=== PATIENT | male | born 1960 | race Two or more races ===

== ENCOUNTER 2017-04-24 22:25 | Emergency (ER) | payer OTHER ==
[2015-02-04 00:08] VITALS: BP 135/105
[2017-04-24] MEDS ORDERED: ONDANSETRON PF 4 MG/2 ML VIAL. IV ONE (22:45)
[2017-04-24] MEDS ORDERED: fentaNYL PF VIAL 100 MCG/2 ML VIAL IV ONE (22:45)
[2017-04-24 22:47] LABS: BASO # 0.1 x10^3/uL (0.0-0.2); BASO % 1 % (0-3); EOS % 2 % (0-3); HEMATOCRIT 41.2 % (39.0-53.0); LYMPH # 1.1 x10^3/uL (1.0-4.8); LYMPH % 14 % (24-48); MEAN CORPUSCULAR HEMOGLOBIN 32 pg (25-35); MEAN CORPUSCULAR HGB CONC 34 g/dL (31-37); MEAN CORPUSCULAR VOLUME 95 fL (79-100); MONO % 6 % (0-9); NEUT % 77 % (31-73); PLATELET COUNT 257 x10^3/uL (140-400); RED BLOOD COUNT 4.35 x10^6/uL (4.30-5.70); RED CELL DISTRIBUTION WIDTH 12.8 % (11.5-14.5); WHITE BLOOD COUNT 7.9 x10^3/uL (4.0-11.0)
[2017-04-24] MEDS ORDERED: IOHEXOL 300 MG/ML 75 ML VIAL IV ONE (23:00)
[2017-04-24] MEDS ORDERED: CONTRAST GIVEN MC PRN (23:00)
[2017-04-24 23:05] LABS: CALCIUM 8.8 mg/dL (8.5-10.1); POTASSIUM 3.1 mmol/L (3.5-5.1)
--- NOTE | 2017-04-24 23:18 | RAD ---
Examination: CT head and cervical spine without contrast Exposure: One or more of the following individualized dose reduction techniques were utilized for this examination: 1. Automated exposure control 2. Adjustment of the mA and/or kV according to patient size 3. Use of iterative reconstruction technique CT HEAD INDICATION: etoh, fall from ladder, prior sent COMPARISON: None Available. TECHNIQUE: 5 mm contiguous axial images were obtained from the skull base to the vertex in both bone and soft tissue algorithm. FINDINGS: No abnormal attenuation within the brain parenchyma. No evidence of acute intracranial hemorrhage. No extra-axial fluid collections. No mass effect or midline shift. Ventricular size is appropriate. Basal cisterns are patent. Mild soft tissue swelling identified in the left carotid region soft tissue injury. No fractures identified.Iglesias-white differentiation is preserved.Globes and orbits are within normal limits. Paranasal sinuses and mastoid air cells are clear. IMPRESSION: No acute intracranial findings. CT CERVICAL SPINE INDICATION: etoh, fall from ladder, prior sent COMPARISON: None Available. Technique: 2.5 mm contiguous axial images were obtained from the skull base through the cervicothoracic junction in both bone and soft tissue algorithm. Additional sagittal and coronal reconstructions were also performed. FINDINGS: Vertebral body alignment are maintained. Cervical lordosis is preserved. The lateral masses of C1 are aligned upon C2. No fractures identified. The bony canal is patent throughout. Moderate size anterior osteophyte formation identified at C4, C5, C6 vertebral levels. Large osteophyte formation identified identified at C7 vertebral level. Moderate intervertebral disc height loss identified at C3-C4, C4-C5, C5-C6, C6-C7 vertebral levels. The bilateral facets are well aligned. The paraspinous soft tissues are unremarkable. Visualized intracranial contents are unremarkable. Lung apices are clear. IMPRESSION: 1. No acute fracture of the cervical spine. Moderate degenerative change cervical spine. Electronically signed by: Romie Fierro MD (04/24/2017 11:15 PM) [facility]
--- NOTE | 2017-04-24 23:35 | RAD ---
Examination: CT chest/abdomen/pelvis with IV contrast and CT thoracic and lumbar spine without contrast Indication: trauma, back pain, no priors Technique: Contiguous axial images were obtained through the chest, abdomen, and pelvis after administration of IV contrast. Coronal and sagittal reformations were created. Axial CT images of the thoracic and lumbar spine was performed without contrast. Coronal and sagittal reformats are performed. Exposure: One or more of the following individualized dose reduction techniques were utilized for this examination: 1. Automated exposure control 2. Adjustment of the mA and/or kV according to patient size 3. Use of iterative reconstruction technique Comparison: None Findings: CHEST: There is no mediastinal hematoma. The heart size is normal. There is no pericardial effusion. The thoracic aorta is normal in caliber. The central airways are patent. Mild bibasilar lung airspace opacity likely atelectasis. Thin-walled cyst identified in the left lower lobe of the lung. Nondisplaced fractures of the posterior left ninth, 10th, 12th ribs. ABDOMEN/PELVIS: Streak artifact from tubing overlying the patient limits evaluation of the abdomen. The liver and spleen are normal in size with no evidence for contusion. The pancreas and adrenal glands are within normal limits. The kidneys are unremarkable. The bowel loops are normal in caliber. The appendix is normal. The abdominal aorta is normal in caliber. There is no hemoperitoneum. The urinary bladder is intact. Moderate degenerative changes visualized lumbar spine. The bilateral facets are well aligned. L5 spondylolysis without evidence of listhesis. Impression: 1. Nondisplaced fractures of the posterior left ninth, 10th, 12th ribs, probably subacute given the appearance correlate for point tenderness. Otherwise no obvious acute traumatic findings. Electronically signed by: Romie Fierro MD (04/24/2017 11:30 PM) [facility]
--- NOTE | 2017-04-24 23:46 | PHYS DOC ---
Past Medical History Past Medical History: No Pertinent History Past Surgical History: Other Additional Past Surgical Histo: L jaw sx, abd sx Alcohol Use: Heavy Drug Use: None Adult General Chief Complaint Chief Complaint: HEAD INJURY/TRAUMA HPI HPI Patient is a 57 year old male who presents with fall from ladder approximately 2 hours prior to ED arrival while at work. Patient states he lost his balance fell backwards. He believes he fell from a height of 20 feet. He reports hitting his head with loss of consciousness. Reports mild neck pain and left paraspinal back pain. Patient was ambulatory after accident went home. Patient has approximately 3 center deep lacerations over medial aspect of his left orbital rim. No globe injury present. Patient denies change of vision. Currently denies headache, nausea vomiting. Denies anterior chest pain, shortness of breath. No abdominal pain or tenderness. No pelvic pain or tenderness. Denies arm and leg pain tenderness. Patient has history of prior right ankle fracture. Reports increased right ankle pain tenderness and swelling. Patient ambulatory and arrives by private vehicle. Patient drinks occasional alcohol acknowledges drinking alcohol after his falling from the later this evening, 2 beers. Review of Systems Review of Systems ROS as per HPI. Current Medications Current Medications Current Medications Medications (Trade) Dose Ordered Sig/Rayna Start Time Stop Time Status Last Admin Dose Admin Fentanyl Citrate (Fentanyl 2ml Vial) 50 mcg 1X ONCE 04/24/17 22:45 04/24/17 22:46 DC 04/24/17 23:12 50 MCG Info (Do NOT chart on this entry -- for MONITORING) 1 each PRN DAILY PRN 04/24/17 23:00 04/25/17 02:16 TX Iohexol (Omnipaque 300 Mg/ml) 75 ml 1X ONCE 04/24/17 23:00 04/24/17 23:01 DC 04/24/17 23:09 75 ML Ondansetron HCl (Zofran) 4 mg 1X ONCE 04/24/17 22:45 04/24/17 22:46 DC 04/24/17 23:10 4 MG Tetanus/ Diphtheria Toxoids (Tenivac Syringe) 0.5 ml ONCE ONCE 04/25/17 00:15 04/25/17 00:16 DC 04/25/17 00:35 0.5 ML Allergies Allergies Allergies Coded Allergies Type Severity Reaction Last Updated Verified No Known Drug Allergies 02/01/15 No Physical Exam Physical Exam Constitutional: Well developed, well nourished, no acute distress, non-toxic appearance. [] HENT: Normocephalic,3 cm deep laceration or medial left eyebrow, bilateral external ears normal, oropharynx moist, no oral exudates, nose normal. [] Eyes: PERRLA, EOMI, conjunctiva normal, no discharge. [] Neck: Normal range of motion, no midline tenderness, supple, no stridor. [] Cardiovascular:Heart rate regular rhythm, no murmur [] Lungs & Thorax: Bilateral breath sounds clear to auscultation [] Abdomen: Bowel sounds normal, soft, no tenderness, no masses, no pulsatile masses. [] Skin: Warm, dry, no erythema, no rash. [] Back: No midline TTP, left paraspinal chest wall pain/tenderness. [] Extremities: No tenderness. [] Neurologic: Alert and oriented X 3, normal motor function, normal sensory function, no focal deficits noted. [] Psychologic: Affect normal, judgement normal, mood normal. [] Current Patient Data Vital Signs Vital Signs Date Time Temp Pulse Resp B/P (MAP) Pulse Ox O2 Delivery O2 Flow Rate FiO2 04/24/17 23:12 96 Room Air Lab Values Laboratory Tests Test 04/24/17 22:37 White Blood Count 7.9 x10^3/uL (4.0-11.0) Red Blood Count 4.35 x10^6/uL (4.30-5.70) Hemoglobin 14.0 g/dL (13.0-17.5) Hematocrit 41.2 % (39.0-53.0) Mean Corpuscular Volume 95 fL (79-100) Mean Corpuscular Hemoglobin 32 pg (25-35) Mean Corpuscular Hemoglobin Concent 34 g/dL (31-37) Red Cell Distribution Width 12.8 % (11.5-14.5) Platelet Count 257 x10^3/uL (140-400) Neutrophils (%) (Auto) 77 % (31-73) H Lymphocytes (%) (Auto) 14 % (24-48) L Monocytes (%) (Auto) 6 % (0-9) Eosinophils (%) (Auto) 2 % (0-3) Basophils (%) (Auto) 1 % (0-3) Neutrophils # (Auto) 6.1 x10^3uL (1.8-7.7) Lymphocytes # (Auto) 1.1 x10^3/uL (1.0-4.8) Monocytes # (Auto) 0.5 x10^3/uL (0.0-1.1) Eosinophils # (Auto) 0.2 x10^3/uL (0.0-0.7) Basophils # (Auto) 0.1 x10^3/uL (0.0-0.2) Sodium Level 145 mmol/L (136-145) Potassium Level 3.1 mmol/L (3.5-5.1) L Chloride Level 108 mmol/L (98-107) H Carbon Dioxide Level 23 mmol/L (21-32) Anion Gap 14 (6-14) Blood Urea Nitrogen 14 mg/dL (8-26) Creatinine 1.0 mg/dL (0.7-1.3) Estimated GFR (Cockcroft-Gault) 77.0 Glucose Level 157 mg/dL (70-99) H Calcium Level 8.8 mg/dL (8.5-10.1) Laboratory Tests 04/24/17 22:37 Laboratory Tests 04/24/17 22:37 EKG EKG [] Radiology/Procedures Radiology/Procedures [CT head/cervical spine/chest/abdomen/pelvis/lumbar/thoracic spine: Multiple Nondisplaced left posterior rib fractures. No other injury evident per radiology report. Right ankle: No obvious displaced acute fracture. Laceration repair procedure note Complex facial laceration of left eyebrow, patient with 3 cm full-thickness stellate laceration involving. Wound is clean, pain controlled with 3 mL so lidocaine injected into wound. Closed with #9 simple interrupted sutures.] Course & Med Decision Making Course & Med Decision Making Pertinent Labs and Imaging studies reviewed. (See chart for details) Trauma alert on ED arrival. Soft tissue she wounds evident on exam, with back pain tenderness without facial injury present. Patient reports possible loss of consciousness. CT head/cervical spine negative. [Patient laceration cleaned and closed. Will controlled. Will discharge home with close head injury instructions and treatment pain from rib injury. Work comp/PCP follow-up recommended. Return precautions reviewed. Dragon Disclaimer Dragon Disclaimer This electronic medical record was generated, in whole or in part, using a voice recognition dictation system. Departure Departure Impression: Primary Impression: Concussion with loss of consciousness Additional Impressions: Facial laceration Multiple rib fractures Disposition: HOME, SELF-CARE Condition: STABLE Referrals: NO PCP (PCP) Problem Qualifiers SCOOTER TOMPKINS DO Apr 24, 2017 23:46
[2017-04-25] MEDS ORDERED: TETANUS AND DIPHTHERIA TOX/PF 0.5 ML DISP.SYRIN. VAX IM ONE (00:15)
--- NOTE | 2017-04-25 08:06 | RAD ---
Right ankle, 3 views, 04/24/2017: History: Trauma There is deformity of the distal fibula due to an old healed fracture. There were moderately severe underlying degenerative changes at the ankle joint. There are spurs and degenerative type subchondral cysts along the talar dome and articular surface of the distal talus. Calcific densities at the tip of the medial malleolus appear to be old. No acute fracture or dislocation is identified. Arterial calcifications are evident. IMPRESSION: 1. Old healed distal fibular fracture. 2. Moderately severe degenerative change at the ankle joint. 3. No acute bony abnormality is detected.
== END 2017-04-25 01:50 | disposition home or self-care (01) ==
LOC: ER 22:25
DX: S06.0X0A Concussion without loss of consciousness, initial encounter (principal); S22.42XA Multiple fractures of ribs, left side, initial encounter for closed fracture; S01.112A Laceration without foreign body of left eyelid and periocular area, initial encounter; M25.571 Pain in right ankle and joints of right foot; W11.XXXA Fall on and from ladder, initial encounter; Y93.89 Activity, other specified; Y99.8 Other external cause status; Y92.89 Other specified places as the place of occurrence of the external cause
CPT/HCPCS: 12013; 36415; 70450; 71260; 72125; 73610; 74160; 80048; 85025; 90471; 90714; 96374; 96375; 99285; J2405; J3010; Q9967

== ENCOUNTER 2018-02-08 20:22 | Emergency (ER) | payer SELFPAY, OTHER | END 2018-02-08 22:25 | disposition left against medical advice (07) | LOC: ER 20:22 | DX: M25.562 Pain in left knee (principal); F10.229 Alcohol dependence with intoxication, unspecified; Y08.09XA Assault by strike by other specified type of sport equipment, initial encounter; Y93.89 Activity, other specified; Y99.8 Other external cause status; Y92.89 Other specified places as the place of occurrence of the external cause | CPT/HCPCS: 70450; 99284-25 ==

== ENCOUNTER 2019-04-19 17:02 | Emergency (ER) | payer OTHER ==
[~2019-04-19] VITALS: Ht 182.9 cm; Wt 90.7 kg
[2019-04-19 17:30] VITALS: BP 141/104
[2019-04-19] MEDS ORDERED: SURGICEL HEMOSTAT 4X8 EACH. TP ONE (17:30)
--- NOTE | 2019-04-19 18:43 | PHYS DOC ---
Past Medical History Past Medical History: No Pertinent History (DEEPTI DAVALOS APRN) Past Surgical History: Other Additional Past Surgical Histo: L jaw sx, abd sx (DEEPTI DAVALOS APRN) Smoking: Less than 1pk/day Alcohol Use: Heavy Additional Information: PT STATES HE DRANK WISKEY AND BEER TODAY. Drug Use: None (DEEPTI DAVALOS APRN) Adult General Chief Complaint Chief Complaint: LACERATION/AVULSION HPI HPI Patient is a 58 year old male who presents to the emergency department with complaints of a laceration to his left thumb. Patient admits to drinking beer and whiskey to help control the pain. Currently he rates the pain that has noted on the pain scale, there are no alleviating factors, the pain increases the area is touched. Patient states he was at work when he accidentally cut his thumb. Patient is unsure when his last tetanus shot was in refuses a tetanus immunization during this visit. (DEEPTI DAVALOS APRN) Review of Systems Review of Systems Constitutional: Denies fever or chills [] Musculoskeletal: Denies joint pain [] Integument: Denies rash; see HPI Neurologic: Denies focal weakness or sensory changes [] Complete systems were reviewed and found to be within normal limits, except as documented in this note. (DEEPTI DAVALOS APRN) Current Medications Current Medications Current Medications Medications (Trade) Dose Ordered Sig/Rayna Start Time Stop Time Status Last Admin Dose Admin Cellulose (Surgicel Hemostat 4x8) 1 each 1X ONCE 04/19/19 17:30 04/19/19 17:31 DC 04/19/19 17:41 1 EACH Ibuprofen (Motrin) 800 mg 1X ONCE 04/19/19 18:45 04/19/19 18:46 DC 04/19/19 19:03 800 MG (ROBERT PLEITEZ DO) Allergies Allergies Allergies Coded Allergies Type Severity Reaction Last Updated Verified No Known Drug Allergies 02/01/15 No (ROBERT PLEITEZ DO) Physical Exam Physical Exam Constitutional: Well developed, well nourished, no acute distress, non-toxic appearance, strong odor of ETOH. [] HENT: Normocephalic, atraumatic, bilateral external ears normal, nose normal. [] Eyes: PERRLA, EOMI, conjunctiva normal, no discharge. [] Neck: Normal range of motion, no stridor. [] Cardiovascular:Heart rate regular rhythm Lungs & Thorax: Respirations even and unlabored, no retractions, no respiratory distress Skin: Warm, dry, no erythema, no rash; avulsion of lateral left thumb through the distal lateral aspect of the thumbnail that measures 3 cm x 1 cm, bleeding is controlled with direct pressure; there is a 1 cm x 0.5 cm avulsion noted to the proximal left thumb, bleeding is controlled with direct pressure.] Back: No tenderness, no CVA tenderness. [] Extremities: No tenderness, no cyanosis, no clubbing, ROM intact, no edema. [] Neurologic: Alert and oriented X 3, normal motor function, normal sensory function, no focal deficits noted. [] Psychologic: Affect normal, judgement normal, mood normal. [] (DEEPTI DAVALOS APRN) Current Patient Data Vital Signs Vital Signs Date Time Temp Pulse Resp B/P (MAP) Pulse Ox O2 Delivery O2 Flow Rate FiO2 04/19/19 17:30 98.2 78 18 141/104 (116) 97 Room Air 98.2 (ROBERT PLEITEZ DO) EKG EKG [] (DEEPTI DAVALOS APRN) Radiology/Procedures Radiology/Procedures L thumb xray was negative for acute findings or fracture read by Dr. Pleitez. The avulsed areas were cleansed with soap and water by myself, Surgicel was applied over both avulsion sites, the Surgicel was then covered with Telfa and then Coban was applied to the areas. (DEEPTI DAVALOS APRN) Course & Med Decision Making Course & Med Decision Making Pertinent Labs and Imaging studies reviewed. (See chart for details) Dx: L thumb avulsions Pt refused a tetanus immunization. Wound care as documented under procedures. L thumb xray was negative for acute findings. The patient was discharged home with his daughter. Pt was given 800 mg of ibuprofen for pain. Pt's daughter and Patient verbalized an understanding of home care, medications, follow-up, and return to ED instructions and was in agreement with the plan of care. [] (DEEPTI DAVALOS APRN) Dragon Disclaimer Dragon Disclaimer This electronic medical record was generated, in whole or in part, using a voice recognition dictation system. (DEEPTI DAVALOS APRN) Departure Departure Impression: Primary Impression: Avulsion of skin of left thumb without complication Additional Impressions: Injury of left thumb Refused phwnvopoik-[id number]-ldtptyx (DPT) vaccination Disposition: 01 HOME, SELF-CARE Condition: STABLE Referrals: NO PCP (PCP) Patient Instructions: Deep Skin Avulsion Additional Instructions: You may take ibuprofen as needed for pain every 6 hours. Keep the dressing that was placed in the ER on for the next 24 hours. Then change the dressing twice daily, the surgicel will fall off on it's own as the wound heals. Follow up with your primary care doctor as needed, return to the ER if symptoms worsen. Attending Signature Attending Signature I have reviewed the PA/[employer]OT[employer] TECHNICIAN's note and plan of care. I was available for consultation as needed during the patient's visit in the emergency department. I agree with the clinical impression, plan, and disposition. (ROBERT PLEITEZ DO) Problem Qualifiers Primary Impression: Avulsion of skin of left thumb without complication Encounter type: initial encounter Qualified Codes: S61.002A - Unspecified open wound of left thumb without damage to nail, initial encounter Additional Impressions: Injury of left thumb Encounter type: initial encounter Qualified Codes: S69.92XA - Unspecified injury of left wrist, hand and finger(s), initial encounter DEEPTI DAVALOS APRN Apr 19, 2019 18:43 ROBERT PLEITEZ DO Apr 21, 2019 03:54
[2019-04-19] MEDS ORDERED: IBUPROFEN 400 MG TABLET. PO ONE (18:45)
--- NOTE | 2019-04-20 03:39 | RAD ---
Left thumb 3 views. HISTORY: Left thumb injury, cut with saw 3 views were taken the left thumb. There is subluxation at the first metacarpal phalangeal joint possible ligamentous injury. There is soft tissue injury of the thumb. There is no acute fracture. There is mild arthritis at the first carpal metacarpal joint. IMPRESSION: 1. Soft tissue injury left thumb. 2. Subluxation of the first metacarpal phalangeal joint possible ligamentous injury. Electronically signed by: Modesto Fulton MD (04/20/2019 3:36 AM) [id number]
== END 2019-04-19 19:04 | disposition home or self-care (01) ==
LOC: ER 17:02
DX: S61.012A Laceration without foreign body of left thumb without damage to nail, initial encounter (principal); F17.200 Nicotine dependence, unspecified, uncomplicated; F10.20 Alcohol dependence, uncomplicated; Y90.9 Presence of alcohol in blood, level not specified; W26.8XXA Contact with other sharp object(s), not elsewhere classified, initial encounter; Y93.89 Activity, other specified; Y92.89 Other specified places as the place of occurrence of the external cause; Y99.8 Other external cause status
CPT/HCPCS: 73140; 99284

== ENCOUNTER 2019-05-19 18:28 | Inpatient (IN) | payer SELFPAY ==
[~2019-05-19] VITALS: Ht 172.7 cm; Wt 83.1 kg
[2019-05-19] MEDS ORDERED: MULTIVIT INFUSN,ADULT 4,VIT K 10 ML, THIAMINE INJ 100 MG, FOLIC ACID INJ 1 MG in IV NOR... IV ONE (19:30)
[2019-05-19] MEDS ORDERED: ONDANSETRON PF 4 MG/2 ML VIAL. IV ONE (19:30)
[2019-05-19 19:31] LABS: PROTHROMBIN TIME PATIENT 11.4 SEC (11.7-14.0)
[2019-05-19 19:36] LABS: BASO % 1 % (0-3); EOS # 0.1 x10^3/uL (0.0-0.7); EOS % 2 % (0-3); HEMATOCRIT 41.6 % (39.0-53.0); HEMOGLOBIN 14.2 g/dL (13.0-17.5); LYMPH # 0.9 x10^3/uL (1.0-4.8); LYMPH % 13 % (24-48); MEAN CORPUSCULAR HEMOGLOBIN 33 pg (25-35); MEAN CORPUSCULAR HGB CONC 34 g/dL (31-37); MEAN CORPUSCULAR VOLUME 97 fL (79-100); MONO # 0.6 x10^3/uL (0.0-1.1); MONO % 9 % (0-9); NEUT % 75 % (31-73); PLATELET COUNT 165 x10^3/uL (140-400); RED BLOOD COUNT 4.28 x10^6/uL (4.30-5.70); WHITE BLOOD COUNT 6.7 x10^3/uL (4.0-11.0)
[2019-05-19 19:41] LABS: CALCIUM 8.9 mg/dL (8.5-10.1); GFR 76.5; POTASSIUM 3.6 mmol/L (3.5-5.1)
[2019-05-19 19:47] LABS: ALBUMIN 3.4 g/dL (3.4-5.0); MAGNESIUM 2.2 mg/dL (1.8-2.4); TOTAL BILIRUBIN 0.3 mg/dL (0.2-1.0); TOTAL PROTEIN 6.9 g/dL (6.4-8.2)
[2019-05-19 20:14] LABS: BARBITURATES NEG (NEG); BENZODIAZEPINES NEG (NEG); CANNABINOIDS NEG (NEG); COCAINE NEG (NEG); METHADONE NEG (NEG); OPIATES NEG (NEG); PHENCYCLIDINE NEG (NEG)
[2019-05-19 20:15] LABS: AMPHETAMINE/METHAMPHETAMINE NEG (NEG)
[2019-05-19] MEDS ORDERED: ASPIRIN 325 MG TABLET PO ONE (20:15)
[2019-05-19 20:16] LABS: ACETAMIN < 2 mcg/ml (10-30); SALIC 4.1 mg/dL (2.8-20.0)
--- NOTE | 2019-05-19 20:26 | PHYS DOC ---
Past Medical History Past Medical History: No Pertinent History (DEEPTI DAVALOS APRN) Past Surgical History: Other Additional Past Surgical Histo: L jaw sx, abd sx (DEEPTI DAVALOS APRN) Alcohol Use: Heavy Drug Use: None (DEEPTI DAVALOS APRN) Attending Signature I have participated in the care of this patient and I have reviewed and agree with all pertinent clinical information above including history, exam, and recommendations. (XUAN RIVERO MD) Adult General Chief Complaint Chief Complaint: CHEST PAIN HPI HPI Patient is a 59 year old male who presents to the emergency department via EMS with complaints of chest pain on the left side for the last 2 days. Patient reports shortness of breath, wheezing, nausea, vomiting, and diaphoresis with the symptoms. He admits to drinking 3 bottles of whiskey today. Patient states he has also had some diarrhea for the last 3 days. He denies any fever, c ough, nasal congestion, ear pain, abdominal pain, or rash. Patient currently rates his pain a 9 out of 10 on pain scale, there are no alleviating or exacerbating factors. (DEEPTI DAVALOS APRN) Review of Systems Review of Systems Constitutional: Denies fever or chills [] Eyes: Denies change in visual acuity, redness, or eye pain [] HENT: Denies nasal congestion or sore throat [] Respiratory: Denies cough; see history of present illness Cardiovascular: No additional information not addressed in HPI [] GI: See history of present illness : Denies dysuria or hematuria [] Musculoskeletal: Denies back pain or joint pain [] Integument: Denies rash or skin lesions [] Neurologic: Denies headache, focal weakness or sensory changes [] Psychiatric: Patient reports suicidal ideations Complete systems were reviewed and found to be within normal limits, except as documented in this note. (DEEPTI DAVALOS APRN) Current Medications Current Medications Current Medications Medications (Trade) Dose Ordered Sig/Rayna Start Time Stop Time Status Last Admin Dose Admin Aspirin (Pete Aspirin) 325 mg 1X ONCE 05/19/19 20:15 05/19/19 20:17 DC 05/19/19 20:26 325 MG Multivitamins 10 ml/Thiamine HCl 100 mg/Folic Acid 1 mg/Sodium Chloride 1,011.2 ml @ 1,000.088 mls/hr 1X ONCE 05/19/19 19:30 05/19/19 20:30 DC 05/19/19 19:39 1,000.088 MLS/HR Ondansetron HCl (Zofran) 4 mg 1X ONCE 05/19/19 19:30 05/19/19 19:31 DC 05/19/19 19:39 4 MG (XUAN RIVERO MD) Allergies Allergies Allergies Coded Allergies Type Severity Reaction Last Updated Verified No Known Drug Allergies 02/01/15 No (XUAN RIVERO MD) Physical Exam Physical Exam Constitutional: Well developed, well nourished, no acute distress, non-toxic appearance, intoxicated. [] HENT: Normocephalic, atraumatic, bilateral external ears normal, oropharynx moist, no oral exudates, nose normal. [] Eyes: PERRLA, EOMI, conjunctiva normal, no discharge. [] Neck: Normal range of motion, no tenderness, supple, no stridor. [] Cardiovascular:Heart rate regular rhythm, no murmur [] Lungs & Thorax: Bilateral breath sounds clear to auscultation [] Abdomen: Bowel sounds normal, soft, no tenderness, no masses, no pulsatile masses. [] Skin: Warm, dry, no erythema, no rash. [] Back: No tenderness Extremities: No cyanosis, no clubbing, ROM intact, no edema. [] Neurologic: Alert and oriented X 3, no focal deficits noted. [] Psychologic: Affect intoxicated, judgement impaired, mood depressed (DEEPTI DAVALOS APRN) Current Patient Data Vital Signs Vital Signs Date Time Temp Pulse Resp B/P (MAP) Pulse Ox O2 Delivery O2 Flow Rate FiO2 05/19/19 20:11 86 175/116 (135) 95 Nasal Cannula 2.0 05/19/19 18:28 98.0 18 98.0 (XUAN RIVERO MD) Lab Values Laboratory Tests Test 05/19/19 19:15 05/19/19 20:00 White Blood Count 6.7 x10^3/uL (4.0-11.0) Red Blood Count 4.28 x10^6/uL (4.30-5.70) L Hemoglobin 14.2 g/dL (13.0-17.5) Hematocrit 41.6 % (39.0-53.0) Mean Corpuscular Volume 97 fL (79-100) Mean Corpuscular Hemoglobin 33 pg (25-35) Mean Corpuscular Hemoglobin Concent 34 g/dL (31-37) Red Cell Distribution Width 13.0 % (11.5-14.5) Platelet Count 165 x10^3/uL (140-400) Neutrophils (%) (Auto) 75 % (31-73) H Lymphocytes (%) (Auto) 13 % (24-48) L Monocytes (%) (Auto) 9 % (0-9) Eosinophils (%) (Auto) 2 % (0-3) Basophils (%) (Auto) 1 % (0-3) Neutrophils # (Auto) 5.0 x10^3/uL (1.8-7.7) Lymphocytes # (Auto) 0.9 x10^3/uL (1.0-4.8) L Monocytes # (Auto) 0.6 x10^3/uL (0.0-1.1) Eosinophils # (Auto) 0.1 x10^3/uL (0.0-0.7) Basophils # (Auto) 0.0 x10^3/uL (0.0-0.2) Prothrombin Time 11.4 SEC (11.7-14.0) L Prothrombin Time INR 0.9 (0.8-1.1) Activated Partial Thromboplast Time 24 SEC (24-38) Sodium Level 146 mmol/L (136-145) H Potassium Level 3.6 mmol/L (3.5-5.1) Chloride Level 109 mmol/L (98-107) H Carbon Dioxide Level 24 mmol/L (21-32) Anion Gap 13 (6-14) Blood Urea Nitrogen 17 mg/dL (8-26) Creatinine 1.0 mg/dL (0.7-1.3) Estimated GFR (Cockcroft-Gault) 76.5 BUN/Creatinine Ratio 17 (6-20) Glucose Level 83 mg/dL (70-99) Calcium Level 8.9 mg/dL (8.5-10.1) Magnesium Level 2.2 mg/dL (1.8-2.4) Total Bilirubin 0.3 mg/dL (0.2-1.0) Aspartate Amino Transferase (AST) 38 U/L (15-37) H Alanine Aminotransferase (ALT) 43 U/L (16-63) Alkaline Phosphatase 78 U/L (46-116) Creatine Kinase 230 U/L (39-308) Creatine Kinase MB (Mass) 2.8 ng/mL (0.0-3.6) Creatine Kinase MB Relative Index 1.2 % (0-4) Troponin I Quantitative 0.071 ng/mL (0.000-0.055) Total Protein 6.9 g/dL (6.4-8.2) Albumin 3.4 g/dL (3.4-5.0) Albumin/Globulin Ratio 1.0 (1.0-1.7) Lipase 501 U/L (73-393) H Salicylates Level 4.1 mg/dL (2.8-20.0) Salicylate Last Dose Date Unk Salicylate Last Dose Time Unk Acetaminophen Level < 2 mcg/ml (10-30) L Acetaminophen Last Dose Date Unl Acetaminophen Last Dose Time Unk Ethyl Alcohol Level 384 mg/dL (0-10) H Urine Opiates Screen Neg (NEG) Urine Methadone Screen Neg (NEG) Urine Barbiturates Neg (NEG) Urine Phencyclidine Screen Neg (NEG) Urine Amphetamine/Methamphetamine Neg (NEG) Urine Benzodiazepines Screen Neg (NEG) Urine Cocaine Screen Neg (NEG) Urine Cannabinoids Screen Neg (NEG) Urine Ethyl Alcohol Pos (NEG) Laboratory Tests 05/19/19 19:15 Laboratory Tests 05/19/19 19:15 (XUAN RIVERO MD) EKG EKG 1841- SR rate 87, leftward axis, NO STEMI, read by Dr. Rivero[] (DEEPTI DAVALOS APRN) Radiology/Procedures Radiology/Procedures CXR no acute findings read by Dr. Rivero[] (DEEPTI DAVALOS APRN) Course & Med Decision Making Course & Med Decision Making Pertinent Labs and Imaging studies reviewed. (See chart for details) Dx:Chest pain, suicidal ideations, ETOH intoxication CBC unremarkable; PT/INR WNL; CMP: Na 146, cl 109, AST 38, lipase 501, troponin 0.071; ID positive for alcohol, alcohol level 384 CXR unremarkable EKG no acute changes PT was given 325 of aspirin in the ER, he denied chest pain to nurse. Pt was placed on 1:1 after suicidal statements were made to nurse, PAT consult ordered for tomorrow. 2019- Spoke with Dr. Hernandez will admit patient for chest pain, intoxication, suicidal ideations [] (DEEPTI DAVALOS APRN) Dragon Disclaimer Dragon Disclaimer This electronic medical record was generated, in whole or in part, using a voice recognition dictation system. (DEEPTI DAVALOS APRN) Departure Departure Impression: Primary Impression: Chest pain Additional Impressions: Suicidal ideations Intoxication Disposition: ADMITTED INPATIENT Admitting Physician: MOHSEN LOPEZ) (DEEPTI DAVALOS APRN) Referrals: NO PCP (PCP) The HEART Score for CP Pts HEART Score for Chest Pain: HEART Score for Chest Pain Response (Comments) Value History Slighlty/Non-Suspicious 0 ECG Normal 0 Age >45 - < 65 1 Risk Factors 1 or 2 Risk Factors 1 Troponin >1-<3x Normal Limit 1 Total 3 Risk Factors: Risk Factors: DM, Current or recent (<one month) smoker, HTN, HLP, family history of CAD, obesity. Risk Scores: Score 0 - 3: 2.5% MACE over next 6 weeks - Discharge Home Score 4 - 6: 20.3% MACE over next 6 weeks - Admit for Clinical Observation Score 7 - 10: 72.7% MACE over next 6 weeks - Early Invasive Strategies (DEEPTI DAVALOS APRN) Problem Qualifiers Primary Impression: Chest pain Chest pain type: unspecified Qualified Codes: R07.9 - Chest pain, unspecified DEEPTI DAVALOS APRN May 19, 2019 20:26 XUAN RIVERO MD May 20, 2019 02:59
[2019-05-19 21:30] VITALS: BP 158/94
[2019-05-19] MEDS ORDERED: HALOPERIDOL LACTATE 5 MG/ML VIAL. IVP PRN (21:30)
--- NOTE | 2019-05-19 21:30 | NUR ---
Admit from ER w/ CP, ETOH and SI. c/o sharp left sided chest pain x 2 days. States he drinks whiskey and beer for pain control. States "everybody dies and I need to." Reports + suicidal attempt by hanging 3 months ago due to leaving him, but "the rope broke." Is in general unkempt state, alert and oriented currently, asks this RN "for a beer." Making numerous attempts to call his daughter via cell phone. This RN left voice mail for Eliu Chiang. Pt reports she "fixes his meds." Also reports that he is supposed to be "taking 5 pills a day but doesn't." Is poor historian but says he had a "stent" placed via right wrist at 3 months ago. 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 1:1 sitter w/ SI precautions in place.
[2019-05-19 23:18] VITALS: BP 168/106
[2019-05-19] MEDS: MORPHINE SULFATE 2 MG/ML VIAL. IV PRN (23:18)
[2019-05-19] MEDS: cloNIDine HCL 0.1 MG TABLET PO PRN (23:29)
[2019-05-20] VITALS (8 sets, daily range): BP systolic 133–184; BP diastolic 79–102
[2019-05-20] MEDS ORDERED: INFLUENZA VAX SCREEN BY RX. MC PRN (00:30)
--- NOTE | 2019-05-20 01:17 | RAD ---
EXAM: CHEST ONE VIEW. HISTORY: Chest pain. COMPARISON: 02/01/2015. FINDINGS: A frontal view of the chest is obtained. There are no confluent infiltrates. There is no pneumothorax or pleural effusion. The heart is mildly enlarged. There is a calcified granuloma in the right midlung. There are atherosclerotic calcifications of the aorta. There are chronic left rib fractures. IMPRESSION: 1. Mild cardiomegaly. Electronically signed by: Jaime Briceño MD (05/20/2019 1:14 AM) [facility]
[2019-05-20] MEDS: MORPHINE SULFATE 2 MG/ML VIAL. IV PRN ×4 (01:22→11:32)
--- NOTE | 2019-05-20 01:31 | NUR ---
Flu vaccine given right deltoid. Rubbing his chest, c/o "squeezing" chest pain, rating 7/10. Morphine given.
[2019-05-20 05:09] LABS: CHOLESTEROL/HDL RATIO 1.8
--- NOTE | 2019-05-20 06:18 | EKG ---
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
[2019-05-20] MEDS ORDERED: ONDANSETRON PF 4 MG/2 ML VIAL. IVP PRN (08:30)
[2019-05-20] MEDS: NICOTINE 21MG PATCH. TD SCH (08:36)
[2019-05-20] MEDS ORDERED: FLU VAX QS 2019-20 (36MOS+)/PF 0.5 ML SYRINGE. VAX IM ONE (09:00)
--- NOTE | 2019-05-20 09:58 | PDOC2 ---
CARDIAC CONSULT DATE OF CONSULT Date of Consult DATE: 05/20/19 TIME: 09:37 REASON FOR CONSULT Reason for Consult: elevated troponin, chest pain REFERRING PHYSICIAN Referring Physician: Haritha SOURCE Source: Chart review, Patient HISTORY OF PRESENT ILLNESS HISTORY OF PRESENT ILLNESS This is a 59 yo male admitted for complains of chest pain. Reports that he has been drinking baseline of 2 pints whiskey and 2 beers almost everyday for many yrs now. He said that he just could not stop. Reports that he has been having thought of hurting himself at least in the last 2 weeks. He does not a plan. Verbalized that sometimes he does feel depressed. No hx of mental illness. He lives with his daughter and told him before that he drinks too much. Reports that he started having intermittent midchest pressure since 2PM yesterday. Had some nausea and occasional SOA. Denies any palpitations or vomiting. His pain is mainly in the epigastric/sternal border and also to the LUQ of abdomen. No recent falls or injury. He reported having possibly stent placement about 3 months ago in . He took his medications for a month then he ran out. He has not been compliant with his medications and appointment. No prior arrhythmias, VTE. PAST MEDICAL HISTORY Cardiovascular: CAD, HTN, Hyperlipidemia Pulmonary: No pertinent hx CENTRAL NERVOUS SYSTEM: Other (No pertinent history) GI: No pertinent hx Psych: Other (chronic alcoholism) Musculoskeletal: Osteoarthritis Rheumatologic: No pertinent hx Infectious disease: No pertinent hx ENT: No pertinent hx Renal/: No pertinent hx Endocrine: No pertinent hx Dermatology: No pertinent hx PAST SURGICAL HISTORY Past Surgical History: Other (jaw repair; ?PCI) FAMILY HISTORY Family History noncontributory SOCIAL HISTORY Smoke: <1 pack per day ALCOHOL: heavy Drugs: None Lives: with Family CURRENT MEDICATIONS CURRENT MEDICATIONS Current Medications Medications (Trade) Dose Ordered Sig/Rayna Route PRN Reason Start Time Stop Time Status Last Admin Dose Admin Multivitamins 10 ml/Thiamine HCl 100 mg/Folic Acid 1 mg/Sodium Chloride 1,011.2 ml @ 1,000.088 mls/hr 1X ONCE IV 05/19/19 19:30 05/19/19 20:30 DC 05/19/19 19:39 Ondansetron HCl (Zofran) 4 mg 1X ONCE IV 05/19/19 19:30 05/19/19 19:31 DC 05/19/19 19:39 Aspirin (Pete Aspirin) 325 mg 1X ONCE PO 05/19/19 20:15 05/19/19 20:17 DC 05/19/19 20:26 Clonidine HCl (Catapres) 0.1 mg PRN Q1HR PRN PO SBP > 180 or DBP > 100, MRX3 05/19/19 21:30 05/19/19 23:29 Influenza Virus Vaccine Quadrival (Afluria Quad 2019-20 (3yr Up) Syringe) 0.5 ml ONCE ONCE VAX IM 05/20/19 09:00 05/20/19 09:01 DC 05/20/19 01:30 Morphine Sulfate (Morphine Sulfate) 2 mg PRN Q2HR PRN IV PAIN 05/19/19 22:45 05/20/19 08:30 Nicotine (Nicoderm Cq 21mg) 1 patch DAILY TD 05/20/19 09:00 05/20/19 08:36 Ondansetron HCl (Zofran) 4 mg PRN Q6HRS PRN IVP NAUSEA/VOMITING 05/20/19 08:30 05/20/19 08:30 ALLERGIES ALLERGIES: Coded Allergies: No Known Drug Allergies (Unverified , 02/01/15) ROS Review of System 14 point ROS evaluated with pertinent positives noted per HPI PHYSICAL EXAM General: Alert, Oriented X3, Cooperative, No acute distress HEENT: Atraumatic, Mucous membr. moist/pink Lungs: Clear to auscultation, Other (faint basilar wheeze) Heart: Regular rate (SR), Normal S1, Normal S2, Other (2/6 systolic murmur ) Abdomen: Soft, No tenderness Extremities: No cyanosis, No edema Skin: No breakdown, No significant lesion Neuro: Normal speech, Sensation intact Psych/Mental Status: Mental status NL, Mood NL MUSCULOSKELETAL: Osteoarthritic changes both hands VITALS/I&O VITALS/I&O: Vital Signs Date Time Temp Pulse Resp B/P (MAP) Pulse Ox O2 Delivery O2 Flow Rate FiO2 05/20/19 08:30 16 Nasal Cannula 2.0 05/20/19 06:36 68 160/93 (115) 96 05/19/19 21:30 98.5 98.5 I & O 05/19/19 05/19/19 05/20/19 15:00 23:00 07:00 Intake Total 1000 ml Output Total 775 ml Balance 1000 ml -775 ml LABS Lab: Laboratory Tests Test 05/19/19 19:15 05/19/19 20:00 05/20/19 02:46 White Blood Count 6.7 x10^3/uL (4.0-11.0) Red Blood Count 4.28 x10^6/uL (4.30-5.70) L Hemoglobin 14.2 g/dL (13.0-17.5) Hematocrit 41.6 % (39.0-53.0) Mean Corpuscular Volume 97 fL (79-100) Mean Corpuscular Hemoglobin 33 pg (25-35) Mean Corpuscular Hemoglobin Concent 34 g/dL (31-37) Red Cell Distribution Width 13.0 % (11.5-14.5) Platelet Count 165 x10^3/uL (140-400) Neutrophils (%) (Auto) 75 % (31-73) H Lymphocytes (%) (Auto) 13 % (24-48) L Monocytes (%) (Auto) 9 % (0-9) Eosinophils (%) (Auto) 2 % (0-3) Basophils (%) (Auto) 1 % (0-3) Neutrophils # (Auto) 5.0 x10^3/uL (1.8-7.7) Lymphocytes # (Auto) 0.9 x10^3/uL (1.0-4.8) L Monocytes # (Auto) 0.6 x10^3/uL (0.0-1.1) Eosinophils # (Auto) 0.1 x10^3/uL (0.0-0.7) Basophils # (Auto) 0.0 x10^3/uL (0.0-0.2) Prothrombin Time 11.4 SEC (11.7-14.0) L Prothrombin Time INR 0.9 (0.8-1.1) Activated Partial Thromboplast Time 24 SEC (24-38) Sodium Level 146 mmol/L (136-145) H Potassium Level 3.6 mmol/L (3.5-5.1) Chloride Level 109 mmol/L (98-107) H Carbon Dioxide Level 24 mmol/L (21-32) Anion Gap 13 (6-14) Blood Urea Nitrogen 17 mg/dL (8-26) Creatinine 1.0 mg/dL (0.7-1.3) Estimated GFR (Cockcroft-Gault) 76.5 BUN/Creatinine Ratio 17 (6-20) Glucose Level 83 mg/dL (70-99) Calcium Level 8.9 mg/dL (8.5-10.1) Magnesium Level 2.2 mg/dL (1.8-2.4) Total Bilirubin 0.3 mg/dL (0.2-1.0) Aspartate Amino Transferase (AST) 38 U/L (15-37) H Alanine Aminotransferase (ALT) 43 U/L (16-63) Alkaline Phosphatase 78 U/L (46-116) Creatine Kinase 230 U/L (39-308) Creatine Kinase MB (Mass) 2.8 ng/mL (0.0-3.6) Creatine Kinase MB Relative Index 1.2 % (0-4) Troponin I Quantitative 0.071 ng/mL (0.000-0.055) 0.087 ng/mL (0.000-0.055) Total Protein 6.9 g/dL (6.4-8.2) Albumin 3.4 g/dL (3.4-5.0) Albumin/Globulin Ratio 1.0 (1.0-1.7) Lipase 501 U/L (73-393) H 297 U/L (73-393) Salicylates Level 4.1 mg/dL (2.8-20.0) Salicylate Last Dose Date Unk Salicylate Last Dose Time Unk Acetaminophen Level < 2 mcg/ml (10-30) L Acetaminophen Last Dose Date Unl Acetaminophen Last Dose Time Unk Ethyl Alcohol Level 384 mg/dL (0-10) H Urine Opiates Screen Neg (NEG) Urine Methadone Screen Neg (NEG) Urine Barbiturates Neg (NEG) Urine Phencyclidine Screen Neg (NEG) Urine Amphetamine/Methamphetamine Neg (NEG) Urine Benzodiazepines Screen Neg (NEG) Urine Cocaine Screen Neg (NEG) Urine Cannabinoids Screen Neg (NEG) Urine Ethyl Alcohol Pos (NEG) Triglycerides Level 25 mg/dL (0-150) Cholesterol Level 186 mg/dL (0-200) LDL Cholesterol, Calculated 76 mg/dL (0-100) VLDL Cholesterol, Calculated 5 mg/dL (0-40) Non-HDL Cholesterol Calculated 81 mg/dL (0-129) HDL Cholesterol 105 mg/dL (40-60) H Cholesterol/HDL Ratio 1.8 Laboratory Tests 05/19/19 19:15 Laboratory Tests 05/19/19 19:[address] ABDOMEN AND PELVIS Clinical Indication: Male, 59 years old. Fall with lower lumbar/sacral midline tenderness. Drinking alcohol this afternoon with a fall up stairs. Technique: Multiple contiguous axial images were obtained through the abdomen and pelvis following the administration of IV contrast material. Portal venous and delayed imaging was obtained. Post processing coronal and sagittal reconstruction images were made from the axial images. IV contrast: Yes Bowel contrast: None Comparison: Chest CT October 12, 2018. CT CAP August 17, 2018 FINDINGS: Lower Thorax: Normal size heart with calcific coronary artery disease. No significant pericardial effusion is visualized. Small calcified granuloma is present posteriorly within the right lower lobe. Mild groundglass subpleural scarring posteriorly within both lung bases is unchanged. Several old, healed bilateral rib fracture deformities are present. Liver and Biliary system: Mild hepatomegaly with diffuse steatosis. No calcified gallstones. Common bile duct is normal in caliber. Spleen: Unremarkable. Adrenal Glands and Kidneys: Both adrenal glands are normal. Both kidneys are unremarkable except for a sub-5 mm cyst anteriorly on the right. Pancreas and Retroperitoneum: Unremarkable. Aorta and Major Vessels: Normal caliber, mildly tortuous abdominal aorta with mild atherosclerosis. Bowel, Mesentery and Peritoneal space: Bowel loops are normal in caliber. Appendix is normal. No ascites or pneumoperitoneum. Calcification present within the right lower quadrant (series 3 image 56) is unchanged and most likely represents an incidental calcified lymph node granuloma. Pelvis: Prostate gland is mildly enlarged. Mildly distended and partially opacified urinary bladder is unremarkable. No pelvic lymphadenopathy. Small fat-containing left inguinal hernia. Abdominal wall and Osseous Structures: Small calcification and mild stranding within the subcutaneous tissues lateral to the right hip is unchanged and likely related to prior trauma. Mild lumbar spondylosis. Unchanged chronic bilateral spondylolysis at L5 and subtle grade 1 anterolisthesis. Subtle wedging of L2 is unchanged. IMPRESSION 1. No evidence of major intra-abdominal traumatic injury 2. Hepatomegaly and diffuse steatosis 05/18/2019 4:[address] HEAD: Comparison is made with prior CTs. The most recent CT head is from February 07, 2019. There is no acute intracranial hemorrhage. There is no midline shift, mass effect or extra-axial fluid collection. The peripheral meade-white interfaces are maintained. There are mild areas of white matter low-attenuation without significant change. There is no acute calvarial fracture. Mastoid air cells and middle ear cavities are clear. There is chronic appearing nasal bone fracture deformity. There is partial visualization of prior left mandibular fracture repair. CT cervical spine: Comparison is made to prior CT cervical spine from February 07, 2019. There is no acute cervical spine fracture or subluxation. There is multilevel disc degeneration and facet arthropathy which is stable compared to the prior examination from January. There is unchanged multilevel foraminal stenosis which has marked areas of narrowing at C4-5 and C5-6. There is at least moderate central spinal stenosis at several levels. IMPRESSION CT HEAD: 1. No acute intracranial hemorrhage or mass effect. 2. No acute calvarial fracture. CT cervical spine: 1. No acute cervical spine fracture or subluxation. 2. Stable multilevel disc degeneration and facet arthropathy. Unchanged spinal and foraminal stenosis compared to January 2019 05/18/2019 HEART CATH HEART CATH RESULTS: Left main: The left main has minimal plaquing within it. It arises from the left coronary cusp in standard position. It trifurcates into the LAD, left circumflex, and ramus intermedius arteries. Left anterior descending artery: The left anterior descending artery has mild to moderate calcification in the proximal segment. It gives rise to a small high diagonal branch and then a mid 99% stenosis with JUANIS-2 flow. It then gives rise to a 2nd diagonal branch. The LAD is a type 2 vessel. Ramus intermedius artery: The ramus intermedius artery is a large vessel that subtends a large portion of the high lateral wall. It branches in the midportion to superior and inferior limbs. There is a 30% stenosis of the ostium of the ramus intermedius artery. Left circumflex artery: The left circumflex artery gives rise to 2 moderate-size obtuse marginal branches. There is minimal plaquing noted in the left circumflex system. The right coronary artery is strongly dominant, with a dominant RPD and a moderate to large RPLV branch. The proximal portion of the RCA has a 40% to 50% stenosis. The remainder of the vessel has mild plaquing within it. HEMODYNAMICS: At the initiation procedure, revealed an LV pressure of 90 with LVEDP of 10. There was no aortic valve gradient on pullback. DETAILS OF THE INTERVENTIONAL PORTION OF THE PROCEDURE: An EBU 3.5 guide gave excellent seating and support. A Luge wire was able to traverse the lesion with mild difficulty. Subsequently, direct stenting was performed utilizing a 3.0 x 23 mm Xience stent. This was then post dilated with 3.5 x 12 NC Withams balloon. Four sequential inflations were performed up to 18 atmospheres throughout the stented area. This resulted in excellent expansion of the stent distally, but it was felt that proximally further expansion was needed. Subsequently, a 4.0 x 8 mm NC Withams balloon was taken up to 16 atmospheres for 2 sequential inflations in the mid and proximal segments. This resulted in excellent expansion of the stent. There was JUANIS grade 3 re-established. There was no evidence of plaque prolapse, perforation, or thrombus. There was JUANIS-3 flow within the LAD. This was confirmed in wire-out orthogonal views. IMPRESSION: Subtotal mid LAD with JUANIS grade 2 flow, culprit for the patient's acute coronary syndrome. Normal LVEDP. No significant disease within the right coronary artery, left circumflex, or ramus intermedius artery. Successful PCI of the mid LAD utilizing a single 3.0 x 23 mm Xience stent (post dilated to 3.5 distally and 4.0 proximally). RECOMMENDATIONS: Aspirin indefinitely. Brilinta with conversion to Plavix. Echo Doppler. Aggressive risk reduction, including initiation of statin therapy. 08/24/2018 ASSESSMENT/PLAN ASSESSMENT/PLAN 1. Chest pain: multifactorial as noted below. 2. Heavy alcoholism with withdrawal per PCP 3. HTN urgency 4. Mild troponin elevation: peaked at 0.09 without acute EKG changes. Suspect demand mediated 5. Depression with suicidal ideation: no plans. per PCP 6. HLP: HDL 105 7. CAD: 08/2018 PCI/HANG to LAD 8. Tobaccoism 9. Noncompliance 10. Recent fall with ETOH intoxication: was in ED 05/18/2019 Recommendations 1. GI cocktail, PPI 2. Continue with 1:1, CIWA protocol. Defer to PCP 3. TTE, EKG. Agree with plavix. ASA. statin 4. Start on lisinopril. Clonidine PRN. Hold any BB given his depression 5. Smoking cessation. ETOH management per PCP 6. 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
[2019-05-20] MEDS ORDERED: PANTOPRAZOLE 40 MG TABLET.DR. PO ONE (10:00)
[2019-05-20] MEDS ORDERED: LIDO:MAALOX 1:1 20 ML SINGLE DOSE. SWSW ONE (10:00)
--- NOTE | 2019-05-20 10:00 | CARD ---
MR#: [id number] Date of Study: 05/20/2019 Ordering Physician: SHEEBA INGRAM, Referring Physician: SHEEBA INGRAM, Tech: Diamond Choe SARITA APPROVED REPORT EXAM: Two-dimensional and M-mode echocardiogram with Doppler and color Doppler. Other Information Quality : AverageHR: 55bpm Rhythm : Bradycardia INDICATION Chest Pain 2D DIMENSIONS RVDd3.0 (2.9-3.5cm)Left Atrium(2D)3.4 (1.6-4.0cm) IVSd1.4 (0.7-1.1cm)Aortic Root(2D)3.4 (2.0-3.7cm) LVDd4.5 (3.9-5.9cm)LVOT Diameter2.2 (1.8-2.4cm) PWd1.1 (0.7-1.1cm)LVDs2.6 (2.5-4.0cm) FS (%) 42.7 %SV68.5 ml LVEF(%)70.0 (>50%) M-Mode DIMENSIONS Left Atrium(MM)3.87 (2.5-4.0cm)Aortic Root2.93 (2.2-3.7cm) Aortic Valve AoV Peak Keo.165.8cm/sAoV VTI36.8cm AO Peak GR.11.0mmHgLVOT Peak Keo.114.0cm/s AO Mean GR.5mmHgAVA (VMAX)2.60cm2 ARAMIS (VTI)2.60cm2 Mitral Valve MV E Xhvydqds91.8cm/sMV DECEL MBNH080re MV A Wofvzvtu53.3cm/sE/A Ratio1.3 Pulmonary Valve PV Peak Qunndaav56.8cm/s Tricuspid Valve TR P. Cssbbwkt389sx/sRAP [id number] TR Peak Gr.51rnVyPHWC24snLj LEFT VENTRICLE The left ventricle is normal size. There is mild concentric left ventricular hypertrophy. The left ve ntricular systolic function is normal. The Ejection Fraction is 65-70%. There is normal LV segmental wall motion. Transmitral Doppler flow pattern is Grade II-pseudonormal filling dynamics. RIGHT VENTRICLE The right ventricle is normal size. There is normal right ventricular wall thickness. The right ventr icular systolic function is normal. ATRIA The left atrium size is normal. The right atrium size is normal. The interatrial septum is intact wit h no evidence for an atrial septal defect or patent foramen ovale as noted on 2-D or Doppler imaging. AORTIC VALVE The aortic valve is thickened but opens well. The aortic valve is trileaflet. Doppler and Color Flow revealed trace aortic regurgitation. There is no significant aortic valvular stenosis. There is no ao rtic valvular vegetation. MITRAL VALVE The mitral valve is normal in structure and function. There is no evidence of mitral valve prolapse. There is no mitral valve stenosis. Doppler and Color-flow revealed trace mitral regurgitation. TRICUSPID VALVE The tricuspid valve is normal in structure and function. Doppler and Color Flow revealed trace tricus pid regurgitation. The PA pressure was estimated at 25 mmHg. There is no tricuspid valve prolapse or vegetation. There is no tricuspid valve stenosis. PULMONIC VALVE The pulmonic valve is not well visualized. GREAT VESSELS The aortic root is normal in size. The ascending aorta is normal in size. The IVC is normal in size a nd collapses >50% with inspiration. PERICARDIAL EFFUSION There is no evidence of significant pericardial effusion. Critical Notification Critical Value: No <Conclusion> The left ventricular systolic function is normal. The Ejection Fraction is 65-70%. There is normal LV segmental wall motion. Trace mitral regurgitation. Trace tricuspid regurgitation. The PA pressure was estimated at 25 mmHg. There is no evidence of significant pericardial effusion. Signed by : Andres Delgado, Electronically Approved : 05/20/2019 09:59:43
[2019-05-20] MEDS: CLOPIDOGREL BISULFATE 75 MG TABLET PO SCH (10:10)
[2019-05-20] MEDS: LISINOPRIL 20 MG TABLET PO SCH (10:13)
--- NOTE | 2019-05-20 10:14 | EKG ---
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 Electronically Signed On 05-28-2019 16:36:38 CDT by Ric Ferreira
--- NOTE | 2019-05-20 11:15 | NUR ---
SS following for discharge planning. SS reviewed pt chart. Pt is from home and is currently requiring oxygen. PAT team consulted due to ETOH and reports of suicidal ideations. Farshad from the PAT team met with pt. Farshad reported that pt is coming off 1:1. Pt is denying suicidal ideations Farshad reported that pt will follow up with [facility] and [facility] after discharge. SS will continue to follow for discharge planning.
[2019-05-20] MEDS: MULTIVIT INFUSN,ADULT 4,VIT K 10 ML, THIAMINE INJ 100 MG, FOLIC ACID INJ 1 MG in IV NOR... IV SCH (12:03)
--- NOTE | 2019-05-20 12:41 | SSS ---
ADMIT DATE: CHIEF COMPLAINT: Chest pain. HISTORY OF PRESENT ILLNESS: The patient is a pleasant 59-year-old male who presented to the ER last night, he was drunk and had chest pain at the same time. They tried to sober him up, but then he started talking about possibly wanting to commit suicide. There was some concern that he was serious. We admitted him overnight for observation. This morning, the patient is not suicidal and wants to go home, although he is having some vomiting. Interestingly, his troponin was slightly high at 0.08. We have admitted the patient. We are consulting Cardiology and Psychiatry. PAST MEDICAL HISTORY: Alcohol issues. ALLERGIES: None. FAMILY HISTORY: Hypertension. SOCIAL HISTORY: He drinks and smokes. No drugs. MEDICATIONS: Reviewed, please refer to the MRAD. REVIEW OF SYSTEMS: GENERAL: No history of weight change, weakness or fevers. SKIN: No bruising, hair changes or rashes. EYES: No blurred, double or loss of vision. NOSE AND THROAT: No history of nosebleeds, hoarseness or sore throat. HEART: No history of palpitations, chest pain or shortness of breath on exertion. LUNGS: Denies cough, hemoptysis, wheezing or shortness of breath. GASTROINTESTINAL: He complains of some nausea. GENITOURINARY: No history of frequency, urgency, hesitancy or nocturia. NEUROLOGIC: Denies history of numbness, tingling, tremor or weakness. PSYCHIATRIC: No history of panic, anxiety or depression. ENDOCRINE: No history of heat or cold intolerance, polyuria or polydipsia. EXTREMITIES: Denies muscle weakness, joint pain, pain on walking or stiffness. PHYSICAL EXAMINATION: VITALS: Within normal limits and are stable. GENERAL: No apparent distress. Alert and oriented. HEENT: Head is normocephalic, atraumatic, pupils were equally round and reactive to light and accommodation. NECK: Supple, no JVD, no thyromegaly was noted. LUNGS: Clear to auscultation in all lung banks without rhonchi or wheezing. HEART: RRR, S1, S2 present. Peripheral pulses intact, no obvious murmurs were noted. ABDOMEN: He is having some nausea. He has got emesis basin ready in case he needs it. EXTREMITIES: Without any cyanosis, clubbing, or edema. Pedal pulses intact, Homans sign is negative. NEUROLOGIC: Normal speech, normal tone. A and O x3, moves all extremities, no obvious focal deficits. PSYCHIATRIC: Normal affect, normal mood. Stable. SKIN: No ulcerations or rashes, good skin turgor, no jaundice. VASCULAR: Good capillary refill, neurovascular bundle appears to be intact. LABORATORY DATA: Alcohol level was 384. RADIOLOGICAL DATA: Chest x-ray, cardiomegaly. ASSESSMENT AND PLAN: Chest pain, elevated troponin, cardiomegaly and alcohol intoxication. The patient has been admitted overnight for observation. This morning, he is doing much better, he is just a little nauseated. I talked to the psychiatric assessment team who just saw him. They feel like he is safe to go home from a psychiatric standpoint. We did consult Cardiology. They are doing cardiac workup. If the patient feels better today and if okay with subspecialist, we will plan to discharge with close outpatient followup. DISPOSITION: Home. ACTIVITY: As tolerated. DIET: Low sodium. MEDICATIONS: Please see MRAD. TOTAL TIME: 32 minutes. CAMMIE MARRERO DO DR: DARWIN/tiffany JOB#: [id number] / [id number]
[2019-05-20] MEDS: ASPIRIN ENTERIC COATED 81 MG TABLET.DR. PO SCH (14:45)
[2019-05-20] MEDS ORDERED: CARVEDILOL 6.25 MG TABLET. PO SCH (17:00)
[2019-05-20] MEDS ORDERED: KETOROLAC 15 MG/ML VIAL. IV ONE (17:45)
[2019-05-20] MEDS: LIDOCAINE (700MG/PATCH) PATCH. TD SCH ×2 (17:50→20:09)
[2019-05-20] MEDS: cloNIDine HCL 0.1 MG TABLET PO PRN (20:14)
[2019-05-20] MEDS ORDERED: ATORVASTATIN CALCIUM 10 MG TABLET. PO SCH (21:00)
[2019-05-20] MEDS ORDERED: PATCH REMOVAL. MC SCH (21:00)
[2019-05-21 03:00] VITALS: BP 161/91
[2019-05-21] MEDS: MORPHINE SULFATE 2 MG/ML VIAL. IV PRN ×2 (03:42→08:09)
[2019-05-21 07:02] VITALS: BP 152/86
[2019-05-21] MEDS ORDERED: PANTOPRAZOLE 40 MG TABLET.DR. PO SCH (07:30)
[2019-05-21 07:47] LABS: CALCIUM 8.8 mg/dL (8.5-10.1); CREATININE 0.9 mg/dL (0.7-1.3); GFR 86.4
[2019-05-21] MEDS ORDERED: ASPIRIN ENTERIC COATED 81 MG TABLET.DR. PO SCH (08:00)
[2019-05-21] MEDS: ASPIRIN ENTERIC COATED 81 MG TABLET.DR. PO SCH (08:06)
[2019-05-21] MEDS: NICOTINE 21MG PATCH. TD SCH (08:06)
[2019-05-21] MEDS: CLOPIDOGREL BISULFATE 75 MG TABLET PO SCH (08:06)
[2019-05-21] MEDS: LISINOPRIL 20 MG TABLET PO SCH (08:07)
[2019-05-21] MEDS: MULTIVIT INFUSN,ADULT 4,VIT K 10 ML, THIAMINE INJ 100 MG, FOLIC ACID INJ 1 MG in IV NOR... IV SCH (08:07)
[2019-05-21 10:34] VITALS: BP 152/99
[2019-05-21] MEDS ORDERED: FAMOTIDINE 20 MG TABLET. PO ONE (11:15)
--- NOTE | 2019-05-21 11:27 | PDOC3 ---
Discharge Summary Visit Information Date of Admission: May 19, 2019 Date of Discharge: May 21, 2019 Final Diagnosis Chest pain, elevated troponin, cardiomegaly from EtOH abuse and alcohol intoxication. alcohol withdrawl suidical on admit, but was very intoxicated jarod Medical Problems: (1) Chest pain Status: Acute (2) Intoxication Status: Acute (3) Suicidal ideations Status: Acute Brief Hospital Course Allergies Allergies Coded Allergies Type Severity Reaction Last Updated Verified No Known Drug Allergies 02/01/15 No Vital Signs Vital Signs Date Time Temp Pulse Resp B/P (MAP) Pulse Ox O2 Delivery O2 Flow Rate FiO2 05/21/19 10:34 98.3 63 18 152/99 (116) 97 Nasal Cannula 2.0 98.3 Lab Results Laboratory Tests Test 05/19/19 19:15 05/19/19 20:00 05/20/19 02:46 05/20/19 08:50 White Blood Count 6.7 x10^3/uL (4.0-11.0) Red Blood Count 4.28 x10^6/uL (4.30-5.70) Hemoglobin 14.2 g/dL (13.0-17.5) Hematocrit 41.6 % (39.0-53.0) Mean Corpuscular Volume 97 fL (79-100) Mean Corpuscular Hemoglobin 33 pg (25-35) Mean Corpuscular Hemoglobin Concent 34 g/dL (31-37) Red Cell Distribution Width 13.0 % (11.5-14.5) Platelet Count 165 x10^3/uL (140-400) Neutrophils (%) (Auto) 75 % (31-73) Lymphocytes (%) (Auto) 13 % (24-48) Monocytes (%) (Auto) 9 % (0-9) Eosinophils (%) (Auto) 2 % (0-3) Basophils (%) (Auto) 1 % (0-3) Neutrophils # (Auto) 5.0 x10^3/uL (1.8-7.7) Lymphocytes # (Auto) 0.9 x10^3/uL (1.0-4.8) Monocytes # (Auto) 0.6 x10^3/uL (0.0-1.1) Eosinophils # (Auto) 0.1 x10^3/uL (0.0-0.7) Basophils # (Auto) 0.0 x10^3/uL (0.0-0.2) Prothrombin Time 11.4 SEC (11.7-14.0) Prothromb Time International Ratio 0.9 (0.8-1.1) Activated Partial Thromboplast Time 24 SEC (24-38) Sodium Level 146 mmol/L (136-145) Potassium Level 3.6 mmol/L (3.5-5.1) Chloride Level 109 mmol/L (98-107) Carbon Dioxide Level 24 mmol/L (21-32) Anion Gap 13 (6-14) Blood Urea Nitrogen 17 mg/dL (8-26) Creatinine 1.0 mg/dL (0.7-1.3) Estimated GFR (Cockcroft-Gault) 76.5 BUN/Creatinine Ratio 17 (6-20) Glucose Level 83 mg/dL (70-99) Calcium Level 8.9 mg/dL (8.5-10.1) Magnesium Level 2.2 mg/dL (1.8-2.4) Total Bilirubin 0.3 mg/dL (0.2-1.0) Aspartate Amino Transf (AST/SGOT) 38 U/L (15-37) Alanine Aminotransferase (ALT/SGPT) 43 U/L (16-63) Alkaline Phosphatase 78 U/L (46-116) Creatine Kinase 230 U/L (39-308) Creatine Kinase MB (Mass) 2.8 ng/mL (0.0-3.6) Creatine Kinase MB Relative Index 1.2 % (0-4) Troponin I Quantitative 0.071 ng/mL (0.000-0.055) 0.087 ng/mL (0.000-0.055) 0.090 ng/mL (0.000-0.055) Total Protein 6.9 g/dL (6.4-8.2) Albumin 3.4 g/dL (3.4-5.0) Albumin/Globulin Ratio 1.0 (1.0-1.7) Lipase 501 U/L (73-393) 297 U/L (73-393) Salicylates Level 4.1 mg/dL (2.8-20.0) Salicylate Last Dose Date Unk Salicylate Last Dose Time Unk Acetaminophen Level < 2 mcg/ml (10-30) Acetaminophen Last Dose Date Unl Acetaminophen Last Dose Time Unk Ethyl Alcohol Level 384 mg/dL (0-10) Urine Opiates Screen Neg (NEG) Urine Methadone Screen Neg (NEG) Urine Barbiturates Neg (NEG) Urine Phencyclidine Screen Neg (NEG) Urine Amphetamine/Methamphetamine Neg (NEG) Urine Benzodiazepines Screen Neg (NEG) Urine Cocaine Screen Neg (NEG) Urine Cannabinoids Screen Neg (NEG) Urine Ethyl Alcohol Pos (NEG) Triglycerides Level 25 mg/dL (0-150) Cholesterol Level 186 mg/dL (0-200) LDL Cholesterol, Calculated 76 mg/dL (0-100) VLDL Cholesterol, Calculated 5 mg/dL (0-40) Non-HDL Cholesterol Calculated 81 mg/dL (0-129) HDL Cholesterol 105 mg/dL (40-60) Cholesterol/HDL Ratio 1.8 Test 05/21/19 07:00 Sodium Level 142 mmol/L (136-145) Potassium Level 4.0 mmol/L (3.5-5.1) Chloride Level 106 mmol/L (98-107) Carbon Dioxide Level 28 mmol/L (21-32) Anion Gap 8 (6-14) Blood Urea Nitrogen 16 mg/dL (8-26) Creatinine 0.9 mg/dL (0.7-1.3) Estimated GFR (Cockcroft-Gault) 86.4 Glucose Level 87 mg/dL (70-99) Calcium Level 8.8 mg/dL (8.5-10.1) Laboratory Tests Test 05/21/19 07:00 Sodium Level 142 mmol/L (136-145) Potassium Level 4.0 mmol/L (3.5-5.1) Chloride Level 106 mmol/L (98-107) Carbon Dioxide Level 28 mmol/L (21-32) Anion Gap 8 (6-14) Blood Urea Nitrogen 16 mg/dL (8-26) Creatinine 0.9 mg/dL (0.7-1.3) Estimated GFR (Cockcroft-Gault) 86.4 Glucose Level 87 mg/dL (70-99) Calcium Level 8.8 mg/dL (8.5-10.1) Brief Hospital Course Mr. Chiang is a 59 old admit . cardio eval, r/o ACS, echo The left ventricular systolic function is normal. The Ejection Fraction is 65-70%. There is normal LV segmental wall motion. Trace mitral regurgitation. Trace tricuspid regurgitation. The PA pressure was estimated at 25 mmHg. There is no evidence of significant pericardial effusion. Psych team eval, pt much improved he had left chest pain, 10th rib injury, will xray before DC, plan treat with lidoderm patch Discharge Information Condition at Discharge: Improved Follow Up: Weeks Disposition/Orders: D/C to Home Patient Instructions Patient Instructions face to face discuss and exam AIMEE DOWLING MD May 21, 2019 11:27
[2019-05-21] MEDS ORDERED: LIDOCAINE (700MG/PATCH) PATCH. TD SCH (11:30)
[2019-05-21] MEDS ORDERED: oxyCODONE/APAP 5/325 1 TAB TABLET PO PRN (12:00)
--- NOTE | 2019-05-21 14:31 | RAD ---
EXAM: Left ribs, 3 views. HISTORY: 10th rib pain. COMPARISON: CT dated 04/24/2017. Chest radiograph dated 05/19/2019. FINDINGS: 3 views of the left ribs are obtained. There are chronic appearing left posterior lateral ninth rib fractures. No convincing acute displaced fracture is seen. There is glenohumeral spurring. IMPRESSION: Suspected chronic right ninth rib fractures. No convincing acute fracture is seen. Electronically signed by: Reba Jurado MD (05/21/2019 2:28 PM) [place] [id number]
[2019-05-21 14:35] VITALS: BP 175/101
[2019-05-21] MEDS ORDERED: LISI-334 PO (15:50)
[2019-05-21] MEDS ORDERED: TRAM-48 PO (15:50)
[2019-05-21] MEDS ORDERED: CLOP75TA PO (15:52)
[2019-05-21] MEDS ORDERED: ATOR10TA60 PO (15:52)
[2019-05-21] MEDS ORDERED: ASPI-612 PO (15:52)
[2019-05-21 15:54] VITALS: BP 172/97
--- NOTE | 2019-05-21 16:25 | NUR ---
Discharge instructions reviewed with patient and family, patient verbalizes understanding, follow ups and prescriptions given, patient being taken home by daughter.
[2019-05-21] MEDS ORDERED: PATCH REMOVAL. MC SCH (21:00)
[2019-05-21] MEDS ORDERED: FAMOTIDINE 20 MG TABLET. PO SCH (21:00)
[2019-05-25] MEDS ORDERED: MULTIVITAMIN with MINERAL TABLET. PO SCH (09:00)
[2019-05-25] MEDS ORDERED: THIAMINE 100 MG TABLET. PO SCH (09:00)
[2019-05-25] MEDS ORDERED: FOLIC ACID 1 MG TABLET. PO SCH (09:00)
[2019-05-31] MEDS ORDERED: Folic Acid PO (11:37)
[2019-05-31] MEDS ORDERED: ATOR40TA59 PO (11:37)
[2019-05-31] MEDS ORDERED: ACET325T9 PO (11:37)
[2019-05-31] MEDS ORDERED: MULT1TAB90 PO (11:37)
[2019-05-31] MEDS ORDERED: PANT40TA77 PO (11:37)
[2019-05-31] MEDS ORDERED: ALBU2.5V8 NEB (11:37)
== END 2019-05-21 16:47 | disposition home or self-care (01) | DRG 897 ==
LOC: ER 18:28 → 2 NORTH 20:19
PROVIDERS: ADMIT Internal Medicine; ATTEND Internal Medicine
DX: F10.229 Alcohol dependence with intoxication, unspecified (principal); R45.851 Suicidal ideations; I16.0 Hypertensive urgency; F10.239 Alcohol dependence with withdrawal, unspecified; R07.89 Other chest pain; E78.5 Hyperlipidemia, unspecified; F17.210 Nicotine dependence, cigarettes, uncomplicated; F32.9 Major depressive disorder, single episode, unspecified; I11.9 Hypertensive heart disease without heart failure; M19.90 Unspecified osteoarthritis, unspecified site; I25.10 Atherosclerotic heart disease of native coronary artery without angina pectoris; M48.02 Spinal stenosis, cervical region; Z79.02 Long term (current) use of antithrombotics/antiplatelets; Z79.82 Long term (current) use of aspirin; Z82.49 Family history of ischemic heart disease and other diseases of the circulatory system; Z91.19 Patient's noncompliance with other medical treatment and regimen; Z91.14 Patient's other noncompliance with medication regimen
CPT/HCPCS: 36415; 71045; 71100; 80048; 80053; 80061; 80307; 80329; 82553; 83690; 83735; 84484; 85025; 85610; 85730; 90471; 90686; 93005; 93306; 99406; G0480; J1885; J2060; J2270; J2405; J7030; G0378

== ENCOUNTER 2019-05-29 11:02 | Inpatient (IN) | payer SELFPAY ==
[~2019-05-29] VITALS: Ht 172.7 cm; Wt 83.0 kg
[~2019-05-29 11:02] MED LIST: ASPI-612 PO; ATOR10TA60 PO; CLOP75TA PO; LISI-334 PO; TRAM-48 PO
--- NOTE | 2019-05-29 11:20 | PHYS DOC ---
Past Medical History Past Medical History: No Pertinent History Past Surgical History: Other Additional Past Surgical Histo: L jaw sx, abd sx Alcohol Use: Heavy Drug Use: None Adult General Chief Complaint Chief Complaint: CHEST PAIN HPI HPI 59-year-old male presents to the emergency department with complaints of chest pain, alcohol intoxication, suicidal ideation. Patient describes chest pain �2 days, shortness of breath, pressure sensation, cough. Patient as well describes SI, thoughts of hanging himself. He's had previous attempt �3. Nothing makes his pain worse, nothing makes his pain better. He denies any nausea, vomiting or abdominal pain. Review of Systems Review of Systems Constitutional: Denies fever or chills [] Respiratory: Cough, shortness of breath Cardiovascular: No additional information not addressed in HPI [] GI: Denies abdominal pain, nausea, vomiting, bloody stools or diarrhea [] Integument: Denies rash or skin lesions [] Neurologic: Denies headache, focal weakness or sensory changes [] Psych: Suicidal ideation All other systems were reviewed and found to be within normal limits, except as documented in this note. Current Medications Current Medications Current Medications Medications (Trade) Dose Ordered Sig/Rayna Start Time Stop Time Status Last Admin Dose Admin Aspirin (Children'S Aspirin) 324 mg 1X ONCE 05/29/19 11:30 05/29/19 11:31 DC Nitroglycerin (Nitrostat) 0.4 mg PRN Q5MIN PRN 05/29/19 12:30 05/30/19 12:29 UNV Ondansetron HCl (Zofran) 4 mg PRN Q8HRS PRN 05/29/19 12:30 05/30/19 12:29 UNV Sodium Chloride 1,000 ml @ 100 mls/hr Q10H 05/29/19 11:30 05/29/19 21:29 05/29/19 11:34 100 MLS/HR Allergies Allergies Allergies Coded Allergies Type Severity Reaction Last Updated Verified No Known Drug Allergies 02/01/15 No Physical Exam Physical Exam Constitutional: Well developed, well nourished, no acute distress, non-toxic appearance. [] HENT: Normocephalic, atraumatic, bilateral external ears normal, oropharynx moist, no oral exudates, nose normal. [] Eyes: PERRLA, EOMI, conjunctiva normal, no discharge. [] Cardiovascular:Heart rate regular rhythm, no murmur [] Lungs & Thorax: Bilateral breath sounds clear to auscultation [] Abdomen: Bowel sounds normal, soft, no tenderness, no masses, no pulsatile masses. [] Skin: Warm, dry, no erythema, no rash. [] Back: No tenderness, no CVA tenderness. [] Extremities: No tenderness, no edema. [] Neurologic: Alert and oriented X 3, . [] Psychologic: Intoxicated, suicidal[] Current Patient Data Vital Signs Vital Signs Date Time Temp Pulse Resp B/P (MAP) Pulse Ox O2 Delivery O2 Flow Rate FiO2 05/29/19 12:07 66 26 131/81 (98) 94 Room Air Lab Values Laboratory Tests Test 05/29/19 11:09 05/29/19 11:51 White Blood Count 5.2 x10^3/uL (4.0-11.0) Red Blood Count 4.24 x10^6/uL (4.30-5.70) L Hemoglobin 14.1 g/dL (13.0-17.5) Hematocrit 41.3 % (39.0-53.0) Mean Corpuscular Volume 97 fL (79-100) Mean Corpuscular Hemoglobin 33 pg (25-35) Mean Corpuscular Hemoglobin Concent 34 g/dL (31-37) Red Cell Distribution Width 13.2 % (11.5-14.5) Platelet Count 237 x10^3/uL (140-400) Neutrophils (%) (Auto) 72 % (31-73) Lymphocytes (%) (Auto) 15 % (24-48) L Monocytes (%) (Auto) 10 % (0-9) H Eosinophils (%) (Auto) 2 % (0-3) Basophils (%) (Auto) 1 % (0-3) Neutrophils # (Auto) 3.7 x10^3/uL (1.8-7.7) Lymphocytes # (Auto) 0.8 x10^3/uL (1.0-4.8) L Monocytes # (Auto) 0.5 x10^3/uL (0.0-1.1) Eosinophils # (Auto) 0.1 x10^3/uL (0.0-0.7) Basophils # (Auto) 0.0 x10^3/uL (0.0-0.2) Sodium Level 147 mmol/L (136-145) H Potassium Level 4.1 mmol/L (3.5-5.1) Chloride Level 109 mmol/L (98-107) H Carbon Dioxide Level 24 mmol/L (21-32) Anion Gap 14 (6-14) Blood Urea Nitrogen 14 mg/dL (8-26) Creatinine 1.1 mg/dL (0.7-1.3) Estimated GFR (Cockcroft-Gault) 68.5 BUN/Creatinine Ratio 13 (6-20) Glucose Level 104 mg/dL (70-99) H Calcium Level 8.8 mg/dL (8.5-10.1) Magnesium Level 2.2 mg/dL (1.8-2.4) Total Bilirubin 0.2 mg/dL (0.2-1.0) Aspartate Amino Transferase (AST) 34 U/L (15-37) Alanine Aminotransferase (ALT) 49 U/L (16-63) Alkaline Phosphatase 87 U/L (46-116) Troponin I Quantitative 0.026 ng/mL (0.000-0.055) CJ-Qgl-C-Type Natriuretic Peptide 117 pg/mL (0-124) Total Protein 7.2 g/dL (6.4-8.2) Albumin 3.5 g/dL (3.4-5.0) Albumin/Globulin Ratio 0.9 (1.0-1.7) L Salicylates Level 3.1 mg/dL (2.8-20.0) Salicylate Last Dose Date Unknown Salicylate Last Dose Time Unknown Acetaminophen Level < 2 mcg/ml (10-30) L Acetaminophen Last Dose Date Unknown Acetaminophen Last Dose Time Unknown Ethyl Alcohol Level 417 mg/dL (0-10) *H Urine Opiates Screen Neg (NEG) Urine Methadone Screen Neg (NEG) Urine Barbiturates Neg (NEG) Urine Phencyclidine Screen Neg (NEG) Urine Amphetamine/Methamphetamine Neg (NEG) Urine Benzodiazepines Screen Neg (NEG) Urine Cocaine Screen Neg (NEG) Urine Cannabinoids Screen Neg (NEG) Urine Ethyl Alcohol Pos (NEG) Laboratory Tests 05/29/19 11:09 Laboratory Tests 05/29/19 11:09 EKG EKG EKG reviewed, normal sinus rhythm, heart rate 89, no evidence of acute ST elevation CA.[] Interpretation Time: Interpretation time 1110 Radiology/Procedures Radiology/Procedures [] Course & Med Decision Making Course & Med Decision Making Pertinent Labs and Imaging studies reviewed. (See chart for details) []59-year-old male presents to the emergency department with complaints of chest pain, alcohol intoxication, suicidal ideation. Patient describes chest pain �2 days, shortness of breath, pressure sensation, cough. Patient as well describes SI, thoughts of hanging himself. He's had previous attempt �3. Nothing makes his pain worse, nothing makes his pain better. He denies any nausea, vomiting or abdominal pain. Labs reviewed, troponin -0.026. Chest x-ray without evidence of acute consolidation. Patient's pain is resolved. We'll admit for SI, and cardiac enzymes was second set 1409. EKG reviewed. Discussed admission with hospitalist. PAT will assess patient for detox versus other given suicidal ideation. Dragon Disclaimer Dragon Disclaimer This electronic medical record was generated, in whole or in part, using a voice recognition dictation system. Departure Departure Impression: Primary Impression: Chest pain Additional Impressions: Suicidal ideations Intoxication Disposition: ADMITTED INPATIENT Admitting Physician: MOHSEN Condition: STABLE Referrals: NO PCP (PCP) Problem Qualifiers Primary Impression: Chest pain Chest pain type: unspecified Qualified Codes: R07.9 - Chest pain, unspecified XUAN RIVERO MD May 29, 2019 11:20
[2019-05-29 11:22] LABS: BASO % 1 % (0-3); EOS # 0.1 x10^3/uL (0.0-0.7); EOS % 2 % (0-3); HEMATOCRIT 41.3 % (39.0-53.0); HEMOGLOBIN 14.1 g/dL (13.0-17.5); LYMPH # 0.8 x10^3/uL (1.0-4.8); LYMPH % 15 % (24-48); MEAN CORPUSCULAR HEMOGLOBIN 33 pg (25-35); MEAN CORPUSCULAR HGB CONC 34 g/dL (31-37); MEAN CORPUSCULAR VOLUME 97 fL (79-100); MONO # 0.5 x10^3/uL (0.0-1.1); MONO % 10 % (0-9); NEUT # 3.7 x10^3/uL (1.8-7.7); NEUT % 72 % (31-73); PLATELET COUNT 237 x10^3/uL (140-400); RED BLOOD COUNT 4.24 x10^6/uL (4.30-5.70); RED CELL DISTRIBUTION WIDTH 13.2 % (11.5-14.5); WHITE BLOOD COUNT 5.2 x10^3/uL (4.0-11.0)
[2019-05-29] MEDS ORDERED: ASPIRIN CHEWABLE 81 MG TABLET. PO ONE (11:30)
[2019-05-29] MEDS ORDERED: IV NORMAL SALINE 1000ML BAG 1,000 ML IV SCH (11:30)
[2019-05-29 11:40] LABS: CALCIUM 8.8 mg/dL (8.5-10.1); CREATININE 1.1 mg/dL (0.7-1.3); GFR 68.5; POTASSIUM 4.1 mmol/L (3.5-5.1)
[2019-05-29 11:45] LABS: ALBUMIN 3.5 g/dL (3.4-5.0); ALBUMIN/GLOBULIN RATIO 0.9 (1.0-1.7); MAGNESIUM 2.2 mg/dL (1.8-2.4); SALIC 3.1 mg/dL (2.8-20.0); TOTAL BILIRUBIN 0.2 mg/dL (0.2-1.0); TOTAL PROTEIN 7.2 g/dL (6.4-8.2)
[2019-05-29 11:46] LABS: ACETAMIN < 2 mcg/ml (10-30)
[2019-05-29 11:47] LABS: ETHANOL 417 mg/dL (0-10)
[2019-05-29 12:08] LABS: BARBITURATES NEG (NEG); BENZODIAZEPINES NEG (NEG); CANNABINOIDS NEG (NEG); COCAINE NEG (NEG); METHADONE NEG (NEG); OPIATES NEG (NEG); PHENCYCLIDINE NEG (NEG)
[2019-05-29 12:11] LABS: AMPHETAMINE/METHAMPHETAMINE NEG (NEG)
--- NOTE | 2019-05-29 12:26 | PDOC1 ---
History and Physical Date of Admission Date of Admission DATE: 05/29/19 TIME: 12:24 Identification/Chief Complaint Chief Complaint SEEN IN ER , presents to the emergency department with complaints of chest pain, alcohol intoxication, suicidal ideation. describes chest pain �2 days, shortness of breath, pressure sensation, cough. Patient as well describes SI, thoughts of hanging himself. He's had previous attempt �3 HAS BEEN AWAKE ALL NIGHT DRINKING Past Medical History Past Medical History Past Medical History Past Medical History Past Medical History: No Pertinent History Past Surgical History: Other Additional Past Surgical Histo: L jaw sx, abd sx Alcohol Use: Heavy Drug Use: None fhx depression Cardiovascular: CAD, HTN, Hyperlipidemia Pulmonary: No pertinent hx CENTRAL NERVOUS SYSTEM: Other GI: No pertinent hx Psych: Other Musculoskeletal: Osteoarthritis Rheumatologic: No pertinent hx Infectious disease: No pertinent hx Renal/: No pertinent hx Endocrine: No pertinent hx Past Surgical History Past Surgical History: Other Family History Family History: Hypertension Social History Smoke: <1 pack per day ALCOHOL: heavy Drugs: None Current Problem List Problem List Problems Medical Problems: (1) Chest pain Status: Acute (2) Intoxication Status: Acute (3) Suicidal ideations Status: Acute Current Medications Current Medications Current Medications Aspirin (Children'S Aspirin) 324 mg 1X ONCE PO ; Start 05/29/19 at 11:30; Stop 05/29/19 at 11:31; Status DC Sodium Chloride 1,000 ml @ 100 mls/hr Q10H IV Last administered on 05/29/19at 11:34; Start 05/29/19 at 11:30; Stop 05/29/19 at 21:29 Ondansetron HCl (Zofran) 4 mg PRN Q8HRS PRN IV NAUSEA/VOMITING; Start 05/29/19 at 12:30; Stop 05/30/19 at 12:29; Status UNV Nitroglycerin (Nitrostat) 0.4 mg PRN Q5MIN PRN SL CHEST PAIN; Start 05/29/19 at 12:30; Stop 05/30/19 at 12:29; Status UNV Multivitamins 10 ml/Thiamine HCl 100 mg/Folic Acid 1 mg/Sodium Chloride 1,011.2 ml @ 1,000.088 mls/hr 1X ONCE IV ; Start 05/29/19 at 12:30; Stop 10/12/19 at 13:30; Status UNV Active Scripts Active Atorvastatin Calcium 10 Mg Tablet 10 Mg PO QHS Clopidogrel (Clopidogrel Bisulfate) 75 Mg Tablet 75 Mg PO DAILYWBKFT Aspirin Ec (Aspirin) 81 Mg Tablet.dr 81 Mg PO DAILYWBKFT Ultram (Tramadol Hcl) 50 Mg Tablet 50 Mg PO Q6HRS PRN Lisinopril 20 Mg Tablet 1 Tab PO DAILY Allergies Allergies: Coded Allergies: No Known Drug Allergies (Unverified , 02/01/15) ROS Review of System Review of Systems Review of Systems Constitutional: Denies fever or chills [] Respiratory: Cough, shortness of breath Cardiovascular: No additional information not addressed in HPI [] GI: Denies abdominal pain, nausea, vomiting, bloody stools or diarrhea [] Integument: Denies rash or skin lesions [] Neurologic: Denies headache, focal weakness or sensory changes [] Psych: Suicidal ideation 14 PT systems were reviewed and found to be within normal limits, except as documented PSYCHOLOGICAL ROS: YES: Depression Respiratory: No: Cough, Hemoptysis, Orthopnea, Pleuritic Pain, Shortness of breath, SOB with excertion, Sputum Changes, Stridor, Tachypnea, Wheezing, Other Cardiovascular: yes Chest Pain Gastrointestinal: Yes Nausea Neurological: Yes Confusion Vitals Vitals Vital Signs Date Time Temp Pulse Resp B/P (MAP) Pulse Ox O2 Delivery O2 Flow Rate FiO2 05/29/19 12:07 66 26 131/81 (98) 94 Room Air Labs Labs Laboratory Tests Test 05/29/19 11:09 05/29/19 11:51 White Blood Count 5.2 x10^3/uL (4.0-11.0) Red Blood Count 4.24 x10^6/uL (4.30-5.70) Hemoglobin 14.1 g/dL (13.0-17.5) Hematocrit 41.3 % (39.0-53.0) Mean Corpuscular Volume 97 fL (79-100) Mean Corpuscular Hemoglobin 33 pg (25-35) Mean Corpuscular Hemoglobin Concent 34 g/dL (31-37) Red Cell Distribution Width 13.2 % (11.5-14.5) Platelet Count 237 x10^3/uL (140-400) Neutrophils (%) (Auto) 72 % (31-73) Lymphocytes (%) (Auto) 15 % (24-48) Monocytes (%) (Auto) 10 % (0-9) Eosinophils (%) (Auto) 2 % (0-3) Basophils (%) (Auto) 1 % (0-3) Neutrophils # (Auto) 3.7 x10^3/uL (1.8-7.7) Lymphocytes # (Auto) 0.8 x10^3/uL (1.0-4.8) Monocytes # (Auto) 0.5 x10^3/uL (0.0-1.1) Eosinophils # (Auto) 0.1 x10^3/uL (0.0-0.7) Basophils # (Auto) 0.0 x10^3/uL (0.0-0.2) Sodium Level 147 mmol/L (136-145) Potassium Level 4.1 mmol/L (3.5-5.1) Chloride Level 109 mmol/L (98-107) Carbon Dioxide Level 24 mmol/L (21-32) Anion Gap 14 (6-14) Blood Urea Nitrogen 14 mg/dL (8-26) Creatinine 1.1 mg/dL (0.7-1.3) Estimated GFR (Cockcroft-Gault) 68.5 BUN/Creatinine Ratio 13 (6-20) Glucose Level 104 mg/dL (70-99) Calcium Level 8.8 mg/dL (8.5-10.1) Magnesium Level 2.2 mg/dL (1.8-2.4) Total Bilirubin 0.2 mg/dL (0.2-1.0) Aspartate Amino Transf (AST/SGOT) 34 U/L (15-37) Alanine Aminotransferase (ALT/SGPT) 49 U/L (16-63) Alkaline Phosphatase 87 U/L (46-116) Troponin I Quantitative 0.026 ng/mL (0.000-0.055) AZ-Xad-H-Type Natriuretic Peptide 117 pg/mL (0-124) Total Protein 7.2 g/dL (6.4-8.2) Albumin 3.5 g/dL (3.4-5.0) Albumin/Globulin Ratio 0.9 (1.0-1.7) Salicylates Level 3.1 mg/dL (2.8-20.0) Salicylate Last Dose Date Unknown Salicylate Last Dose Time Unknown Acetaminophen Level < 2 mcg/ml (10-30) Acetaminophen Last Dose Date Unknown Acetaminophen Last Dose Time Unknown Ethyl Alcohol Level 417 mg/dL (0-10) Urine Opiates Screen Neg (NEG) Urine Methadone Screen Neg (NEG) Urine Barbiturates Neg (NEG) Urine Phencyclidine Screen Neg (NEG) Urine Amphetamine/Methamphetamine Neg (NEG) Urine Benzodiazepines Screen Neg (NEG) Urine Cocaine Screen Neg (NEG) Urine Cannabinoids Screen Neg (NEG) Urine Ethyl Alcohol Pos (NEG) Laboratory Tests Test 05/29/19 11:09 05/29/19 11:51 White Blood Count 5.2 x10^3/uL (4.0-11.0) Red Blood Count 4.24 x10^6/uL (4.30-5.70) Hemoglobin 14.1 g/dL (13.0-17.5) Hematocrit 41.3 % (39.0-53.0) Mean Corpuscular Volume 97 fL (79-100) Mean Corpuscular Hemoglobin 33 pg (25-35) Mean Corpuscular Hemoglobin Concent 34 g/dL (31-37) Red Cell Distribution Width 13.2 % (11.5-14.5) Platelet Count 237 x10^3/uL (140-400) Neutrophils (%) (Auto) 72 % (31-73) Lymphocytes (%) (Auto) 15 % (24-48) Monocytes (%) (Auto) 10 % (0-9) Eosinophils (%) (Auto) 2 % (0-3) Basophils (%) (Auto) 1 % (0-3) Neutrophils # (Auto) 3.7 x10^3/uL (1.8-7.7) Lymphocytes # (Auto) 0.8 x10^3/uL (1.0-4.8) Monocytes # (Auto) 0.5 x10^3/uL (0.0-1.1) Eosinophils # (Auto) 0.1 x10^3/uL (0.0-0.7) Basophils # (Auto) 0.0 x10^3/uL (0.0-0.2) Sodium Level 147 mmol/L (136-145) Potassium Level 4.1 mmol/L (3.5-5.1) Chloride Level 109 mmol/L (98-107) Carbon Dioxide Level 24 mmol/L (21-32) Anion Gap 14 (6-14) Blood Urea Nitrogen 14 mg/dL (8-26) Creatinine 1.1 mg/dL (0.7-1.3) Estimated GFR (Cockcroft-Gault) 68.5 BUN/Creatinine Ratio 13 (6-20) Glucose Level 104 mg/dL (70-99) Calcium Level 8.8 mg/dL (8.5-10.1) Magnesium Level 2.2 mg/dL (1.8-2.4) Total Bilirubin 0.2 mg/dL (0.2-1.0) Aspartate Amino Transf (AST/SGOT) 34 U/L (15-37) Alanine Aminotransferase (ALT/SGPT) 49 U/L (16-63) Alkaline Phosphatase 87 U/L (46-116) Troponin I Quantitative 0.026 ng/mL (0.000-0.055) BB-Hse-W-Type Natriuretic Peptide 117 pg/mL (0-124) Total Protein 7.2 g/dL (6.4-8.2) Albumin 3.5 g/dL (3.4-5.0) Albumin/Globulin Ratio 0.9 (1.0-1.7) Salicylates Level 3.1 mg/dL (2.8-20.0) Salicylate Last Dose Date Unknown Salicylate Last Dose Time Unknown Acetaminophen Level < 2 mcg/ml (10-30) Acetaminophen Last Dose Date Unknown Acetaminophen Last Dose Time Unknown Ethyl Alcohol Level 417 mg/dL (0-10) Urine Opiates Screen Neg (NEG) Urine Methadone Screen Neg (NEG) Urine Barbiturates Neg (NEG) Urine Phencyclidine Screen Neg (NEG) Urine Amphetamine/Methamphetamine Neg (NEG) Urine Benzodiazepines Screen Neg (NEG) Urine Cocaine Screen Neg (NEG) Urine Cannabinoids Screen Neg (NEG) Urine Ethyl Alcohol Pos (NEG) Images Images EXAM: Left ribs, 3 views. HISTORY: 10th rib pain. COMPARISON: CT dated 04/24/2017. Chest radiograph dated 05/19/2019. FINDINGS: 3 views of the left ribs are obtained. There are chronic appearing left posterior lateral ninth rib fractures. No convincing acute displaced fracture is seen. There is glenohumeral spurring. IMPRESSION: Suspected chronic right ninth rib fractures. No convincing acute fracture is seen. Electronically signed by: Reba Gravin MD (05/21/2019 2:28 PM) [place] [id number] DICTATED and SIGNED BY: REBA GARVIN MD DATE: 05/21/19 1428 STATUS: REG ER ORD. PHYSICIAN: SCOOTER TOMPKINS DO REASON: trauma PROCEDURE: CT CHEST ABDOMEN W/CONTRAST Examination: CT chest/abdomen/pelvis with IV contrast and CT thoracic and lumbar spine without contrast Indication: trauma, back pain, no priors Technique: Contiguous axial images were obtained through the chest, abdomen, and pelvis after administration of IV contrast. Coronal and sagittal reformations were created. Axial CT images of the thoracic and lumbar spine was performed without contrast. Coronal and sagittal reformats are performed. Exposure: One or more of the following individualized dose reduction techniques were utilized for this examination: 1. Automated exposure control 2. Adjustment of the mA and/or kV according to patient size 3. Use of iterative reconstruction technique Comparison: None Findings: CHEST: There is no mediastinal hematoma. The heart size is normal. There is no pericardial effusion. The thoracic aorta is normal in caliber. The central airways are patent. Mild bibasilar lung airspace opacity likely atelectasis. Thin-walled cyst identified in the left lower lobe of the lung. Nondisplaced fractures of the posterior left ninth, 10th, 12th ribs. ABDOMEN/PELVIS: Streak artifact from tubing overlying the patient limits evaluation of the abdomen. The liver and spleen are normal in size with no evidence for contusion. The pancreas and adrenal glands are within normal limits. The kidneys are unremarkable. The bowel loops are normal in caliber. The appendix is normal. The abdominal aorta is normal in caliber. There is no hemoperitoneum. The urinary bladder is intact. Moderate degenerative changes visualized lumbar spine. The bilateral facets are well aligned. L5 spondylolysis without evidence of listhesis. Impression: 1. Nondisplaced fractures of the posterior left ninth, 10th, 12th ribs, probably subacute given the appearance correlate for point tenderness. Otherwise no obvious acute traumatic findings. Electronically signed by: Romie Fierro MD (04/24/2017 11:30 PM) [facility] DICTATED and SIGNED BY: ROMIE FIERRO MD DATE: 04/24/17 [id number] CC: SCOOTER OTMPKINS DO; NO PCP ~ VTE Prophylaxis Ordered VTE Prophylaxis Devices: No VTE Pharmacological Prophylaxi: Yes Assessment/Plan Assessment/Plan impression SEVERE ALCOHOL ABUSE Chest pain, cardiomegaly from EtOH abuse acute severe alcohol intoxication. alcohol withdrawl suidical on admit, very intoxicated Suspected chronic right ninth rib fractures. HX FALLS DEHYDRATION PLAN ADMIT SERIAL TROPONIN I PAT TEAM TO SEE TELE [facility] CARDIOLOGY CONSULT ECHO CWAL PROTOCOL 55 MIN PT EXAM, CHART REVIEW, > 50% OF TIME SPENT WITH EXAM, CHART REVIEW, PT CARE COORDINATION FELICITAS LOGAN MD May 29, 2019 12:26
--- NOTE | 2019-05-29 12:27 | RAD ---
PORTABLE CHEST 1V History: Chest pain, altered mental status Comparison: 05/19/2019 Findings: Single view of the chest is submitted. Pericardial cardiac silhouette is again enlarged. There is atherosclerotic calcification near the aortic arch. There is some medial right basilar opacity with loss of definition of the hemidiaphragm. No pneumothorax is identified. Impression: 1. There is medial right basilar opacity with segmental loss of definition of the hemidiaphragm which may be due to atelectasis/infiltrate. 2. There is again enlargement of the pericardial cardiac silhouette. Electronically signed by: Sha Francis MD (05/29/2019 12:25 PM) [facility]
[2019-05-29] MEDS ORDERED: MULTIVIT INFUSN,ADULT 4,VIT K 10 ML, THIAMINE INJ 100 MG, FOLIC ACID INJ 1 MG in IV NOR... IV ONE ×2 (12:30→13:00)
[2019-05-29] MEDS ORDERED: ONDANSETRON PF 4 MG/2 ML VIAL. IV PRN ×2 (12:30→13:00)
[2019-05-29] MEDS ORDERED: cloNIDine HCL 0.1 MG TABLET PO PRN ×2 (13:00→13:15)
[2019-05-29] MEDS ORDERED: LORazepam 0.5 MG TABLET PO PRN (13:00)
[2019-05-29] MEDS ORDERED: ACETAMINOPHEN 325 MG TABLET. PO PRN (13:00)
[2019-05-29] MEDS ORDERED: 0.9 % SODIUM CHLORIDE 10 ML DISP.SYRIN. IV PRN (13:00)
[2019-05-29] MEDS ORDERED: DOCUSATE SODIUM 100 MG CAPSULE. PO PRN (13:00)
[2019-05-29] MEDS ORDERED: guaiFENesin ORAL 200 MG/10 ML LIQUID. PO PRN (13:00)
[2019-05-29] MEDS ORDERED: LORazepam 1 MG TABLET PO PRN ×2 (13:15)
[2019-05-29] MEDS ORDERED: HALOPERIDOL LACTATE 5 MG/ML VIAL. IVP PRN (13:15)
[2019-05-29 13:17] LABS: PROTHROMBIN TIME PATIENT 11.6 SEC (11.7-14.0)
[2019-05-29] MEDS: IPRATRPIUM/ALBUTEROL 0.5/2.5MG 3 ML NEBU. NEB SCH ×4 (13:41→23:21)
--- NOTE | 2019-05-29 13:44 | RAD ---
CT HEAD WO CONTRAST History: Falls, confusion Comparison: February 08, 2018 Technique: Noncontrast CT imaging was performed of the head. Exposure: One or more of the following individualized dose reduction techniques were utilized for this examination: 1. Automated exposure control 2. Adjustment of the mA and/or kV according to patient size 3. Use of iterative reconstruction technique. Findings: No acute extra-axial or parenchymal hemorrhage is identified. There is no significant intra-axial mass effect, midline shift, or extra-axial fluid collection. The meade-white differentiation of the major vascular territories is preserved. The ventricles, sulci, and cisterns are within normal limits in size and configuration. Mastoid air cells are aerated. There is mild to moderate right maxillary sinus mucosal thickening, minimally on the left, sinuses not fully evaluated. There are zach bullosa greater on the right. There is patchy mild ethmoid air cell mucosal thickening. No acute calvarial abnormality is identified. Impression: 1. No acute intracranial abnormality is identified. 2. There is some paranasal sinus mucosal thickening. Electronically signed by: Sha Francis MD (05/29/2019 1:41 PM) [facility]
[2019-05-29 15:00] VITALS: BP 134/93
[2019-05-29] MEDS: PIPERACILLIN/TAZOBACTAM 3.375 GM in IV NORMAL SALINE 50ML 50 ML IV SCH (18:10)
[2019-05-29] MEDS: NITROGLYCERIN SUBLINGUAL 0.4 MG BOTTLE OF 25. SL PRN ×3 (18:11→20:11)
[2019-05-29 18:54] VITALS: BP 131/110
--- NOTE | 2019-05-29 20:08 | NUR ---
While talking with the pt during the admission process, pt stated "I don't want to be here, I want to go home to [facility]". Pt asked this nurse if "you have a rope I can use, or a belt, or anything?". Pt stated he wants to jump out of the window. Educated patient about safety and need for 1:1 sitter. Pt stated he understood. Will continue to monitor.
--- NOTE | 2019-05-29 20:10 | NUR ---
Chest pain 8/10, gave 1 dose nitro. After 5 min, pain came down to 6/10, gave 2nd dose. After 5 min pt stated pain was 4/10 - 5/10 is a tolerable level per the pt.
[2019-05-29 23:05] VITALS: BP 114/61
[2019-05-30] MEDS: PIPERACILLIN/TAZOBACTAM 3.375 GM in IV NORMAL SALINE 50ML 50 ML IV SCH ×5 (01:40→23:49)
[2019-05-30 03:04] VITALS: BP 148/77
[2019-05-30] MEDS: IPRATRPIUM/ALBUTEROL 0.5/2.5MG 3 ML NEBU. NEB SCH ×3 (03:12→11:20)
[2019-05-30 05:36] LABS: BASO % 1 % (0-3); EOS # 0.1 x10^3/uL (0.0-0.7); EOS % 1 % (0-3); HEMATOCRIT 37.1 % (39.0-53.0); HEMOGLOBIN 12.6 g/dL (13.0-17.5); LYMPH # 0.7 x10^3/uL (1.0-4.8); LYMPH % 12 % (24-48); MEAN CORPUSCULAR HEMOGLOBIN 33 pg (25-35); MEAN CORPUSCULAR HGB CONC 34 g/dL (31-37); MEAN CORPUSCULAR VOLUME 97 fL (79-100); MONO # 0.5 x10^3/uL (0.0-1.1); MONO % 9 % (0-9); NEUT # 4.7 x10^3/uL (1.8-7.7); NEUT % 77 % (31-73); PLATELET COUNT 203 x10^3/uL (140-400); RED BLOOD COUNT 3.83 x10^6/uL (4.30-5.70); RED CELL DISTRIBUTION WIDTH 13.1 % (11.5-14.5); WHITE BLOOD COUNT 6.1 x10^3/uL (4.0-11.0)
[2019-05-30 05:52] LABS: ALBUMIN 3.2 g/dL (3.4-5.0); CALCIUM 8.6 mg/dL (8.5-10.1); CREATININE 0.9 mg/dL (0.7-1.3); GFR 86.4; POTASSIUM 3.8 mmol/L (3.5-5.1); TOTAL BILIRUBIN 0.6 mg/dL (0.2-1.0); TOTAL PROTEIN 6.4 g/dL (6.4-8.2)
[2019-05-30 07:00] VITALS: BP 159/87
--- NOTE | 2019-05-30 10:33 | PDOC ---
PROGRESS NOTES History of Present Illness History of Present Illness VTE Prophylaxis Ordered VTE Prophylaxis Devices: No VTE Pharmacological Prophylaxi: Yes Assessment/Plan Assessment/Plan impression SEVERE ALCOHOL ABUSE Chest pain, cardiomegaly from EtOH abuse acute severe alcohol intoxication. alcohol withdrawl suidical on admit, very intoxicated Suspected chronic right ninth rib fractures. HX FALLS DEHYDRATION No acute intracranial abnormality is identified. PLAN ADMIT SERIAL TROPONIN I PAT TEAM TO SEE sitter TELE [facility] LABS CARDIOLOGY CONSULT ECHO pending CWAL PROTOCOL gi consult serum nh4++ 38 MIN PT EXAM, CHART REVIEW, > 50% OF TIME SPENT WITH EXAM, CHART REVIEW, PT CARE COORDINATION Vitals Vitals Vital Signs Date Time Temp Pulse Resp B/P (MAP) Pulse Ox O2 Delivery O2 Flow Rate FiO2 05/30/19 07:32 Room Air 05/30/19 07:00 98.2 75 22 159/87 (111) 94 98.2 05/29/19 15:00 98.0 Physical Exam Physical Exam HENT: Normocephalic, atraumatic, bilateral external ears normal, oropharynx moist, no oral exudates, nose normal. [] Eyes: PERRLA, EOMI, conjunctiva normal, no discharge. [] Cardiovascular:Heart rate regular rhythm, no murmur [] Lungs & Thorax: Bilateral breath sounds clear to auscultation [] Abdomen: Bowel sounds normal, soft, no tenderness, no masses, no pulsatile masses. [] Skin: Warm, dry, no erythema, no rash. [] Back: No tenderness, no CVA tenderness. [] Extremities: No tenderness, no edema. [] Neurologic: Alert and oriented X 3, . [] Psychologic: suicidal THOUGHTS [] General: Alert, Oriented X3, Cooperative, No acute distress Heart: Regular rate Lungs: Clear Abdomen: Normal bowel sounds, Soft Extremities: No cyanosis Labs LABS STATUS: REG ER ORD. PHYSICIAN: SCOOTER TOMPKINS DO REASON: trauma PROCEDURE: CT CHEST ABDOMEN W/CONTRAST Examination: CT chest/abdomen/pelvis with IV contrast and CT thoracic and lumbar spine without contrast Indication: trauma, back pain, no priors Technique: Contiguous axial images were obtained through the chest, abdomen, and pelvis after administration of IV contrast. Coronal and sagittal reformations were created. Axial CT images of the thoracic and lumbar spine was performed without contrast. Coronal and sagittal reformats are performed. Exposure: One or more of the following individualized dose reduction techniques were utilized for this examination: 1. Automated exposure control 2. Adjustment of the mA and/or kV according to patient size 3. Use of iterative reconstruction technique Comparison: None Findings: CHEST: There is no mediastinal hematoma. The heart size is normal. There is no pericardial effusion. The thoracic aorta is normal in caliber. The central airways are patent. Mild bibasilar lung airspace opacity likely atelectasis. Thin-walled cyst identified in the left lower lobe of the lung. Nondisplaced fractures of the posterior left ninth, 10th, 12th ribs. ABDOMEN/PELVIS: Streak artifact from tubing overlying the patient limits evaluation of the abdomen. The liver and spleen are normal in size with no evidence for contusion. The pancreas and adrenal glands are within normal limits. The kidneys are unremarkable. The bowel loops are normal in caliber. The appendix is normal. The abdominal aorta is normal in caliber. There is no hemoperitoneum. The urinary bladder is intact. Moderate degenerative changes visualized lumbar spine. The bilateral facets are well aligned. L5 spondylolysis without evidence of listhesis. Impression: 1. Nondisplaced fractures of the posterior left ninth, 10th, 12th ribs, probably subacute given the appearance correlate for point tenderness. Otherwise no obvious acute traumatic findings. Electronically signed by: Romie Fierro MD (04/24/2017 11:30 PM) [facility] DICTATED and SIGNED BY: ROMIE FIERRO MD DATE: 04/24/17 2315 CC: TOMPKINSSCOOTER ; NO PCP ~ CT HEAD WO CONTRAST History: Falls, confusion Comparison: February 08, 2018 Technique: Noncontrast CT imaging was performed of the head. Exposure: One or more of the following individualized dose reduction techniques were utilized for this examination: 1. Automated exposure control 2. Adjustment of the mA and/or kV according to patient size 3. Use of iterative reconstruction technique. Findings: No acute extra-axial or parenchymal hemorrhage is identified. There is no significant intra-axial mass effect, midline shift, or extra-axial fluid collection. The meade-white differentiation of the major vascular territories is preserved. The ventricles, sulci, and cisterns are within normal limits in size and configuration. Mastoid air cells are aerated. There is mild to moderate right maxillary sinus mucosal thickening, minimally on the left, sinuses not fully evaluated. There are zach bullosa greater on the right. There is patchy mild ethmoid air cell mucosal thickening. No acute calvarial abnormality is identified. Impression: 1. No acute intracranial abnormality is identified. 2. There is some paranasal sinus mucosal thickening. Electronically signed by: Mono Mackey MD (05/29/2019 1:41 PM) [facility] [place] DICTATED and SIGNED BY: MONO MACKEY MD DATE: 05/29/19 0124 Laboratory Tests Test 05/29/19 11:09 05/29/19 11:51 05/29/19 14:15 05/30/19 05:10 White Blood Count 5.2 x10^3/uL (4.0-11.0) 6.1 x10^3/uL (4.0-11.0) Red Blood Count 4.24 x10^6/uL (4.30-5.70) 3.83 x10^6/uL (4.30-5.70) Hemoglobin 14.1 g/dL (13.0-17.5) 12.6 g/dL (13.0-17.5) Hematocrit 41.3 % (39.0-53.0) 37.1 % (39.0-53.0) Mean Corpuscular Volume 97 fL (79-100) 97 fL (79-100) Mean Corpuscular Hemoglobin 33 pg (25-35) 33 pg (25-35) Mean Corpuscular Hemoglobin Concent 34 g/dL (31-37) 34 g/dL (31-37) Red Cell Distribution Width 13.2 % (11.5-14.5) 13.1 % (11.5-14.5) Platelet Count 237 x10^3/uL (140-400) 203 x10^3/uL (140-400) Neutrophils (%) (Auto) 72 % (31-73) 77 % (31-73) Lymphocytes (%) (Auto) 15 % (24-48) 12 % (24-48) Monocytes (%) (Auto) 10 % (0-9) 9 % (0-9) Eosinophils (%) (Auto) 2 % (0-3) 1 % (0-3) Basophils (%) (Auto) 1 % (0-3) 1 % (0-3) Neutrophils # (Auto) 3.7 x10^3/uL (1.8-7.7) 4.7 x10^3/uL (1.8-7.7) Lymphocytes # (Auto) 0.8 x10^3/uL (1.0-4.8) 0.7 x10^3/uL (1.0-4.8) Monocytes # (Auto) 0.5 x10^3/uL (0.0-1.1) 0.5 x10^3/uL (0.0-1.1) Eosinophils # (Auto) 0.1 x10^3/uL (0.0-0.7) 0.1 x10^3/uL (0.0-0.7) Basophils # (Auto) 0.0 x10^3/uL (0.0-0.2) 0.0 x10^3/uL (0.0-0.2) Prothrombin Time 11.6 SEC (11.7-14.0) Prothromb Time International Ratio 0.9 (0.8-1.1) Sodium Level 147 mmol/L (136-145) 148 mmol/L (136-145) Potassium Level 4.1 mmol/L (3.5-5.1) 3.8 mmol/L (3.5-5.1) Chloride Level 109 mmol/L (98-107) 113 mmol/L (98-107) Carbon Dioxide Level 24 mmol/L (21-32) 26 mmol/L (21-32) Anion Gap 14 (6-14) 9 (6-14) Blood Urea Nitrogen 14 mg/dL (8-26) 12 mg/dL (8-26) Creatinine 1.1 mg/dL (0.7-1.3) 0.9 mg/dL (0.7-1.3) Estimated GFR (Cockcroft-Gault) 68.5 86.4 BUN/Creatinine Ratio 13 (6-20) 13 (6-20) Glucose Level 104 mg/dL (70-99) 80 mg/dL (70-99) Calcium Level 8.8 mg/dL (8.5-10.1) 8.6 mg/dL (8.5-10.1) Magnesium Level 2.2 mg/dL (1.8-2.4) Total Bilirubin 0.2 mg/dL (0.2-1.0) 0.6 mg/dL (0.2-1.0) Aspartate Amino Transf (AST/SGOT) 34 U/L (15-37) 25 U/L (15-37) Alanine Aminotransferase (ALT/SGPT) 49 U/L (16-63) 40 U/L (16-63) Alkaline Phosphatase 87 U/L (46-116) 74 U/L (46-116) Troponin I Quantitative 0.026 ng/mL (0.000-0.055) 0.033 ng/mL (0.000-0.055) XM-Igj-S-Type Natriuretic Peptide 117 pg/mL (0-124) Total Protein 7.2 g/dL (6.4-8.2) 6.4 g/dL (6.4-8.2) Albumin 3.5 g/dL (3.4-5.0) 3.2 g/dL (3.4-5.0) Albumin/Globulin Ratio 0.9 (1.0-1.7) 1.0 (1.0-1.7) Thyroid Stimulating Hormone (TSH) 1.043 uIU/mL (0.358-3.74) Salicylates Level 3.1 mg/dL (2.8-20.0) Salicylate Last Dose Date Unknown Salicylate Last Dose Time Unknown Acetaminophen Level < 2 mcg/ml (10-30) Acetaminophen Last Dose Date Unknown Acetaminophen Last Dose Time Unknown Ethyl Alcohol Level 417 mg/dL (0-10) Urine Opiates Screen Neg (NEG) Urine Methadone Screen Neg (NEG) Urine Barbiturates Neg (NEG) Urine Phencyclidine Screen Neg (NEG) Urine Amphetamine/Methamphetamine Neg (NEG) Urine Benzodiazepines Screen Neg (NEG) Urine Cocaine Screen Neg (NEG) Urine Cannabinoids Screen Neg (NEG) Urine Ethyl Alcohol Pos (NEG) Ammonia < 10 mcmol/L (11-34) Assessment and Plan Assessmemt and Plan Problems Medical Problems: (1) Chest pain Status: Acute (2) Intoxication Status: Acute (3) Suicidal ideations Status: Acute Comment Review of Relevant I have reviewed the following items mandy (where applicable) has been applied. Labs Laboratory Tests Test 05/29/19 11:09 05/29/19 11:51 05/29/19 14:15 05/30/19 05:10 White Blood Count 5.2 x10^3/uL (4.0-11.0) 6.1 x10^3/uL (4.0-11.0) Red Blood Count 4.24 x10^6/uL (4.30-5.70) 3.83 x10^6/uL (4.30-5.70) Hemoglobin 14.1 g/dL (13.0-17.5) 12.6 g/dL (13.0-17.5) Hematocrit 41.3 % (39.0-53.0) 37.1 % (39.0-53.0) Mean Corpuscular Volume 97 fL (79-100) 97 fL (79-100) Mean Corpuscular Hemoglobin 33 pg (25-35) 33 pg (25-35) Mean Corpuscular Hemoglobin Concent 34 g/dL (31-37) 34 g/dL (31-37) Red Cell Distribution Width 13.2 % (11.5-14.5) 13.1 % (11.5-14.5) Platelet Count 237 x10^3/uL (140-400) 203 x10^3/uL (140-400) Neutrophils (%) (Auto) 72 % (31-73) 77 % (31-73) Lymphocytes (%) (Auto) 15 % (24-48) 12 % (24-48) Monocytes (%) (Auto) 10 % (0-9) 9 % (0-9) Eosinophils (%) (Auto) 2 % (0-3) 1 % (0-3) Basophils (%) (Auto) 1 % (0-3) 1 % (0-3) Neutrophils # (Auto) 3.7 x10^3/uL (1.8-7.7) 4.7 x10^3/uL (1.8-7.7) Lymphocytes # (Auto) 0.8 x10^3/uL (1.0-4.8) 0.7 x10^3/uL (1.0-4.8) Monocytes # (Auto) 0.5 x10^3/uL (0.0-1.1) 0.5 x10^3/uL (0.0-1.1) Eosinophils # (Auto) 0.1 x10^3/uL (0.0-0.7) 0.1 x10^3/uL (0.0-0.7) Basophils # (Auto) 0.0 x10^3/uL (0.0-0.2) 0.0 x10^3/uL (0.0-0.2) Prothrombin Time 11.6 SEC (11.7-14.0) Prothromb Time International Ratio 0.9 (0.8-1.1) Sodium Level 147 mmol/L (136-145) 148 mmol/L (136-145) Potassium Level 4.1 mmol/L (3.5-5.1) 3.8 mmol/L (3.5-5.1) Chloride Level 109 mmol/L (98-107) 113 mmol/L (98-107) Carbon Dioxide Level 24 mmol/L (21-32) 26 mmol/L (21-32) Anion Gap 14 (6-14) 9 (6-14) Blood Urea Nitrogen 14 mg/dL (8-26) 12 mg/dL (8-26) Creatinine 1.1 mg/dL (0.7-1.3) 0.9 mg/dL (0.7-1.3) Estimated GFR (Cockcroft-Gault) 68.5 86.4 BUN/Creatinine Ratio 13 (6-20) 13 (6-20) Glucose Level 104 mg/dL (70-99) 80 mg/dL (70-99) Calcium Level 8.8 mg/dL (8.5-10.1) 8.6 mg/dL (8.5-10.1) Magnesium Level 2.2 mg/dL (1.8-2.4) Total Bilirubin 0.2 mg/dL (0.2-1.0) 0.6 mg/dL (0.2-1.0) Aspartate Amino Transf (AST/SGOT) 34 U/L (15-37) 25 U/L (15-37) Alanine Aminotransferase (ALT/SGPT) 49 U/L (16-63) 40 U/L (16-63) Alkaline Phosphatase 87 U/L (46-116) 74 U/L (46-116) Troponin I Quantitative 0.026 ng/mL (0.000-0.055) 0.033 ng/mL (0.000-0.055) SE-Laf-Y-Type Natriuretic Peptide 117 pg/mL (0-124) Total Protein 7.2 g/dL (6.4-8.2) 6.4 g/dL (6.4-8.2) Albumin 3.5 g/dL (3.4-5.0) 3.2 g/dL (3.4-5.0) Albumin/Globulin Ratio 0.9 (1.0-1.7) 1.0 (1.0-1.7) Thyroid Stimulating Hormone (TSH) 1.043 uIU/mL (0.358-3.74) Salicylates Level 3.1 mg/dL (2.8-20.0) Salicylate Last Dose Date Unknown Salicylate Last Dose Time Unknown Acetaminophen Level < 2 mcg/ml (10-30) Acetaminophen Last Dose Date Unknown Acetaminophen Last Dose Time Unknown Ethyl Alcohol Level 417 mg/dL (0-10) Urine Opiates Screen Neg (NEG) Urine Methadone Screen Neg (NEG) Urine Barbiturates Neg (NEG) Urine Phencyclidine Screen Neg (NEG) Urine Amphetamine/Methamphetamine Neg (NEG) Urine Benzodiazepines Screen Neg (NEG) Urine Cocaine Screen Neg (NEG) Urine Cannabinoids Screen Neg (NEG) Urine Ethyl Alcohol Pos (NEG) Ammonia < 10 mcmol/L (11-34) Laboratory Tests Test 05/29/19 11:09 05/29/19 11:51 05/29/19 14:15 05/30/19 05:10 White Blood Count 5.2 x10^3/uL (4.0-11.0) 6.1 x10^3/uL (4.0-11.0) Red Blood Count 4.24 x10^6/uL (4.30-5.70) 3.83 x10^6/uL (4.30-5.70) Hemoglobin 14.1 g/dL (13.0-17.5) 12.6 g/dL (13.0-17.5) Hematocrit 41.3 % (39.0-53.0) 37.1 % (39.0-53.0) Mean Corpuscular Volume 97 fL (79-100) 97 fL (79-100) Mean Corpuscular Hemoglobin 33 pg (25-35) 33 pg (25-35) Mean Corpuscular Hemoglobin Concent 34 g/dL (31-37) 34 g/dL (31-37) Red Cell Distribution Width 13.2 % (11.5-14.5) 13.1 % (11.5-14.5) Platelet Count 237 x10^3/uL (140-400) 203 x10^3/uL (140-400) Neutrophils (%) (Auto) 72 % (31-73) 77 % (31-73) Lymphocytes (%) (Auto) 15 % (24-48) 12 % (24-48) Monocytes (%) (Auto) 10 % (0-9) 9 % (0-9) Eosinophils (%) (Auto) 2 % (0-3) 1 % (0-3) Basophils (%) (Auto) 1 % (0-3) 1 % (0-3) Neutrophils # (Auto) 3.7 x10^3/uL (1.8-7.7) 4.7 x10^3/uL (1.8-7.7) Lymphocytes # (Auto) 0.8 x10^3/uL (1.0-4.8) 0.7 x10^3/uL (1.0-4.8) Monocytes # (Auto) 0.5 x10^3/uL (0.0-1.1) 0.5 x10^3/uL (0.0-1.1) Eosinophils # (Auto) 0.1 x10^3/uL (0.0-0.7) 0.1 x10^3/uL (0.0-0.7) Basophils # (Auto) 0.0 x10^3/uL (0.0-0.2) 0.0 x10^3/uL (0.0-0.2) Prothrombin Time 11.6 SEC (11.7-14.0) Prothromb Time International Ratio 0.9 (0.8-1.1) Sodium Level 147 mmol/L (136-145) 148 mmol/L (136-145) Potassium Level 4.1 mmol/L (3.5-5.1) 3.8 mmol/L (3.5-5.1) Chloride Level 109 mmol/L (98-107) 113 mmol/L (98-107) Carbon Dioxide Level 24 mmol/L (21-32) 26 mmol/L (21-32) Anion Gap 14 (6-14) 9 (6-14) Blood Urea Nitrogen 14 mg/dL (8-26) 12 mg/dL (8-26) Creatinine 1.1 mg/dL (0.7-1.3) 0.9 mg/dL (0.7-1.3) Estimated GFR (Cockcroft-Gault) 68.5 86.4 BUN/Creatinine Ratio 13 (6-20) 13 (6-20) Glucose Level 104 mg/dL (70-99) 80 mg/dL (70-99) Calcium Level 8.8 mg/dL (8.5-10.1) 8.6 mg/dL (8.5-10.1) Magnesium Level 2.2 mg/dL (1.8-2.4) Total Bilirubin 0.2 mg/dL (0.2-1.0) 0.6 mg/dL (0.2-1.0) Aspartate Amino Transf (AST/SGOT) 34 U/L (15-37) 25 U/L (15-37) Alanine Aminotransferase (ALT/SGPT) 49 U/L (16-63) 40 U/L (16-63) Alkaline Phosphatase 87 U/L (46-116) 74 U/L (46-116) Troponin I Quantitative 0.026 ng/mL (0.000-0.055) 0.033 ng/mL (0.000-0.055) JW-Utp-C-Type Natriuretic Peptide 117 pg/mL (0-124) Total Protein 7.2 g/dL (6.4-8.2) 6.4 g/dL (6.4-8.2) Albumin 3.5 g/dL (3.4-5.0) 3.2 g/dL (3.4-5.0) Albumin/Globulin Ratio 0.9 (1.0-1.7) 1.0 (1.0-1.7) Thyroid Stimulating Hormone (TSH) 1.043 uIU/mL (0.358-3.74) Salicylates Level 3.1 mg/dL (2.8-20.0) Salicylate Last Dose Date Unknown Salicylate Last Dose Time Unknown Acetaminophen Level < 2 mcg/ml (10-30) Acetaminophen Last Dose Date Unknown Acetaminophen Last Dose Time Unknown Ethyl Alcohol Level 417 mg/dL (0-10) Urine Opiates Screen Neg (NEG) Urine Methadone Screen Neg (NEG) Urine Barbiturates Neg (NEG) Urine Phencyclidine Screen Neg (NEG) Urine Amphetamine/Methamphetamine Neg (NEG) Urine Benzodiazepines Screen Neg (NEG) Urine Cocaine Screen Neg (NEG) Urine Cannabinoids Screen Neg (NEG) Urine Ethyl Alcohol Pos (NEG) Ammonia < 10 mcmol/L (11-34) Medications Current Medications Aspirin (Children'S Aspirin) 324 mg 1X ONCE PO ; Start 05/29/19 at 11:30; Stop 05/29/19 at 11:31; Status DC Sodium Chloride 1,000 ml @ 100 mls/hr Q10H IV Last administered on 05/29/19at 11:34; Start 05/29/19 at 11:30; Stop 05/29/19 at 21:29; Status DC Ondansetron HCl (Zofran) 4 mg PRN Q8HRS PRN IV NAUSEA/VOMITING; Start 05/29/19 at 12:30; Stop 05/29/19 at 13:05; Status DC Nitroglycerin (Nitrostat) 0.4 mg PRN Q5MIN PRN SL CHEST PAIN Last administered on 05/29/19at 20:11; Start 05/29/19 at 12:30; Stop 05/30/19 at 12:29 Multivitamins 10 ml/Thiamine HCl 100 mg/Folic Acid 1 mg/Sodium Chloride 1,011.2 ml @ 1,000.088 mls/hr 1X ONCE IV Last administered on 05/29/19at 12:40; Start 05/29/19 at 12:30; Stop 05/29/19 at 13:30; Status DC Sodium Chloride (Normal Saline Flush) 3 ml QSHIFT PRN IV AFTER MEDS AND BLOOD DRAWS; Start 05/29/19 at 13:00 Multivitamins 10 ml/Thiamine HCl 100 mg/Folic Acid 1 mg/Sodium Chloride 1,011.2 ml @ 125 mls/ hr 1X ONCE IV ; Start 05/29/19 at 13:00; Stop 05/29/19 at 21:05; Status UNV Ondansetron HCl (Zofran) 4 mg PRN Q4HRS PRN IV NAUSEA/VOMITING; Start 05/29/19 at 13:00 Acetaminophen (Tylenol) 650 mg PRN Q4HRS PRN PO TEMP OVER 100.4F OR MILD PAIN; Start 05/29/19 at 13:00 Clonidine HCl (Catapres) 0.1 mg PRN Q6HRS PRN PO SBP>160 OR DBP>90; Start 05/29/19 at 13:00; Status Cancel Docusate Sodium (Colace) 100 mg PRN BID PRN PO CONSTIPATION; Start 05/29/19 at 13:00 Albuterol/ Ipratropium (Duoneb) 3 ml Q4H NEB Last administered on 05/30/19at 07:32; Start 05/29/19 at 14:00 Guaifenesin (Robitussin) 200 mg PRN Q4HRS PRN PO COUGH; Start 05/29/19 at 13:00 Lorazepam (Ativan) 0.5 mg PRN Q4HRS PRN PO ANXIETY / AGITATION; Start 05/29/19 at 13:00 Lorazepam (Ativan Inj) 2 mg PRN Q4HRS PRN IV ANXIETY / AGITATION Last a dministered on 05/30/19at 05:06; Start 05/29/19 at 13:00 Enoxaparin Sodium (Lovenox 40mg Syringe) 40 mg DAILY SQ ; Start 05/30/19 at 09:00 Multivitamins 10 ml/Thiamine HCl 100 mg/Folic Acid 1 mg/Sodium Chloride 1,011.2 ml @ 100 mls/ hr DAILY IV ; Start 05/30/19 at 09:00; Stop 06/03/19 at 19:07 Multivitamins (Thera M Plus) 1 tab DAILY PO ; Start 06/04/19 at 09:00 Folic Acid (Folic Acid) 1 mg DAILY PO ; Start 06/04/19 at 09:00 Thiamine HCl 100 mg/Dextrose 51 ml @ 100 mls/hr DAILY IV ; Start 06/04/19 at 09:00; Stop 06/08/19 at 09:31 Lorazepam (Ativan) 4 mg PRN Q1HR PRN PO For CIWA 8-14; Start 05/29/19 at 13:15 Lorazepam (Ativan) 8 mg PRN Q1HR PRN PO For CIWA 15 or greater; Start 05/29/19 at 13:15 Lorazepam (Ativan Inj) 2 mg PRN Q1HR PRN IV For CIWA 8-14; Start 05/29/19 at 13:15 Lorazepam (Ativan Inj) 4 mg PRN Q1HR PRN IV For CIWA 15 or greater; Start 05/29/19 at 13:15 Haloperidol Lactate (Haldol Inj) 5 mg PRN Q4HRS PRN IVP Hallucinatns,Confusn,Delirium; Start 05/29/19 at 13:15 Clonidine HCl (Catapres) 0.1 mg PRN Q1HR PRN PO SBP > 180 or DBP > 100, MRX3; Start 05/29/19 at 13:15 Lorazepam (Ativan Inj) 2 mg PRN Q15MIN PRN IV SEE COMMENTS; Start 05/29/19 at 13:15; Status Cancel Lorazepam (Ativan Inj) 4 mg PRN Q15MIN PRN IV SEE COMMENTS; Start 05/29/19 at 13:15; Status Cancel Piperacillin Sod/ Tazobactam Sod 3.375 gm/Sodium Chloride 50 ml @ 100 mls/hr Q6HRS IV Last administered on 05/30/19at 05:05; Start 05/29/19 at 18:00 Active Scripts Active Atorvastatin Calcium 10 Mg Tablet 10 Mg PO QHS Clopidogrel (Clopidogrel Bisulfate) 75 Mg Tablet 75 Mg PO DAILYWBKFT Aspirin Ec (Aspirin) 81 Mg Tablet.dr 81 Mg PO DAILYWBKFT Ultram (Tramadol Hcl) 50 Mg Tablet 50 Mg PO Q6HRS PRN Lisinopril 20 Mg Tablet 1 Tab PO DAILY Vitals/I & O Vital Sign - Last 24 Hours 05/29/19 05/29/19 05/29/19 05/29/19 11:05 11:40 12:01 12:07 Pulse 81 63 66 66 Resp 16 14 26 B/P (MAP) 126/68 (87) 107/69 (82) 125/85 (98) 131/81 (98) Pulse Ox 95 91 95 94 O2 Delivery Room Air Room Air Room Air Room Air 05/29/19 05/29/19 05/29/19 05/29/19 12:36 13:07 13:42 14:05 Pulse 69 61 66 Resp 16 11 35 B/P (MAP) 115/71 (86) 110/67 (81) 138/86 (103) Pulse Ox 96 94 97 O2 Delivery Room Air Room Air Room Air Room Air 05/29/19 05/29/19 05/29/19 05/29/19 15:00 17:06 18:11 18:24 Temp 98.4 98.4 Pulse 74 64 71 Resp 16 B/P (MAP) 134/93 (107) 146/93 135/87 Pulse Ox 97 O2 Delivery Room Air Room Air O2 Flow Rate 98.0 05/29/19 05/29/19 05/29/19 05/29/19 18:54 19:01 20:00 20:11 Temp 98.1 98.1 Pulse 58 58 Resp 23 B/P (MAP) 131/110 (117) 131/110 Pulse Ox 97 97 O2 Delivery Room Air Room Air Room Air 05/29/19 05/29/19 05/30/19 05/30/19 23:05 23:22 03:04 07:00 Temp 98.2 98.4 98.2 98.2 98.4 98.2 Pulse 64 74 75 Resp 19 18 22 B/P (MAP) 114/61 (78) 148/77 (100) 159/87 (111) Pulse Ox 97 97 97 94 O2 Delivery Room Air Room Air Room Air Room Air 05/30/19 07:32 O2 Delivery Room Air Intake and Output 05/29/19 05/29/19 05/30/19 14:59 22:59 06:59 Intake Total 1011.2 ml 0 ml 0 ml Output Total 300 ml 700 ml Balance 1011.2 ml -300 ml -700 ml FELICITAS LOGAN MD May 30, 2019 10:33
[2019-05-30] MEDS: MULTIVIT INFUSN,ADULT 4,VIT K 10 ML, THIAMINE INJ 100 MG, FOLIC ACID INJ 1 MG in IV NOR... IV SCH (10:49)
[2019-05-30] MEDS: ENOXAPARIN 40 MG/0.4 ML SYRINGE. SQ SCH (10:51)
[2019-05-30 11:00] VITALS: BP 173/91
[2019-05-30] MEDS ORDERED: ALBUTEROL SULFATE 2.5 MG/3 ML NEBU. NEB PRN (11:30)
--- NOTE | 2019-05-30 11:50 | EKG ---
[facility] [address] [place] [address] Test Date: 2019-05-29 Test Time: 11:06:42 Pat Name: MARISOL PALM Department: Room: 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
--- NOTE | 2019-05-30 13:48 | PDOC ---
Provider Note Provider Note Brief cardiology follow-up note Please see prior consultation note from last week Mr. Chiang is an unfortunate 59-year-old alcoholic male who has had multiple episodes of suicidal ideations comes in with symptoms similar to last presentation. In this setting he also reported some chest pain. He has a minimal troponin elevation again. He has a known history of PCI to the LAD. Today he is more alert and denies any current chest pain. He does report some epigastric discomfort which is suspicious for gastritis. Objective: Vital signs are stable Head and neck exam is unremarkable Cardiac regular rate and rhythm without murmurs rubs gallops lungs are clear to auscultation Abdomen is soft with mild diffuse tenderness to palpation No edema Diagnostic studies reviewed EKG at this admission is unremarkable Echocardiogram last week revealed normal LV function Troponin minimally elevated Impression: 1. Atypical chest pain with elevated troponin 2. Known coronary artery disease status post LAD PCI 3. Multiple psychosocial issues Recommendations: 1. I discussed with the patient extensively regarding the etiology of his elevated troponin and most likely that this is stress induced. Nonetheless, given his known coronary disease it is difficult to truly rule out acute coronary syndrome. He will think about possible repeat cardiac catheterization versus continued medical therapy. Given her recent normal echocardiogram with stable LV function continued medical therapy would be appropriate at this time. We will await the patient's decision. PHOGN SHEA MD May 30, 2019 13:48
[2019-05-30] MEDS ORDERED: hydrALAZINE 20 MG/ML VIAL. IVP PRN (14:00)
[2019-05-30 15:00] VITALS: BP 156/88
--- NOTE | 2019-05-30 15:09 | PDOC ---
G I PROGRESS NOTE Reason for Follow-up Alcohol abuse Subjective Feeling better today Physical Exam Lungs clear CV S1 S2 ABD +BS, soft, minimal epigastric tenderness Review of Relevant I have reviewed the following items mandy (where applicable) has been applied. Labs Laboratory Tests Test 05/29/19 11:09 05/29/19 11:51 05/29/19 14:15 05/30/19 05:10 White Blood Count 5.2 x10^3/uL (4.0-11.0) 6.1 x10^3/uL (4.0-11.0) Red Blood Count 4.24 x10^6/uL (4.30-5.70) 3.83 x10^6/uL (4.30-5.70) Hemoglobin 14.1 g/dL (13.0-17.5) 12.6 g/dL (13.0-17.5) Hematocrit 41.3 % (39.0-53.0) 37.1 % (39.0-53.0) Mean Corpuscular Volume 97 fL (79-100) 97 fL (79-100) Mean Corpuscular Hemoglobin 33 pg (25-35) 33 pg (25-35) Mean Corpuscular Hemoglobin Concent 34 g/dL (31-37) 34 g/dL (31-37) Red Cell Distribution Width 13.2 % (11.5-14.5) 13.1 % (11.5-14.5) Platelet Count 237 x10^3/uL (140-400) 203 x10^3/uL (140-400) Neutrophils (%) (Auto) 72 % (31-73) 77 % (31-73) Lymphocytes (%) (Auto) 15 % (24-48) 12 % (24-48) Monocytes (%) (Auto) 10 % (0-9) 9 % (0-9) Eosinophils (%) (Auto) 2 % (0-3) 1 % (0-3) Basophils (%) (Auto) 1 % (0-3) 1 % (0-3) Neutrophils # (Auto) 3.7 x10^3/uL (1.8-7.7) 4.7 x10^3/uL (1.8-7.7) Lymphocytes # (Auto) 0.8 x10^3/uL (1.0-4.8) 0.7 x10^3/uL (1.0-4.8) Monocytes # (Auto) 0.5 x10^3/uL (0.0-1.1) 0.5 x10^3/uL (0.0-1.1) Eosinophils # (Auto) 0.1 x10^3/uL (0.0-0.7) 0.1 x10^3/uL (0.0-0.7) Basophils # (Auto) 0.0 x10^3/uL (0.0-0.2) 0.0 x10^3/uL (0.0-0.2) Prothrombin Time 11.6 SEC (11.7-14.0) Prothromb Time International Ratio 0.9 (0.8-1.1) Sodium Level 147 mmol/L (136-145) 148 mmol/L (136-145) Potassium Level 4.1 mmol/L (3.5-5.1) 3.8 mmol/L (3.5-5.1) Chloride Level 109 mmol/L (98-107) 113 mmol/L (98-107) Carbon Dioxide Level 24 mmol/L (21-32) 26 mmol/L (21-32) Anion Gap 14 (6-14) 9 (6-14) Blood Urea Nitrogen 14 mg/dL (8-26) 12 mg/dL (8-26) Creatinine 1.1 mg/dL (0.7-1.3) 0.9 mg/dL (0.7-1.3) Estimated GFR (Cockcroft-Gault) 68.5 86.4 BUN/Creatinine Ratio 13 (6-20) 13 (6-20) Glucose Level 104 mg/dL (70-99) 80 mg/dL (70-99) Calcium Level 8.8 mg/dL (8.5-10.1) 8.6 mg/dL (8.5-10.1) Magnesium Level 2.2 mg/dL (1.8-2.4) Total Bilirubin 0.2 mg/dL (0.2-1.0) 0.6 mg/dL (0.2-1.0) Aspartate Amino Transf (AST/SGOT) 34 U/L (15-37) 25 U/L (15-37) Alanine Aminotransferase (ALT/SGPT) 49 U/L (16-63) 40 U/L (16-63) Alkaline Phosphatase 87 U/L (46-116) 74 U/L (46-116) Troponin I Quantitative 0.026 ng/mL (0.000-0.055) 0.033 ng/mL (0.000-0.055) GC-Mqf-I-Type Natriuretic Peptide 117 pg/mL (0-124) Total Protein 7.2 g/dL (6.4-8.2) 6.4 g/dL (6.4-8.2) Albumin 3.5 g/dL (3.4-5.0) 3.2 g/dL (3.4-5.0) Albumin/Globulin Ratio 0.9 (1.0-1.7) 1.0 (1.0-1.7) Thyroid Stimulating Hormone (TSH) 1.043 uIU/mL (0.358-3.74) Salicylates Level 3.1 mg/dL (2.8-20.0) Salicylate Last Dose Date Unknown Salicylate Last Dose Time Unknown Acetaminophen Level < 2 mcg/ml (10-30) Acetaminophen Last Dose Date Unknown Acetaminophen Last Dose Time Unknown Ethyl Alcohol Level 417 mg/dL (0-10) Urine Opiates Screen Neg (NEG) Urine Methadone Screen Neg (NEG) Urine Barbiturates Neg (NEG) Urine Phencyclidine Screen Neg (NEG) Urine Amphetamine/Methamphetamine Neg (NEG) Urine Benzodiazepines Screen Neg (NEG) Urine Cocaine Screen Neg (NEG) Urine Cannabinoids Screen Neg (NEG) Urine Ethyl Alcohol Pos (NEG) Ammonia < 10 mcmol/L (11-34) Iron Level 149 ug/dL (65-175) Total Iron Binding Capacity 280 ug/dL (250-450) Iron Saturation 53 % (15-34) Laboratory Tests Test 05/30/19 05:10 White Blood Count 6.1 x10^3/uL (4.0-11.0) Red Blood Count 3.83 x10^6/uL (4.30-5.70) Hemoglobin 12.6 g/dL (13.0-17.5) Hematocrit 37.1 % (39.0-53.0) Mean Corpuscular Volume 97 fL (79-100) Mean Corpuscular Hemoglobin 33 pg (25-35) Mean Corpuscular Hemoglobin Concent 34 g/dL (31-37) Red Cell Distribution Width 13.1 % (11.5-14.5) Platelet Count 203 x10^3/uL (140-400) Neutrophils (%) (Auto) 77 % (31-73) Lymphocytes (%) (Auto) 12 % (24-48) Monocytes (%) (Auto) 9 % (0-9) Eosinophils (%) (Auto) 1 % (0-3) Basophils (%) (Auto) 1 % (0-3) Neutrophils # (Auto) 4.7 x10^3/uL (1.8-7.7) Lymphocytes # (Auto) 0.7 x10^3/uL (1.0-4.8) Monocytes # (Auto) 0.5 x10^3/uL (0.0-1.1) Eosinophils # (Auto) 0.1 x10^3/uL (0.0-0.7) Basophils # (Auto) 0.0 x10^3/uL (0.0-0.2) Sodium Level 148 mmol/L (136-145) Potassium Level 3.8 mmol/L (3.5-5.1) Chloride Level 113 mmol/L (98-107) Carbon Dioxide Level 26 mmol/L (21-32) Anion Gap 9 (6-14) Blood Urea Nitrogen 12 mg/dL (8-26) Creatinine 0.9 mg/dL (0.7-1.3) Estimated GFR (Cockcroft-Gault) 86.4 BUN/Creatinine Ratio 13 (6-20) Glucose Level 80 mg/dL (70-99) Calcium Level 8.6 mg/dL (8.5-10.1) Iron Level 149 ug/dL (65-175) Total Iron Binding Capacity 280 ug/dL (250-450) Iron Saturation 53 % (15-34) Total Bilirubin 0.6 mg/dL (0.2-1.0) Aspartate Amino Transf (AST/SGOT) 25 U/L (15-37) Alanine Aminotransferase (ALT/SGPT) 40 U/L (16-63) Alkaline Phosphatase 74 U/L (46-116) Total Protein 6.4 g/dL (6.4-8.2) Albumin 3.2 g/dL (3.4-5.0) Albumin/Globulin Ratio 1.0 (1.0-1.7) Medications Current Medications Aspirin (Children'S Aspirin) 324 mg 1X ONCE PO ; Start 05/29/19 at 11:30; Stop 05/29/19 at 11:31; Status DC Sodium Chloride 1,000 ml @ 100 mls/hr Q10H IV Last administered on 05/29/19at 11:34; Start 05/29/19 at 11:30; Stop 05/29/19 at 21:29; Status DC Ondansetron HCl (Zofran) 4 mg PRN Q8HRS PRN IV NAUSEA/VOMITING; Start 05/29/19 at 12:30; Stop 05/29/19 at 13:05; Status DC Nitroglycerin (Nitrostat) 0.4 mg PRN Q5MIN PRN SL CHEST PAIN Last administered on 05/29/19at 20:11; Start 05/29/19 at 12:30; Stop 05/30/19 at 12:29; Status DC Multivitamins 10 ml/Thiamine HCl 100 mg/Folic Acid 1 mg/Sodium Chloride 1,011.2 ml @ 1,000.088 mls/hr 1X ONCE IV Last administered on 05/29/19at 12:40; Start 05/29/19 at 12:30; Stop 05/29/19 at 13:30; Status DC Sodium Chloride (Normal Saline Flush) 3 ml QSHIFT PRN IV AFTER MEDS AND BLOOD DRAWS; Start 05/29/19 at 13:00 Multivitamins 10 ml/Thiamine HCl 100 mg/Folic Acid 1 mg/Sodium Chloride 1,011.2 ml @ 125 mls/ hr 1X ONCE IV ; Start 05/29/19 at 13:00; Stop 05/29/19 at 21:05; Status UNV Ondansetron HCl (Zofran) 4 mg PRN Q4HRS PRN IV NAUSEA/VOMITING; Start 05/29/19 at 13:00 Acetaminophen (Tylenol) 650 mg PRN Q4HRS PRN PO TEMP OVER 100.4F OR MILD PAIN; Start 05/29/19 at 13:00 Clonidine HCl (Catapres) 0.1 mg PRN Q6HRS PRN PO SBP>160 OR DBP>90; Start 05/29/19 at 13:00; Status Cancel Docusate Sodium (Colace) 100 mg PRN BID PRN PO CONSTIPATION; Start 05/29/19 at 13:00 Albuterol/ Ipratropium (Duoneb) 3 ml Q4H NEB Last administered on 05/30/19at 11:20; Start 05/29/19 at 14:00; Stop 05/30/19 at 11:31; Status DC Guaifenesin (Robitussin) 200 mg PRN Q4HRS PRN PO COUGH; Start 05/29/19 at 13:00 Lorazepam (Ativan) 0.5 mg PRN Q4HRS PRN PO ANXIETY / AGITATION; Start 05/29/19 at 13:00 Lorazepam (Ativan Inj) 2 mg PRN Q4HRS PRN IV ANXIETY / AGITATION Last administered on 05/30/19at 05:06; Start 05/29/19 at 13:00 Enoxaparin Sodium (Lovenox 40mg Syringe) 40 mg DAILY SQ Last administered on 05/30/19at 10:51; Start 05/30/19 at 09:00 Multivitamins 10 ml/Thiamine HCl 100 mg/Folic Acid 1 mg/Sodium Chloride 1,011.2 ml @ 100 mls/ hr DAILY IV Last administered on 05/30/19at 10:49; Start 05/30/19 at 09:00; Stop 06/03/19 at 19:07 Multivitamins (Thera M Plus) 1 tab DAILY PO ; Start 06/04/19 at 09:00 Folic Acid (Folic Acid) 1 mg DAILY PO ; Start 06/04/19 at 09:00 Thiamine HCl 100 mg/Dextrose 51 ml @ 100 mls/hr DAILY IV ; Start 06/04/19 at 09:00; Stop 06/08/19 at 09:31 Lorazepam (Ativan) 4 mg PRN Q1HR PRN PO For CIWA 8-14; Start 05/29/19 at 13:15 Lorazepam (Ativan) 8 mg PRN Q1HR PRN PO For CIWA 15 or greater; Start 05/29/19 at 13:15 Lorazepam (Ativan Inj) 2 mg PRN Q1HR PRN IV For CIWA 8-14; Start 05/29/19 at 13:15 Lorazepam (Ativan Inj) 4 mg PRN Q1HR PRN IV For CIWA 15 or greater; Start 05/29/19 at 13:15 Haloperidol Lactate (Haldol Inj) 5 mg PRN Q4HRS PRN IVP Hallucinatns,C onfusn,Delirium; Start 05/29/19 at 13:15 Clonidine HCl (Catapres) 0.1 mg PRN Q1HR PRN PO SBP > 180 or DBP > 100, MRX3; Start 05/29/19 at 13:15 Lorazepam (Ativan Inj) 2 mg PRN Q15MIN PRN IV SEE COMMENTS; Start 05/29/19 at 13:15; Status Cancel Lorazepam (Ativan Inj) 4 mg PRN Q15MIN PRN IV SEE COMMENTS; Start 05/29/19 at 13:15; Status Cancel Piperacillin Sod/ Tazobactam Sod 3.375 gm/Sodium Chloride 50 ml @ 100 mls/hr Q6HRS IV Last administered on 05/30/19at 12:37; Start 05/29/19 at 18:00 Albuterol Sulfate (Ventolin Neb Soln) 2.5 mg PRN Q4HRS PRN NEB SHORTNESS OF BREATH; Start 05/30/19 at 11:30 Aspirin (Ecotrin) 81 mg DAILYWBKFT PO ; Start 05/30/19 at 14:30 Atorvastatin Calcium (Lipitor) 40 mg QHS PO ; Start 05/30/19 at 21:00 Hydralazine HCl (Apresoline Inj) 10 mg PRN Q4HRS PRN IVP ELEVATED BP, SEE COMMENTS; Start 05/30/19 at 14:00 Lactobacillus Rhamnosus (Culturelle) 1 cap BID PO ; Start 05/30/19 at 21:00 Active Scripts Active Atorvastatin Calcium 10 Mg Tablet 10 Mg PO QHS Clopidogrel (Clopidogrel Bisulfate) 75 Mg Tablet 75 Mg PO DAILYWBKFT Aspirin Ec (Aspirin) 81 Mg Tablet.dr 81 Mg PO DAILYWBKFT Ultram (Tramadol Hcl) 50 Mg Tablet 50 Mg PO Q6HRS PRN Lisinopril 20 Mg Tablet 1 Tab PO DAILY Vitals/I & O Vital Sign - Last 24 Hours 05/29/19 05/29/19 05/29/19 05/29/19 17:06 18:11 18:24 18:54 Temp 98.1 98.1 Pulse 64 71 58 Resp 23 B/P (MAP) 146/93 135/87 131/110 (117) Pulse Ox 97 97 O2 Delivery Room Air Room Air 05/29/19 05/29/19 05/29/19 05/29/19 19:01 20:00 20:11 23:05 Temp 98.2 98.2 Pulse 58 64 Resp 19 B/P (MAP) 131/110 114/61 (78) Pulse Ox 97 97 O2 Delivery Room Air Room Air Room Air 05/29/19 05/30/19 05/30/19 05/30/19 23:22 03:04 07:00 07:32 Temp 98.4 98.2 98.4 98.2 Pulse 74 75 Resp 18 22 B/P (MAP) 148/77 (100) 159/87 (111) Pulse Ox 97 97 94 O2 Delivery Room Air Room Air Room Air Room Air 05/30/19 05/30/19 05/30/19 11:00 11:21 15:00 Temp 97.9 98.2 97.9 98.2 Pulse 69 89 Resp 18 20 B/P (MAP) 173/91 (118) 156/88 (110) Pulse Ox 93 93 O2 Delivery Room Air Room Air Room Air Intake and Output 05/29/19 05/29/19 05/30/19 15:00 23:00 07:00 Intake Total 1011.2 ml 0 ml 0 ml Output Total 300 ml 700 ml Balance 1011.2 ml -300 ml -700 ml Problem List Problems Medical Problems: (1) Chest pain Status: Acute (2) Intoxication Status: Acute (3) Suicidal ideations Status: Acute Assessment Alcohol abuse- withdrawal precuations, await decion regarding heart cath, start Protonix for possible stress induced PUD ADRIA RAE MD May 30, 2019 15:09
[2019-05-30] MEDS: ASPIRIN ENTERIC COATED 81 MG TABLET.DR. PO SCH (16:00)
[2019-05-30] MEDS: PANTOPRAZOLE 40 MG TABLET.DR. PO SCH (16:00)
[2019-05-30 19:10] VITALS: BP 138/80
[2019-05-30] MEDS: LACTOBACILLUS RHAMNOSUS GG 1 CAPSULE. PO SCH (20:08)
[2019-05-30] MEDS ORDERED: ATORVASTATIN CALCIUM 40 MG TABLET. PO SCH (21:00)
[2019-05-30 23:00] VITALS: BP 146/84
[2019-05-31 03:00] VITALS: BP 157/92
[2019-05-31] MEDS: PIPERACILLIN/TAZOBACTAM 3.375 GM in IV NORMAL SALINE 50ML 50 ML IV SCH ×2 (06:00→11:11)
[2019-05-31 07:12] VITALS: BP 167/97
[2019-05-31 07:40] LABS: BASO % 1 % (0-3); EOS # 0.1 x10^3/uL (0.0-0.7); EOS % 2 % (0-3); HEMATOCRIT 36.5 % (39.0-53.0); HEMOGLOBIN 12.4 g/dL (13.0-17.5); LYMPH # 0.7 x10^3/uL (1.0-4.8); LYMPH % 12 % (24-48); MEAN CORPUSCULAR HEMOGLOBIN 33 pg (25-35); MEAN CORPUSCULAR HGB CONC 34 g/dL (31-37); MEAN CORPUSCULAR VOLUME 97 fL (79-100); MONO # 0.5 x10^3/uL (0.0-1.1); MONO % 8 % (0-9); NEUT # 4.4 x10^3/uL (1.8-7.7); NEUT % 77 % (31-73); PLATELET COUNT 204 x10^3/uL (140-400); RED BLOOD COUNT 3.79 x10^6/uL (4.30-5.70); WHITE BLOOD COUNT 5.7 x10^3/uL (4.0-11.0)
[2019-05-31] MEDS ORDERED: traMADol 50 MG TABLET PO PRN (07:45)
[2019-05-31] MEDS ORDERED: CLOPIDOGREL BISULFATE 75 MG TABLET PO SCH (08:00)
[2019-05-31] MEDS ORDERED: ASPIRIN ENTERIC COATED 81 MG TABLET.DR. PO SCH (08:00)
[2019-05-31 08:07] LABS: ALBUMIN 2.9 g/dL (3.4-5.0); ALBUMIN/GLOBULIN RATIO 0.9 (1.0-1.7); CALCIUM 8.8 mg/dL (8.5-10.1); GFR 76.5; POTASSIUM 3.7 mmol/L (3.5-5.1); TOTAL PROTEIN 6.2 g/dL (6.4-8.2)
[2019-05-31] MEDS: LACTOBACILLUS RHAMNOSUS GG 1 CAPSULE. PO SCH (08:10)
[2019-05-31] MEDS: PANTOPRAZOLE 40 MG TABLET.DR. PO SCH (08:10)
[2019-05-31] MEDS: ASPIRIN ENTERIC COATED 81 MG TABLET.DR. PO SCH (08:10)
[2019-05-31] MEDS: ENOXAPARIN 40 MG/0.4 ML SYRINGE. SQ SCH (08:11)
[2019-05-31] MEDS: MULTIVIT INFUSN,ADULT 4,VIT K 10 ML, THIAMINE INJ 100 MG, FOLIC ACID INJ 1 MG in IV NOR... IV SCH (08:11)
[2019-05-31] MEDS ORDERED: LISINOPRIL 20 MG TABLET PO SCH (09:00)
--- NOTE | 2019-05-31 09:21 | PDOC ---
Subjective: Subjective: Doesn't know if he's having a heart cath - asks when he can go home. Ate breakfast - had some abdominal pain that resolved. Has stooled. No n/v. Objective: Vital Signs: Vital Signs Date Time Temp Pulse Resp B/P (MAP) Pulse Ox O2 Delivery O2 Flow Rate FiO2 05/31/19 08:52 Room Air 05/31/19 08:12 59 167/97 05/31/19 07:12 97.9 18 95 97.9 Labs: Laboratory Tests Test 05/31/19 06:40 White Blood Count 5.7 x10^3/uL Red Blood Count 3.79 x10^6/uL Hemoglobin 12.4 g/dL Hematocrit 36.5 % Mean Corpuscular Volume 97 fL Mean Corpuscular Hemoglobin 33 pg Mean Corpuscular Hemoglobin Concent 34 g/dL Red Cell Distribution Width 13.0 % Platelet Count 204 x10^3/uL Neutrophils (%) (Auto) 77 % Lymphocytes (%) (Auto) 12 % Monocytes (%) (Auto) 8 % Eosinophils (%) (Auto) 2 % Basophils (%) (Auto) 1 % Neutrophils # (Auto) 4.4 x10^3/uL Lymphocytes # (Auto) 0.7 x10^3/uL Monocytes # (Auto) 0.5 x10^3/uL Eosinophils # (Auto) 0.1 x10^3/uL Basophils # (Auto) 0.0 x10^3/uL Sodium Level 143 mmol/L Potassium Level 3.7 mmol/L Chloride Level 110 mmol/L Carbon Dioxide Level 25 mmol/L Anion Gap 8 Blood Urea Nitrogen 13 mg/dL Creatinine 1.0 mg/dL Estimated GFR (Cockcroft-Gault) 76.5 BUN/Creatinine Ratio 13 Glucose Level 84 mg/dL Calcium Level 8.8 mg/dL Total Bilirubin 1.0 mg/dL Aspartate Amino Transf (AST/SGOT) 18 U/L Alanine Aminotransferase (ALT/SGPT) 32 U/L Alkaline Phosphatase 67 U/L Total Protein 6.2 g/dL Albumin 2.9 g/dL Albumin/Globulin Ratio 0.9 PE: GEN: NAD - has 1:1 LUNGS: CTAB HEART: RRR ABD: S/ND/NT NEURO/PSYCH: A & O �3 A/P: Alcohol intoxication Atypical chest pain, h/o CAD -- Continue PPI. DC per primary/cardiology - cath plans unclear. MONAE GODFREY May 31, 2019 09:21
--- NOTE | 2019-05-31 09:37 | PDOC ---
PROGRESS NOTES History of Present Illness History of Present Illness VTE Prophylaxis Ordered VTE Prophylaxis Devices: No VTE Pharmacological Prophylaxi: Yes discharge dx Assessment/Plan impression SEVERE ALCOHOL ABUSE, agrees to stop etoh use Chest pain, cardiomegaly from EtOH abuse acute severe alcohol intoxication. alcohol withdrawl suidical on admit, very intoxicated, //now denies self harm ideations or a plan 05/31 Suspected chronic right ninth rib fractures. HX FALLS DEHYDRATION No acute intracranial abnormality is identified. on ct head PLAN ADMIT SERIAL TROPONIN I PAT TEAM has cleared for d/c sitter [facility]LE [facility] CARDIOLOGY CONSULT ECHO pending CWAL PROTOCOL gi consult serum nh4++ 32 MIN PT EXAM d/c planning , CHART REVIEW, > 50% OF TIME SPENT WITH EXAM, CHART REVIEW, PT CARE COORDINATION Vitals Vitals Vital Signs Date Time Temp Pulse Resp B/P (MAP) Pulse Ox O2 Delivery O2 Flow Rate FiO2 05/31/19 08:52 Room Air 05/31/19 08:12 59 167/97 05/31/19 07:12 97.9 18 95 97.9 Physical Exam Physical Exam HENT: Normocephalic, atraumatic, bilateral external ears normal, oropharynx moist, no oral exudates, nose normal. [] Eyes: PERRLA, EOMI, conjunctiva normal, no discharge. [] Cardiovascular:Heart rate regular rhythm, no murmur [] Lungs & Thorax: Bilateral breath sounds clear to auscultation [] Abdomen: Bowel sounds normal, soft, no tenderness, no masses, no pulsatile mass es. [] Skin: Warm, dry, no erythema, no rash. [] Back: No tenderness, no CVA tenderness. [] Extremities: No tenderness, no edema. [] Neurologic: Alert and oriented X 3, . [] Psychologic: suicidal THOUGHTS [] General: Alert, Oriented X3, Cooperative, No acute distress Heart: Regular rate, Normal S1, Normal S2 Lungs: Clear Abdomen: Normal bowel sounds, Soft, No tenderness Extremities: No cyanosis, No edema Skin: No rashes Labs LABS Laboratory Tests Test 05/31/19 06:40 White Blood Count 5.7 x10^3/uL (4.0-11.0) Red Blood Count 3.79 x10^6/uL (4.30-5.70) Hemoglobin 12.4 g/dL (13.0-17.5) Hematocrit 36.5 % (39.0-53.0) Mean Corpuscular Volume 97 fL (79-100) Mean Corpuscular Hemoglobin 33 pg (25-35) Mean Corpuscular Hemoglobin Concent 34 g/dL (31-37) Red Cell Distribution Width 13.0 % (11.5-14.5) Platelet Count 204 x10^3/uL (140-400) Neutrophils (%) (Auto) 77 % (31-73) Lymphocytes (%) (Auto) 12 % (24-48) Monocytes (%) (Auto) 8 % (0-9) Eosinophils (%) (Auto) 2 % (0-3) Basophils (%) (Auto) 1 % (0-3) Neutrophils # (Auto) 4.4 x10^3/uL (1.8-7.7) Lymphocytes # (Auto) 0.7 x10^3/uL (1.0-4.8) Monocytes # (Auto) 0.5 x10^3/uL (0.0-1.1) Eosinophils # (Auto) 0.1 x10^3/uL (0.0-0.7) Basophils # (Auto) 0.0 x10^3/uL (0.0-0.2) Sodium Level 143 mmol/L (136-145) Potassium Level 3.7 mmol/L (3.5-5.1) Chloride Level 110 mmol/L (98-107) Carbon Dioxide Level 25 mmol/L (21-32) Anion Gap 8 (6-14) Blood Urea Nitrogen 13 mg/dL (8-26) Creatinine 1.0 mg/dL (0.7-1.3) Estimated GFR (Cockcroft-Gault) 76.5 BUN/Creatinine Ratio 13 (6-20) Glucose Level 84 mg/dL (70-99) Calcium Level 8.8 mg/dL (8.5-10.1) Total Bilirubin 1.0 mg/dL (0.2-1.0) Aspartate Amino Transf (AST/SGOT) 18 U/L (15-37) Alanine Aminotransferase (ALT/SGPT) 32 U/L (16-63) Alkaline Phosphatase 67 U/L (46-116) Total Protein 6.2 g/dL (6.4-8.2) Albumin 2.9 g/dL (3.4-5.0) Albumin/Globulin Ratio 0.9 (1.0-1.7) Assessment and Plan Assessmemt and Plan Problems Medical Problems: (1) Chest pain Status: Acute (2) Intoxication Status: Acute (3) Suicidal ideations Status: Acute Comment Review of Relevant I have reviewed the following items mandy (where applicable) has been applied. Labs Laboratory Tests Test 05/29/19 11:09 05/29/19 11:51 05/29/19 14:15 05/30/19 05:10 White Blood Count 5.2 x10^3/uL (4.0-11.0) 6.1 x10^3/uL (4.0-11.0) Red Blood Count 4.24 x10^6/uL (4.30-5.70) 3.83 x10^6/uL (4.30-5.70) Hemoglobin 14.1 g/dL (13.0-17.5) 12.6 g/dL (13.0-17.5) Hematocrit 41.3 % (39.0-53.0) 37.1 % (39.0-53.0) Mean Corpuscular Volume 97 fL (79-100) 97 fL (79-100) Mean Corpuscular Hemoglobin 33 pg (25-35) 33 pg (25-35) Mean Corpuscular Hemoglobin Concent 34 g/dL (31-37) 34 g/dL (31-37) Red Cell Distribution Width 13.2 % (11.5-14.5) 13.1 % (11.5-14.5) Platelet Count 237 x10^3/uL (140-400) 203 x10^3/uL (140-400) Neutrophils (%) (Auto) 72 % (31-73) 77 % (31-73) Lymphocytes (%) (Auto) 15 % (24-48) 12 % (24-48) Monocytes (%) (Auto) 10 % (0-9) 9 % (0-9) Eosinophils (%) (Auto) 2 % (0-3) 1 % (0-3) Basophils (%) (Auto) 1 % (0-3) 1 % (0-3) Neutrophils # (Auto) 3.7 x10^3/uL (1.8-7.7) 4.7 x10^3/uL (1.8-7.7) Lymphocytes # (Auto) 0.8 x10^3/uL (1.0-4.8) 0.7 x10^3/uL (1.0-4.8) Monocytes # (Auto) 0.5 x10^3/uL (0.0-1.1) 0.5 x10^3/uL (0.0-1.1) Eosinophils # (Auto) 0.1 x10^3/uL (0.0-0.7) 0.1 x10^3/uL (0.0-0.7) Basophils # (Auto) 0.0 x10^3/uL (0.0-0.2) 0.0 x10^3/uL (0.0-0.2) Prothrombin Time 11.6 SEC (11.7-14.0) Prothromb Time International Ratio 0.9 (0.8-1.1) Sodium Level 147 mmol/L (136-145) 148 mmol/L (136-145) Potassium Level 4.1 mmol/L (3.5-5.1) 3.8 mmol/L (3.5-5.1) Chloride Level 109 mmol/L (98-107) 113 mmol/L (98-107) Carbon Dioxide Level 24 mmol/L (21-32) 26 mmol/L (21-32) Anion Gap 14 (6-14) 9 (6-14) Blood Urea Nitrogen 14 mg/dL (8-26) 12 mg/dL (8-26) Creatinine 1.1 mg/dL (0.7-1.3) 0.9 mg/dL (0.7-1.3) Estimated GFR (Cockcroft-Gault) 68.5 86.4 BUN/Creatinine Ratio 13 (6-20) 13 (6-20) Glucose Level 104 mg/dL (70-99) 80 mg/dL (70-99) Calcium Level 8.8 mg/dL (8.5-10.1) 8.6 mg/dL (8.5-10.1) Magnesium Level 2.2 mg/dL (1.8-2.4) Total Bilirubin 0.2 mg/dL (0.2-1.0) 0.6 mg/dL (0.2-1.0) Aspartate Amino Transf (AST/SGOT) 34 U/L (15-37) 25 U/L (15-37) Alanine Aminotransferase (ALT/SGPT) 49 U/L (16-63) 40 U/L (16-63) Alkaline Phosphatase 87 U/L (46-116) 74 U/L (46-116) Troponin I Quantitative 0.026 ng/mL (0.000-0.055) 0.033 ng/mL (0.000-0.055) NL-Zbz-G-Type Natriuretic Peptide 117 pg/mL (0-124) Total Protein 7.2 g/dL (6.4-8.2) 6.4 g/dL (6.4-8.2) Albumin 3.5 g/dL (3.4-5.0) 3.2 g/dL (3.4-5.0) Albumin/Globulin Ratio 0.9 (1.0-1.7) 1.0 (1.0-1.7) Thyroid Stimulating Hormone (TSH) 1.043 uIU/mL (0.358-3.74) Salicylates Level 3.1 mg/dL (2.8-20.0) Salicylate Last Dose Date Unknown Salicylate Last Dose Time Unknown Acetaminophen Level < 2 mcg/ml (10-30) Acetaminophen Last Dose Date Unknown Acetaminophen Last Dose Time Unknown Ethyl Alcohol Level 417 mg/dL (0-10) Urine Opiates Screen Neg (NEG) Urine Methadone Screen Neg (NEG) Urine Barbiturates Neg (NEG) Urine Phencyclidine Screen Neg (NEG) Urine Amphetamine/Methamphetamine Neg (NEG) Urine Benzodiazepines Screen Neg (NEG) Urine Cocaine Screen Neg (NEG) Urine Cannabinoids Screen Neg (NEG) Urine Ethyl Alcohol Pos (NEG) Ammonia < 10 mcmol/L (11-34) Iron Level 149 ug/dL (65-175) Total Iron Binding Capacity 280 ug/dL (250-450) Iron Saturation 53 % (15-34) Test 05/31/19 06:40 White Blood Count 5.7 x10^3/uL (4.0-11.0) Red Blood Count 3.79 x10^6/uL (4.30-5.70) Hemoglobin 12.4 g/dL (13.0-17.5) Hematocrit 36.5 % (39.0-53.0) Mean Corpuscular Volume 97 fL (79-100) Mean Corpuscular Hemoglobin 33 pg (25-35) Mean Corpuscular Hemoglobin Concent 34 g/dL (31-37) Red Cell Distribution Width 13.0 % (11.5-14.5) Platelet Count 204 x10^3/uL (140-400) Neutrophils (%) (Auto) 77 % (31-73) Lymphocytes (%) (Auto) 12 % (24-48) Monocytes (%) (Auto) 8 % (0-9) Eosinophils (%) (Auto) 2 % (0-3) Basophils (%) (Auto) 1 % (0-3) Neutrophils # (Auto) 4.4 x10^3/uL (1.8-7.7) Lymphocytes # (Auto) 0.7 x10^3/uL (1.0-4.8) Monocytes # (Auto) 0.5 x10^3/uL (0.0-1.1) Eosinophils # (Auto) 0.1 x10^3/uL (0.0-0.7) Basophils # (Auto) 0.0 x10^3/uL (0.0-0.2) Sodium Level 143 mmol/L (136-145) Potassium Level 3.7 mmol/L (3.5-5.1) Chloride Level 110 mmol/L (98-107) Carbon Dioxide Level 25 mmol/L (21-32) Anion Gap 8 (6-14) Blood Urea Nitrogen 13 mg/dL (8-26) Creatinine 1.0 mg/dL (0.7-1.3) Estimated GFR (Cockcroft-Gault) 76.5 BUN/Creatinine Ratio 13 (6-20) Glucose Level 84 mg/dL (70-99) Calcium Level 8.8 mg/dL (8.5-10.1) Total Bilirubin 1.0 mg/dL (0.2-1.0) Aspartate Amino Transf (AST/SGOT) 18 U/L (15-37) Alanine Aminotransferase (ALT/SGPT) 32 U/L (16-63) Alkaline Phosphatase 67 U/L (46-116) Total Protein 6.2 g/dL (6.4-8.2) Albumin 2.9 g/dL (3.4-5.0) Albumin/Globulin Ratio 0.9 (1.0-1.7) Laboratory Tests Test 05/31/19 06:40 White Blood Count 5.7 x10^3/uL (4.0-11.0) Red Blood Count 3.79 x10^6/uL (4.30-5.70) Hemoglobin 12.4 g/dL (13.0-17.5) Hematocrit 36.5 % (39.0-53.0) Mean Corpuscular Volume 97 fL (79-100) Mean Corpuscular Hemoglobin 33 pg (25-35) Mean Corpuscular Hemoglobin Concent 34 g/dL (31-37) Red Cell Distribution Width 13.0 % (11.5-14.5) Platelet Count 204 x10^3/uL (140-400) Neutrophils (%) (Auto) 77 % (31-73) Lymphocytes (%) (Auto) 12 % (24-48) Monocytes (%) (Auto) 8 % (0-9) Eosinophils (%) (Auto) 2 % (0-3) Basophils (%) (Auto) 1 % (0-3) Neutrophils # (Auto) 4.4 x10^3/uL (1.8-7.7) Lymphocytes # (Auto) 0.7 x10^3/uL (1.0-4.8) Monocytes # (Auto) 0.5 x10^3/uL (0.0-1.1) Eosinophils # (Auto) 0.1 x10^3/uL (0.0-0.7) Basophils # (Auto) 0.0 x10^3/uL (0.0-0.2) Sodium Level 143 mmol/L (136-145) Potassium Level 3.7 mmol/L (3.5-5.1) Chloride Level 110 mmol/L (98-107) Carbon Dioxide Level 25 mmol/L (21-32) Anion Gap 8 (6-14) Blood Urea Nitrogen 13 mg/dL (8-26) Creatinine 1.0 mg/dL (0.7-1.3) Estimated GFR (Cockcroft-Gault) 76.5 BUN/Creatinine Ratio 13 (6-20) Glucose Level 84 mg/dL (70-99) Calcium Level 8.8 mg/dL (8.5-10.1) Total Bilirubin 1.0 mg/dL (0.2-1.0) Aspartate Amino Transf (AST/SGOT) 18 U/L (15-37) Alanine Aminotransferase (ALT/SGPT) 32 U/L (16-63) Alkaline Phosphatase 67 U/L (46-116) Total Protein 6.2 g/dL (6.4-8.2) Albumin 2.9 g/dL (3.4-5.0) Albumin/Globulin Ratio 0.9 (1.0-1.7) Medications Current Medications Aspirin (Children'S Aspirin) 324 mg 1X ONCE PO ; Start 05/29/19 at 11:30; Stop 05/29/19 at 11:31; Status DC Sodium Chloride 1,000 ml @ 100 mls/hr Q10H IV Last administered on 05/29/19at 11:34; Start 05/29/19 at 11:30; Stop 05/29/19 at 21:29; Status DC Ondansetron HCl (Zofran) 4 mg PRN Q8HRS PRN IV NAUSEA/VOMITING; Start 05/29/19 at 12:30; Stop 05/29/19 at 13:05; Status DC Nitroglycerin (Nitrostat) 0.4 mg PRN Q5MIN PRN SL CHEST PAIN Last administered on 05/29/19at 20:11; Start 05/29/19 at 12:30; Stop 05/30/19 at 12:29; Status DC Multivitamins 10 ml/Thiamine HCl 100 mg/Folic Acid 1 mg/Sodium Chloride 1,011.2 ml @ 1,000.088 mls/hr 1X ONCE IV Last administered on 05/29/19at 12:40; Start 05/29/19 at 12:30; Stop 05/29/19 at 13:30; Status DC Sodium Chloride (Normal Saline Flush) 3 ml QSHIFT PRN IV AFTER MEDS AND BLOOD DRAWS; Start 05/29/19 at 13:00 Multivitamins 10 ml/Thiamine HCl 100 mg/Folic Acid 1 mg/Sodium Chloride 1,011.2 ml @ 125 mls/ hr 1X ONCE IV ; Start 05/29/19 at 13:00; Stop 05/29/19 at 21:05; Status UNV Ondansetron HCl (Zofran) 4 mg PRN Q4HRS PRN IV NAUSEA/VOMITING; Start 05/29/19 at 13:00 Acetaminophen (Tylenol) 650 mg PRN Q4HRS PRN PO TEMP OVER 100.4F OR MILD PAIN Last administered on 05/30/19at 20:08; Start 05/29/19 at 13:00 Clonidine HCl (Catapres) 0.1 mg PRN Q6HRS PRN PO SBP>160 OR DBP>90; Start 05/29/19 at 13:00; Status Cancel Docusate Sodium (Colace) 100 mg PRN BID PRN PO CONSTIPATION; Start 05/29/19 at 13:00 Albuterol/ Ipratropium (Duoneb) 3 ml Q4H NEB Last administered on 05/30/19at 11:20; Start 05/29/19 at 14:00; Stop 05/30/19 at 11:31; Status DC Guaifenesin (Robitussin) 200 mg PRN Q4HRS PRN PO COUGH; Start 05/29/19 at 13:00 Lorazepam (Ativan) 0.5 mg PRN Q4HRS PRN PO ANXIETY / AGITATION; Start 05/29/19 at 13:00 Lorazepam (Ativan Inj) 2 mg PRN Q4HRS PRN IV ANXIETY / AGITATION Last administered on 05/30/19at 20:09; Start 05/29/19 at 13:00 Enoxaparin Sodium (Lovenox 40mg Syringe) 40 mg DAILY SQ Last administered on 05/31/19at 08:11; Start 05/30/19 at 09:00 Multivitamins 10 ml/Thiamine HCl 100 mg/Folic Acid 1 mg/Sodium Chloride 1,011.2 ml @ 100 mls/ hr DAILY IV Last administered on 05/31/19at 08:11; Start 05/30/19 at 09:00; Stop 06/03/19 at 19:07 Multivitamins (Thera M Plus) 1 tab DAILY PO ; Start 06/04/19 at 09:00 Folic Acid (Folic Acid) 1 mg DAILY PO ; Start 06/04/19 at 09:00 Thiamine HCl 100 mg/Dextrose 51 ml @ 100 mls/hr DAILY IV ; Start 06/04/19 at 09:00; Stop 06/08/19 at 09:31 Lorazepam (Ativan) 4 mg PRN Q1HR PRN PO For CIWA 8-14; Start 05/29/19 at 13:15 Lorazepam (Ativan) 8 mg PRN Q1HR PRN PO For CIWA 15 or greater; Start 05/29/19 at 13:15 Lorazepam (Ativan Inj) 2 mg PRN Q1HR PRN IV For CIWA 8-14; Start 05/29/19 at 13:15 Lorazepam (Ativan Inj) 4 mg PRN Q1HR PRN IV For CIWA 15 or greater; Start 05/29/19 at 13:15 Haloperidol Lactate (Haldol Inj) 5 mg PRN Q4HRS PRN IVP Hallucinatns,Confusn,Delirium; Start 05/29/19 at 13:15 Clonidine HCl (Catapres) 0.1 mg PRN Q1HR PRN PO SBP > 180 or DBP > 100, MRX3; Start 05/29/19 at 13:15 Lorazepam (Ativan Inj) 2 mg PRN Q15MIN PRN IV SEE COMMENTS; Start 05/29/19 at 13:15; Status Cancel Lorazepam (Ativan Inj) 4 mg PRN Q15MIN PRN IV SEE COMMENTS; Start 05/29/19 at 13:15; Status Cancel Piperacillin Sod/ Tazobactam Sod 3.375 gm/Sodium Chloride 50 ml @ 100 mls/hr Q6HRS IV Last administered on 05/31/19at 06:00; Start 05/29/19 at 18:00 Albuterol Sulfate (Ventolin Neb Soln) 2.5 mg PRN Q4HRS PRN NEB SHORTNESS OF BREATH; Start 05/30/19 at 11:30 Aspirin (Ecotrin) 81 mg DAILYWBKFT PO Last administered on 05/31/19at 08:10; Start 05/30/19 at 14:30 Atorvastatin Calcium (Lipitor) 40 mg QHS PO Last administered on 05/30/19at 20:08; Start 05/30/19 at 21:00 Hydralazine HCl (Apresoline Inj) 10 mg PRN Q4HRS PRN IVP ELEVATED BP, SEE COMMENTS; Start 05/30/19 at 14:00 Lactobacillus Rhamnosus (Culturelle) 1 cap BID PO Last administered on 05/31/19at 08:10; Start 05/30/19 at 21:00 Pantoprazole Sodium (Protonix) 40 mg DAILYAC PO Last administered on 05/31/19at 08:10; Start 05/30/19 at 15:30 Aspirin (Ecotrin) 81 mg DAILYWBKFT PO ; Start 05/31/19 at 08:00; Status UNV Atorvastatin Calcium (Lipitor) 10 mg QHS PO ; Start 05/31/19 at 21:00; Status UNV Clopidogrel Bisulfate (Plavix) 75 mg DAILYWBKFT PO Last administered on 05/31/19at 08:10; Start 05/31/19 at 08:00 Lisinopril (Prinivil) 20 mg DAILY PO Last administered on 05/31/19at 08:12; Start 05/31/19 at 09:00 Tramadol HCl (Ultram) 50 mg Q6HRS PRN PO PAIN Last administered on 05/31/19at 08:52; Start 05/31/19 at 07:45 Active Scripts Active Atorvastatin Calcium 10 Mg Tablet 10 Mg PO QHS Clopidogrel (Clopidogrel Bisulfate) 75 Mg Tablet 75 Mg PO DAILYWBKFT Aspirin Ec (Aspirin) 81 Mg Tablet.dr 81 Mg PO DAILYWBKFT Ultram (Tramadol Hcl) 50 Mg Tablet 50 Mg PO Q6HRS PRN Lisinopril 20 Mg Tablet 1 Tab PO DAILY Vitals/I & O Vital Sign - Last 24 Hours 05/30/19 05/30/19 05/30/19 05/30/19 11:00 11:21 15:00 19:10 Temp 97.9 98.2 98.9 97.9 98.2 98.9 Pulse 69 89 82 Resp 18 20 20 B/P (MAP) 173/91 (118) 156/88 (110) 138/80 (99) Pulse Ox 93 93 97 O2 Delivery Room Air Room Air Room Air Room Air 05/30/19 05/30/19 05/31/19 05/31/19 20:00 23:00 03:00 07:12 Temp 98.7 98.2 97.9 98.7 98.2 97.9 Pulse 86 54 59 Resp 20 18 18 B/P (MAP) 146/84 (104) 157/92 (113) 167/97 (120) Pulse Ox 96 95 95 O2 Delivery Room Air Room Air Room Air Room Air 05/31/19 05/31/19 08:12 08:52 Pulse 59 B/P (MAP) 167/97 O2 Delivery Room Air Intake and Output 05/30/19 05/30/19 05/31/19 14:59 22:59 06:59 Intake Total 1290 ml 540 ml 400 ml Output Total 300 ml 475 ml 500 ml Balance 990 ml 65 ml -100 ml FELICITAS LOGAN MD May 31, 2019 09:37
--- NOTE | 2019-05-31 10:42 | NUR ---
SW consulted for ETOH use and dc planning. Chart reviewed and discussed with RN. Pt lives at home with spouse and is admitted for chest pain, ETOH intoxication and SI. DOMINIQUE spoke with Marisabel from PAT team and pt was seen on 05/30 and denied being SI. Per Anika pt does not need to be under 1:1 observation and has agreed to make an intake assessment appointment with [facility] upon dc. Pt is provided with [facility] info. No other needs noted at this time. SW will be available as needed.
[2019-05-31 11:00] VITALS: BP 167/95
--- NOTE | 2019-05-31 11:33 | PDOC3 ---
Discharge Summary Date of Admission: May 29, 2019 Date of Discharge: May 31, 2019 Follow-Up: 1-2 days Admitting Diagnosis comment: discharge dx Assessment/Plan impression SEVERE ALCOHOL ABUSE, agrees to stop etoh use Chest pain, cardiomegaly from EtOH abuse acute severe alcohol intoxication. alcohol withdrawl suidical on admit, very intoxicated, //now denies self harm ideations or a plan 05/31 Suspected chronic right ninth rib fractures. HX FALLS DEHYDRATION No acute intracranial abnormality is identified. on ct head PLAN ADMIT SERIAL TROPONIN I PAT TEAM has cleared for d/c sitter [facility] CARDIOLOGY CONSULT ECHO pending CWAL PROTOCOL gi consult serum nh4++ 32 MIN PT EXAM d/c planning , CHART REVIEW, > 50% OF TIME SPENT WITH EXAM, CHART REVIEW, PT CARE COORDINATION Vitals Vitals Vital Signs Date Time Temp Pulse Resp B/P (MAP) Pulse Ox O2 Delivery O2 Flow Rate FiO2 05/31/19 08:52 Room Air 05/31/19 08:12 59 167/97 05/31/19 07:12 97.9 18 95 97.9 Physical Exam Physical Exam no tremor or agitation HENT: Normocephalic, atraumatic, bilateral external ears normal, oropharynx moist, no oral exudates, nose normal. [] Eyes: PERRLA, EOMI, conjunctiva normal, no discharge. [] Cardiovascular:Heart rate regular rhythm, no murmur [] Lungs & Thorax: Bilateral breath sounds clear to auscultation [] Abdomen: Bowel sounds normal, soft, no tenderness, no masses, no pulsatile masses. [] Skin: Warm, dry, no erythema, no rash. [] Back: No tenderness, no CVA tenderness. [] Extremities: No tenderness, no edema. [] Neurologic: Alert and oriented X 3, . [] Psychologic: suicidal THOUGHTS [] General: Alert, Oriented X3, Cooperative, No acute distress Heart: Regular rate, Normal S1, Normal S2 Lungs: Clear Abdomen: Normal bowel sounds, Soft, No tenderness Extremities: No cyanosis, No edema Skin: No rashes FINAL DIAGNOSIS Problems Medical Problems: (1) Chest pain Status: Acute (2) Intoxication Status: Acute (3) Suicidal ideations Status: Acute Brief Hospital Course Mr. Chiang is a 59 old [sex] who presented with [suicide ideations, etoh abuse ] CONDITION AT DISCHARGE: Improved Discharge Medications Current Medications Aspirin (Children'S Aspirin) 324 mg 1X ONCE PO ; Start 05/29/19 at 11:30; Stop 05/29/19 at 11:31; Status DC Sodium Chloride 1,000 ml @ 100 mls/hr Q10H IV Last administered on 05/29/19at 11:34; Start 05/29/19 at 11:30; Stop 05/29/19 at 21:29; Status DC Ondansetron HCl (Zofran) 4 mg PRN Q8HRS PRN IV NAUSEA/VOMITING; Start 05/29/19 at 12:30; Stop 05/29/19 at 13:05; Status DC Nitroglycerin (Nitrostat) 0.4 mg PRN Q5MIN PRN SL CHEST PAIN Last administered on 05/29/19at 20:11; Start 05/29/19 at 12:30; Stop 05/30/19 at 12:29; Status DC Multivitamins 10 ml/Thiamine HCl 100 mg/Folic Acid 1 mg/Sodium Chloride 1,011.2 ml @ 1,000.088 mls/hr 1X ONCE IV Last administered on 05/29/19at 12:40; Start 05/29/19 at 12:30; Stop 05/29/19 at 13:30; Status DC Sodium Chloride (Normal Saline Flush) 3 ml QSHIFT PRN IV AFTER MEDS AND BLOOD DRAWS; Start 05/29/19 at 13:00 Multivitamins 10 ml/Thiamine HCl 100 mg/Folic Acid 1 mg/Sodium Chloride 1,011.2 ml @ 125 mls/ hr 1X ONCE IV ; Start 05/29/19 at 13:00; Stop 05/29/19 at 21:05; Status UNV Ondansetron HCl (Zofran) 4 mg PRN Q4HRS PRN IV NAUSEA/VOMITING; Start 05/29/19 at 13:00 Acetaminophen (Tylenol) 650 mg PRN Q4HRS PRN PO TEMP OVER 100.4F OR MILD PAIN Last administered on 05/30/19at 20:08; Start 05/29/19 at 13:00 Clonidine HCl (Catapres) 0.1 mg PRN Q6HRS PRN PO SBP>160 OR DBP>90; Start 05/29/19 at 13:00; Status Cancel Docusate Sodium (Colace) 100 mg PRN BID PRN PO CONSTIPATION; Start 05/29/19 at 13:00 Albuterol/ Ipratropium (Duoneb) 3 ml Q4H NEB Last administered on 05/30/19at 11:20; Start 05/29/19 at 14:00; Stop 05/30/19 at 11:31; Status DC Guaifenesin (Robitussin) 200 mg PRN Q4HRS PRN PO COUGH; Start 05/29/19 at 13: 00 Lorazepam (Ativan) 0.5 mg PRN Q4HRS PRN PO ANXIETY / AGITATION; Start 05/29/19 at 13:00 Lorazepam (Ativan Inj) 2 mg PRN Q4HRS PRN IV ANXIETY / AGITATION Last administered on 05/30/19at 20:09; Start 05/29/19 at 13:00 Enoxaparin Sodium (Lovenox 40mg Syringe) 40 mg DAILY SQ Last administered on 05/31/19at 08:11; Start 05/30/19 at 09:00 Multivitamins 10 ml/Thiamine HCl 100 mg/Folic Acid 1 mg/Sodium Chloride 1,011.2 ml @ 100 mls/ hr DAILY IV Last administered on 05/31/19at 08:11; Start 05/30/19 at 09:00; Stop 06/03/19 at 19:07 Multivitamins (Thera M Plus) 1 tab DAILY PO ; Start 06/04/19 at 09:00 Folic Acid (Folic Acid) 1 mg DAILY PO ; Start 06/04/19 at 09:00 Thiamine HCl 100 mg/Dextrose 51 ml @ 100 mls/hr DAILY IV ; Start 06/04/19 at 09:00; Stop 06/08/19 at 09:31 Lorazepam (Ativan) 4 mg PRN Q1HR PRN PO For CIWA 8-14; Start 05/29/19 at 13:15 Lorazepam (Ativan) 8 mg PRN Q1HR PRN PO For CIWA 15 or greater; Start 05/29/19 at 13:15 Lorazepam (Ativan Inj) 2 mg PRN Q1HR PRN IV For CIWA 8-14; Start 05/29/19 at 13:15 Lorazepam (Ativan Inj) 4 mg PRN Q1HR PRN IV For CIWA 15 or greater; Start 05/29/19 at 13:15 Haloperidol Lactate (Haldol Inj) 5 mg PRN Q4HRS PRN IVP Hallucinatns,Confusn,Delirium; Start 05/29/19 at 13:15 Clonidine HCl (Catapres) 0.1 mg PRN Q1HR PRN PO SBP > 180 or DBP > 100, MRX3; Start 05/29/19 at 13:15 Lorazepam (Ativan Inj) 2 mg PRN Q15MIN PRN IV SEE COMMENTS; Start 05/29/19 at 13:15; Status Cancel Lorazepam (Ativan Inj) 4 mg PRN Q15MIN PRN IV SEE COMMENTS; Start 05/29/19 at 13:15; Status Cancel Piperacillin Sod/ Tazobactam Sod 3.375 gm/Sodium Chloride 50 ml @ 100 mls/hr Q6HRS IV Last administered on 05/31/19at 11:11; Start 05/29/19 at 18:00 Albuterol Sulfate (Ventolin Neb Soln) 2.5 mg PRN Q4HRS PRN NEB SHORTNESS OF BREATH; Start 05/30/19 at 11:30 Aspirin (Ecotrin) 81 mg DAILYWBKFT PO Last administered on 05/31/19at 08:10; Start 05/30/19 at 14:30 Atorvastatin Calcium (Lipitor) 40 mg QHS PO Last administered on 05/30/19at 20:08; Start 05/30/19 at 21:00 Hydralazine HCl (Apresoline Inj) 10 mg PRN Q4HRS PRN IVP ELEVATED BP, SEE COMMENTS; Start 05/30/19 at 14:00 Lactobacillus Rhamnosus (Culturelle) 1 cap BID PO Last administered on 05/31/19at 08:10; Start 05/30/19 at 21:00 Pantoprazole Sodium (Protonix) 40 mg DAILYAC PO Last administered on 05/31/19at 08:10; Start 05/30/19 at 15:30 Aspirin (Ecotrin) 81 mg DAILYWBKFT PO ; Start 05/31/19 at 08:00; Status UNV Atorvastatin Calcium (Lipitor) 10 mg QHS PO ; Start 05/31/19 at 21:00; Status UNV Clopidogrel Bisulfate (Plavix) 75 mg DAILYWBKFT PO Last administered on 05/31/19at 08:10; Start 05/31/19 at 08:00 Lisinopril (Prinivil) 20 mg DAILY PO Last administered on 05/31/19at 08:12; Start 05/31/19 at 09:00 Tramadol HCl (Ultram) 50 mg Q6HRS PRN PO PAIN Last administered on 05/31/19at 08:52; Start 05/31/19 at 07:45 Active Scripts Active Atorvastatin Calcium 10 Mg Tablet 10 Mg PO QHS Clopidogrel (Clopidogrel Bisulfate) 75 Mg Tablet 75 Mg PO DAILYWBKFT Aspirin Ec (Aspirin) 81 Mg Tablet.dr 81 Mg PO DAILYWBKFT Ultram (Tramadol Hcl) 50 Mg Tablet 50 Mg PO Q6HRS PRN Lisinopril 20 Mg Tablet 1 Tab PO DAILY Vital Signs Vital Signs Date Time Temp Pulse Resp B/P (MAP) Pulse Ox O2 Delivery O2 Flow Rate FiO2 05/31/19 11:00 98.1 64 16 167/95 (119) 95 Room Air 98.1 Labs Laboratory Tests Test 05/29/19 11:51 05/29/19 14:15 05/30/19 05:10 05/31/19 06:40 Urine Opiates Screen Neg (NEG) Urine Methadone Screen Neg (NEG) Urine Barbiturates Neg (NEG) Urine Phencyclidine Screen Neg (NEG) Urine Amphetamine/Methamphetamine Neg (NEG) Urine Benzodiazepines Screen Neg (NEG) Urine Cocaine Screen Neg (NEG) Urine Cannabinoids Screen Neg (NEG) Urine Ethyl Alcohol Pos (NEG) Ammonia < 10 mcmol/L (11-34) Troponin I Quantitative 0.033 ng/mL (0.000-0.055) White Blood Count 6.1 x10^3/uL (4.0-11.0) 5.7 x10^3/uL (4.0-11.0) Red Blood Count 3.83 x10^6/uL (4.30-5.70) 3.79 x10^6/uL (4.30-5.70) Hemoglobin 12.6 g/dL (13.0-17.5) 12.4 g/dL (13.0-17.5) Hematocrit 37.1 % (39.0-53.0) 36.5 % (39.0-53.0) Mean Corpuscular Volume 97 fL (79-100) 97 fL (79-100) Mean Corpuscular Hemoglobin 33 pg (25-35) 33 pg (25-35) Mean Corpuscular Hemoglobin Concent 34 g/dL (31-37) 34 g/dL (31-37) Red Cell Distribution Width 13.1 % (11.5-14.5) 13.0 % (11.5-14.5) Platelet Count 203 x10^3/uL (140-400) 204 x10^3/uL (140-400) Neutrophils (%) (Auto) 77 % (31-73) 77 % (31-73) Lymphocytes (%) (Auto) 12 % (24-48) 12 % (24-48) Monocytes (%) (Auto) 9 % (0-9) 8 % (0-9) Eosinophils (%) (Auto) 1 % (0-3) 2 % (0-3) Basophils (%) (Auto) 1 % (0-3) 1 % (0-3) Neutrophils # (Auto) 4.7 x10^3/uL (1.8-7.7) 4.4 x10^3/uL (1.8-7.7) Lymphocytes # (Auto) 0.7 x10^3/uL (1.0-4.8) 0.7 x10^3/uL (1.0-4.8) Monocytes # (Auto) 0.5 x10^3/uL (0.0-1.1) 0.5 x10^3/uL (0.0-1.1) Eosinophils # (Auto) 0.1 x10^3/uL (0.0-0.7) 0.1 x10^3/uL (0.0-0.7) Basophils # (Auto) 0.0 x10^3/uL (0.0-0.2) 0.0 x10^3/uL (0.0-0.2) Sodium Level 148 mmol/L (136-145) 143 mmol/L (136-145) Potassium Level 3.8 mmol/L (3.5-5.1) 3.7 mmol/L (3.5-5.1) Chloride Level 113 mmol/L (98-107) 110 mmol/L (98-107) Carbon Dioxide Level 26 mmol/L (21-32) 25 mmol/L (21-32) Anion Gap 9 (6-14) 8 (6-14) Blood Urea Nitrogen 12 mg/dL (8-26) 13 mg/dL (8-26) Creatinine 0.9 mg/dL (0.7-1.3) 1.0 mg/dL (0.7-1.3) Estimated GFR (Cockcroft-Gault) 86.4 76.5 BUN/Creatinine Ratio 13 (6-20) 13 (6-20) Glucose Level 80 mg/dL (70-99) 84 mg/dL (70-99) Calcium Level 8.6 mg/dL (8.5-10.1) 8.8 mg/dL (8.5-10.1) Iron Level 149 ug/dL (65-175) Total Iron Binding Capacity 280 ug/dL (250-450) Iron Saturation 53 % (15-34) Total Bilirubin 0.6 mg/dL (0.2-1.0) 1.0 mg/dL (0.2-1.0) Aspartate Amino Transf (AST/SGOT) 25 U/L (15-37) 18 U/L (15-37) Alanine Aminotransferase (ALT/SGPT) 40 U/L (16-63) 32 U/L (16-63) Alkaline Phosphatase 74 U/L (46-116) 67 U/L (46-116) Total Protein 6.4 g/dL (6.4-8.2) 6.2 g/dL (6.4-8.2) Albumin 3.2 g/dL (3.4-5.0) 2.9 g/dL (3.4-5.0) Albumin/Globulin Ratio 1.0 (1.0-1.7) 0.9 (1.0-1.7) Laboratory Tests Test 05/31/19 06:40 White Blood Count 5.7 x10^3/uL (4.0-11.0) Red Blood Count 3.79 x10^6/uL (4.30-5.70) Hemoglobin 12.4 g/dL (13.0-17.5) Hematocrit 36.5 % (39.0-53.0) Mean Corpuscular Volume 97 fL (79-100) Mean Corpuscular Hemoglobin 33 pg (25-35) Mean Corpuscular Hemoglobin Concent 34 g/dL (31-37) Red Cell Distribution Width 13.0 % (11.5-14.5) Platelet Count 204 x10^3/uL (140-400) Neutrophils (%) (Auto) 77 % (31-73) Lymphocytes (%) (Auto) 12 % (24-48) Monocytes (%) (Auto) 8 % (0-9) Eosinophils (%) (Auto) 2 % (0-3) Basophils (%) (Auto) 1 % (0-3) Neutrophils # (Auto) 4.4 x10^3/uL (1.8-7.7) Lymphocytes # (Auto) 0.7 x10^3/uL (1.0-4.8) Monocytes # (Auto) 0.5 x10^3/uL (0.0-1.1) Eosinophils # (Auto) 0.1 x10^3/uL (0.0-0.7) Basophils # (Auto) 0.0 x10^3/uL (0.0-0.2) Sodium Level 143 mmol/L (136-145) Potassium Level 3.7 mmol/L (3.5-5.1) Chloride Level 110 mmol/L (98-107) Carbon Dioxide Level 25 mmol/L (21-32) Anion Gap 8 (6-14) Blood Urea Nitrogen 13 mg/dL (8-26) Creatinine 1.0 mg/dL (0.7-1.3) Estimated GFR (Cockcroft-Gault) 76.5 BUN/Creatinine Ratio 13 (6-20) Glucose Level 84 mg/dL (70-99) Calcium Level 8.8 mg/dL (8.5-10.1) Total Bilirubin 1.0 mg/dL (0.2-1.0) Aspartate Amino Transf (AST/SGOT) 18 U/L (15-37) Alanine Aminotransferase (ALT/SGPT) 32 U/L (16-63) Alkaline Phosphatase 67 U/L (46-116) Total Protein 6.2 g/dL (6.4-8.2) Albumin 2.9 g/dL (3.4-5.0) Albumin/Globulin Ratio 0.9 (1.0-1.7) Allergies Allergies Coded Allergies Type Severity Reaction Last Updated Verified No Known Drug Allergies 02/01/15 No Disposition/Orders: D/C to Home Patient Instructions d/c planning 32 min FELICITAS LOGAN MD May 31, 2019 11:33
[2019-05-31] MEDS ORDERED: PANT40TA77 PO (11:37)
[2019-05-31] MEDS ORDERED: ATOR40TA59 PO (11:37)
[2019-05-31] MEDS ORDERED: Folic Acid PO (11:37)
[2019-05-31] MEDS ORDERED: MULT1TAB90 PO (11:37)
[2019-05-31] MEDS ORDERED: ACET325T9 PO (11:37)
[2019-05-31] MEDS ORDERED: ALBU2.5V8 NEB (11:37)
--- NOTE | 2019-05-31 11:38 | DISCH ---
DISCHARGE INSTRUCTIONS Condition on Discharge Condition on Discharge: Stable Activity After Discharge Activity Instructions for Disc: Activity as tolerated Lifting Instructions after Dis: No pulling or pushing Driving Instructions after Dis: Do not drive today Diet after Discharge Diet after Discharge: Cardiac Liquid Texture: Thin Liquid Checks after Discharge Checks after discharge: Check blood press - daily Contacting the DRBelinda after DC Call your doctor for: If your condition worsens Warfarin Follow-Up Warfarin Follow UP: attent aa daily, see pcp FELICITAS Ca MD May 31, 2019 11:38
--- NOTE | 2019-05-31 13:27 | NUR ---
Discharge Note: PT DISCHARGED HOME WITH SELF CARE. PT LEFT FACILITY VIA 05/27 [facility]AX[facility] CAB AT 1320. PT STABLE AND ALERT UPON DISCHARGE. PT PIV REMOVED FROM L AC WITHOUT COMPLICATIONS, BANDAGE APPLIED. PT EDUCATED ABOUT DISCHARGE MEDICATIONS, DISCHARGE INSTRUCTIONS, AND FOLLOW-UP INSTRUCTIONS. PT EDUCATED ABOUT ATTENDING AA MEETINGS DAILY AND FOLLOWING UP WITH PCP THIS WEEK. PT VOICED NO CONCERNS AT THIS TIME. PT LEFT WITH ALL PERSONAL BELONGINGS. MARISOL PALM[address] [place] [address] Discharge instructions and discharge home medications reviewed with Patient and a copy given. All questions have been answered and understanding verbalized.
--- NOTE | 2019-05-31 13:33 | PDOC ---
CARDIO Progress Notes Date and Time Date of Service 05/31/19 Time of Evaluation 1150 Subjective Subjective: No Chest Pain, No shortness of breath Vitals Vitals Vital Signs Date Time Temp Pulse Resp B/P (MAP) Pulse Ox O2 Delivery O2 Flow Rate FiO2 05/31/19 11:00 98.1 64 16 167/95 (119) 95 Room Air 98.1 Weight Weight [ ] Input and Output Intake and Output Intake and Output 05/31/19 07:00 Intake Total 2230 ml Output Total 1275 ml Balance 955 ml Intake Oral 1780 ml IV Total 50 ml Other 400 ml Output Urine Total 1275 ml Laboratory Labs Laboratory Tests Test 05/31/19 06:40 White Blood Count 5.7 x10^3/uL (4.0-11.0) Red Blood Count 3.79 x10^6/uL (4.30-5.70) Hemoglobin 12.4 g/dL (13.0-17.5) Hematocrit 36.5 % (39.0-53.0) Mean Corpuscular Volume 97 fL (79-100) Mean Corpuscular Hemoglobin 33 pg (25-35) Mean Corpuscular Hemoglobin Concent 34 g/dL (31-37) Red Cell Distribution Width 13.0 % (11.5-14.5) Platelet Count 204 x10^3/uL (140-400) Neutrophils (%) (Auto) 77 % (31-73) Lymphocytes (%) (Auto) 12 % (24-48) Monocytes (%) (Auto) 8 % (0-9) Eosinophils (%) (Auto) 2 % (0-3) Basophils (%) (Auto) 1 % (0-3) Neutrophils # (Auto) 4.4 x10^3/uL (1.8-7.7) Lymphocytes # (Auto) 0.7 x10^3/uL (1.0-4.8) Monocytes # (Auto) 0.5 x10^3/uL (0.0-1.1) Eosinophils # (Auto) 0.1 x10^3/uL (0.0-0.7) Basophils # (Auto) 0.0 x10^3/uL (0.0-0.2) Sodium Level 143 mmol/L (136-145) Potassium Level 3.7 mmol/L (3.5-5.1) Chloride Level 110 mmol/L (98-107) Carbon Dioxide Level 25 mmol/L (21-32) Anion Gap 8 (6-14) Blood Urea Nitrogen 13 mg/dL (8-26) Creatinine 1.0 mg/dL (0.7-1.3) Estimated GFR (Cockcroft-Gault) 76.5 BUN/Creatinine Ratio 13 (6-20) Glucose Level 84 mg/dL (70-99) Calcium Level 8.8 mg/dL (8.5-10.1) Total Bilirubin 1.0 mg/dL (0.2-1.0) Aspartate Amino Transf (AST/SGOT) 18 U/L (15-37) Alanine Aminotransferase (ALT/SGPT) 32 U/L (16-63) Alkaline Phosphatase 67 U/L (46-116) Total Protein 6.2 g/dL (6.4-8.2) Albumin 2.9 g/dL (3.4-5.0) Albumin/Globulin Ratio 0.9 (1.0-1.7) Physical Exam HEENT: Neck Supple W Full Motion Chest: Symmetric LUNGS: Clear to Auscultation Heart: S1S2, RRR Abdomen: Soft N/T Extremities: No Edema Neurology: alert, oriented, follow commands Assessment Assessment 1. Chest pain, atypical 2. Mild troponin elevation; highest 0.033. Most probably type II, demand ischemia. Recent echo with preserved LV systolic function. Patient would prefer conservation management at this time. 3. CAD s/p PCI to the LAD 5. Hypertension; mildly elevated 6. ETOH abuse; discussed/encourage cessation Recommendations Patient dressed and ready to go. Secondary prevention measures Lifestyle modification F/u on an outpatient basis if chest pain persists. YOLANDA SHIN APRN May 31, 2019 13:33
[2019-05-31] MEDS ORDERED: ATORVASTATIN CALCIUM 10 MG TABLET. PO SCH (21:00)
[2019-06-04] MEDS ORDERED: THIAMINE INJ 100 MG in IV DEXTROSE 5% 50 ML IV SCH (09:00)
[2019-06-04] MEDS ORDERED: MULTIVITAMIN with MINERAL TABLET. PO SCH (09:00)
[2019-06-04] MEDS ORDERED: FOLIC ACID 1 MG TABLET. PO SCH (09:00)
== END 2019-05-31 13:30 | disposition home or self-care (01) | DRG 641 ==
LOC: ER 11:02 → ED HOLD 13:18 → 6 SOUTH 15:11 → OBSVTOIN 16:39
PROVIDERS: ADMIT Family Medicine; ATTEND Family Medicine
DX: E86.0 Dehydration (principal); S22.39XA Fracture of one rib, unspecified side, initial encounter for closed fracture; R45.851 Suicidal ideations; I24.8 Other forms of acute ischemic heart disease; F10.129 Alcohol abuse with intoxication, unspecified; R07.89 Other chest pain; I25.10 Atherosclerotic heart disease of native coronary artery without angina pectoris; M19.90 Unspecified osteoarthritis, unspecified site; E78.5 Hyperlipidemia, unspecified; Z91.81 History of falling; I11.9 Hypertensive heart disease without heart failure; F17.210 Nicotine dependence, cigarettes, uncomplicated; Z81.8 Family history of other mental and behavioral disorders; Z82.49 Family history of ischemic heart disease and other diseases of the circulatory system; Z98.61 Coronary angioplasty status; Y92.89 Other specified places as the place of occurrence of the external cause
CPT/HCPCS: 36415; 70450; 71045; 80053; 80307; 80329; 82140; 83540; 83550; 83735; 83880; 84443; 84484; 85025; 85610; 93005; 94640; 96361; 96365; 96366; G0378; G0379; G0480; J1650; J2060; J2543; J7030; J7620; 97116; 97530; 99285-25

== ENCOUNTER 2020-03-12 12:48 | Observation (INO) | payer SELFPAY ==
[~2020-03-12] VITALS: Ht 172.7 cm; Wt 76.2 kg
[~2020-03-12 12:48] MED LIST changes: +ACET325T9 PO; +ALBU2.5V8 NEB; +ATOR40TA59 PO; +Folic Acid PO; +MULT1TAB90 PO; +PANT40TA77 PO
[2020-03-12 13:17] LABS: BASO # 0.1 x10^3/uL (0.0-0.2); BASO % 1 % (0-3); EOS # 0.1 x10^3/uL (0.0-0.7); EOS % 1 % (0-3); HEMATOCRIT 41.3 % (39.0-53.0); HEMOGLOBIN 14.6 g/dL (13.0-17.5); LYMPH % 16 % (24-48); MEAN CORPUSCULAR HEMOGLOBIN 33 pg (25-35); MEAN CORPUSCULAR HGB CONC 36 g/dL (31-37); MEAN CORPUSCULAR VOLUME 93 fL (79-100); MONO # 0.4 x10^3/uL (0.0-1.1); MONO % 6 % (0-9); NEUT # 4.9 x10^3/uL (1.8-7.7); NEUT % 76 % (31-73); PLATELET COUNT 352 x10^3/uL (140-400); RED BLOOD COUNT 4.44 x10^6/uL (4.30-5.70); RED CELL DISTRIBUTION WIDTH 13.5 % (11.5-14.5); WHITE BLOOD COUNT 6.4 x10^3/uL (4.0-11.0)
--- NOTE | 2020-03-12 13:23 | RAD ---
EXAM: Chest, single view. HISTORY: Chest pain. COMPARISON: 05/29/2019 FINDINGS: A frontal view of the chest is obtained. There is suspected right perihilar and infrahilar atelectasis or interstitial infiltrate. There is no consolidation, pleural effusion or pneumothorax. The heart is normal in size. There are few calcified granulomas. IMPRESSION: Right perihilar and infrahilar atelectasis or interstitial infiltrate. Electronically signed by: Reba Jurado MD (03/12/2020 1:21 PM) [id number]
[2020-03-12 13:27] LABS: PROTHROMBIN TIME PATIENT 11.8 SEC (11.7-14.0)
--- NOTE | 2020-03-12 13:27 | PHYS DOC ---
Past Medical History Past Medical History: Alcoholism, NM, Other Additional Past Medical Histor: Suicidal Attempt-hanging Past Surgical History: Angioplasty, Other Additional Past Surgical Histo: L jaw sx, abd sx Smoking Status: Current Every Day Smoker Alcohol Use: Heavy Drug Use: None General Adult EDM: Chief Complaint: CHEST PAIN HPI: HPI: Patient is a 59 year old male who was brought here by EMS from home due to epigastric abdominal pain and chest pain. Patient has history of alcoholism, smoker, history of NM in the past with stent placement. Patient said he been having epigastric abdominal pain chest pain for the last 5 days. The pain be come more intensified today so he called EMS to take him here for evaluation. Patient denies any cough or fever, no nausea vomiting. Patient denies any exposure to anybody who tested positive for COVID-19. Review of Systems: Review of Systems: Constitutional: Denies fever or chills. [] Eyes: Denies change in visual acuity. [] HENT: Denies nasal congestion or sore throat. [] Respiratory: Denies cough or shortness of breath. [] Cardiovascular: Positive for chest pain and epigastric abdominal pain.] GI: Denies abdominal pain, nausea, vomiting, bloody stools or diarrhea. [] : Denies dysuria. [] Musculoskeletal: Denies back pain or joint pain. [] Integument: Denies rash. [] Neurologic: Denies headache, focal weakness or sensory changes. [] Endocrine: Denies polyuria or polydipsia. [] Lymphatic: Denies swollen glands. [] Psychiatric: Denies depression or anxiety. [] Heart Score: HEART Score for Chest Pain: HEART Score for Chest Pain Response (Comments) Value History Slighlty/Non-Suspicious 0 ECG Normal 0 Age >45 - < 65 1 Risk Factors >3 Risk Factors or Hx CAD 2 Troponin < Normal Limit 0 Total 3 Risk Factors: Risk Factors: DM, Current or recent (<one month) smoker, HTN, HLP, family history of CAD, obesity. Risk Scores: Score 0 - 3: 2.5% MACE over next 6 weeks - Discharge Home Score 4 - 6: 20.3% MACE over next 6 weeks - Admit for Clinical Observation Score 7 - 10: 72.7% MACE over next 6 weeks - Early Invasive Strategies Allergies: Allergies: Allergies Coded Allergies Type Severity Reaction Last Updated Verified No Known Drug Allergies 02/01/15 No Physical Exam: PE: Constitutional: Well developed, well nourished, no acute distress, non-toxic appearance. [] HENT: Normocephalic, atraumatic, bilateral external ears normal, oropharynx moist, no oral exudates, nose normal. [] Eyes: PERRLA, EOMI, conjunctiva normal, no discharge. [] Neck: Normal range of motion, no tenderness, supple, no stridor. [] Cardiovascular:Heart rate regular rhythm, no murmur [] Lungs & Thorax: Bilateral breath sounds clear to auscultation [] Abdomen: Bowel sounds normal, soft, there is tenderness in epigastric area, no masses, no pulsatile masses. [] Skin: Warm, dry, no erythema, no rash. [] Back: No tenderness, no CVA tenderness. [] Extremities: No tenderness, no cyanosis, no clubbing, ROM intact, no edema. [] Neurologic: Alert and oriented X 3, normal motor function, normal sensory function, no focal deficits noted. [] Psychologic: Affect normal, judgement normal, mood normal. [] Current Patient Data: Labs: Laboratory Tests Test 03/12/20 13:05 White Blood Count 6.4 x10^3/uL (4.0-11.0) Red Blood Count 4.44 x10^6/uL (4.30-5.70) Hemoglobin 14.6 g/dL (13.0-17.5) Hematocrit 41.3 % (39.0-53.0) Mean Corpuscular Volume 93 fL (79-100) Mean Corpuscular Hemoglobin 33 pg (25-35) Mean Corpuscular Hemoglobin Concent 36 g/dL (31-37) Red Cell Distribution Width 13.5 % (11.5-14.5) Platelet Count 352 x10^3/uL (140-400) Neutrophils (%) (Auto) 76 % (31-73) H Lymphocytes (%) (Auto) 16 % (24-48) L Monocytes (%) (Auto) 6 % (0-9) Eosinophils (%) (Auto) 1 % (0-3) Basophils (%) (Auto) 1 % (0-3) Neutrophils # (Auto) 4.9 x10^3/uL (1.8-7.7) Lymphocytes # (Auto) 1.0 x10^3/uL (1.0-4.8) Monocytes # (Auto) 0.4 x10^3/uL (0.0-1.1) Eosinophils # (Auto) 0.1 x10^3/uL (0.0-0.7) Basophils # (Auto) 0.1 x10^3/uL (0.0-0.2) Laboratory Tests 03/12/20 13:05 EKG: EKG: EKG was done at 1256, heart rate of 83 bpm, sinus rhythm, no ST segment elevation. Radiology/Procedures: Radiology/Procedures: [][facility] [address] [place] [address] IMAGING REPORT Signed PATIENT: MARISOL PALM ACCOUNT: [id number] : 1960 LOCATION: ER AGE: 59 SEX: M EXAM STATUS: PRE ER ORD. PHYSICIAN: ARVIND MORELAND DO REASON: chest pain PROCEDURE: PORTABLE CHEST 1V EXAM: Chest, single view. HISTORY: Chest pain. COMPARISON: 05/29/2019 FINDINGS: A frontal view of the chest is obtained. There is suspected right perihilar and infrahilar atelectasis or interstitial infiltrate. There is no consolidation, pleural effusion or pneumothorax. The heart is normal in size. There are few calcified granulomas. IMPRESSION: Right perihilar and infrahilar atelectasis or interstitial infiltrate. Electronically signed by: Reba Garvin MD (03/12/2020 1:21 PM) [id number] DICTATED and SIGNED BY: REBA GARVIN MD DATE: 03/12/20 1321 Course & Med Decision Making: Course & Med Decision Making Pertinent Labs and Imaging studies reviewed. (See chart for details) Patient is a 59-year-old male who was brought here by EMS from home due to chest pain. Lab work show elevated alcohol level EKG did not show any ST segment elevation. However with his history of heart disease, will admit him for observation Dragon Disclaimer: Dragon Disclaimer: This electronic medical record was generated, in whole or in part, using a voice recognition dictation system. Departure Departure Impression: Primary Impression: Chest pain Additional Impressions: Alcohol abuse Gastritis Disposition: ADMITTED INPATIENT Admitting Physician: MOHSEN (Dr. HERR) Condition: STABLE Referrals: NO PCP (PCP) Justicifation of Admission Dx: Justifications for Admission: Justification of Admission Dx: N/A ARVIND MORELAND DO Mar 12, 2020 13:27
[2020-03-12 13:30] LABS: CALCIUM 8.6 mg/dL (8.5-10.1); CREATININE 0.9 mg/dL (0.7-1.3); GFR 86.4; POTASSIUM 3.7 mmol/L (3.5-5.1)
[2020-03-12 13:36] LABS: ALBUMIN 3.3 g/dL (3.4-5.0); ALBUMIN/GLOBULIN RATIO 0.9 (1.0-1.7); MAGNESIUM 1.9 mg/dL (1.8-2.4); TOTAL BILIRUBIN 0.2 mg/dL (0.2-1.0); TOTAL PROTEIN 7.1 g/dL (6.4-8.2)
[2020-03-12] MEDS ORDERED: LIDO:MAALOX 1:1 20 ML SINGLE DOSE. SWSW ONE (13:45)
[2020-03-12] MEDS ORDERED: FAMOTIDINE 20 MG/2 ML VIAL IVP ONE (13:45)
[2020-03-12 13:51] LABS: BILIRUBIN,URINE NEGATIVE (NEG); CLARITY,URINE CLEAR; COLOR,URINE YELLOW; NITRITE,URINE NEGATIVE (NEG); PROTEIN,URINE NEGATIVE (NEG-TRACE); UROBILINOGEN,URINE 0.2 mg/dL (0.2 mg/dL)
[2020-03-12 13:56] LABS: SQUAMOUS EPITHELIAL CELL,UR OCC /LPF
[2020-03-12 13:57] LABS: BARBITURATES NEG (NEG); BENZODIAZEPINES NEG (NEG); CANNABINOIDS NEG (NEG); COCAINE NEG (NEG); METHADONE NEG (NEG); OPIATES NEG (NEG); PHENCYCLIDINE NEG (NEG); RBC,URINE 0 /HPF (0-2); WBC,URINE 0 /HPF (0-4)
[2020-03-12 13:58] LABS: BACTERIA,URINE 0 /HPF (0-FEW)
[2020-03-12 14:01] LABS: AMPHETAMINE/METHAMPHETAMINE NEG (NEG)
--- NOTE | 2020-03-12 14:46 | PDOC1 ---
History and Physical Date of Admission Date of Admission DATE: 03/12/20 TIME: 14:46 Identification/Chief Complaint Chief Complaint Chest pain Source Source: Patient History of Present Illness History of Present Illness Mr Chiang is a 59 year old male w/ PMHx CAD s/p HANG in 2019, ETOH abuse, HTN who was brought here by EMS from home due to epigastric abdominal pain and chest pain. Patient has history of alcoholism, smoker, history of LA in the past with stent placement. Patient said he been having epigastric abdominal pain chest pain for the last 5 days. The pain become more intensified today so he called EMS to take him here for evaluation. Patient denies any cough or fever, no nausea vomiting. Patient denies any exposure to anybody who tested positive for COVID-19. Patient was apparently just discharged from [facility] last week according to his daughter due to a fall he fractured multiple ribs on the right side and his sister thinks he had a vertebral fracture at that time he was discharged home with muscle relaxants and pain medications and returns to our ED intoxicated complaining of chest pain. He tells me to ask his daughter about his medications, he also asked me to contact his with any other questions. But he then follows up to say his second not his first , he states he currently has 2 wives and does not want him talking to one another. Labs significant for WBC 6.4, H PE 14.6 INR 0.9 CMP within normal limits with exception of K of 3.7 mag 1.9, alk phos 127, albumin 3.3. BNP 65, initial troponin 0 0.032 UDS positive for alcohol, but alcohol 317 CXR with suspected right perihilar infrahilar atelectasis or interstitial infiltrate. EKG NSR with no ST segment changes rate in the 80s. Admitted for further care with elevated troponin and very high risk CAD with stenting in the past 2 years and compliance difficulties. Past Medical History Cardiovascular: CAD, HTN, Hyperlipidemia Pulmonary: No pertinent hx CENTRAL NERVOUS SYSTEM: Other GI: No pertinent hx Psych: Other Musculoskeletal: Osteoarthritis Rheumatologic: No pertinent hx Infectious disease: No pertinent hx Renal/: No pertinent hx Endocrine: No pertinent hx Past Surgical History Past Surgical History: Other Family History Family History: Hypertension Social History Smoke: <1 pack per day ALCOHOL: heavy Drugs: None Current Problem List Problem List Problems Medical Problems: (1) Chest pain Status: Acute (2) Gastritis Status: Acute Current Medications Current Medications Current Medications Multi-Ingredient Mouthwash/Gargle (Gi Cocktail) 20 ml 1X ONCE SWSW Last administered on 03/12/20at 14:10; Start 03/12/20 at 13:45; Stop 03/12/20 at 13:46; Status DC Famotidine (Pepcid Vial) 20 mg 1X ONCE IVP Last administered on 03/12/20at 14:10; Start 03/12/20 at 13:45; Stop 03/12/20 at 13:46; Status DC Active Scripts Active Thera-M Tablet (Multivits,Ca,Minerals/Iron/Fa) 1 Each Tablet 1 Tab PO DAILY 30 Days [Folic Acid] 1 MG Tablet 1 Mg PO DAILY 30 Days Pantoprazole Sodium (Pantoprazole Sodium) 40 Mg Tablet.dr 40 Mg PO DAILYAC 10 Days Tylenol (Acetaminophen) 325 Mg Tablet 650 Mg PO PRN Q4HRS PRN 10 Days Atorvastatin Calcium 40 Mg Tablet 40 Mg PO QHS 30 Days Proair Hfa (Albuterol Sulfate) 8.5 Gm Hfa.aer.ad 2.5 Mg NEB PRN Q4HRS PRN 14 Days Clopidogrel (Clopidogrel Bisulfate) 75 Mg Tablet 75 Mg PO DAILYWBKFT Aspirin Ec (Aspirin) 81 Mg Tablet.dr 81 Mg PO DAILYWBKFT Lisinopril 20 Mg Tablet 1 Tab PO DAILY Allergies Allergies: Coded Allergies: No Known Drug Allergies (Unverified , 02/01/15) ROS General: YES: Fatigue, Malaise; No: Chills, Night Sweats, Appetite, Other PSYCHOLOGICAL ROS: No: Anxiety, Behavioral Disorder, Concentration difficultie, Decreased libido, Depression, Disorientation, Hallucinations, Hostility, Irritablity, Memory difficulties, Mood Swings, Obsessive thoughts, Physical abuse, Sexual abuse, Sleep disturbances, Suicidal ideation, Other Eyes: No Blurry vision, No Decreased vision, No Double vision, No Dry eyes, No Excessive tearing, No Eye Pain, No Itchy Eyes, No Loss of vision, No Photophobia, No Scotomata, No Uses contacts, No Uses glasses, No Other HEENT: No: Heacaches, Visual Changes, Hearing change, Nasal congestion, Nasal discharge, Oral lesions, Sinus pain, Sore Throat, Epistaxis, Sneezing, Snoring, Tinnitus, Vertigo, Vocal changes, Other ALLERGY AND IMMUNOLOGY: No: Hives, Insect Bite Sensitivity, Itchy/Watery Eyes, Nasal Congestion, Post Nasal Drip, Seasonal Allergies, Other Hematological and Lymphatic: No: Bleeding Problems, Blood Clots, Blood Transfusions, Brusing, Night Sweats, Pallor, Swollen Lymph Nodes, Other ENDOCRINE: No: Breast Changes, Galactorrhea, Hair Pattern Changes, Hot Flashes, Malaise/lethargy, Mood Swings, Palpitations, Polydipsia/polyuria, Skin Changes, Temperature Intolerance, Unexpected Weight Changes, Other Breast: No New/Changing Breast Lumps, No Nipple changes, No Nipple discharge, No Other Respiratory: No: Cough, Hemoptysis, Orthopnea, Pleuritic Pain, Shortness of breath, SOB with excertion, Sputum Changes, Stridor, Tachypnea, Wheezing, Other Cardiovascular: yes Chest Pain; No Palpitations, No Orthopnea, No Paroxysmal Noc. Dyspnea, No Edema, No Lt Headedness, No Other Gastrointestinal: Yes Nausea; No Vomiting, No Abdominal Pain, No Diarrhea, No Constipation, No Melena, No Hematochezia, No Other Genitourinary: No Dysuria, No Frequency, No Incontinence, No Hematuria, No Retention, No Discharge, No Urgency, No Pain, No Flank Pain, No Other, No , No , No , No , No , No , No Musculoskeletal: No Gait Disturbance, No Joint Pain, No Joint Stiffness, No Joint Swelling, No Muscle Pain, No Muscular Weakness, No Pain In:, No Swelling In:, No Other Neurological: No Behavorial Changes, No Bowel/Bladder ControlChng, No Confusion, No Dizziness, No Gait Disturbance, No Headaches, No Impaired Coord/balance, No Memory Loss, No Numbness/Tingling, No Seizures, No Speech Problems, No Tremors, No Visual Changes, No Weakness, No Other Skin: No Dry Skin, No Eczema, No Hair Changes, No Lumps, No Mole Changes, No Mottling, No Nail Changes, No Pruritus, No Rash, No Skin Lesion Changes, No Other, No Acne Physical Exam General: Alert, Oriented X3, Cooperative, mild distress HEENT: Atraumatic, PERRLA, EOMI, Mucous membr. moist/pink Lungs: Clear to auscultation, Normal air movement Heart: S1S2, RRR, no thrills, no rubs, no gallops, no murmurs Abdomen: Normal bowel sounds, Soft, No tenderness, No hepatosplenomegaly, No masses Rectal Exam: not examined Extremities: No clubbing, No cyanosis, No edema, Normal pulses, No tenderness/swelling Skin: No rashes, No breakdown, No significant lesion Neuro: Normal gait, Normal speech, Strength at 5/5 X4 ext, Normal tone, Sensation intact, Cranial nerves 3-12 NL, Reflexes 2+ Psych/Mental Status: Other (Intoxicated) Vitals Vitals Vital Signs Date Time Temp Pulse Resp B/P (MAP) Pulse Ox O2 Delivery O2 Flow Rate FiO2 03/12/20 12:48 97.9 86 19 143/97 (112) 92 Room Air 97.9 Labs Labs Laboratory Tests Test 03/12/20 13:05 03/12/20 13:44 White Blood Count 6.4 x10^3/uL (4.0-11.0) Red Blood Count 4.44 x10^6/uL (4.30-5.70) Hemoglobin 14.6 g/dL (13.0-17.5) Hematocrit 41.3 % (39.0-53.0) Mean Corpuscular Volume 93 fL (79-100) Mean Corpuscular Hemoglobin 33 pg (25-35) Mean Corpuscular Hemoglobin Concent 36 g/dL (31-37) Red Cell Distribution Width 13.5 % (11.5-14.5) Platelet Count 352 x10^3/uL (140-400) Neutrophils (%) (Auto) 76 % (31-73) Lymphocytes (%) (Auto) 16 % (24-48) Monocytes (%) (Auto) 6 % (0-9) Eosinophils (%) (Auto) 1 % (0-3) Basophils (%) (Auto) 1 % (0-3) Neutrophils # (Auto) 4.9 x10^3/uL (1.8-7.7) Lymphocytes # (Auto) 1.0 x10^3/uL (1.0-4.8) Monocytes # (Auto) 0.4 x10^3/uL (0.0-1.1) Eosinophils # (Auto) 0.1 x10^3/uL (0.0-0.7) Basophils # (Auto) 0.1 x10^3/uL (0.0-0.2) Prothrombin Time 11.8 SEC (11.7-14.0) Prothromb Time International Ratio 0.9 (0.8-1.1) Activated Partial Thromboplast Time 26 SEC (24-38) Sodium Level 140 mmol/L (136-145) Potassium Level 3.7 mmol/L (3.5-5.1) Chloride Level 105 mmol/L (98-107) Carbon Dioxide Level 24 mmol/L (21-32) Anion Gap 11 (6-14) Blood Urea Nitrogen 11 mg/dL (8-26) Creatinine 0.9 mg/dL (0.7-1.3) Estimated GFR (Cockcroft-Gault) 86.4 BUN/Creatinine Ratio 12 (6-20) Glucose Level 95 mg/dL (70-99) Calcium Level 8.6 mg/dL (8.5-10.1) Magnesium Level 1.9 mg/dL (1.8-2.4) Total Bilirubin 0.2 mg/dL (0.2-1.0) Aspartate Amino Transf (AST/SGOT) 17 U/L (15-37) Alanine Aminotransferase (ALT/SGPT) 31 U/L (16-63) Alkaline Phosphatase 127 U/L (46-116) Troponin I Quantitative 0.032 ng/mL (0.000-0.055) YX-Hig-X-Type Natriuretic Peptide 65 pg/mL (0-124) Total Protein 7.1 g/dL (6.4-8.2) Albumin 3.3 g/dL (3.4-5.0) Albumin/Globulin Ratio 0.9 (1.0-1.7) Lipase 273 U/L (73-393) Ethyl Alcohol Level 317 mg/dL (0-10) Urine Collection Type Void Urine Color Yellow Urine Clarity Clear Urine pH 6.0 (<5.0-8.0) Urine Specific [place] 1.010 (1.000-1.030) Urine Protein Negative mg/dL (NEG-TRACE) Urine Glucose (UA) Negative mg/dL (NEG) Urine Ketones (Stick) Negative mg/dL (NEG) Urine Blood Negative (NEG) Urine Nitrite Negative (NEG) Urine Bilirubin Negative (NEG) Urine Urobilinogen Dipstick 0.2 mg/dL (0.2 mg/dL) Urine Leukocyte Esterase Negative (NEG) Urine RBC 0 /HPF (0-2) Urine WBC 0 /HPF (0-4) Urine Squamous Epithelial Cells Occ /LPF Urine Bacteria 0 /HPF (0-FEW) Urine Opiates Screen Neg (NEG) Urine Methadone Screen Neg (NEG) Urine Barbiturates Neg (NEG) Urine Phencyclidine Screen Neg (NEG) Urine Amphetamine/Methamphetamine Neg (NEG) Urine Benzodiazepines Screen Neg (NEG) Urine Cocaine Screen Neg (NEG) Urine Cannabinoids Screen Neg (NEG) Urine Ethyl Alcohol Pos (NEG) Laboratory Tests Test 03/12/20 13:05 03/12/20 13:44 White Blood Count 6.4 x10^3/uL (4.0-11.0) Red Blood Count 4.44 x10^6/uL (4.30-5.70) Hemoglobin 14.6 g/dL (13.0-17.5) Hematocrit 41.3 % (39.0-53.0) Mean Corpuscular Volume 93 fL (79-100) Mean Corpuscular Hemoglobin 33 pg (25-35) Mean Corpuscular Hemoglobin Concent 36 g/dL (31-37) Red Cell Distribution Width 13.5 % (11.5-14.5) Platelet Count 352 x10^3/uL (140-400) Neutrophils (%) (Auto) 76 % (31-73) Lymphocytes (%) (Auto) 16 % (24-48) Monocytes (%) (Auto) 6 % (0-9) Eosinophils (%) (Auto) 1 % (0-3) Basophils (%) (Auto) 1 % (0-3) Neutrophils # (Auto) 4.9 x10^3/uL (1.8-7.7) Lymphocytes # (Auto) 1.0 x10^3/uL (1.0-4.8) Monocytes # (Auto) 0.4 x10^3/uL (0.0-1.1) Eosinophils # (Auto) 0.1 x10^3/uL (0.0-0.7) Basophils # (Auto) 0.1 x10^3/uL (0.0-0.2) Prothrombin Time 11.8 SEC (11.7-14.0) Prothromb Time International Ratio 0.9 (0.8-1.1) Activated Partial Thromboplast Time 26 SEC (24-38) Sodium Level 140 mmol/L (136-145) Potassium Level 3.7 mmol/L (3.5-5.1) Chloride Level 105 mmol/L (98-107) Carbon Dioxide Level 24 mmol/L (21-32) Anion Gap 11 (6-14) Blood Urea Nitrogen 11 mg/dL (8-26) Creatinine 0.9 mg/dL (0.7-1.3) Estimated GFR (Cockcroft-Gault) 86.4 BUN/Creatinine Ratio 12 (6-20) Glucose Level 95 mg/dL (70-99) Calcium Level 8.6 mg/dL (8.5-10.1) Magnesium Level 1.9 mg/dL (1.8-2.4) Total Bilirubin 0.2 mg/dL (0.2-1.0) Aspartate Amino Transf (AST/SGOT) 17 U/L (15-37) Alanine Aminotransferase (ALT/SGPT) 31 U/L (16-63) Alkaline Phosphatase 127 U/L (46-116) Troponin I Quantitative 0.032 ng/mL (0.000-0.055) DL-Rsj-Q-Type Natriuretic Peptide 65 pg/mL (0-124) Total Protein 7.1 g/dL (6.4-8.2) Albumin 3.3 g/dL (3.4-5.0) Albumin/Globulin Ratio 0.9 (1.0-1.7) Lipase 273 U/L (73-393) Ethyl Alcohol Level 317 mg/dL (0-10) Urine Collection Type Void Urine Color Yellow Urine Clarity Clear Urine pH 6.0 (<5.0-8.0) Urine Specific [place] 1.010 (1.000-1.030) Urine Protein Negative mg/dL (NEG-TRACE) Urine Glucose (UA) Negative mg/dL (NEG) Urine Ketones (Stick) Negative mg/dL (NEG) Urine Blood Negative (NEG) Urine Nitrite Negative (NEG) Urine Bilirubin Negative (NEG) Urine Urobilinogen Dipstick 0.2 mg/dL (0.2 mg/dL) Urine Leukocyte Esterase Negative (NEG) Urine RBC 0 /HPF (0-2) Urine WBC 0 /HPF (0-4) Urine Squamous Epithelial Cells Occ /LPF Urine Bacteria 0 /HPF (0-FEW) Urine Opiates Screen Neg (NEG) Urine Methadone Screen Neg (NEG) Urine Barbiturates Neg (NEG) Urine Phencyclidine Screen Neg (NEG) Urine Amphetamine/Methamphetamine Neg (NEG) Urine Benzodiazepines Screen Neg (NEG) Urine Cocaine Screen Neg (NEG) Urine Cannabinoids Screen Neg (NEG) Urine Ethyl Alcohol Pos (NEG) Images Images CXR: A frontal view of the chest is obtained. There is suspected right perihilar and infrahilar atelectasis or interstitial infiltrate. There is no consolidation, pleural effusion or pneumothorax. The heart is normal in size. There are few calcified granulomas. IMPRESSION: Right perihilar and infrahilar atelectasis or interstitial infiltrate. VTE Prophylaxis Ordered VTE Prophylaxis Devices: Yes VTE Pharmacological Prophylaxi: Yes Assessment/Plan Assessment/Plan A/P: Chest pain - multifactorial. Has CAD he is currently not draining, GERD also. Has chest wall pain from right-sided recent rib fractures. Trend troponins. Consult cardiology Acute intoxication -metabolic due to alcohol intoxication. [facility] protocol in place Alcohol use disorder -with acute intoxication, counseled on cutting back however this is difficult to emphasize as he is acutely intoxicated and with alcohol level greater than 200 it is likely that he will not recall our interview. HTN urgency - IV metoprolol prn Mild troponin elevation - will trend. Without acute EKG changes. Suspect demand mediated HLD - cont statin CAD - s/p 08/2018 PCI/HANG to LAD. Multiple ED visits since Tobacco abuse - nicotine patch offered Recent fall with ETOH intoxication - was in ED a week prior to admission Compliance difficulties FEN - Cardiac diet PPX - lovenox FULL CODE Dispo - chest pain observation Justicifation of Admission Dx: Justifications for Admission: Justification of Admission Dx: Yes Angina: [facility] DEEJAY HERR MD Mar 12, 2020 14:46
[2020-03-12] MEDS ORDERED: ONDANSETRON PF 4 MG/2 ML VIAL. IV PRN ×2 (15:00→17:00)
[2020-03-12 16:35] VITALS: BP 144/100
[2020-03-12] MEDS ORDERED: cloNIDine HCL 0.1 MG TABLET PO PRN (17:00)
[2020-03-12] MEDS ORDERED: ENOXAPARIN 40 MG/0.4 ML SYRINGE. SQ SCH (17:00)
[2020-03-12] MEDS ORDERED: LIDO:MAALOX 1:1 20 ML SINGLE DOSE. PO PRN (18:00)
[2020-03-12] MEDS ORDERED: ALBUTEROL SULFATE 2.5 MG/3 ML NEBU. NEB PRN (18:00)
[2020-03-12] MEDS ORDERED: METOPROLOL TARTRATE 5 MG/5 ML VIAL. IVP PRN (18:00)
[2020-03-12] MEDS: LORazepam 1 MG TABLET PO PRN (18:14)
[2020-03-12] MEDS: LIDOCAINE (700MG/PATCH) PATCH. TD SCH (18:14)
[2020-03-12] MEDS ORDERED: POTASSIUM CHLORIDE 20 MEQ TABLET.ER. PO ONE (18:30)
[2020-03-12] MEDS ORDERED: MAGNESIUM SULFATE 1GM 100 ML IV ONE (18:30)
[2020-03-12 19:19] VITALS: BP 136/90
[2020-03-12] MEDS ORDERED: PATCH REMOVAL. MC SCH (21:00)
[2020-03-12] MEDS ORDERED: ATORVASTATIN CALCIUM 40 MG TABLET. PO SCH (21:00)
[2020-03-12 22:37] VITALS: BP 139/83
[2020-03-13] MEDS: LORazepam 1 MG TABLET PO PRN ×2 (04:16→08:24)
[2020-03-13] MEDS: traMADol 50 MG TABLET PO PRN ×2 (04:16→12:30)
[2020-03-13 04:18] VITALS: BP 168/99
[2020-03-13 06:48] LABS: CALCIUM 9.2 mg/dL (8.5-10.1); CREATININE 1.1 mg/dL (0.7-1.3); GFR 68.5; MAGNESIUM 2.2 mg/dL (1.8-2.4); POTASSIUM 4.4 mmol/L (3.5-5.1)
[2020-03-13 06:56] VITALS: BP 155/109
[2020-03-13] MEDS ORDERED: PANTOPRAZOLE 40 MG TABLET.DR. PO SCH (07:30)
[2020-03-13] MEDS ORDERED: ASPIRIN ENTERIC COATED 81 MG TABLET.DR. PO SCH (08:00)
[2020-03-13] MEDS ORDERED: CLOPIDOGREL BISULFATE 75 MG TABLET PO SCH (08:00)
[2020-03-13] MEDS: LIDOCAINE (700MG/PATCH) PATCH. TD SCH (08:26)
[2020-03-13] MEDS ORDERED: LISINOPRIL 20 MG TABLET PO SCH (09:00)
[2020-03-13] MEDS ORDERED: ISOSORBIDE MONONITRATE ER 30 MG TAB.ER.24H PO SCH (09:00)
--- NOTE | 2020-03-13 10:19 | PDOC2 ---
YOLANDA SHIN [employer] 03/13/20 1019: CARDIAC CONSULT DATE OF CONSULT Date of Consult DATE: 03/13/20 TIME: 10:09 REASON FOR CONSULT Reason for Consult: Chest pain REFERRING PHYSICIAN Referring Physician: Dr. Cervantes SOURCE Source: Chart review, Patient HISTORY OF PRESENT ILLNESS HISTORY OF PRESENT ILLNESS This is a 59 yo male who presented secondary to chest pain. Reports he was working outside in the heat yesterday. Was diaphoretic and became slightly dizzy. No shortness of breath. Had a stabbing pain in his central chest. Was worse with certain movements. No palpitations or nausea/vomiting. Decided to co me to the ED for further evaluation and treatment. Has chronic h/o alcoholism and CAD s/p PCI/stent to the LAD 08/2018. Was at [facility] last week due to fall with multiple rib fractures. PAST MEDICAL HISTORY Past Medical History Cardiovascular: CAD, HTN, Hyperlipidemia Pulmonary: No pertinent hx CENTRAL NERVOUS SYSTEM: Other (No pertinent history) GI: No pertinent hx Psych: Other (chronic alcoholism) Musculoskeletal: Osteoarthritis Rheumatologic: No pertinent hx Infectious disease: No pertinent hx ENT: No pertinent hx Renal/: No pertinent hx Endocrine: No pertinent hx Dermatology: No pertinent hx PAST SURGICAL HISTORY Past Surgical History Other (jaw repair; PCI/stent) FAMILY HISTORY Family History noncontributory SOCIAL HISTORY Social History Smoke: <1 pack per day ALCOHOL: heavy Drugs: None Lives: with Family CURRENT MEDICATIONS CURRENT MEDICATIONS Current Medications Medications (Trade) Dose Ordered Sig/Rayna Route PRN Reason Start Time Stop Time Status Last Admin Dose Admin Multi-Ingredient Mouthwash/Gargle (Gi Cocktail) 20 ml 1X ONCE SWSW 03/12/20 13:45 03/12/20 13:46 DC 03/12/20 14:10 Famotidine (Pepcid Vial) 20 mg 1X ONCE IVP 03/12/20 13:45 03/12/20 13:46 DC 03/12/20 14:10 Lorazepam (Ativan) 1 mg PRN Q1HR PRN PO For CIWA 8-14 03/12/20 17:00 03/13/20 08:24 Enoxaparin Sodium (Lovenox 40mg Syringe) 40 mg Q24H SQ 03/12/20 17:00 03/12/20 18:14 Aspirin (Ecotrin) 81 mg DAILYWBKFT PO 03/13/20 08:00 03/13/20 08:25 Atorvastatin Calcium (Lipitor) 40 mg QHS PO 03/12/20 21:00 03/12/20 20:13 Clopidogrel Bisulfate (Plavix) 75 mg DAILYWBKFT PO 03/13/20 08:00 03/13/20 08:25 Lisinopril (Prinivil) 20 mg DAILY PO 03/13/20 09:00 03/13/20 08:25 Pantoprazole Sodium (Protonix) 40 mg DAILYAC PO 03/13/20 07:30 03/13/20 08:25 Isosorbide Mononitrate (Imdur) 30 mg DAILY PO 03/13/20 09:00 03/13/20 08:25 Lidocaine (Lidoderm) 1 patch DAILY TD 03/12/20 18:00 03/13/20 08:26 Miscellaneous (Lidoderm Patch Removal) 1 ea QHS MC 03/12/20 21:00 03/12/20 20:21 Tramadol HCl (Ultram) 50 mg PRN Q6HRS PRN PO PAIN 03/12/20 17:45 03/13/20 04:16 Metoprolol Tartrate (Lopressor Vial) 5 mg PRN Q6HRS PRN IVP HYPERTENSION 03/12/20 18:00 03/12/20 18:13 Potassium Chloride (Klor-Con) 20 meq 1X ONCE PO 03/12/20 18:30 03/12/20 18:31 DC 03/12/20 18:39 Magnesium Sulfate/ Dextrose 100 ml @ 100 mls/hr 1X ONCE IV 03/12/20 18:30 03/12/20 19:29 DC 03/12/20 18:39 ALLERGIES ALLERGIES: Coded Allergies: No Known Drug Allergies (Unverified , 02/01/15) ROS Review of System 14 point ROS conducted with pertinent positives noted above in hPI PHYSICAL EXAM PHYSICAL EXAM General: Alert, Oriented X3, Cooperative, No acute distress HEENT: Atraumatic, Mucous membr. moist/pink Lungs: Clear to auscultation. central chest tenderness upon palpitation Heart: Regular rate (SR), Normal S1, Normal S2, Other (2/6 systolic murmur ) Abdomen: Soft, No tenderness Extremities: No cyanosis, No edema Skin: No breakdown, No significant lesion Neuro: Normal speech, Sensation intact Psych/Mental Status: Mental status NL, Mood NL MUSCULOSKELETAL: Osteoarthritic changes both hands VITALS/I&O VITALS/I&O: Vital Signs Date Time Temp Pulse Resp B/P (MAP) Pulse Ox O2 Delivery O2 Flow Rate FiO2 03/13/20 08:25 81 155/109 03/13/20 06:56 99.7 20 96 Nasal Cannula 2.0 99.7 I & O 03/12/20 03/12/20 03/13/20 15:00 23:00 07:00 Intake Total 800 ml Output Total 200 ml 200 ml Balance -200 ml 600 ml LABS Lab: Laboratory Tests Test 03/12/20 13:05 03/12/20 13:44 03/12/20 18:10 03/13/20 00:10 White Blood Count 6.4 x10^3/uL (4.0-11.0) Red Blood Count 4.44 x10^6/uL (4.30-5.70) Hemoglobin 14.6 g/dL (13.0-17.5) Hematocrit 41.3 % (39.0-53.0) Mean Corpuscular Volume 93 fL (79-100) Mean Corpuscular Hemoglobin 33 pg (25-35) Mean Corpuscular Hemoglobin Concent 36 g/dL (31-37) Red Cell Distribution Width 13.5 % (11.5-14.5) Platelet Count 352 x10^3/uL (140-400) Neutrophils (%) (Auto) 76 % (31-73) H Lymphocytes (%) (Auto) 16 % (24-48) L Monocytes (%) (Auto) 6 % (0-9) Eosinophils (%) (Auto) 1 % (0-3) Basophils (%) (Auto) 1 % (0-3) Neutrophils # (Auto) 4.9 x10^3/uL (1.8-7.7) Lymphocytes # (Auto) 1.0 x10^3/uL (1.0-4.8) Monocytes # (Auto) 0.4 x10^3/uL (0.0-1.1) Eosinophils # (Auto) 0.1 x10^3/uL (0.0-0.7) Basophils # (Auto) 0.1 x10^3/uL (0.0-0.2) Prothrombin Time 11.8 SEC (11.7-14.0) Prothrombin Time INR 0.9 (0.8-1.1) Activated Partial Thromboplast Time 26 SEC (24-38) Sodium Level 140 mmol/L (136-145) Potassium Level 3.7 mmol/L (3.5-5.1) Chloride Level 105 mmol/L (98-107) Carbon Dioxide Level 24 mmol/L (21-32) Anion Gap 11 (6-14) Blood Urea Nitrogen 11 mg/dL (8-26) Creatinine 0.9 mg/dL (0.7-1.3) Estimated GFR (Cockcroft-Gault) 86.4 BUN/Creatinine Ratio 12 (6-20) Glucose Level 95 mg/dL (70-99) Calcium Level 8.6 mg/dL (8.5-10.1) Magnesium Level 1.9 mg/dL (1.8-2.4) Total Bilirubin 0.2 mg/dL (0.2-1.0) Aspartate Amino Transferase (AST) 17 U/L (15-37) Alanine Aminotransferase (ALT) 31 U/L (16-63) Alkaline Phosphatase 127 U/L (46-116) H Troponin I Quantitative 0.032 ng/mL (0.000-0.055) 0.028 ng/mL (0.000-0.055) 0.044 ng/mL (0.000-0.055) NK-Cyo-C-Type Natriuretic Peptide 65 pg/mL (0-124) Total Protein 7.1 g/dL (6.4-8.2) Albumin 3.3 g/dL (3.4-5.0) L Albumin/Globulin Ratio 0.9 (1.0-1.7) L Lipase 273 U/L (73-393) Ethyl Alcohol Level 317 mg/dL (0-10) H Urine Collection Type Void Urine Color Yellow Urine Clarity Clear Urine pH 6.0 (<5.0-8.0) Urine Specific [place] 1.010 (1.000-1.030) Urine Protein Negative mg/dL (NEG-TRACE) Urine Glucose (UA) Negative mg/dL (NEG) Urine Ketones (Stick) Negative mg/dL (NEG) Urine Blood Negative (NEG) Urine Nitrite Negative (NEG) Urine Bilirubin Negative (NEG) Urine Urobilinogen Dipstick 0.2 mg/dL (0.2 mg/dL) Urine Leukocyte Esterase Negative (NEG) Urine RBC 0 /HPF (0-2) Urine WBC 0 /HPF (0-4) Urine Squamous Epithelial Cells Occ /LPF Urine Bacteria 0 /HPF (0-FEW) Urine Opiates Screen Neg (NEG) Urine Methadone Screen Neg (NEG) Urine Barbiturates Neg (NEG) Urine Phencyclidine Screen Neg (NEG) Urine Amphetamine/Methamphetamine Neg (NEG) Urine Benzodiazepines Screen Neg (NEG) Urine Cocaine Screen Neg (NEG) Urine Cannabinoids Screen Neg (NEG) Urine Ethyl Alcohol Pos (NEG) Test 03/13/20 06:00 Sodium Level 138 mmol/L (136-145) Potassium Level 4.4 mmol/L (3.5-5.1) Chloride Level 103 mmol/L (98-107) Carbon Dioxide Level 28 mmol/L (21-32) Anion Gap 7 (6-14) Blood Urea Nitrogen 15 mg/dL (8-26) Creatinine 1.1 mg/dL (0.7-1.3) Estimated GFR (Cockcroft-Gault) 68.5 Glucose Level 93 mg/dL (70-99) Calcium Level 9.2 mg/dL (8.5-10.1) Magnesium Level 2.2 mg/dL (1.8-2.4) Troponin I Quantitative 0.048 ng/mL (0.000-0.055) Laboratory Tests 03/12/20 13:05 Laboratory Tests 03/12/20 13:05 03/13/20 06:00 ECHOCARDIOGRAM ECHOCARDIOGRAM <Conclusion> The left ventricular systolic function is normal. The Ejection Fraction is 65-70%. There is normal LV segmental wall motion. Trace mitral regurgitation. Trace tricuspid regurgitation. The PA pressure was estimated at 25 mmHg. There is no evidence of significant pericardial effusion. DATE: 05/20/19 0956 HEART CATH HEART CATH RESULTS: Left main: The left main has minimal plaquing within it. It arises from the left coronary cusp in standard position. It trifurcates into the LAD, left circumflex, and ramus intermedius arteries. Left anterior descending artery: The left anterior descending artery has mild to moderate calcification in the proximal segment. It gives rise to a small high diagonal branch and then a mid 99% stenosis with JUANIS-2 flow. It then gives rise to a 2nd diagonal branch. The LAD is a type 2 vessel. Ramus intermedius artery: The ramus intermedius artery is a large vessel that subtends a large portion of the high lateral wall. It branches in the midportion to superior and inferior limbs. There is a 30% stenosis of the ostium of the ramus intermedius artery. Left circumflex artery: The left circumflex artery gives rise to 2 moderate-size obtuse marginal branches. There is minimal plaquing noted in the left circumflex system. The right coronary artery is strongly dominant, with a dominant RPD and a moderate to large RPLV branch. The proximal portion of the RCA has a 40% to 50% stenosis. The remainder of the vessel has mild plaquing within it. HEMODYNAMICS: At the initiation procedure, revealed an LV pressure of 90 with LVEDP of 10. There was no aortic valve gradient on pullback. DETAILS OF THE INTERVENTIONAL PORTION OF THE PROCEDURE: An EBU 3.5 guide gave excellent seating and support. A Luge wire was able to traverse the lesion with mild difficulty. Subsequently, direct stenting was performed utilizing a 3.0 x 23 mm Xience stent. This was then post dilated with 3.5 x 12 NC [place] balloon. Four sequential inflations were performed up to 18 atmospheres throughout the stented area. This resulted in excellent expansion of the stent distally, but it was felt that proximally further expansion was needed. Subsequently, a 4.0 x 8 mm NC [place] balloon was taken up to 16 atmospheres for 2 sequential inflations in the mid and proximal segments. This resulted in excellent expansion of the stent. There was JUANIS grade 3 re-established. There was no evidence of plaque prolapse, perforation, or thrombus. There was JUANIS-3 flow within the LAD. This was confirmed in wire-out orthogonal views. IMPRESSION: Subtotal mid LAD with JUANIS grade 2 flow, culprit for the patient's acute coronary syndrome. Normal LVEDP. No significant disease within the right coronary artery, left circumflex, or ramus intermedius artery. Successful PCI of the mid LAD utilizing a single 3.0 x 23 mm Xience stent (post dilated to 3.5 distally and 4.0 proximally). RECOMMENDATIONS: Aspirin indefinitely. Brilinta with conversion to Plavix. Echo Doppler. Aggressive risk reduction, including initiation of statin therapy. 08/24/2018 ASSESSMENT/PLAN ASSESSMENT/PLAN 1. Chest pain, atypical. Most probably secondary to recent rib fractures. 2. Heavy alcoholism 3. Hypertension; controlled overall 4. CAD s/p PCI/HANG to LAD 08/2018 as noted above 5. Mild troponin elevation: peaked at 0.048. Suspect demand mediated 6. Hyperlipidemia 7. Tobaccoism; discussed/encouraged cessation 8. H/o noncompliance Recommendations Resume secondary prevention CIWA as per PCP Supportive care Consider outpatient ischemic evaluation Encourage medical compliance and cessation for ETOH PAT team consulted PHONG SHEA MD 03/13/20 1726: CARDIAC CONSULT ASSESSMENT/PLAN ASSESSMENT/PLAN Patient seen and examined. Agree with above nurse practitioner note. No significant cardiac issues noted. Echo within normal limits. Supportive care. Okay to discharge. YOLANDA SHIN APRN Mar 13, 2020 10:19 PHONG SHEA MD Mar 13, 2020 17:26
[2020-03-13 11:00] VITALS: BP 137/91
--- NOTE | 2020-03-13 12:24 | NUR ---
SS following for discharge planning. SS reviewed pt chart and discussed with pt RN. Pt is self pay pt. Pt is from home with spouse and is currently requiring oxygen. PT has ETOH. PAT team referral made for assessment and recommendations. Farshad from PAT team to meet with pt today. SS will continue to follow for discharge planning.
--- NOTE | 2020-03-13 13:49 | NUR ---
SS following up with discharge planning. Farshad from PAT team met with pt. Pt declined services at this time. Pt reported that he only drinks a six pack of beer and one pint of whiskey on the weekends. Resources were provided with information for AA, RADAC, and RSI. SS will continue to follow for discharge planning.
--- NOTE | 2020-03-13 14:46 | DISCH ---
DISCHARGE INSTRUCTIONS Condition on Discharge Condition on Discharge: Stable Activity After Discharge Activity Instructions for Disc: No restrictions, Resume previous activity, Activity as tolerated Lifting Instructions after Dis: No pulling or pushing Driving Instructions after Dis: Do not drive today Weight Bearing Status after Di: No restrictions, Full weight bearing, As tolerated Diet after Discharge Diet after Discharge: Cardiac, Regular Diet Texture: Regular Liquid Texture: Thin Liquid Wound Incision Care Wound/Incision Care: No wound care needed Checks after Discharge Checks after discharge: Check blood press - daily, Check your Temp as needed Contacting the DRBelinda after DC Call your doctor for: If your condition worsens Follow-Up Follow up with: Your PCP within 1 week of discharge Follow Up With: CardiologyDr. Delgado or SCOT Jimenez MD Mar 13, 2020 14:46
[2020-03-13 15:00] VITALS: BP 123/85
[2020-03-13] MEDS ORDERED: ISOS30TA4 PO ×2 (16:16→16:17)
--- NOTE | 2020-03-13 16:45 | CARD ---
MR#: [id number] Date of Study: 03/13/2020 Ordering Physician: YOLANDA SHIN, Referring Physician: YOLANDA SHIN, Tech: Briana Bojorquez [facility] APPROVED REPORT EXAM: Two-dimensional and M-mode echocardiogram with Doppler and color Doppler. Other Information Quality : Good INDICATION Cardiac Disease: CAD Chest Pain 2D DIMENSIONS RVDd3.2 (2.9-3.5cm)Left Atrium(2D)3.2 (1.6-4.0cm) IVSd1.1 (0.7-1.1cm)Aortic Root(2D)2.9 (2.0-3.7cm) LVDd4.1 (3.9-5.9cm)LVOT Diameter2.3 (1.8-2.4cm) PWd0.9 (0.7-1.1cm)LVDs3.2 (2.5-4.0cm) FS (%) 30.0 %SV32.9 ml LVEF(%)60.0 (>50%) Aortic Valve AoV Peak Keo.163.0cm/sAoV VTI21.4cm AO Peak GR.10.6mmHgLVOT Peak Keo.133.5cm/s LVOT VTI 20.41cmAO Mean GR.6mmHg ARAMIS (VMAX)3.52yu0VUE (VTI)3.95cm2 Mitral Valve MV E Nilvvaem90.6cm/sMV DECEL HERV345fk MV A Ukansmsr30.5cm/sMV LDL21xf E/A Ratio0.6MVA (PHT)3.54cm2 TDI E/Lateral E'3.4E/Medial E'7.5 Pulmonary Vein S1 Hvygaezw79.0cm/sD2 Fyfopcke96.6cm/s LEFT VENTRICLE The left ventricle is normal size. There is normal left ventricular wall thickness. The left ventricu lar systolic function is normal and the ejection fraction is within normal range. The Ejection Fracti on is 60-65%. There is normal LV segmental wall motion. Transmitral Doppler flow pattern is Grade I-a bnormal relaxation pattern. RIGHT VENTRICLE The right ventricle is normal size. The right ventricular systolic function is normal. ATRIA The left atrium size is normal. The right atrium size is normal. The interatrial septum is intact wit h no evidence for an atrial septal defect or patent foramen ovale as noted on 2-D or Doppler imaging. AORTIC VALVE The aortic valve is calcified but opens well. Doppler and Color Flow revealed no significant aortic r egurgitation. There is no significant aortic valvular stenosis. MITRAL VALVE The mitral valve is calcified but opens well. There is no evidence of mitral valve prolapse. There is no mitral valve stenosis. Doppler and Color Flow revealed no mitral valve regurgitation noted. TRICUSPID VALVE The tricuspid valve is normal in structure and function. Doppler and Color Flow revealed no tricuspid valve regurgitation noted. There is no tricuspid valve stenosis. PULMONIC VALVE The pulmonic valve is not well visualized. Doppler and Color Flow revealed no pulmonic valvular regur gitation. There is no pulmonic valvular stenosis. GREAT VESSELS The aortic root is normal in size. The ascending aorta is not well seen. The IVC is normal in size an d collapses >50% with inspiration. PERICARDIAL EFFUSION There is no evidence of significant pericardial effusion. Critical Notification Critical Value: No <Conclusion> The left ventricular systolic function is normal and the ejection fraction is within normal range. Th e Ejection Fraction is 60-65%. There is normal LV segmental wall motion. Signed by : Jelani Washington, Electronically Approved : 03/13/2020 16:44:57
--- NOTE | 2020-03-13 16:52 | NUR ---
Discharge Note: KELVIN PALM [place] Discharge instructions and discharge home medications reviewed with Patient and a copy given. All questions have been answered and understanding verbalized. The following instructions and handouts were given: chest pain, etoh abuse, and smoking cessation. Patient educated on stopping substance use and seeking healthcare insurance. Discontinued iv line and catheter intact. Patient discharged to home with[ self-care via private vehicle.
--- NOTE | 2020-03-14 08:38 | EKG ---
[facility] [address] [place] [address] Test Date: 2020-03-12 Test Time: 12:56:24 Pat Name: MARISOL PALM Department: Room: Gender: M Director Operations: : 1960 Requested By: ARVIND MORELAND Order Number: [id number] Reading MD: Measurements Intervals [place] Rate: 83 P: -17 ID: [id number] QRS: -10 QRSD: 90 T: 9 QT: 368 QTc: 438 Interpretive Statements SINUS RHYTHM LEFTWARD AXIS OTHERWISE NORMAL ECG RI6.01 No previous ECG available for comparison
[2020-03-17] MEDS ORDERED: FOLIC ACID 1 MG TABLET. PO SCH (09:00)
[2020-03-17] MEDS ORDERED: THIAMINE 100 MG TABLET. PO SCH (09:00)
[2020-03-17] MEDS ORDERED: MULTIVITAMIN with MINERAL TABLET. PO SCH (09:00)
== END 2020-03-13 17:22 | disposition home or self-care (01) ==
LOC: ER 12:48 → 2 NORTH 14:47
PROVIDERS: ADMIT Internal Medicine; ATTEND Internal Medicine
DX: R07.89 Other chest pain (principal); I24.9 Acute ischemic heart disease, unspecified; J98.11 Atelectasis; K29.70 Gastritis, unspecified, without bleeding; I25.2 Old myocardial infarction; F10.229 Alcohol dependence with intoxication, unspecified; F17.210 Nicotine dependence, cigarettes, uncomplicated; I16.0 Hypertensive urgency; I25.119 Atherosclerotic heart disease of native coronary artery with unspecified angina pectoris; E78.5 Hyperlipidemia, unspecified; Z91.19 Patient's noncompliance with other medical treatment and regimen; Z95.5 Presence of coronary angioplasty implant and graft; Y90.9 Presence of alcohol in blood, level not specified
CPT/HCPCS: 36415; 71045; 80048; 80053; 80307; 81001; 83690; 83735; 83880; 84484; 85025; 85610; 85730; 93005; 93306; 96365; 96372; 96375; 99284; G0378; G0480; J1650; J3475; J3490; G0379

== ENCOUNTER 2020-12-08 17:46 | Emergency (ER) | payer SELFPAY ==
[~2020-12-08] VITALS: Ht 172.7 cm; Wt 82.0 kg
[~2020-12-08 17:46] MED LIST changes: -ASPI-612 PO; +ASPI-886 PO; +ISOS30TA68 PO; -LISI-334 PO; +LISI20TA18 PO; -MULT1TAB90 PO; +MULT1TAB92 PO
[2020-12-08 18:25] VITALS: BP 136/90
[2020-12-08] MEDS ORDERED: PRED20TA PO (19:00)
--- NOTE | 2020-12-08 19:01 | ED.ADGEN ---
Past Medical History Past Medical History: Alcoholism, ND, Other Additional Past Medical Histor: Suicidal Attempt-hanging Past Surgical History: Angioplasty, Other Additional Past Surgical Histo: L jaw sx, abd sx Smoking Status: Current Every Day Smoker Alcohol Use: Heavy Drug Use: None General Adult EDM: Chief Complaint: SKIN RASH/ABSCESS HPI: HPI: Patient is a 60 year old male who presents to the emergency department with complaints of itchy rash all over his body for the last 3 days. He states that the rash did not start until after he started wearing close that his daughter had a wash for him. He denies any shortness of breath, wheezing, nausea, vomiting, diarrhea, sore throat, difficulty swallowing, chest pain, palpitations, body aches, or fatigue. He denies any drainage or bleeding from the itchy sites. Patient also complains of canker sores to the inner surface of his lower lip for the last few days. He denies any fever or dental pain. Patient states he has been taking Benadryl for the itching with little relief and no resolution of his rash. He currently denies any pain. Review of Systems: Review of Systems: Complete ROS is negative unless otherwise noted in HPI. Current Medications: Current Medications Medications (Trade) Dose Ordered Sig/Rayna Start Time Stop Time Status Last Admin Dose Admin Multi-Ingredient Mouthwash/Gargle (Magic Mouthwash) 10 ml 1X PRN 12/08/20 19:00 12/08/20 19:36 DC 12/08/20 19:24 10 ML Prednisone (Prednisone) 50 mg 1X ONCE 12/08/20 19:00 12/08/20 19:02 DC 12/08/20 19:24 50 MG Allergies: Allergies: Allergies Coded Allergies Type Severity Reaction Last Updated Verified No Known Drug Allergies 02/01/15 No Physical Exam: PE: Constitutional: Well developed, well nourished, no acute distress, non-toxic appearance. [] HENT: Normocephalic, atraumatic, bilateral external ears normal, oropharynx moist nose normal; aphthous ulcers to the buccal surface of the lower lip. [] Eyes: PERRLA, EOMI, conjunctiva normal, no discharge. [] Neck: Normal range of motion, no stridor. [] Cardiovascular:Heart rate regular rhythm Lungs & Thorax: Respirations even and unlabored, no retractions, no respiratory distress Skin: Warm, dry; scattered patchy erythemic slightly raised rash consistent with contact dermatitis or urticaria to extremities x4 and trunk Extremities: No cyanosis, ROM intact, no edema. [] Neurologic: Alert and oriented X 3, normal motor, normal sensory, no focal deficits noted. [] Psychologic: Affect normal, judgement normal, mood normal. [] Current Patient Data: Vital Signs: Vital Signs Date Time Temp Pulse Resp B/P (MAP) Pulse Ox O2 Delivery O2 Flow Rate FiO2 12/08/20 18:25 97.9 90 136/90 (105) 98 97.9 12/08/20 18:00 18 Room Air EKG: EKG: [] Heart Score: C/O Chest Pain: No Risk Scores: Score 0 - 3: 2.5% MACE over next 6 weeks - Discharge Home Score 4 - 6: 20.3% MACE over next 6 weeks - Admit for Clinical Observation Score 7 - 10: 72.7% MACE over next 6 weeks - Early Invasive Strategies Radiology/Procedures: Radiology/Procedures: [] Course & Med Decision Making: Course & Med Decision Making Pertinent Labs and Imaging studies reviewed. (See chart for details) []The patient was seen and interviewed as well as examined at the bedside. The chart was reviewed. The case was discussed. Agree with the plan of care. David Disclaimer: David Disclaimer: This electronic medical record was generated, in whole or in part, using a voice recognition dictation system. Departure Departure Impression: Primary Impression: Urticaria Additional Impression: Aphthous ulcer of mouth Disposition: HOME / SELF CARE / HOMELESS Condition: STABLE Referrals: NO PCP (PCP) Patient Instructions: Hives, Acww-kl-Dhxs, Oral Ulcers Additional Instructions: Fill prescriptions take them as directed. Avoid acidic, spicy, and crunchy foods until oral ulcers have healed. Recommend that you take a daily antihistamine such as Zyrtec, Veda or Claritin to help with the hives. You may also take Benadryl as needed for itching. Follow-up with your primary care doctor in 1 to 2 days, return to the ER symptoms worsen or fever develops. Scripts Prednisone (PREDNISONE) 20 Mg Tablet 1 TAB PO UD for 12 Days, #15 TAB 2 tabs by mouth days 1,2,3 then 1.5 tabs by mouth days 4,5,6 then 1 tab by mouth days 7,8,9 then 0.5 tab by mouth day 10,11,12 Prov: DEEPTI DAVALOS APRN 12/08/20 Problem Qualifiers DEEPTI DAVALOS APRN Dec 08, 2020 19:01 VA ROJAS DO Dec 09, 2020 04:32
[2020-12-08] MEDS: predniSONE 10 MG TABLET PO ONE (19:24)
[2020-12-08] MEDS: LIDO:MAALOX:BENADRYL 1:1:1 180 ML BOTTLE. SWSP PRN (19:24)
== END 2020-12-08 19:25 | disposition home or self-care (01) ==
LOC: ER 17:46
DX: K12.0 Recurrent oral aphthae (principal); L50.8 Other urticaria; R21 Rash and other nonspecific skin eruption; I25.2 Old myocardial infarction; F10.10 Alcohol abuse, uncomplicated; F17.200 Nicotine dependence, unspecified, uncomplicated; Z90.89 Acquired absence of other organs; Z98.890 Other specified postprocedural states
CPT/HCPCS: 99283; J7512

== ENCOUNTER 2021-04-23 11:09 | Observation (INO) | payer SELFPAY ==
[~2021-04-23] VITALS: Ht 175.3 cm; Wt 83.8 kg
[~2021-04-23 11:09] MED LIST changes: +PRED20TA PO
[2021-04-23 11:51] LABS: BASO % 1 % (0-3); EOS # 0.1 x10^3/uL (0.0-0.7); EOS % 2 % (0-3); HEMOGLOBIN 13.3 g/dL (13.0-17.5); LYMPH # 0.8 x10^3/uL (1.0-4.8); LYMPH % 17 % (24-48); MEAN CORPUSCULAR HEMOGLOBIN 33 pg (25-35); MEAN CORPUSCULAR HGB CONC 35 g/dL (31-37); MEAN CORPUSCULAR VOLUME 93 fL (79-100); MONO # 0.4 x10^3/uL (0.0-1.1); MONO % 9 % (0-9); NEUT # 3.4 x10^3/uL (1.8-7.7); NEUT % 71 % (31-73); PLATELET COUNT 280 x10^3/uL (140-400); RED BLOOD COUNT 4.07 x10^6/uL (4.30-5.70); RED CELL DISTRIBUTION WIDTH 13.7 % (11.5-14.5); WHITE BLOOD COUNT 4.7 x10^3/uL (4.0-11.0)
--- NOTE | 2021-04-23 11:53 | RAD ---
Exam Date: 04/23/2021 11:41 AM XR CHEST 1V Indication: Reason: chest pain / Spl. Instructions: / History: . Comparison: March 12, 2020 FINDINGS/ IMPRESSION: Suboptimal positioning limits evaluation. The aorta is calcified. The cardiac silhouette is enlarged. Lung volumes are low with bibasilar atelectasis and or infiltrat es. Left costophrenic angle is excluded. No appreciable pleural effusion or pneumothorax. Electronically signed by: Clint Pinto MD (04/23/2021 11:50 AM) [facility]
[2021-04-23 12:10] LABS: CALCIUM 8.5 mg/dL (8.5-10.1); CREATININE 0.9 mg/dL (0.7-1.3); GFR 85.8; POTASSIUM 3.6 mmol/L (3.5-5.1)
[2021-04-23 12:16] LABS: ALBUMIN 3.2 g/dL (3.4-5.0); ALBUMIN/GLOBULIN RATIO 0.8 (1.0-1.7); MAGNESIUM 2.2 mg/dL (1.8-2.4); TOTAL BILIRUBIN 0.2 mg/dL (0.2-1.0); TOTAL PROTEIN 7.1 g/dL (6.4-8.2)
[2021-04-23] MEDS ORDERED: IV NORMAL SALINE 1000ML BAG 1,000 ML IV ONE (12:45)
[2021-04-23 14:10] LABS: AMPHETAMINE/METHAMPHETAMINE NEG (NEG); BARBITURATES NEG (NEG); BENZODIAZEPINES NEG (NEG); CANNABINOIDS NEG (NEG); COCAINE NEG (NEG); METHADONE NEG (NEG); OPIATES NEG (NEG); PHENCYCLIDINE NEG (NEG)
[2021-04-23] MEDS ORDERED: IPRATRPIUM/ALBUTEROL 0.5/2.5MG 3 ML NEBU. NEB ONE (14:15)
[2021-04-23] MEDS ORDERED: PANTOPRAZOLE IV PUSH 40 MG VIAL. IVP ONE (14:15)
[2021-04-23] MEDS ORDERED: LIDO:MAALOX 1:1 20 ML SINGLE DOSE. SWSW ONE (14:15)
--- NOTE | 2021-04-23 15:29 | PHYS DOC ---
Past Medical History Past Medical History: Alcoholism, [place], Other Additional Past Medical Histor: Suicidal Attempt-hanging Past Surgical History: Other Additional Past Surgical Histo: unknown Smoking Status: Unknown if ever smoked Alcohol Use: Occasionally Drug Use: None General Adult EDM: Chief Complaint: CHEST PAIN HPI: HPI: Patient is a 61 year old male who present to ER for evaluation of chest pain, substernally. Patient said he was walking to work this morning, he was having chest pain , feeling dizzy , so weak. Patient then walked to the EMS station, he actually passed out in front EMS station. Patient has history of alcohol abuse, history of COPD, history of coronary disease in the past. Patient denies any cough but he does has trouble breathing. Review of Systems: Review of Systems: Constitutional: Denies fever or chills. [] Eyes: Denies change in visual acuity. [] HENT: Denies nasal congestion or sore throat. [] Respiratory: Denies cough , positive for shortness of breath. [] Cardiovascular: Positive for chest pain, no edema GI: Denies abdominal pain, nausea, vomiting, bloody stools or diarrhea. [] : Denies dysuria. [] Musculoskeletal: Denies back pain or joint pain. [] Integument: Denies rash. [] Neurologic: Denies headache, focal weakness or sensory changes. [] Endocrine: Denies polyuria or polydipsia. [] Lymphatic: Denies swollen glands. [] Psychiatric: Denies depression or anxiety. [] Heart Score: C/O Chest Pain: Yes HEART Score for Chest Pain: HEART Score for Chest Pain Response (Comments) Value History Moderately Suspicious 1 ECG Normal 0 Age >45 - < 65 1 Risk Factors 1 or 2 Risk Factors 1 Troponin < Normal Limit 0 Total 3 Risk Factors: Risk Factors: DM, Current or recent (<one month) smoker, HTN, HLP, family history of CAD, obesity. Risk Scores: Score 0 - 3: 2.5% MACE over next 6 weeks - Discharge Home Score 4 - 6: 20.3% MACE over next 6 weeks - Admit for Clinical Observation Score 7 - 10: 72.7% MACE over next 6 weeks - Early Invasive Strategies Current Medications: Current Medications Medications (Trade) Dose Ordered Sig/Rayna Start Time Stop Time Status Last Admin Dose Admin Albuterol/ Ipratropium (Duoneb) 3 ml 1X ONCE 04/23/21 14:15 04/23/21 14:16 DC 04/23/21 14:18 3 ML Multi-Ingredient Mouthwash/Gargle (Gi Cocktail) 20 ml 1X ONCE 04/23/21 14:15 04/23/21 14:16 DC 04/23/21 14:15 20 ML Pantoprazole Sodium (PROTONIX VIAL for IV PUSH) 40 mg 1X ONCE 04/23/21 14:15 04/23/21 14:16 DC 04/23/21 14:15 40 MG Sodium Chloride 1,000 ml @ 1,000 mls/hr 1X ONCE 04/23/21 12:45 04/23/21 13:44 DC 04/23/21 12:44 1,000 MLS/HR Allergies: Allergies: Allergies Coded Allergies Type Severity Reaction Last Updated Verified No Known Drug Allergies 02/01/15 No Physical Exam: PE: Constitutional: Well developed, well nourished, no acute distress, non-toxic appearance. [] HENT: Normocephalic, atraumatic, bilateral external ears normal, oropharynx moist, no oral exudates, nose normal. [] Eyes: PERRLA, EOMI, conjunctiva normal, no discharge. [] Neck: Normal range of motion, no tenderness, supple, no stridor. [] Cardiovascular:Heart rate regular rhythm, no murmur [] Lungs & Thorax: Bilateral breath sounds clear to auscultation [] Abdomen: Bowel sounds normal, soft, no tenderness, no masses, no pulsatile mas ses. [] Skin: Warm, dry, no erythema, no rash. [] Back: No tenderness, no CVA tenderness. [] Extremities: No tenderness, no cyanosis, no clubbing, ROM intact, no edema. [] Neurologic: Alert and oriented X 3, normal motor function, normal sensory function, no focal deficits noted. [] Psychologic: Affect normal, judgement normal, mood normal. [] Current Patient Data: Labs: Laboratory Tests Test 04/23/21 11:35 04/23/21 11:40 04/23/21 13:54 04/23/21 14:10 SARS-CoV-2 RNA (CORINNE) Negative (Negative) White Blood Count 4.7 x10^3/uL (4.0-11.0) Red Blood Count 4.07 x10^6/uL (4.30-5.70) L Hemoglobin 13.3 g/dL (13.0-17.5) Hematocrit 38.0 % (39.0-53.0) L Mean Corpuscular Volume 93 fL (79-100) Mean Corpuscular Hemoglobin 33 pg (25-35) Mean Corpuscular Hemoglobin Concent 35 g/dL (31-37) Red Cell Distribution Width 13.7 % (11.5-14.5) Platelet Count 280 x10^3/uL (140-400) Neutrophils (%) (Auto) 71 % (31-73) Lymphocytes (%) (Auto) 17 % (24-48) L Monocytes (%) (Auto) 9 % (0-9) Eosinophils (%) (Auto) 2 % (0-3) Basophils (%) (Auto) 1 % (0-3) Neutrophils # (Auto) 3.4 x10^3/uL (1.8-7.7) Lymphocytes # (Auto) 0.8 x10^3/uL (1.0-4.8) L Monocytes # (Auto) 0.4 x10^3/uL (0.0-1.1) Eosinophils # (Auto) 0.1 x10^3/uL (0.0-0.7) Basophils # (Auto) 0.0 x10^3/uL (0.0-0.2) Sodium Level 147 mmol/L (136-145) H Potassium Level 3.6 mmol/L (3.5-5.1) Chloride Level 109 mmol/L (98-107) H Carbon Dioxide Level 24 mmol/L (21-32) Anion Gap 14 (6-14) Blood Urea Nitrogen 10 mg/dL (8-26) Creatinine 0.9 mg/dL (0.7-1.3) Estimated GFR (Cockcroft-Gault) 85.8 BUN/Creatinine Ratio 11 (6-20) Glucose Level 86 mg/dL (70-99) Calcium Level 8.5 mg/dL (8.5-10.1) Magnesium Level 2.2 mg/dL (1.8-2.4) Total Bilirubin 0.2 mg/dL (0.2-1.0) Aspartate Amino Transferase (AST) 16 U/L (15-37) Alanine Aminotransferase (ALT) 21 U/L (16-63) Alkaline Phosphatase 88 U/L (46-116) Troponin I Quantitative 0.028 ng/mL (0.000-0.055) 0.034 ng/mL (0.000-0.055) WL-Yhf-L-Type Natriuretic Peptide 141 pg/mL (0-124) H Total Protein 7.1 g/dL (6.4-8.2) Albumin 3.2 g/dL (3.4-5.0) L Albumin/Globulin Ratio 0.8 (1.0-1.7) L Lipase 154 U/L (73-393) Ethyl Alcohol Level 416 mg/dL (0-10) *H Urine Opiates Screen Neg (NEG) Urine Methadone Screen Neg (NEG) Urine Barbiturates Neg (NEG) Urine Phencyclidine Screen Neg (NEG) Urine Amphetamine/Methamphetamine Neg (NEG) Urine Benzodiazepines Screen Neg (NEG) Urine Cocaine Screen Neg (NEG) Urine Cannabinoids Screen Neg (NEG) Urine Ethyl Alcohol Pos (NEG) Laboratory Tests 04/23/21 11:40 Laboratory Tests 04/23/21 11:40 Vital Signs: Vital Signs Date Time Temp Pulse Resp B/P (MAP) Pulse Ox O2 Delivery O2 Flow Rate FiO2 04/23/21 15:17 94 16 95 Room Air 04/23/21 12:20 123/72 (89) 04/23/21 11:22 97.8 97.8 EKG: EKG: EKG was done 1118, heart rate of 80 bpm, sinus rhythm, no ST segment elevation. Radiology/Procedures: Radiology/Procedures: [][facility] [address] [place] [address] IMAGING REPORT Signed PATIENT: MARISOL PALM ACCOUNT: [id number] : 1960 LOCATION: ER AGE: 61 SEX: M EXAM STATUS: PRE ER ORD. PHYSICIAN: ARVIND MORELAND DO REASON: chest pain PROCEDURE: PORTABLE CHEST 1V Exam Date: 04/23/2021 11:41 AM XR CHEST 1V Indication: Reason: chest pain / Spl. Instructions: / History: . Comparison: March 12, 2020 FINDINGS/ IMPRESSION: Suboptimal positioning limits evaluation. The aorta is calcified. The cardiac silhouette is enlarged. Lung volumes are low with bibasilar atelectasis and or infiltrates. Left costophrenic angle is excluded. No appreciable pleural effusion or pneumothorax. Electronically signed by: Lopez Pinto MD (04/23/2021 11:50 AM) [facility] DICTATED and SIGNED BY: LOPEZ PINTO MD DATE: 04/23/21 [id number] 0 Course & Med Decision Making: Course & Med Decision Making Pertinent Labs and Imaging studies reviewed. (See chart for details) Patient is a 61-year-old male who present to ER due to chest pain, cardiac enzyme and EKG normal so far. Symptoms just started this morning. Patient has some risk factor for having coronary disease, therefore he will be admitted to hospital for observation. Dragon Disclaimer: Dragon Disclaimer: This electronic medical record was generated, in whole or in part, using a voice recognition dictation system. Departure Departure Impression: Primary Impression: Chest pain Additional Impression: Alcohol intoxication Disposition: ADMITTED INPATIENT Admitting Physician: MOHSEN (Dr. Dukes) Condition: STABLE Referrals: NO PCP (PCP) ARVIND MORELAND DO Apr 23, 2021 15:29
[2021-04-23] MEDS: IV NORMAL SALINE 1000ML BAG 1,000 ML IV SCH (16:15)
[2021-04-23] MEDS ORDERED: ONDANSETRON PF 4 MG/2 ML VIAL. IVP PRN ×2 (16:15→16:30)
[2021-04-23] MEDS ORDERED: PROCHLORPERAZINE 10 MG/2 ML VIAL. IVP PRN (16:30)
[2021-04-23] MEDS ORDERED: ELECTROLYTE (NON-ICU) PROTOCOL. MC PRN (16:30)
[2021-04-23] MEDS ORDERED: CALCIUM CARBONATE 500 MG TAB.CHEW PO PRN (16:30)
--- NOTE | 2021-04-23 16:31 | PDOC1 ---
History and Physical Date of Service: DOS: DATE: 04/23/21 TIME: 16:28 Chief Complaint: Problems: (1) Chest pain (2) Alcohol intoxication Chief Complain: chest pain History of Present Illness: HPI: Patient is a 61-year-old male who presented today via EMS due to chest pain. Patient this morning apparently was walking to work and developed chest pain got severe enough where he thought he needed to go to the emergency room. Did not have any transportation so he walked to the closest EMS and had them bring him to the emergency room. He upon arrival at the station had an episode of syncope. He does not remember this episode. Has brought him to the emergency room then. Patient does have a significant cardiac history, he had an GA requiring stent placement a few years ago. Cannot remember when or where this was. On arrival to emergency room patient was visibly intoxicated. Ethanol level came back at 400. Patient is a daily alcohol user, said he drank a tall boy beer and half a pint of liquor this morning. He does endorse daily alcohol use of up to a pint of liquor and a few beers a day. When evaluated the emergency room patient said his chest pain had improved from initially but was still mildly painful. He is agreeable to admission. Past Medical/Surgical History: PMH/PSH: Alcohol abuse, previous myocardial infarction with stents in place, HTN, HPLD Allergies: Allergies: Coded Allergies: No Known Drug Allergies (Unverified , 02/01/15) Family History: Family History: Noncontributory Social History: Social History: Daily alcohol use at least a pint of liquor a day, occasional alcohol, some cocaine use 2 Current Medications: Current Medications Current Medications Sodium Chloride 1,000 ml @ 1,000 mls/hr 1X ONCE IV Last administered on 04/23/21at 12:44; Start 04/23/21 at 12:45; Stop 04/23/21 at 13:44; Status DC Albuterol/ Ipratropium (Duoneb) 3 ml 1X ONCE NEB Last administered on 04/23/21at 14:18; Start 04/23/21 at 14:15; Stop 04/23/21 at 14:16; Status DC Pantoprazole Sodium (PROTONIX VIAL for IV PUSH) 40 mg 1X ONCE IVP Last administered on 04/23/21at 14:15; Start 04/23/21 at 14:15; Stop 04/23/21 at 14:16; Status DC Multi-Ingredient Mouthwash/Gargle (Gi Cocktail) 20 ml 1X ONCE SWSW Last admin istered on 04/23/21at 14:15; Start 04/23/21 at 14:15; Stop 04/23/21 at 14:16; Status DC Ondansetron HCl (Zofran) 4 mg PRN Q8HRS PRN IVP NAUSEA/VOMITING; Start 04/23/21 at 16:15; Stop 04/24/21 at 16:14 Sodium Chloride 1,000 ml @ 100 mls/hr Q10H IV ; Start 04/23/21 at 16:15; Stop 04/24/21 at 16:14 Multivitamins 10 ml/Thiamine HCl 100 mg/Folic Acid 1 mg/Sodium Chloride 1,011.2 ml @ 100 mls/ hr DAILY IV ; Start 04/23/21 at 17:00; Stop 04/27/21 at 19:07 Multivitamins (Thera M Plus) 1 tab DAILY PO ; Start 04/28/21 at 09:00 Thiamine Mononitrate (Vitamin B-1) 100 mg DAILY PO ; Start 04/28/21 at 09:00 Lorazepam (Ativan) 4 mg PRN Q1HR PRN PO For CIWA 8-14; Start 04/23/21 at 16:30 Lorazepam (Ativan) 8 mg PRN Q1HR PRN PO For CIWA 15 or greater; Start 04/23/21 at 16:30 Ondansetron HCl (Zofran) 4 mg PRN Q6HRS PRN IVP NAUSEA/VOMITING; Start 04/23/21 at 16:30 Prochlorperazine Edisylate (Compazine) 10 mg PRN Q6HRS PRN IVP NAUSEA/VOMITING- 2ND CHOICE; Start 04/23/21 at 16:30 Calcium Carbonate/ Glycine (Tums) 500 mg PRN Q3HRS PRN PO UPSET STOMACH; Start 04/23/21 at 16:30 Info (Non-Icu Electrolyte Protocol) 1 ea PRN DAILY PRN MC SEE COMMENTS; Start 04/23/21 at 16:30 Oxycodone/ Acetaminophen (Percocet 5/325) 1 tab PRN Q4HRS PRN PO MILD PAIN, 1ST CHOICE; Start 04/23/21 at 16:30 Oxycodone/ Acetaminophen (Percocet 5/325) 2 tab PRN Q4HRS PRN PO MODERATE PAIN, SEVERE PAIN; Start 04/23/21 at 16:30 Senna/Docusate Sodium (Senna Plus) 1 tab BID PO ; Start 04/23/21 at 21:00 Heparin Sodium (Porcine) (Heparin Sodium) 5,000 unit Q8HRS SQ ; Start 04/23/21 at 22:00 Aspirin (Ecotrin) 81 mg DAILYWBKFT PO ; Start 04/24/21 at 08:00; Status UNV Atorvastatin Calcium (Lipitor) 40 mg QHS PO ; Start 04/23/21 at 21:00; Status UNV Clopidogrel Bisulfate (Plavix) 75 mg DAILYWBKFT PO ; Start 04/24/21 at 08:00; Status UNV Isosorbide Mononitrate (Imdur) 30 mg DAILY PO ; Start 04/24/21 at 09:00; Status UNV Lisinopril (Prinivil) 20 mg DAILY PO ; Start 04/24/21 at 09:00; Status UNV Pantoprazole Sodium (Protonix) 40 mg DAILYAC PO ; Start 04/24/21 at 07:30; Status UNV Active Scripts Active Prednisone 20 Mg Tablet 1 Tab PO UD 12 Days 2 tabs by mouth days 1,2,3 then 1.5 tabs by mouth days 4,5,6 then 1 tab by mouth days 7,8,9 then 0.5 tab by mouth day 10,11,12 Thera-M Tablet (Multivits,Ca,Minerals/Iron/Fa) 1 Each Tablet 1 Tab PO DAILY 30 Days [Folic Acid] 1 MG Tablet 1 Mg PO DAILY 30 Days Pantoprazole Sodium (Pantoprazole Sodium) 40 Mg Tablet.dr 40 Mg PO DAILYAC 10 Days Atorvastatin Calcium 40 Mg Tablet 40 Mg PO QHS 30 Days Proair Hfa (Albuterol Sulfate) 8.5 Gm Hfa.aer.ad 2.5 Mg NEB PRN Q4HRS PRN 14 Days Clopidogrel (Clopidogrel Bisulfate) 75 Mg Tablet 75 Mg PO DAILYWBKFT Aspirin Ec (Aspirin) 81 Mg Tablet.dr 81 Mg PO DAILYWBKFT Lisinopril 20 Mg Tablet 1 Tab PO DAILY Reported Isosorbide Mononitrate Er (Isosorbide Mononitrate) 30 Mg Tab.er.24h 1 Tab PO DAILY ROS: Review of Systems Review of System Negative unless noted in HPI Physical Exam: Vital Signs: Vital Signs Date Time Temp Pulse Resp B/P (MAP) Pulse Ox O2 Delivery O2 Flow Rate FiO2 04/23/21 15:17 94 16 95 Room Air 04/23/21 12:20 123/72 (89) 04/23/21 11:22 97.8 97.8 Physcial Exam: GEN: No apparent distress. Alert and oriented HEENT: Normal cephalic, atraumatic, external auditory canals are patent EYES: Extraocular muscles are intact, MUSCULOSKELETAL: Well developed , well nourished, good range of motion ENDOCRINE: No thyromegaly was palpated LYMPHATICS: No cervical chain or axillary nodes were noted HEMATOPOIETIC: No bruising NECK: Supple, no JVD, no thyromegaly was noted LUNGS: Clear to auscultation in all lung banks without rhonchi or wheezing HEART: RRR, S1, S2 present. Peripheral pulses intact, no obvious murmurs noted ABDOMEN: Soft, nontender. Positive bowel sounds, no organomegaly, normal bowel sounds EXTREMITIES: Without clubbing, cyanosis, or edema. Pedal pulses intact. NEUROLOGIC: Normal speech and tone. A&O x 3, moves all extremities, intoxicated PSYCHIATRIC: Normal affect, normal mood. Stable SKIN: No ulcerations or rashes, good skin turgor, no jaundice VASCULAR: Good capillary refill, neurovascular bundle appears to be intact Labs: Labs: Laboratory Tests Test 04/23/21 11:35 04/23/21 11:40 04/23/21 13:54 04/23/21 14:10 SARS-CoV-2 RNA (CORINNE) Negative (Negative) White Blood Count 4.7 x10^3/uL (4.0-11.0) Red Blood Count 4.07 x10^6/uL (4.30-5.70) Hemoglobin 13.3 g/dL (13.0-17.5) Hematocrit 38.0 % (39.0-53.0) Mean Corpuscular Volume 93 fL (79-100) Mean Corpuscular Hemoglobin 33 pg (25-35) Mean Corpuscular Hemoglobin Concent 35 g/dL (31-37) Red Cell Distribution Width 13.7 % (11.5-14.5) Platelet Count 280 x10^3/uL (140-400) Neutrophils (%) (Auto) 71 % (31-73) Lymphocytes (%) (Auto) 17 % (24-48) Monocytes (%) (Auto) 9 % (0-9) Eosinophils (%) (Auto) 2 % (0-3) Basophils (%) (Auto) 1 % (0-3) Neutrophils # (Auto) 3.4 x10^3/uL (1.8-7.7) Lymphocytes # (Auto) 0.8 x10^3/uL (1.0-4.8) Monocytes # (Auto) 0.4 x10^3/uL (0.0-1.1) Eosinophils # (Auto) 0.1 x10^3/uL (0.0-0.7) Basophils # (Auto) 0.0 x10^3/uL (0.0-0.2) Sodium Level 147 mmol/L (136-145) Potassium Level 3.6 mmol/L (3.5-5.1) Chloride Level 109 mmol/L (98-107) Carbon Dioxide Level 24 mmol/L (21-32) Anion Gap 14 (6-14) Blood Urea Nitrogen 10 mg/dL (8-26) Creatinine 0.9 mg/dL (0.7-1.3) Estimated GFR (Cockcroft-Gault) 85.8 BUN/Creatinine Ratio 11 (6-20) Glucose Level 86 mg/dL (70-99) Calcium Level 8.5 mg/dL (8.5-10.1) Magnesium Level 2.2 mg/dL (1.8-2.4) Total Bilirubin 0.2 mg/dL (0.2-1.0) Aspartate Amino Transf (AST/SGOT) 16 U/L (15-37) Alanine Aminotransferase (ALT/SGPT) 21 U/L (16-63) Alkaline Phosphatase 88 U/L (46-116) Troponin I Quantitative 0.028 ng/mL (0.000-0.055) 0.034 ng/mL (0.000-0.055) CK-Gdo-C-Type Natriuretic Peptide 141 pg/mL (0-124) Total Protein 7.1 g/dL (6.4-8.2) Albumin 3.2 g/dL (3.4-5.0) Albumin/Globulin Ratio 0.8 (1.0-1.7) Lipase 154 U/L (73-393) Ethyl Alcohol Level 416 mg/dL (0-10) Urine Opiates Screen Neg (NEG) Urine Methadone Screen Neg (NEG) Urine Barbiturates Neg (NEG) Urine Phencyclidine Screen Neg (NEG) Urine Amphetamine/Methamphetamine Neg (NEG) Urine Benzodiazepines Screen Neg (NEG) Urine Cocaine Screen Neg (NEG) Urine Cannabinoids Screen Neg (NEG) Urine Ethyl Alcohol Pos (NEG) Laboratory Tests Test 04/23/21 11:35 04/23/21 11:40 04/23/21 13:54 04/23/21 14:10 SARS-CoV-2 RNA (CORINNE) Negative (Negative) White Blood Count 4.7 x10^3/uL (4.0-11.0) Red Blood Count 4.07 x10^6/uL (4.30-5.70) Hemoglobin 13.3 g/dL (13.0-17.5) Hematocrit 38.0 % (39.0-53.0) Mean Corpuscular Volume 93 fL (79-100) Mean Corpuscular Hemoglobin 33 pg (25-35) Mean Corpuscular Hemoglobin Concent 35 g/dL (31-37) Red Cell Distribution Width 13.7 % (11.5-14.5) Platelet Count 280 x10^3/uL (140-400) Neutrophils (%) (Auto) 71 % (31-73) Lymphocytes (%) (Auto) 17 % (24-48) Monocytes (%) (Auto) 9 % (0-9) Eosinophils (%) (Auto) 2 % (0-3) Basophils (%) (Auto) 1 % (0-3) Neutrophils # (Auto) 3.4 x10^3/uL (1.8-7.7) Lymphocytes # (Auto) 0.8 x10^3/uL (1.0-4.8) Monocytes # (Auto) 0.4 x10^3/uL (0.0-1.1) Eosinophils # (Auto) 0.1 x10^3/uL (0.0-0.7) Basophils # (Auto) 0.0 x10^3/uL (0.0-0.2) Sodium Level 147 mmol/L (136-145) Potassium Level 3.6 mmol/L (3.5-5.1) Chloride Level 109 mmol/L (98-107) Carbon Dioxide Level 24 mmol/L (21-32) Anion Gap 14 (6-14) Blood Urea Nitrogen 10 mg/dL (8-26) Creatinine 0.9 mg/dL (0.7-1.3) Estimated GFR (Cockcroft-Gault) 85.8 BUN/Creatinine Ratio 11 (6-20) Glucose Level 86 mg/dL (70-99) Calcium Level 8.5 mg/dL (8.5-10.1) Magnesium Level 2.2 mg/dL (1.8-2.4) Total Bilirubin 0.2 mg/dL (0.2-1.0) Aspartate Amino Transf (AST/SGOT) 16 U/L (15-37) Alanine Aminotransferase (ALT/SGPT) 21 U/L (16-63) Alkaline Phosphatase 88 U/L (46-116) Troponin I Quantitative 0.028 ng/mL (0.000-0.055) 0.034 ng/mL (0.000-0.055) JW-Xws-W-Type Natriuretic Peptide 141 pg/mL (0-124) Total Protein 7.1 g/dL (6.4-8.2) Albumin 3.2 g/dL (3.4-5.0) Albumin/Globulin Ratio 0.8 (1.0-1.7) Lipase 154 U/L (73-393) Ethyl Alcohol Level 416 mg/dL (0-10) Urine Opiates Screen Neg (NEG) Urine Methadone Screen Neg (NEG) Urine Barbiturates Neg (NEG) Urine Phencyclidine Screen Neg (NEG) Urine Amphetamine/Methamphetamine Neg (NEG) Urine Benzodiazepines Screen Neg (NEG) Urine Cocaine Screen Neg (NEG) Urine Cannabinoids Screen Neg (NEG) Urine Ethyl Alcohol Pos (NEG) Assessment/Plan Assessment/Plan Chest pain, history of STEMI status post stent placement, alcohol abuse, history of alcohol withdrawal -Presented this morning with 1 day history of chest pain -Work-up in ER were unremarkable thus far, troponins negative and no major abnormalities on EKG -Admit for observation due to significant cardiac history -Chest pain improving after interventions in the emergency room -Patient also visibly intoxicated on presentation, ethanol level subsequently over 400 -Patient thinks he has had a history of complicated withdrawal either way we will start [facility] protocol -PAT team consult -Regular diet -DVT prophylaxis -Home medications resumed as indicated including antiplatelet agents Justifications for Admission Other Justification DEEJAY LUNA MD Apr 23, 2021 16:31
--- NOTE | 2021-04-23 16:40 | EKG ---
[facility] [address] [place] [address] Test Date: 2021-04-23 Test Time: 11:17:05 Pat Name: MARISOL PALM Department: Room: Gender: M [employer]: : 1960 Requested By: ARVIND MORELAND Order Number: [id number] Reading MD: Jelani Washignton MD Measurements Intervals [place] Rate: 80 P: -6 MT: 176 QRS: 7 QRSD: 86 T: 29 QT: 384 QTc: 447 Interpretive Statements SINUS RHYTHM Electronically Signed On 04-26-2021 9:33:49 CDT by Jelani Washington MD
[2021-04-23 16:58] LABS: DIRECT BILIRUBIN 0.1 mg/dL (0.0-0.2)
[2021-04-23] MEDS: MULTIVIT INFUSN,ADULT 4,VIT K 10 ML, THIAMINE INJ 100 MG, FOLIC ACID INJ 1 MG in IV NOR... IV SCH (17:00)
[2021-04-23 19:30] VITALS: BP 173/109
[2021-04-23] MEDS ORDERED: ATORVASTATIN CALCIUM 40 MG TABLET. PO SCH (21:00)
[2021-04-23] MEDS: SENNOSIDES/DOCUSATE 8.6/50MG TABLET. PO SCH (21:17)
[2021-04-23] MEDS: oxyCODONE/APAP 5/325 1 TAB TABLET PO PRN (21:23)
[2021-04-23] MEDS: HEPARIN for SUB-Q USE 5,000 UNIT/ML VIAL. SQ SCH (22:37)
[2021-04-23 23:06] VITALS: BP 172/102
[2021-04-24] MEDS: IV NORMAL SALINE 1000ML BAG 1,000 ML IV SCH ×2 (02:08→12:15)
[2021-04-24 03:35] VITALS: BP 167/94
[2021-04-24] MEDS: HEPARIN for SUB-Q USE 5,000 UNIT/ML VIAL. SQ SCH ×2 (05:55→14:43)
[2021-04-24] MEDS: oxyCODONE/APAP 5/325 1 TAB TABLET PO PRN ×3 (06:00→14:32)
[2021-04-24 07:00] VITALS: BP 176/99
[2021-04-24] MEDS ORDERED: PANTOPRAZOLE 40 MG TABLET.DR. PO SCH (07:30)
[2021-04-24] MEDS ORDERED: ASPIRIN ENTERIC COATED 81 MG TABLET.DR. PO SCH (08:00)
[2021-04-24] MEDS ORDERED: CLOPIDOGREL BISULFATE 75 MG TABLET PO SCH (08:00)
[2021-04-24] MEDS ORDERED: ISOSORBIDE MONONITRATE ER 30 MG TAB.ER.24H PO SCH (09:00)
[2021-04-24] MEDS ORDERED: LISINOPRIL 20 MG TABLET PO SCH (09:00)
[2021-04-24] MEDS: SENNOSIDES/DOCUSATE 8.6/50MG TABLET. PO SCH (10:41)
[2021-04-24] MEDS: MULTIVIT INFUSN,ADULT 4,VIT K 10 ML, THIAMINE INJ 100 MG, FOLIC ACID INJ 1 MG in IV NOR... IV SCH (10:42)
[2021-04-24 11:00] VITALS: BP 157/96
--- NOTE | 2021-04-24 13:14 | NUR ---
DOMINIQUE following. Discussed with RN. Pt from home. BRYAN 3. PAT consult for ETOH. Med Assist following for self pay status. Possible discharge after PAT consult. DOMINIQUE will continue to follow. Addendum: 04/24/21 at 1452 by NIKITA FOX Valorie PADILLA) met with pt, pt provided with resources for treatment. Pt cleared by PAT. MORRIS and Dr. Dukes notified.
--- NOTE | 2021-04-24 15:01 | PDOC3 ---
Discharge Summary Visit Information Date of Admission: Apr 23, 2021 Date of Discharge: Apr 24, 2021 Admitting Diagnosis: Alcohol abuse Final Diagnosis Problems Medical Problems: (1) Alcohol intoxication Status: Acute (2) Chest pain Status: Acute Brief Hospital Course Allergies Allergies Coded Allergies Type Severity Reaction Last Updated Verified No Known Drug Allergies 02/01/15 No Vital Signs Vital Signs Date Time Temp Pulse Resp B/P (MAP) Pulse Ox O2 Delivery O2 Flow Rate FiO2 04/24/21 14:32 Room Air 04/24/21 11:00 98.1 87 18 157/96 (116) 93 98.1 Lab Results Laboratory Tests Test 04/23/21 11:35 04/23/21 11:40 04/23/21 13:54 04/23/21 14:10 Thyroid Stimulating Hormone (TSH) 0.445 uIU/mL (0.358-3.74) SARS-CoV-2 RNA (CORINNE) Negative (Negative) White Blood Count 4.7 x10^3/uL (4.0-11.0) Red Blood Count 4.07 x10^6/uL (4.30-5.70) Hemoglobin 13.3 g/dL (13.0-17.5) Hematocrit 38.0 % (39.0-53.0) Mean Corpuscular Volume 93 fL (79-100) Mean Corpuscular Hemoglobin 33 pg (25-35) Mean Corpuscular Hemoglobin Concent 35 g/dL (31-37) Red Cell Distribution Width 13.7 % (11.5-14.5) Platelet Count 280 x10^3/uL (140-400) Neutrophils (%) (Auto) 71 % (31-73) Lymphocytes (%) (Auto) 17 % (24-48) Monocytes (%) (Auto) 9 % (0-9) Eosinophils (%) (Auto) 2 % (0-3) Basophils (%) (Auto) 1 % (0-3) Neutrophils # (Auto) 3.4 x10^3/uL (1.8-7.7) Lymphocytes # (Auto) 0.8 x10^3/uL (1.0-4.8) Monocytes # (Auto) 0.4 x10^3/uL (0.0-1.1) Eosinophils # (Auto) 0.1 x10^3/uL (0.0-0.7) Basophils # (Auto) 0.0 x10^3/uL (0.0-0.2) Sodium Level 147 mmol/L (136-145) Potassium Level 3.6 mmol/L (3.5-5.1) Chloride Level 109 mmol/L (98-107) Carbon Dioxide Level 24 mmol/L (21-32) Anion Gap 14 (6-14) Blood Urea Nitrogen 10 mg/dL (8-26) Creatinine 0.9 mg/dL (0.7-1.3) Estimated GFR (Cockcroft-Gault) 85.8 BUN/Creatinine Ratio 11 (6-20) Glucose Level 86 mg/dL (70-99) Calcium Level 8.5 mg/dL (8.5-10.1) Magnesium Level 2.2 mg/dL (1.8-2.4) Total Bilirubin 0.2 mg/dL (0.2-1.0) Direct Bilirubin 0.1 mg/dL (0.0-0.2) Aspartate Amino Transf (AST/SGOT) 16 U/L (15-37) Alanine Aminotransferase (ALT/SGPT) 21 U/L (16-63) Alkaline Phosphatase 88 U/L (46-116) Troponin I Quantitative 0.028 ng/mL (0.000-0.055) 0.034 ng/mL (0.000-0.055) WN-Yqc-I-Type Natriuretic Peptide 141 pg/mL (0-124) Total Protein 7.1 g/dL (6.4-8.2) Albumin 3.2 g/dL (3.4-5.0) Albumin/Globulin Ratio 0.8 (1.0-1.7) Lipase 154 U/L (73-393) Ethyl Alcohol Level 416 mg/dL (0-10) Urine Opiates Screen Neg (NEG) Urine Methadone Screen Neg (NEG) Urine Barbiturates Neg (NEG) Urine Phencyclidine Screen Neg (NEG) Urine Amphetamine/Methamphetamine Neg (NEG) Urine Benzodiazepines Screen Neg (NEG) Urine Cocaine Screen Neg (NEG) Urine Cannabinoids Screen Neg (NEG) Urine Ethyl Alcohol Pos (NEG) Test 04/23/21 17:15 Troponin I Quantitative 0.033 ng/mL (0.000-0.055) Laboratory Tests Test 04/23/21 17:15 Troponin I Quantitative 0.033 ng/mL (0.000-0.055) Brief Hospital Course Patient is a 61-year-old male who presented today via EMS due to chest pain. Patient this morning apparently was walking to work and developed chest pain got severe enough where he thought he needed to go to the emergency room. Did not have any transportation so he walked to the closest EMS and had them bring him to the emergency room. He upon arrival at the station had an episode of syncope. He does not remember this episode. Has brought him to the emergency room then. Patient does have a significant cardiac history, he had an [facility] requiring stent placement a few years ago. Cannot remember when or where this was. On arrival to emergency room patient was visibly intoxicated. Ethanol level came back at 400. Patient is a daily alcohol user, said he drank a tall boy beer and half a pint of liquor this morning. He does endorse daily alcohol use of up to a pint of liquor and a few beers a day. When evaluated the emergency room patient said his chest pain had improved from initially but was still mildly painful. He is agreeable to admission. 04/24 Patient evaluated at bedside, no complaints. Evaluated by PAT team who cleared for d/c and provided patient with rehabilitation resources. D/C home today. Discharge Information Condition at Discharge: Improved Disposition/Orders: D/C to Home Scheduled Aspirin (Aspirin Ec) 81 Mg Tablet.dr, 81 MG PO DAILYWBKFT for heart health, #100 Prescribed by: AIMEE DOWLING on 05/21/191551 Last Action: Continued on 04/23/211625 by DEEJAY LUNA MD Atorvastatin Calcium (Atorvastatin Calcium) 40 Mg Tablet, 40 MG PO QHS for cholesterol for 30 Days, #30 Prescribed by: FELICITAS LOGAN MD on 05/31/19 1137 Last Action: Continued on 04/23/211625 by DEEJAY LUNA MD Clopidogrel Bisulfate (Clopidogrel) 75 Mg Tablet, 75 MG PO DAILYWBKFT for cardiac stent, #30 Ref 3 Prescribed by: AIMEE DOWLING on 05/21/191551 Last Action: Continued on 04/23/211625 by DEEJAY LUNA MD Isosorbide Mononitrate (Isosorbide Mononitrate Er) 30 Mg Tab.er.24h, 1 TAB PO DAILY for chest pain, #30 Ref 5 (Reported) Entered as Reported by: SIRI CRONIN RN on 03/13/201615 Last Action: Continued on 04/23/211625 by DEEJAY LUNA MD Lisinopril (Lisinopril) 20 Mg Tablet, 1 TAB PO DAILY for hypertension, #30 Ref 1 Prescribed by: AIMEE DOWLING on 05/21/19 1550 Last Action: Continued on 04/23/211625 by DEEJAY LUNA MD Multivits,Ca,Minerals/Iron/Fa (Thera-M Tablet) 1 Each Tablet, 1 TAB PO DAILY for supplement for 30 Days, #30 Prescribed by: FELICITAS LOGAN MD on 05/31/191136 Last Action: HELD on 04/23/211625 by DEEJAY LUNA MD Pantoprazole Sodium (Pantoprazole Sodium ) 40 Mg Tablet.dr, 40 MG PO DAILYAC for stomach acid for 10 Days, #10 Prescribed by: FELICITAS LOGAN MD on 05/31/191136 Last Action: Continued on 04/23/211625 by DEEJAY LUNA MD [Folic Acid] 1 MG TABLET, 1 MG PO DAILY for supplement for 30 Days, #30 Prescribed by: FELICITAS LOGAN MD on 05/31/191136 Last Action: HELD on 04/23/211625 by DEEJAY LUNA MD Scheduled PRN Albuterol Sulfate (Proair Hfa) 8.5 Gm Hfa.aer.ad, 2.5 MG NEB PRN Q4HRS PRN for SHORTNESS OF BREATH for 14 Days, #1 Prescribed by: FELICITAS LOGAN MD on 05/31/191136 Last Action: HELD on 04/23/211625 by DEEJAY LUNA MD Discontinued Medications Prednisone (Prednisone) 20 Mg Tablet, 1 TAB PO UD for 12 Days, #15 2 tabs by mouth days 1,2,3 then 1.5 tabs by mouth days 4,5,6 then 1 tab by mouth days 7,8,9 then 0.5 tab by mouth day 10,11,12 Prescribed by: DEEPTI DAVLAOS APRN on 12/08/20 1900 Last Action: HELD on 04/23/211625 by DEEJAY LUNA MD Justicifation of Admission Dx: Justifications for Admission: Justification of Admission Dx: N/A Angina: [facility] DEJEAY LUNA MD Apr 24, 2021 15:01
--- NOTE | 2021-04-24 15:50 | NUR ---
Discharge Note: KEV PALM [facility] Discharge instructions and discharge home medications reviewed with Patient and a copy given. All questions have been answered and understanding verbalized. The following instructions and handouts were given: Pt informed to contact [facility] Contact information given. Discontinued IV line and telemetry. Patient discharged to Home with [facility]
[2021-04-28] MEDS ORDERED: THIAMINE 100 MG TABLET. PO SCH (09:00)
[2021-04-28] MEDS ORDERED: MULTIVITAMIN with MINERAL TABLET. PO SCH (09:00)
== END 2021-04-24 15:45 | disposition home or self-care (01) ==
LOC: ER 11:09 → ED HOLD 16:11 → 5 SOUTH 17:49
PROVIDERS: ADMIT Student in an Organized Health Care Education/Training Program; ATTEND Student in an Organized Health Care Education/Training Program
DX: R07.2 Precordial pain (principal); Z20.822 Contact with and (suspected) exposure to COVID-19; R42 Dizziness and giddiness; F10.129 Alcohol abuse with intoxication, unspecified; F14.90 Cocaine use, unspecified, uncomplicated; I10 Essential (primary) hypertension; J44.9 Chronic obstructive pulmonary disease, unspecified; I70.0 Atherosclerosis of aorta; J98.11 Atelectasis; R55 Syncope and collapse; I25.2 Old myocardial infarction; E78.5 Hyperlipidemia, unspecified; Z79.899 Other long term (current) drug therapy; Z95.5 Presence of coronary angioplasty implant and graft
CPT/HCPCS: 36415; 71045; 80053; 80307; 82248; 83690; 83735; 83880; 84443; 84484; 85025; 93005; 94640; 96361; 96365; 96366; 96372; 96375; 99285; C9113; G0378; G0480; J1644; J2405; J3411; J3490; J7030; U0003; U0005; G0379

== ENCOUNTER 2021-07-21 17:37 | Emergency (ER) | payer SELFPAY ==
[~2021-07-21] VITALS: Ht 172.7 cm; Wt 90.0 kg
[2021-07-21] MEDS ORDERED: HYDROcodone/APAP 5/325MG 1 TAB TABLET PO ONE (18:15)
[2021-07-21] MEDS ORDERED: GELATIN SPONGE SIZE 100. TP ONE (18:15)
[2021-07-21 18:17] VITALS: BP 136/91
--- NOTE | 2021-07-21 18:19 | PHYS DOC ---
Past Medical History Past Medical History: Alcoholism, [place], Other Additional Past Medical Histor: Suicidal Attempt-hanging Past Surgical History: Other Additional Past Surgical Histo: unknown Smoking Status: Current Every Day Smoker Alcohol Use: Occasionally Drug Use: None General Adult EDM: Chief Complaint: LACERATION/AVULSION HPI: HPI: Patient is a 61 year old male who presents the ED today with left fingertip laceration, patient states this morning he was cutting some food with a new knife, he states he accidentally cut himself. He is right-handed. Review of Systems: Review of Systems: Constitutional: Denies fever or chills. [] Musculoskeletal: Denies back pain or joint pain. [] Integument: Reports left fingertip laceration Neurologic: Denies headache, focal weakness or sensory changes. [] Psychiatric: Denies depression or anxiety. [] Heart Score: C/O Chest Pain: N/A Risk Factors: Risk Factors: DM, Current or recent (<one month) smoker, HTN, HLP, family history of CAD, obesity. Risk Scores: Score 0 - 3: 2.5% MACE over next 6 weeks - Discharge Home Score 4 - 6: 20.3% MACE over next 6 weeks - Admit for Clinical Observation Score 7 - 10: 72.7% MACE over next 6 weeks - Early Invasive Strategies Current Medications: Current Medications Medications (Trade) Dose Ordered Sig/Rayna Start Time Stop Time Status Last Admin Dose Admin Acetaminophen/ Hydrocodone Bitart (Lortab 5/325) 2 tab 1X ONCE 07/21/21 18:15 07/21/21 18:16 Gelatin (Gelfoam Size 100) 1 each 1X ONCE 07/21/21 18:15 07/21/21 18:16 Allergies: Allergies: Allergies Coded Allergies Type Severity Reaction Last Updated Verified No Known Drug Allergies 02/01/15 No Physical Exam: PE: Constitutional: Well developed, well nourished, no acute distress, non-toxic appearance. [] Skin: Left index finger pad with a skin avulsion roughly 3 x 1 cm. There is small amount of bleeding still coming out of some areas. Full range of motion to the left index finger, a drip with adequate sensation to the left index finger, cap refill less than 2 seconds to left index finger. +2 left radial pulse. Pressure was applied to the laceration site. Back: No tenderness, no CVA tenderness. [] Extremities: No tenderness, no cyanosis, no clubbing, ROM intact, no edema. [] Neurologic: Alert and oriented X 3, normal motor function, normal sensory fun ction, no focal deficits noted. [] Psychologic: Affect normal, judgement normal, mood normal. [] EKG: EKG: [] Radiology/Procedures: Radiology/Procedures: []PROCEDURE: FINGER(S) LEFT Exam: Left finger 3 views INDICATION: Index finger skin avulsion TECHNIQUE: Frontal view of the left hand with oblique and lateral views of the first digit Comparisons: None FINDINGS: Soft tissue irregularity along the distal aspect of the second digit. Bone mineralization is normal. No acute or healed fractures. Joint spaces are well-maintained IMPRESSION: Soft tissue irregularity at the distal aspect of the second digit without underlying osseous abnormality or radiopaque foreign body identified. Electronically signed by: Chi Membreno MD (07/21/2021 6:39 PM) [facility] DICTATED and SIGNED BY: CHI MEMBRENO MD DATE: 07/21/21 [id number] 0 Course & Med Decision Making: Course & Med Decision Making Pertinent Labs and Imaging studies reviewed. (See chart for details) This is a 61-year-old male patient presenting to the ED today with left index finger laceration that occurred this morning. He has a skin avulsion to the finger pad of the left index finger, he still has some bleeding going on. Left index finger x-rays interpreted by radiologist were noted for soft tissue irregularity at the distal aspect of the second digit without underlying osseous abnormality or radiopaque foreign body identified. Gelfoam was used to stop bleeding on the left index finger. Once the bleeding had stopped, patient was discharged home. Provided prescription for cephalexin. Instructed to keep the area clean and dry. Wound care instructions and return precautions provided Dragon Disclaimer: Dragon Disclaimer: This electronic medical record was generated, in whole or in part, using a voice recognition dictation system. Departure Departure Impression: Primary Impression: Finger avulsion Qualified Codes: S61.209A - Unspecified open wound of unspecified finger without damage to nail, initial encounter Disposition: HOME / SELF CARE / HOMELESS Condition: STABLE Referrals: NO PCP (PCP) Follow-up with your own doctor in 1 to 2 weeks Patient Instructions: Finger Avulsion Additional Instructions: You have a laceration with skin avulsion of the left index finger. You can remove the dressing on Friday. Keep it covered if the area is bleeding or draining. Monitor the area for any signs of infection include increased redness, warmth, yellow drainage from the embolism return to the ED if they occur. Please come back to the ED at any point symptoms worsen. Take the prescribed antibiotics until completed. Scripts Cephalexin (CEPHALEXIN) 500 Mg Tablet 1 TAB PO TID, #30 TAB Prov: GE HORTON APRN 07/21/21 GE HORTON APRN Jul 21, 2021 18:19
[2021-07-21] MEDS ORDERED: DIPH,PERTUSS(ACELL),TET VAC/PF 0.5 ML SYRINGE. VAX IM ONE (18:30)
--- NOTE | 2021-07-21 18:42 | RAD ---
Exam: Left finger 3 views INDICATION: Index finger skin avulsion TECHNIQUE: Frontal view of the left hand with oblique and lateral views of the first digit Comparisons: None FINDINGS: Soft tissue irregularity along the distal aspect of the second digit. Bone mineralization is normal. No acute or healed fractures. Joint spaces are well-maintained IMPRESSION: Soft tissue irregularity at the distal aspect of the second digit without underlying osseous abnormal ity or radiopaque foreign body identified. Electronically signed by: Pete Reddy MD (07/21/2021 6:39 PM) [facility]
[2021-07-21] MEDS ORDERED: CEPH500T PO (19:39)
== END 2021-07-21 20:20 | disposition home or self-care (01) ==
LOC: ER 17:37
DX: S61.211A Laceration without foreign body of left index finger without damage to nail, initial encounter (principal); I25.2 Old myocardial infarction; F17.200 Nicotine dependence, unspecified, uncomplicated; W26.0XXA Contact with knife, initial encounter; Y93.89 Activity, other specified; Y92.89 Other specified places as the place of occurrence of the external cause; Y99.8 Other external cause status
CPT/HCPCS: 73140; 90471; 90715; 99283-25

== ENCOUNTER 2021-08-20 07:37 | Emergency (ER) | payer SELFPAY ==
[~2021-08-20] VITALS: Ht 172.7 cm; Wt 80.0 kg
[~2021-08-20 07:37] MED LIST changes: +CEPH500T PO
[2021-08-20 07:48] VITALS: BP 148/91
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
--- NOTE | 2021-08-20 08:46 | RAD ---
XR EXAM OF ANKLE_RIGHT 3VIEWS, XR FOOT_RIGHT 3 VIEWS 08/20/2021 8:03 AM INDICATION: Right foot injury COMPARISON: None available. TECHNIQUE: 3 views the right foot and 3 views of the right ankle are provided. FINDINGS/ IMPRESSION: There is no acute fracture or dislocation. There is an ossific fragment adjacent to the base of the p roximal phalanx of the second digit which is well-corticated and may represent remote fracture deform ity. Mild joint space narrowing involving the first metatarsophalangeal joint with subcortical sclero sis and marginal osteophytosis compatible with mild osteoarthrosis.. Vascular calcifications are pres ent. There is remodeling of the distal fibular diaphysis compatible with remote fracture deformity. T here is mild ankle soft tissue swelling. Ossific fragment adjacent to the medial malleolus may reflec t sequela remote fracture. There is joint space narrowing of the tibiotalar joint space with subcorti delfino sclerosis, subcortical cystic change and marginal osteophytosis. Talar dome is intact, although c hronically remodeled with mild flattening. Findings are compatible with severe osteoarthrosis versus chronic posttraumatic sequela. Bone mineralization is within normal limits. There is no soft tissue g as or osseous erosion. No radiopaque foreign body. Plantar calcaneal enthesophyte. Electronically signed by: Zakia Sosa MD (08/20/2021 8:43 AM) [id number]
[2021-08-20] MEDS ORDERED: IBUPROFEN 400 MG TABLET. PO ONE (09:15)
[2021-08-20] MEDS ORDERED: HYDROcodone/APAP 5/325MG 1 TAB TABLET PO ONE (09:15)
[2021-08-20] MEDS ORDERED: IBUP-1060 PO (09:23)
== END 2021-08-20 09:54 | disposition home or self-care (01) ==
LOC: ER 07:37
DX: M79.671 Pain in right foot (principal); M25.571 Pain in right ankle and joints of right foot; I25.2 Old myocardial infarction; F17.200 Nicotine dependence, unspecified, uncomplicated; Z95.5 Presence of coronary angioplasty implant and graft
CPT/HCPCS: 73610; 73630; 99284

== ENCOUNTER 2021-10-01 08:39 | Inpatient (IN) | payer SELFPAY ==
[~2021-10-01] VITALS: Ht 172.7 cm; Wt 84.8 kg
[2021-10-01] VITALS (18 sets, daily range): BP systolic 79–153; BP diastolic 53–105
[~2021-10-01 08:39] MED LIST changes: +IBUP-1060 PO
--- NOTE | 2021-10-01 08:47 | PHYS DOC ---
Past Medical History Past Medical History: Alcoholism, AL, Other Additional Past Medical Histor: patient states, 'I don't know' Past Surgical History: Other Additional Past Surgical Histo: HEART STENT Smoking Status: Current Every Day Smoker Alcohol Use: Occasionally Drug Use: None Adult General Chief Complaint Chief Complaint: CHEST PAIN [facility] HPI Patient is a 61 year old male who presents with chest pain. Patient awoke this morning. He started having sternal chest pain when walking to the restroom at about 8:00 this morning. He called 911. Reports to EMS that pain feels very similar to when he had a previous heart attack. At that time, he estimates 5 years earlier, he was treated at [facility] and had a stent placed in his heart. Does not take medications every day for any other reason. Has been at baseline health prior to onset of symptoms. Complains of mild dyspnea also on arrival to the ER. No recent cough, viral symptoms, fever. Pain is nonradiating. He does endorse feeling very diaphoretic when the pain started Review of Systems Review of Systems Constitutional: Denies fever or chills Eyes: Denies change in visual acuity, redness, or eye pain HENT: Denies nasal congestion or sore throat Respiratory: Denies cough or shortness of breath Cardiovascular: As documented in HPI GI: Denies abdominal pain : Denies dysuria or hematuria Musculoskeletal: Denies back pain or joint pain Integument: Denies rash or skin lesions Neurologic: Denies headache, focal weakness or sensory changes Endocrine: Denies polyuria or polydipsia All other systems were reviewed and found to be within normal limits, except as documented in this note. Current Medications Current Medications Current Medications Medications (Trade) Dose Ordered Sig/Rayna Start Time Stop Time Status Last Admin Dose Admin Fentanyl Citrate (Fentanyl 2ml Vial) 50 mcg PRN Q1HR PRN 10/01/21 09:15 10/02/21 09:14 UNV Heparin Sodium (Porcine) (Heparin Sodium) 4,000 unit 1X ONCE 10/01/21 09:00 10/01/21 09:01 DC 10/01/21 08:58 4,000 UNIT Heparin Sodium/ Dextrose 250 ml @ As Directed STK-MED ONCE 10/01/21 08:52 10/01/21 08:53 DC Heparin Sodium/ Sodium Chloride 1,000 ml @ As Directed STK-MED ONCE 10/01/21 08:56 10/01/21 08:56 DC Iodixanol (Visipaque 320) 100 ml STK-MED ONCE 10/01/21 08:55 10/01/21 08:56 DC Lidocaine HCl (Lidocaine 1% 20ml Vial) 20 ml STK-MED ONCE 10/01/21 08:55 10/01/21 08:56 DC Midazolam HCl (Versed) 2 mg STK-MED ONCE 10/01/21 08:52 10/01/21 08:53 DC Nitroglycerin (Nitrostat) 0.4 mg PRN Q5MIN PRN 10/01/21 09:00 10/01/21 08:57 0.4 MG Ondansetron HCl (Zofran) 4 mg PRN Q8HRS PRN 10/01/21 09:15 10/02/21 09:14 UNV Sodium Chloride 1,000 ml @ 1,000 mls/hr 1X ONCE 10/01/21 09:00 10/01/21 09:59 10/01/21 08:59 1,000 MLS/HR Allergies Allergies Allergies Coded Allergies Type Severity Reaction Last Updated Verified No Known Drug Allergies 08/20/21 No Physical Exam Physical Exam Constitutional: Well developed, well nourished, moderate distress 2/2 pain and very anxious HENT: Normocephalic, atraumatic, bilateral external ears normal, oropharynx mo ist, no oral exudates, nose normal. Eyes: PERRLA, EOMI, conjunctiva normal, no discharge. Neck: Normal range of motion, no tenderness, supple, no stridor. Cardiovascular:Heart rate regular rhythm, no murmur Lungs & Thorax: Bilateral breath sounds clear to auscultation Abdomen: Bowel sounds normal, soft, no tenderness Skin: Warm, dry, no erythema, no rash. Back: No tenderness, no CVA tenderness. Extremities: No tenderness, no cyanosis, no clubbing, ROM intact, no edema Neurologic: Alert and oriented X 3, normal motor function Psychologic: Affect normal, judgement normal Current Patient Data Vital Signs Vital Signs Date Time Temp Pulse Resp B/P (MAP) Pulse Ox O2 Delivery O2 Flow Rate FiO2 10/01/21 09:00 22 124/91 (102) 100 Nasal Cannula 10/01/21 08:57 76 10/01/21 08:39 98.1 98.1 Lab Values Laboratory Tests Test 10/01/21 08:51 White Blood Count 6.3 x10^3/uL (4.0-11.0) Red Blood Count 4.88 x10^6/uL (4.30-5.70) Hemoglobin 15.3 g/dL (13.0-17.5) Hematocrit 45.1 % (39.0-53.0) Mean Corpuscular Volume 93 fL (79-100) Mean Corpuscular Hemoglobin 31 pg (25-35) Mean Corpuscular Hemoglobin Concent 34 g/dL (31-37) Red Cell Distribution Width 13.0 % (11.5-14.5) Platelet Count 329 x10^3/uL (140-400) Neutrophils (%) (Auto) 62 % (31-73) Lymphocytes (%) (Auto) 27 % (24-48) Monocytes (%) (Auto) 8 % (0-9) Eosinophils (%) (Auto) 2 % (0-3) Basophils (%) (Auto) 1 % (0-3) Neutrophils # (Auto) 3.9 x10^3/uL (1.8-7.7) Lymphocytes # (Auto) 1.7 x10^3/uL (1.0-4.8) Monocytes # (Auto) 0.5 x10^3/uL (0.0-1.1) Eosinophils # (Auto) 0.1 x10^3/uL (0.0-0.7) Basophils # (Auto) 0.1 x10^3/uL (0.0-0.2) Laboratory Tests 10/01/21 08:51 EKG EKG Alexis-lateral STEMI with RICARDO's in Leads I, aVL, V6 and precordial leads. Rate 86. Sinus rhythm. Radiology/Procedures Radiology/Procedures [] Course & Med Decision Making Course & Med Decision Making Pertinent Labs and Imaging studies reviewed. (See chart for details) Mr. Chiang is evaluated on arrival to room 1. Monitors are placed. Initial EKG is completed and is positive for STEMI. STEMI protocols are activated. Dr. Washington comes to the emergency department immediately to see the patient. Nitroglycerin ordered. Patient received aspirin by EMS prior to arrival. Fentanyl was ordered for pain. Heparin bolus, 4000 units, is ordered. 09:00: optical lab technician team at bedside. Patient transported to blood bank laboratory technologist. Remained stable during the short ED course. Pain symptoms improving after receiving fentanyl Dragon Disclaimer Dragon Disclaimer This electronic medical record was generated, in whole or in part, using a voice recognition dictation system. Departure Departure Impression: Primary Impression: STEMI (ST elevation myocardial infarction) Disposition: ADMITTED INPATIENT Condition: IMPROVED Referrals: NO PCP (PCP) TYRA KILLIAN DO Oct 01, 2021 08:47
[2021-10-01] MEDS ORDERED: MIDAZOLAM HCL/PF 2 MG/2 ML VIAL. ONE (08:52)
[2021-10-01] MEDS ORDERED: HEPARIN 25,000UTS/250ML PREMIX 250 ML IV ONE (08:52)
[2021-10-01] MEDS: NITROGLYCERIN SUBLINGUAL 0.4 MG BOTTLE OF 25. SL PRN ×2 (08:52→08:57)
[2021-10-01] MEDS ORDERED: fentaNYL PF VIAL 100 MCG/2 ML VIAL ONE (08:53)
[2021-10-01] MEDS ORDERED: LIDOCAINE 1% Multi-Dose 20 ML VIAL. ONE (08:55)
[2021-10-01] MEDS ORDERED: IODIXANOL 320 MG/ML 100 ML VIAL. ONE (08:55)
[2021-10-01] MEDS ORDERED: fentaNYL PF VIAL 100 MCG/2 ML VIAL IV ONE ×2 (09:00→09:30)
[2021-10-01] MEDS ORDERED: HEPARIN for IV BOLUS 10,000 UNIT/10 ML VIAL. IV ONE (09:00)
[2021-10-01] MEDS ORDERED: IV NORMAL SALINE 1000ML BAG 1,000 ML IV ONE (09:00)
[2021-10-01 09:03] LABS: BASO # 0.1 x10^3/uL (0.0-0.2); BASO % 1 % (0-3); EOS # 0.1 x10^3/uL (0.0-0.7); EOS % 2 % (0-3); HEMATOCRIT 45.1 % (39.0-53.0); HEMOGLOBIN 15.3 g/dL (13.0-17.5); LYMPH # 1.7 x10^3/uL (1.0-4.8); LYMPH % 27 % (24-48); MEAN CORPUSCULAR HEMOGLOBIN 31 pg (25-35); MEAN CORPUSCULAR HGB CONC 34 g/dL (31-37); MEAN CORPUSCULAR VOLUME 93 fL (79-100); MONO # 0.5 x10^3/uL (0.0-1.1); MONO % 8 % (0-9); NEUT # 3.9 x10^3/uL (1.8-7.7); NEUT % 62 % (31-73); PLATELET COUNT 329 x10^3/uL (140-400); RED BLOOD COUNT 4.88 x10^6/uL (4.30-5.70); WHITE BLOOD COUNT 6.3 x10^3/uL (4.0-11.0)
--- NOTE | 2021-10-01 09:15 | EKG ---
[facility] [address] [place] [address] Test Date: 2021-10-01 Test Time: 08:43:19 Pat Name: MARISOL PALM Department: Room: Gender: M Contracts Administrator: : [id number] Requested By: TYRA KILLIAN Order Number: [id number] Reading MD: Andres Delgado Measurements Intervals [place] Rate: 72 P: 236 AR: 120 QRS: -6 QRSD: 86 T: 25 QT: 394 QTc: 433 Interpretive Statements SINUS RHYTHM LEFTWARD AXIS Electronically Signed On 10-02-2021 19:30:05 CUSTOMER CONTACT SALES ASSOCIATE by Andres Delgado
[2021-10-01] MEDS ORDERED: BIVALIRUDIN 250 MG VIAL. IV ONE ×2 (09:17→09:30)
[2021-10-01 09:19] LABS: CALCIUM 8.8 mg/dL (8.5-10.1); CREATININE 0.9 mg/dL (0.7-1.3); GFR 85.8
[2021-10-01] MEDS ORDERED: MIDAZOLAM HCL/PF 2 MG/2 ML VIAL. IV ONE (09:30)
[2021-10-01] MEDS ORDERED: IODIXANOL 320 MG/ML 100 ML VIAL. IART ONE (09:30)
[2021-10-01] MEDS ORDERED: LIDOCAINE 1% Multi-Dose 20 ML VIAL. INJ ONE (09:30)
[2021-10-01] MEDS ORDERED: CLOPIDOGREL BISULFATE 75 MG TABLET PO ONE (09:45)
[2021-10-01] MEDS ORDERED: CLOPIDOGREL BISULFATE 75 MG TABLET ONE (09:47)
--- NOTE | 2021-10-01 09:49 | PDOC ---
MODERATE SEDATION ASSESSMENT RISKS/ALTERNATIVES Risks/Alternatives Risks and alternatives of this type of sedation and procedure discussed with: RISK/ALTERNATIVES: Patient H & P ON CHART H & P H & P on chart and reviewed for co-morbid conditions and appropriate labs. H&P ON CHART: Yes STATUS PREG STATUS ASSESSED: N/A MEDS/ALLERGIES REVIEWED Meds/Allergies Reviewed Medications and Allergies including time and route of recently administered narcotics and sedatives. MEDS/ALLERGIES REVIEWED: Yes ASA RATING ASA RATING: III AIRWAY ASSESSMENT Airway Assessment Airway patency, oral function limitations, presence of caps, crowns, dentures, partials, and ability to extend neck assessed. AIRWAY ASSESSMENT: Yes MALLAMPATI SCORE MALLAMPATI SCORE: II PRE-SEDATION ASSESSMENT PRE-SEDATION ASSESSMENT: Yes GALI LIRA MD Oct 01, 2021 09:49
--- NOTE | 2021-10-01 09:52 | PDOC2 ---
CONSULT Date of Consult Date of Consult DATE: 10/01/21 TIME: 09:52 Reason for Consult Reason for Consult: Acute STEMI Referring Physician Referring Physician: Dr. Hernandez Identification/Chief Complaint Chief Complaint Chest pain Source Source: Patient History of Present Illness Reason for Visit: 61-year-old male with history of coronary artery disease s/p PCI/stent in 2019 at [facility] presented complaining of retrosternal chest pressure that started at 8 AM this morning. He stated that the pain is a 10/10 severity and associated with mild shortness of breath. He denied any orthopnea/PND, palpitations or syncope. EKG showed anterolateral ST elevations and code STEMI was activated. Past Medical History Cardiovascular: CAD, HTN, Hyperlipidemia Pulmonary: No pertinent hx CENTRAL NERVOUS SYSTEM: Other GI: No pertinent hx Psych: Other Musculoskeletal: Osteoarthritis Rheumatologic: No pertinent hx Infectious disease: No pertinent hx Renal/: No pertinent hx Endocrine: No pertinent hx Past Surgical History Past Surgical History: Other Family History Family History: Hypertension Social History ALCOHOL: heavy Drugs: None Lives: with Family Current Problem List Problem List Problems Medical Problems: (1) STEMI (ST elevation myocardial infarction) Status: Acute Current Medications Current Medications Current Medications Nitroglycerin (Nitrostat) 0.4 mg PRN Q5MIN PRN SL CHEST PAIN Last administered on 10/01/21at 08:52; Start 10/01/21 at 09:00 Heparin Sodium (Porcine) (Heparin Sodium) 4,000 unit 1X ONCE IV Last administered on 10/01/21at 08:58; Start 10/01/21 at 09:00; Stop 10/01/21 at 09:01; Status DC Fentanyl Citrate (Fentanyl 2ml Vial) 75 mcg 1X ONCE IV Last administered on 10/01/21at 08:59; Start 10/01/21 at 09:00; Stop 10/01/21 at 09:01; Status DC Midazolam HCl (Versed) 2 mg STK-MED ONCE .ROUTE ; Start 10/01/21 at 08:52; Stop 10/01/21 at 08:53; Status DC Heparin Sodium/ Dextrose 250 ml @ As Directed STK-MED ONCE IV ; Start 10/01/21 at 08:52; Stop 10/01/21 at 08:53; Status DC Sodium Chloride 1,000 ml @ 1,000 mls/hr 1X ONCE IV Last administered on 10/01/21at 08:59; Start 10/01/21 at 09:00; Stop 10/01/21 at 09:59 Fentanyl Citrate (Fentanyl 2ml Vial) 100 mcg STK-MED ONCE .ROUTE ; Start 10/01/21 at 08:53; Stop 10/01/21 at 08:54; Status DC Lidocaine HCl (Lidocaine 1% 20ml Vial) 20 ml STK-MED ONCE .ROUTE ; Start 10/01/21 at 08:55; Stop 10/01/21 at 08:56; Status DC Iodixanol (Visipaque 320) 100 ml STK-MED ONCE .ROUTE ; Start 10/01/21 at 08:55; Stop 10/01/21 at 08:56; Status DC Heparin Sodium/ Sodium Chloride 1,000 ml @ As Directed STK-MED ONCE .ROUTE ; Start 10/01/21 at 08:56; Stop 10/01/21 at 08:56; Status DC Ondansetron HCl (Zofran) 4 mg PRN Q8HRS PRN IVP NAUSEA/VOMITING; Start 10/01/21 at 09:15; Stop 10/02/21 at 09:14 Fentanyl Citrate (Fentanyl 2ml Vial) 50 mcg PRN Q1HR PRN IVP PAIN; Start 10/01/21 at 09:15; Stop 10/02/21 at 09:14 Bivalirudin (Angiomax) 250 mg STK-MED ONCE IV ; Start 10/01/21 at 09:17; Stop 10/01/21 at 09:17; Status DC Heparin Sodium/ Sodium Chloride (HEPARIN for ARTERIAL LINE FLUSH) 1,000 unit 1X ONCE IART ; Start 10/01/21 at 09:30; Stop 10/01/21 at 09:36; Status DC Heparin Sodium/ Sodium Chloride (HEPARIN for ARTERIAL LINE FLUSH) 1,000 unit 1X ONCE IART ; Start 10/01/21 at 09:30; Stop 10/01/21 at 09:36; Status DC Midazolam HCl (Versed) 2 mg 1X ONCE IV ; Start 10/01/21 at 09:30; Stop 10/01/21 at 09:36; Status DC Fentanyl Citrate (Fentanyl 2ml Vial) 100 mcg 1X ONCE IV ; Start 10/01/21 at 09:30; Stop 10/01/21 at 09:36; Status DC Iodixanol (Visipaque 320) 100 ml 1X ONCE IART ; Start 10/01/21 at 09:30; Stop 10/01/21 at 09:36; Status DC Bivalirudin (Angiomax) 250 mg 1X ONCE IV ; Start 10/01/21 at 09:30; Stop 10/01/21 at 09:36; Status DC Lidocaine HCl (Lidocaine 1% 20ml Vial) 20 ml 1X ONCE INJ ; Start 10/01/21 at 09:30; Stop 10/01/21 at 09:36; Status DC Clopidogrel Bisulfate (Plavix) 600 mg 1X ONCE PO ; Start 10/01/21 at 09:45; Stop 10/01/21 at 09:47; Status DC Clopidogrel Bisulfate (Plavix) 75 mg STK-MED ONCE .ROUTE ; Start 10/01/21 at 09:47; Stop 10/01/21 at 09:47; Status DC Active Scripts Active Ibuprofen 800 Mg Tablet 800 Mg PO PRN Q8HRS PRN Cephalexin 500 Mg Tablet 1 Tab PO TID Thera-M Tablet (Multivits,Ca,Minerals/Iron/Fa) 1 Each Tablet 1 Tab PO DAILY 30 Days [Folic Acid] 1 MG Tablet 1 Mg PO DAILY 30 Days Pantoprazole Sodium (Pantoprazole Sodium) 40 Mg Tablet.dr 40 Mg PO DAILYAC 10 Days Atorvastatin Calcium 40 Mg Tablet 40 Mg PO QHS 30 Days Proair Hfa (Albuterol Sulfate) 8.5 Gm Hfa.aer.ad 2.5 Mg NEB PRN Q4HRS PRN 14 Days Clopidogrel (Clopidogrel Bisulfate) 75 Mg Tablet 75 Mg PO DAILYWBKFT Aspirin Ec (Aspirin) 81 Mg Tablet.dr 81 Mg PO DAILYWBKFT Lisinopril 20 Mg Tablet 1 Tab PO DAILY Reported Isosorbide Mononitrate Er (Isosorbide Mononitrate) 30 Mg Tab.er.24h 1 Tab PO DAILY Allergies Allergies: Coded Allergies: No Known Drug Allergies (Unverified , 08/20/21) ROS PSYCHOLOGICAL ROS: No: Hallucinations Eyes: No Loss of vision HEENT: No: Epistaxis Respiratory: YES: Shortness of breath; No: Hemoptysis Cardiovascular: yes Chest Pain Genitourinary: No Hematuria Neurological: No Seizures Skin: No Rash Physical Exam General: Alert, mild distress HEENT: Atraumatic Lungs: Clear to auscultation Heart: Regular rate Abdomen: Soft Extremities: No edema Neuro: Normal speech Psych/Mental Status: Mood NL Vitals VITALS Vital Signs Date Time Temp Pulse Resp B/P (MAP) Pulse Ox O2 Delivery O2 Flow Rate FiO2 10/01/21 09:00 22 124/91 (102) 100 Nasal Cannula 10/01/21 08:57 76 10/01/21 08:39 98.1 98.1 Labs Labs Laboratory Tests Test 10/01/21 08:51 White Blood Count 6.3 x10^3/uL (4.0-11.0) Red Blood Count 4.88 x10^6/uL (4.30-5.70) Hemoglobin 15.3 g/dL (13.0-17.5) Hematocrit 45.1 % (39.0-53.0) Mean Corpuscular Volume 93 fL (79-100) Mean Corpuscular Hemoglobin 31 pg (25-35) Mean Corpuscular Hemoglobin Concent 34 g/dL (31-37) Red Cell Distribution Width 13.0 % (11.5-14.5) Platelet Count 329 x10^3/uL (140-400) Neutrophils (%) (Auto) 62 % (31-73) Lymphocytes (%) (Auto) 27 % (24-48) Monocytes (%) (Auto) 8 % (0-9) Eosinophils (%) (Auto) 2 % (0-3) Basophils (%) (Auto) 1 % (0-3) Neutrophils # (Auto) 3.9 x10^3/uL (1.8-7.7) Lymphocytes # (Auto) 1.7 x10^3/uL (1.0-4.8) Monocytes # (Auto) 0.5 x10^3/uL (0.0-1.1) Eosinophils # (Auto) 0.1 x10^3/uL (0.0-0.7) Basophils # (Auto) 0.1 x10^3/uL (0.0-0.2) Sodium Level 140 mmol/L (136-145) Potassium Level 4.0 mmol/L (3.5-5.1) Chloride Level 104 mmol/L (98-107) Carbon Dioxide Level 24 mmol/L (21-32) Anion Gap 12 (6-14) Blood Urea Nitrogen 13 mg/dL (8-26) Creatinine 0.9 mg/dL (0.7-1.3) Estimated GFR (Cockcroft-Gault) 85.8 Glucose Level 97 mg/dL (70-99) Calcium Level 8.8 mg/dL (8.5-10.1) Troponin I High Sensitivity 2384 ng/L (4-75) Laboratory Tests Test 10/01/21 08:51 White Blood Count 6.3 x10^3/uL (4.0-11.0) Red Blood Count 4.88 x10^6/uL (4.30-5.70) Hemoglobin 15.3 g/dL (13.0-17.5) Hematocrit 45.1 % (39.0-53.0) Mean Corpuscular Volume 93 fL (79-100) Mean Corpuscular Hemoglobin 31 pg (25-35) Mean Corpuscular Hemoglobin Concent 34 g/dL (31-37) Red Cell Distribution Width 13.0 % (11.5-14.5) Platelet Count 329 x10^3/uL (140-400) Neutrophils (%) (Auto) 62 % (31-73) Lymphocytes (%) (Auto) 27 % (24-48) Monocytes (%) (Auto) 8 % (0-9) Eosinophils (%) (Auto) 2 % (0-3) Basophils (%) (Auto) 1 % (0-3) Neutrophils # (Auto) 3.9 x10^3/uL (1.8-7.7) Lymphocytes # (Auto) 1.7 x10^3/uL (1.0-4.8) Monocytes # (Auto) 0.5 x10^3/uL (0.0-1.1) Eosinophils # (Auto) 0.1 x10^3/uL (0.0-0.7) Basophils # (Auto) 0.1 x10^3/uL (0.0-0.2) Sodium Level 140 mmol/L (136-145) Potassium Level 4.0 mmol/L (3.5-5.1) Chloride Level 104 mmol/L (98-107) Carbon Dioxide Level 24 mmol/L (21-32) Anion Gap 12 (6-14) Blood Urea Nitrogen 13 mg/dL (8-26) Creatinine 0.9 mg/dL (0.7-1.3) Estimated GFR (Cockcroft-Gault) 85.8 Glucose Level 97 mg/dL (70-99) Calcium Level 8.8 mg/dL (8.5-10.1) Troponin I High Sensitivity 2384 ng/L (4-75) Assessment/Plan Assessment/Plan 1. Acute anterolateral wall ST elevation myocardial infarction. Patient has ongoing chest pain. Start aspirin, heparin and proceed with emergent cardiac catheterization and possible angioplasty. Risks and benefits were explained and he is agreeable. 2. Shortness of breath, probable acute diastolic heart failure. We will check LVEDP with cardiac catheterization and consider diuresis if needed. 3. Hypertension: Controlled 4. Hyperlipidemia: Continue statin therapy 5. Tobacco abuse: Advised smoking cessation Thank you for your consultation Total critical care time spent evaluating and managing patient 40 minutes GALI LIRA MD Oct 01, 2021 09:52
--- NOTE | 2021-10-01 12:46 | HP ---
DATE OF SERVICE: 10/01/2021 ADMIT DATE: 10/01/2021 CHIEF COMPLAINT: Chest pain. HISTORY OF PRESENT ILLNESS: The patient is a pleasant 61-year-old male who presented to the ER with chest pain that started this morning. He was walking to the restroom by 8:00, he called 911. He stated it felt similar to when his previous heart attack he had 5 years ago. He was treated at [facility] at that time with a cardiac stent. I discussed the case with ER physician. We admitted the patient. He is going to the lab aid emergently with Dr. Delgado. The patient is now in the lab aid. I just spoke with Dr. Delgado, he was able to have successful placement of a new LAD stent. PAST MEDICAL HISTORY: CAD with stents, alcoholism, myocardial infarction, tobacco abuse, CHF, noncompliance, hypertension, GERD, anemia, asthma, and TIA. ALLERGIES: None. FAMILY HISTORY: Diabetes. SOCIAL HISTORY: He drinks and smokes. No drugs. MEDICATIONS: Reviewed, please refer to the MRAD. REVIEW OF SYSTEMS: GENERAL: No history of weight change, weakness or fevers. SKIN: No bruising, hair changes or rashes. EYES: No blurred, double or loss of vision. NOSE AND THROAT: No history of nosebleeds, hoarseness or sore throat. HEART: He complains of chest pain. LUNGS: Denies cough, hemoptysis, wheezing or shortness of breath. GASTROINTESTINAL: Denies changes in appetite, nausea, vomiting, diarrhea or constipation. GENITOURINARY: No history of frequency, urgency, hesitancy or nocturia. NEUROLOGIC: Denies history of numbness, tingling, tremor or weakness. PSYCHIATRIC: No history of panic, anxiety or depression. ENDOCRINE: No history of heat or cold intolerance, polyuria or polydipsia. EXTREMITIES: Denies muscle weakness, joint pain, pain on walking or stiffness. PHYSICAL EXAMINATION: VITALS: Within normal limits and are stable. GENERAL: No apparent distress. Alert and oriented. HEENT: Normal cephalic atraumatic, external auditory canals are patent EYES: Extraocular muscles are intact, pupils are equally round and reactive to light and accommodation MUSCULOSKELETAL: Well developed, well nourished, good range of motion ENDOCRINE: No thyromegaly was palpated LYMPHATICS: No cervical chain or axillary nodes were noted HEMATOPOIETIC: No bruising NECK: Supple, no JVD, no thyromegaly was noted. LUNGS: Clear to auscultation in all lung banks without rhonchi or wheezing. HEART: RRR, S1, S2 present. Peripheral pulses intact, no obvious murmurs were noted. ABDOMEN: Soft, nontender. Positive bowel sounds no organomegaly, normal bowel sounds. EXTREMITIES: Without any cyanosis, clubbing, or edema. Pedal pulses intact, Homans sign is negative. NEUROLOGIC: Normal speech, normal tone. A and O x 3, moves all extremities, no obvious focal deficits. PSYCHIATRIC: Normal affect, normal mood. Stable. SKIN: No ulcerations or rashes, good skin turgor, no jaundice. VASCULAR: Good capillary refill, neurovascular bundle appears to be intact. LABORATORY DATA: Troponin 2384. ASSESSMENT AND PLAN: Acute myocardial infarction, status post emergent cardiac catheterization with stent placement to the left anterior descending. The patient is going to the cardiac floor. We will continue serial enzymes, serial EKGs, cardiac monitoring, home meds. Deep venous thrombosis prophylaxis. Full Code. Appreciate Dr. Delgado's rapid intervention. DARWIN/YVES/TOILIA DR: DARWIN/tiffany TID: [id number]
[2021-10-01] MEDS: METOPROLOL TART IMMED RELEASE 25 MG TABLET. PO SCH ×2 (12:58→20:45)
[2021-10-01] MEDS: fentaNYL PF VIAL 100 MCG/2 ML VIAL IVP PRN (12:59)
[2021-10-01] MEDS ORDERED: ATROPINE 0.5 MG/5 ML DISP.SYRINGE. ONE ×2 (13:12→13:30)
[2021-10-01] MEDS ORDERED: ATROPINE 1 MG/10 ML DISP.SYRINGE. ONE ×2 (13:14→13:30)
--- NOTE | 2021-10-01 14:59 | CARD ---
MR#: [id number] Date of Study: 10/01/2021 Ordering Physician: PHONG SHEA, Referring Physician: PHONG SHEA, Tech: RT Lianet(R) APPROVED REPORT Technologist: RT Lianet(R) Nurse: Dona Karimi RN Procedure(s) performed: 1. Left heart catheterization, selective coronary angiography and left ventri culography 2. Successful PCI/drug-eluting stent placement to the left anterior descending artery FL TIME: 8.9 MIN DOSE: 126 GYCM2 CONTRAST: 144 ML MODERATE SEDATION: 47 MINS INDICATION The indication(s) include : Acute anterolateral wall ST elevation myocardial infarction. [facility] Clinical Frailty Scale [facility] Clinical Frailty Scale: Mildly Frail Heart Failure Heart Failure: No CASE TECHNIQUE IV conscious sedation was used throughout procedure with appropriate monitoring and was performed in the presence of a registered nurse who was an independent trained observer other than the physician p erforming the procedure. During this case, Fluoroscopy and low osmolar contrast were used for imaging . Specimen(s) Removed: No Estimated Blood loss: 15 cc's. PROCEDURE NARRATIVE After explaining the risk, benefits and alternative options, informed consent was obtained from patie nt. Patient was brought to the cardiac Computational Geneticist and his right groin was prepped and draped in the usu al fashion. 20 cc of 2% lidocaine was infiltrated into the skin and subcutaneous tissues for local an esthesia. Arterial access was obtained in the right common femoral artery and a 6F sheath was inserte d. 6F JL four and 6F JR4 catheters were used to perform selective angiography of the left and right c oronary arteries. 6F pigtail catheter was used to perform left ventriculography. The the following fi ndings were noted: FINDINGS 1. Hemodynamics: Left ventricular end-diastolic pressure 31 mmHg. No pullback gradient across the aor tic valve. 2. Left ventriculography: Normal left ventricle systolic function with ejection fraction estimated at 60%. No significant mitral regurgitation seen. 3. Coronary angiography: a. The left main coronary artery arose from the right sinus of Valsalva, gave rise to the left anteri or descending and left circumflex arteries and did not show any significant stenosis. b. The left anterior descending artery showed 100% occlusion in the proximal to mid segment just prox imal to the previously placed stent. c. The left circumflex artery did not show any significant stenosis. d. The right coronary artery was a large and dominant vessel arising from the right sinus of Valsalva that did not show any significant stenosis. INTERVENTION The left main coronary artery was engaged with 6F XB 3.5 guide catheter. The occlusion in the proxima l to mid segment of the left anterior descending artery was crossed with a 0.014 inch Topicmarks guidewire. This was predilated with a 2.5 x 15 mm sapphire balloon following which this was successfu lly treated with a 3.5 x 26 mm resolute Kristopher drug-eluting stent with small area of overlap with the p reviously placed stent. Follow-up angiography showed resolution of the stenosis to 0% with JUANIS-3 dis karina flow. Patient tolerated the procedure well. Hemostasis was achieved using Angio-Seal. There were no immediate complications. JUANIS Flow JUANIS Flow (Pre-Intervention): JUANIS-0 JUANIS Flow (Post-Intervention): JUANIS-3 Conclusion 1. Severe single-vessel coronary artery disease, 100% occlusion involving the proximal to mid segment of left anterior descending artery, proximal to the previously placed stent in the midsegment. 2. Successful PCI/drug-eluting stent placement to the left anterior descending artery 3. Normal left ventricular systolic function with ejection fraction estimated at 60%. Recommendations 1. Aspirin 325 mg daily for 1 month followed by 81 mg daily 2. Plavix 75 mg daily 3. Cardiovascular risk factor modification Signed by : Andres Delgado, Electronically Approved : 10/01/2021 14:58:56
[2021-10-01] MEDS: IV 1/2 NORMAL SALINE 1,000 ML IV SCH ×2 (15:09→23:09)
[2021-10-01] MEDS: ONDANSETRON PF 4 MG/2 ML VIAL. IVP PRN ×2 (15:09→23:14)
[2021-10-01] MEDS: ACETAMINOPHEN 325 MG TABLET. PO PRN ×2 (16:14→23:09)
[2021-10-01] MEDS: PANTOPRAZOLE 40 MG TABLET.DR. PO SCH (16:14)
[2021-10-01] MEDS: ATORVASTATIN CALCIUM 20 MG TABLET PO SCH (20:44)
[2021-10-02] VITALS (14 sets, daily range): BP systolic 123–149; BP diastolic 87–103
[2021-10-02] MEDS: fentaNYL PF VIAL 100 MCG/2 ML VIAL IVP PRN ×2 (01:27→05:31)
[2021-10-02] MEDS: NITROGLYCERIN SUBLINGUAL 0.4 MG BOTTLE OF 25. SL PRN (02:57)
[2021-10-02] MEDS: ACETAMINOPHEN 325 MG TABLET. PO PRN ×3 (05:31→20:08)
[2021-10-02 05:45] LABS: CHOLESTEROL/HDL RATIO 2.7
--- NOTE | 2021-10-02 06:28 | EKG ---
[facility] [address] [place] [address] Test Date: 2021-10-02 Test Time: 06:19:17 Pat Name: MARISOL PALM Department: Room: 113 1 Gender: M Senior Graduate Advisor: JOSH : 1960 Requested By: ANDRES DELGADO Order Number: [id number] Reading MD: Andres Delgado Measurements Intervals [place] Rate: 79 P: -4 [place]: 162 QRS: 0 QRSD: 86 T: 92 QT: 448 QTc: 515 Interpretive Statements SINUS RHYTHM LEFTWARD AXIS T ABNORMALITY IN ANTERIOR LEADS LATERAL LEADS PROLONGED QT Electronically Signed On 10-02-2021 19:24:54 CRIMINAL LEGAL ASSISTANT by Andres Delgado
[2021-10-02 07:20] LABS: CALCIUM 8.3 mg/dL (8.5-10.1); CREATININE 0.9 mg/dL (0.7-1.3); GFR 85.8
[2021-10-02] MEDS: ASPIRIN ENTERIC COATED 325 MG TABLET.DR. PO SCH (08:13)
[2021-10-02] MEDS: CLOPIDOGREL BISULFATE 75 MG TABLET PO SCH (08:14)
[2021-10-02] MEDS: METOPROLOL TART IMMED RELEASE 25 MG TABLET. PO SCH ×2 (08:14→20:10)
[2021-10-02] MEDS: PANTOPRAZOLE 40 MG TABLET.DR. PO SCH (08:14)
[2021-10-02] MEDS: IV 1/2 NORMAL SALINE 1,000 ML IV SCH (08:18)
--- NOTE | 2021-10-02 10:32 | PDOC ---
YOLANDA SHIN MASTER BAKER 10/02/21 1032: CARDIO Progress Notes Date and Time Date of Service 10/02/21 Time of Evaluation 1020 Subjective Subjective: No Chest Pain, No shortness of breath, No Palpitations, No Dizziness Vitals Vitals Vital Signs Date Time Temp Pulse Resp B/P (MAP) Pulse Ox O2 Delivery O2 Flow Rate FiO2 10/02/21 10:00 75 16 124/91 (102) Room Air 10/02/21 09:00 93 10/02/21 05:00 98.1 98.1 10/01/21 14:00 2.0 Weight Weight [ ] Input and Output Intake and Output Intake and Output 10/02/21 06:59 Intake Total 912.6 ml Output Total 1195 ml Balance -282.4 ml Intake Oral 120 ml IV Total 792.6 ml Output Urine Total 1195 ml # Voids 1 Laboratory Labs Laboratory Tests Test 10/02/21 05:00 Sodium Level 140 mmol/L (136-145) Potassium Level 4.0 mmol/L (3.5-5.1) Chloride Level 106 mmol/L (98-107) Carbon Dioxide Level 24 mmol/L (21-32) Anion Gap 10 (6-14) Blood Urea Nitrogen 11 mg/dL (8-26) Creatinine 0.9 mg/dL (0.7-1.3) Estimated GFR (Cockcroft-Gault) 85.8 Glucose Level 99 mg/dL (70-99) Calcium Level 8.3 mg/dL (8.5-10.1) Triglycerides Level 44 mg/dL (0-150) Cholesterol Level 199 mg/dL (0-200) LDL Cholesterol, Calculated 115 mg/dL (0-100) VLDL Cholesterol, Calculated 9 mg/dL (0-40) Non-HDL Cholesterol Calculated 124 mg/dL (0-129) HDL Cholesterol 75 mg/dL (40-60) Cholesterol/HDL Ratio 2.7 Physical Exam HEENT: Neck Supple W Full Motion Chest: Symmetric LUNGS: Other (diminished bases) Heart: RRR Abdomen: Soft N/T Extremities: No Edema, Other (right groin arteriotomy site soft, clean, and dry. No hematoma present. Bilateral neurovascular status intact ) Neurology: alert, oriented, follow commands Assessment Assessment 1. Acute anterolateral wall STEMI 2. CAD; [facility] with severe single-vessel CAD with 100% occlusion involving the proximal to mid segment of LAD, proximal to the previously placed stent in the midsegment. s/p successful PCI/HANG to the LAD 3. Acute on chronic diastolic CHF; LHC with preserved LV function with EF 60%. LVEDP 31 mmHg 4. Hypertension; Controlled 5. Hyperlipidemia; statin therapy 6. Tobacco abuse; reinforced importance of smoking cessation Recommendations Secondary prevention including DAPT with ASA (325 mg daily for 1 month followed by 81 mg daily) and Plavix therapy High dose statin Echocardiogram Mild diuresis Risk stratification modification Cardiac rehab referral Will monitor overnight and anticipate discharged in am. Justicifation of Admission Dx: Justifications for Admission: Justification of Admission Dx: N/A Angina: Symp at Rest GALI LIRA MD 10/02/21 1616: CARDIO Progress Notes Assessment Assessment Patient seen and examined. Agree with GRINDER SET UP OPERATOR THREAD TOOL's assessment and plan. Acute anterolateral wall STEMI s/p PCI/HANG to LAD Continue dual antiplatelet therapy 2D echo to assess LV systolic function pending Telemetry did not show any significant arrhythmias Possible DC home tomorrow Importance of smoking cessation reemphasized YOLANDA SHIN APRN Oct 02, 2021 10:32 GALI LIRA MD Oct 02, 2021 16:16
--- NOTE | 2021-10-02 10:49 | PDOC ---
[facility] PROGRESS NOTE Date of Service DOS: DATE: 10/02/21 TIME: 10:47 Chief Complaint Chief Complaint Acute myocardial infarction status post new stent placed to the LAD CAD with prior stents, alcoholism, myocardial infarction, tobacco abuse, CHF, noncompliance, hypertension, GERD, anemia, asthma, and TIA. History of Present Illness History of Present Illness 10/02/2021 Patient seen and examined in the ICU He still complains of some chest pain His right groin has a clean dry intact dressing Vital signs are stable Discussed with RN Chart reviewed Vitals/I&O Vitals/I&O: Vital Signs Date Time Temp Pulse Resp B/P (MAP) Pulse Ox O2 Delivery O2 Flow Rate FiO2 10/02/21 10:00 75 16 124/91 (102) Room Air 10/02/21 09:00 93 10/02/21 05:00 98.1 98.1 10/01/21 14:00 2.0 I & O 10/01/21 10/01/21 10/02/21 15:00 23:00 07:00 Intake Total 120 ml 792.6 ml Output Total 620 ml 275 ml 300 ml Balance -500 ml -275 ml 492.6 ml Physical Exam General: Alert, mild distress Heart: Regular rate Lungs: Clear Abdomen: Soft Extremities: No edema Labs Labs: Laboratory Tests Test 10/02/21 05:00 Sodium Level 140 mmol/L (136-145) Potassium Level 4.0 mmol/L (3.5-5.1) Chloride Level 106 mmol/L (98-107) Carbon Dioxide Level 24 mmol/L (21-32) Anion Gap 10 (6-14) Blood Urea Nitrogen 11 mg/dL (8-26) Creatinine 0.9 mg/dL (0.7-1.3) Estimated GFR (Cockcroft-Gault) 85.8 Glucose Level 99 mg/dL (70-99) Calcium Level 8.3 mg/dL (8.5-10.1) Triglycerides Level 44 mg/dL (0-150) Cholesterol Level 199 mg/dL (0-200) LDL Cholesterol, Calculated 115 mg/dL (0-100) VLDL Cholesterol, Calculated 9 mg/dL (0-40) Non-HDL Cholesterol Calculated 124 mg/dL (0-129) HDL Cholesterol 75 mg/dL (40-60) Cholesterol/HDL Ratio 2.7 Assessment and Plan Assessmemt and Plan Problems Medical Problems: (1) STEMI (ST elevation myocardial infarction) Status: Acute Acute myocardial infarction status post new stent placed to the LAD CAD with prior stents, alcoholism, myocardial infarction, tobacco abuse, CHF, noncompliance, hypertension, GERD, anemia, asthma, and TIA. Plan ICU monitoring Wound jail meds DVT prophylaxis Full code Trend labs Encourage p.o. intake Continue cardiac cocktail (Plavix Lipitor aspirin metoprolol and as needed nitro) Appreciate cardiology input Comment Review of Relevant I have reviewed the following items mandy (where applicable) has been applied. Medications: Current Medications Medications (Trade) Dose Ordered Sig/Rayna Route PRN Reason Start Time Stop Time Status Last Admin Dose Admin Aspirin (Ecotrin) 325 mg DAILYWBKFT PO 10/02/21 08:00 10/02/21 08:13 Clopidogrel Bisulfate (Plavix) 75 mg DAILYWBKFT PO 10/02/21 08:00 10/02/21 08:14 Metoprolol Tartrate (Lopressor) 12.5 mg BID PO 10/01/21 11:00 10/02/21 08:14 Atorvastatin Calcium (Lipitor) 40 mg QHS PO 10/01/21 21:00 10/01/21 20:44 Pantoprazole Sodium (Protonix) 40 mg DAILYAC PO 10/01/21 17:00 10/02/21 08:14 Lorazepam (Ativan Inj) 1 mg PRN Q6HRS PRN IVP ANXIETY / AGITATION 10/01/21 16:00 10/02/21 04:15 Acetaminophen (Tylenol) 650 mg PRN Q6HRS PRN PO MILD PAIN / TEMP > 100.3'F 10/01/21 16:15 10/02/21 10:39 Justifications for Admission Other Justification CAMMIE MARRERO III DO Oct 02, 2021 10:48
[2021-10-02] MEDS ORDERED: FUROSEMIDE 40 MG/4 ML VIAL. IVP ONE (13:45)
[2021-10-02] MEDS ORDERED: POTASSIUM CHLORIDE 20 MEQ TABLET.ER. PO ONE (13:45)
--- NOTE | 2021-10-02 14:28 | RAD ---
EXAM: Chest, single view. HISTORY: Shortness of air. COMPARISON: 04/23/2021 FINDINGS: A frontal view of the chest is obtained. There is mild central interstitial prominence. The re is no consolidation, pleural effusion or pneumothorax. There is suspected left basilar atelectasis or scarring. There is a stable cardiac silhouette. IMPRESSION: Stable suspected chronic central interstitial prominence and left basilar atelectasis or scarring. Electronically signed by: Reba Jurado MD (10/02/2021 2:25 PM) [id number]
--- NOTE | 2021-10-02 15:56 | NUR ---
SS following for discharge planning. SS reviewed pt chart and discussed with pt RN. Pt is from home and is currently on room air. COVID19 negative. Cardiology following. Pt had heart cath on 10/01/2021. Self pay. Med Assist following. SS will continue to follow for discharge planning.
[2021-10-02] MEDS: ATORVASTATIN CALCIUM 20 MG TABLET PO SCH (20:08)
[2021-10-03 00:02] VITALS: BP 129/92
[2021-10-03 03:38] VITALS: BP 105/75
[2021-10-03 08:00] VITALS: BP 118/90
[2021-10-03] MEDS ORDERED: ASPI325T11 PO (08:32)
[2021-10-03] MEDS ORDERED: NITR0.4T24 SL (08:32)
[2021-10-03] MEDS: PANTOPRAZOLE 40 MG TABLET.DR. PO SCH (08:32)
[2021-10-03] MEDS ORDERED: CLOP75TA PO (08:32)
[2021-10-03] MEDS ORDERED: ATOR20TA58 PO (08:32)
[2021-10-03] MEDS ORDERED: METO25TA4 PO (08:32)
[2021-10-03] MEDS: ASPIRIN ENTERIC COATED 325 MG TABLET.DR. PO SCH (08:32)
[2021-10-03] MEDS ORDERED: LISI5TAB15 PO (08:32)
[2021-10-03] MEDS: METOPROLOL TART IMMED RELEASE 25 MG TABLET. PO SCH (08:33)
[2021-10-03 08:37] VITALS: BP 118/90
[2021-10-03] MEDS: CLOPIDOGREL BISULFATE 75 MG TABLET PO SCH (08:37)
--- NOTE | 2021-10-03 08:41 | DS ---
DATE OF DISCHARGE: 10/03/2021 ADMITTING DIAGNOSIS: Acute myocardial infarction. DISCHARGE DIAGNOSES: 1. Status post cardiac catheterization with new stent to the left anterior descending. 2. Previous history of coronary artery disease with prior stents, hyperlipidemia, hypertension, alcohol issues, previous myocardial infarction, tobacco abuse, congestive heart failure, noncompliance, hypertension, gastroesophageal reflux disease, anemia, asthma, and transient ischemic attack. HOSPITAL COURSE: The patient is a pleasant middle-aged male who presented with chest pain, was noted to have a bump in his troponin to 2384. He also had EKG changes consistent with acute myocardial infarction, was taken to the lab coordinator emergently. A stent was placed in the LAD. We have observed the patient for a couple of days here in the ICU, is doing well. Today, I saw and examined him. He is up in the chair, talkative. We plan to discharge. DISPOSITION: Home. ACTIVITY: As tolerated. DIET: Cardiac. MEDICATIONS: Aspirin 325 a day, atorvastatin 40 a day, Plavix 75 a day, lisinopril 5 a day, metoprolol 12.5 b.i.d., p.r.n. nitro, albuterol, p.r.n. ibuprofen, Imdur 30 a day, vitamins, and Protonix 40 a day. TOTAL TIME: [address]: Sumeet TID: [id number]
[2021-10-03] MEDS ORDERED: LISINOPRIL 5 MG TABLET. PO SCH (09:00)
--- NOTE | 2021-10-03 10:41 | PDOC ---
YOLANDA SHIN CHEMIST ASSISTANT 10/03/21 1041: CARDIO Progress Notes Date and Time Date of Service 10/03/21 Time of Evaluation 1040 Subjective Subjective: No Chest Pain, No shortness of breath, No Palpitations, No Dizziness Vitals Vitals Vital Signs Date Time Temp Pulse Resp B/P (MAP) Pulse Ox O2 Delivery O2 Flow Rate FiO2 10/03/21 08:37 82 118/90 10/03/21 08:00 Room Air 10/03/21 08:00 25 95 10/03/21 03:38 98.5 98.5 Weight Weight [ ] Input and Output Intake and Output Intake and Output 10/03/21 07:00 Intake Total 2240 ml Output Total 4100 ml Balance -1860 ml Intake Oral 2240 ml Output Urine Total 4100 ml Physical Exam HEENT: Neck Supple W Full Motion Chest: Symmetric LUNGS: Other (diminished bases) Heart: RRR Abdomen: Soft N/T Extremities: No Edema, Other (right groin arteriotomy site soft, clean, and dry. No hematoma present. Bilateral neurovascular status intact ) Neurology: alert, oriented, follow commands Assessment Assessment 1. Acute anterolateral wall STEMI 2. CAD; [facility] with severe single-vessel CAD with 100% occlusion involving the proximal to mid segment of LAD, proximal to the previously placed stent in the midsegment. s/p successful PCI/HANG to the LAD 3. Acute on chronic diastolic CHF; [facility] with preserved LV function with EF 60%. LVEDP 31 mmHg. s/p IV diuresis with good UOP 4. Hypertension; Controlled 5. Hyperlipidemia; statin therapy 6. Tobacco abuse; reinforced importance of smoking cessation 7. ETOH abuse; discussed/encouraged limiting use Recommendations Secondary prevention including DAPT with ASA (325 mg daily for 1 month followed by 81 mg daily) and Plavix therapy High dose statin Risk stratification modification Discussed importance of compliance with medical therapy, follow up. Cardiac rehab referral Follow up in our office as scheduled Justicifation of Admission Dx: Justifications for Admission: Justification of Admission Dx: N/A Angina: Symp at Rest GALI LRIA MD 10/03/21 4997: CARDIO Progress Notes Assessment Assessment Patient seen and examined. Agree with LAB TECH's assessment and plan. Acute anterolateral wall STEMI s/p PCI/HANG to LAD Continue dual antiplatelet therapy 2D echo showed LVEF 40 to 45% Telemetry did not show any significant arrhythmias DC home today. Cardiac rehabilitation referral. YOLANDA SHIN APRN Oct 03, 2021 10:41 GALI LIRA MD Oct 03, 2021 16:37
--- NOTE | 2021-10-03 11:17 | CARD ---
MR#: [id number] Date of Study: 10/03/2021 Ordering Physician: YOLANDA SHIN, Referring Physician: YOLANDA SHIN, Tech: LaurenMarta Horner, [facility] APPROVED REPORT EXAM: Two-dimensional and M-mode echocardiogram with Doppler and color Doppler. Other Information Quality : AverageHR: 72bpm INDICATION Acute NH Cardiac Disease: CAD RISK FACTORS Hypertension 2D DIMENSIONS Left Atrium(2D)3.3 (1.6-4.0cm)IVSd1.2 (0.7-1.1cm) Aortic Root(2D)3.4 (2.0-3.7cm)LVDd5.3 (3.9-5.9cm) LVOT Diameter2.1 (1.8-2.4cm)PWd1.2 (0.7-1.1cm) LVDs3.8 (2.5-4.0cm)FS (%) 28.6 % SV75.4 mlLVEF(%)54.7 (>50%) Aortic Valve AoV Peak Keo.143.1cm/sAoV VTI23.3cm AO Peak GR.8.2mmHgLVOT Peak Keo.118.3cm/s LVOT VTI 21.21cmAO Mean GR.4mmHg ARAMIS (VMAX)2.98ma9AOW (VTI)3.14cm2 Mitral Valve MV E Bbuksghe18.4cm/sMV DECEL QIGW504cm MV A Rgmdtjno21.2cm/sMV E Mean Gr.1mmHg MV TFR524nbZ/A Ratio0.8 MVA (PHT)2.19cm2 TDI E/Lateral E'6.7E/Medial E'7.7 Pulmonary Valve PV Peak Ljxifvrb73.6cm/sPV Peak Grad.3mmHg Tricuspid Valve TR P. Qfjqfteb693mv/sTR Peak Gr.25mmHg Pulmonary Vein S1 Daczfrjq76.9cm/sD2 Ihheicfz07.3cm/s PVa tixyyfcs295hxqq LEFT VENTRICLE The left ventricle is normal size. There is mild concentric left ventricular hypertrophy. The systoli c function is mildly impaired. The Ejection Fraction is 40-45%. The mid to distal septum, apex and mi d distal anteroseptal watts are akinetic. The remainder the LV is mildly hypokinetic. Transmitral Dop pler flow pattern is Grade I-abnormal relaxation pattern. RIGHT VENTRICLE The right ventricle is borderline dilated. There is normal right ventricular wall thickness. The righ t ventricular systolic function is normal. ATRIA The left atrium is borderline dilated. The right atrium size is normal. The interatrial septum is int act with no evidence for an atrial septal defect or patent foramen ovale as noted on 2-D or Doppler i maging. AORTIC VALVE The aortic valve is normal in structure and function. Doppler and Color Flow revealed trace aortic re gurgitation. There is no significant aortic valvular stenosis. Calculated aortic valve area is 3.08 c m2 with maximum pressure gradient of 10 mmHg and mean pressure gradient of 6 mmHg. MITRAL VALVE The mitral valve is normal in structure and function. There is no evidence of mitral valve prolapse. There is no mitral valve stenosis. Doppler and Color-flow revealed trace mitral regurgitation. TRICUSPID VALVE The tricuspid valve is normal in structure and function. Doppler and Color Flow revealed trace tricus pid regurgitation with an estimated PAP of 28 mmHg. There is no tricuspid valve stenosis. PULMONIC VALVE The pulmonic valve is not well visualized. Doppler and Color Flow revealed no pulmonic valvular regur gitation. There is no pulmonic valvular stenosis. GREAT VESSELS The aortic root is normal in size. The IVC is normal in size and collapses >50% with inspiration. PERICARDIAL EFFUSION There is no evidence of significant pericardial effusion. Critical Notification Critical Value: No <Conclusion> The systolic function is mildly impaired. The Ejection Fraction is 40-45%. The mid to distal septum, apex and mid distal anteroseptal watts are akinetic. The remainder the LV is mildly hypokinetic. Signed by : Jelani Washington, Electronically Approved : 10/03/2021 11:17:26
--- NOTE | 2021-10-03 14:18 | NUR ---
[id number] Anxious for discharge w persistent questions on "can I go home'? Meds explained but patient doesn't seem to retain provided teaching information. Printed med sheets .cardiac book and post cath care sheet provided for references as needed after verbal explanation. Independent amb in room w.o overt or c/o SOA. Lung banks clear post 10/12 lasix. Aware/voices episodes visual hallucination. Night nurse reports noted mental change after IV ativan. Text message to Dr Hernandez w orders. Echo lab called ie possible echo time. Transported to department w procedure comppleteion. Shannon QUEZADA at bedside late am w reinforced teaching on NECESSITY to take meds as ordered. Follow up appointment to see Dr Delgado confirmed w card provided as reference along w other meds. Family in w discharge to home,daughters car. Amb prior to discharge w monito 460 feet-good osbaldo No SOA. prior to activity HR 78,NBP 103/88, RR 22+. Post activityHR 88 w/o ectopics,C/P,NBP 122/84, RR 29 unlabored. Phone /welding machine operator helper gas home w patient. Discharged to home w instruction on picking meds up after script call in by Dr Hernandez to [facility]. Informed on pricing difference- May call [facility] to transfer scripts there if prices better. Daughter 'aware " and can assist patient as needed. Anika MOREIRA here after patient discharge. Alyssa to get in touch w Pat on disability overage
--- NOTE | 2021-10-05 18:42 | PN ---
DATE: 10/03/2021 Regarding the discharge medication list on the patient, I got a call from the ICU nurseAnthony a few minutes ago. He states that the family member called him and stated that they never picked up the prescriptions and that the pharmacy did not have his prescriptions after discharge. Anthony explained that he told him they had to take the medications as we prescribed him. I explained to Anthony that I also told the patient the same thing. The patient's nurse in the ICU on the day of discharge a couple days ago was Eufemia and she and I specifically stood there and told the patient he has to take his Plavix, aspirin and the other medications that we prescribed. I wrote the prescriptions on discharge, it was my understanding that they were transmitted. However, for some reason, the pharmacy apparently did not get the transmissions. I spoke with El Sultana in information technology department a few minutes ago and she explained that medications should have transmitted and if I had any further problems to be sure and contact her. The ICU nurse, Anthony just called the pharmacy to verify that they do get him today as we sent him a few minutes ago and in fact, they do have them. The prescriptions have now definitely been transmitted to the pharmacy. Anthony then tried to call the medicare contact specialist for the patient but they did not answer. The patient did receive his last dose of meds before discharge on the as far as I know. Today is the , he only missed 1 day, which would have been yesterday, which was the snowstorm day. Nevertheless, we will follow up on this. CARMEN DR: Sumeet TID: [id number]
== END 2021-10-03 12:05 | disposition home or self-care (01) | DRG 246 ==
LOC: ER 08:39 → 1 WEST ICU 09:00 → ER 09:01
PROVIDERS: ADMIT Internal Medicine; ATTEND Internal Medicine
PROC: B2111ZZ Fluoroscopy of Multiple Coronary Arteries using Low Osmolar Contrast (ICD-10-PCS; principal; 2021-10-01)
PROC: 027034Z Dilation of Coronary Artery, One Artery with Drug-eluting Intraluminal Device, Percutaneous Approach (ICD-10-PCS; 2021-10-01)
PROC: B2151ZZ Fluoroscopy of Left Heart using Low Osmolar Contrast (ICD-10-PCS; 2021-10-01)
PROC: 4A023N7 Measurement of Cardiac Sampling and Pressure, Left Heart, Percutaneous Approach (ICD-10-PCS; 2021-10-01)
DX: I21.09 ST elevation (STEMI) myocardial infarction involving other coronary artery of anterior wall (principal); I50.33 Acute on chronic diastolic (congestive) heart failure; E78.5 Hyperlipidemia, unspecified; F17.200 Nicotine dependence, unspecified, uncomplicated; I11.0 Hypertensive heart disease with heart failure; I25.10 Atherosclerotic heart disease of native coronary artery without angina pectoris; J45.909 Unspecified asthma, uncomplicated; F10.20 Alcohol dependence, uncomplicated; K21.9 Gastro-esophageal reflux disease without esophagitis; M19.90 Unspecified osteoarthritis, unspecified site; I25.2 Old myocardial infarction; Z82.49 Family history of ischemic heart disease and other diseases of the circulatory system; Z83.3 Family history of diabetes mellitus; Z86.73 Personal history of transient ischemic attack (TIA), and cerebral infarction without residual deficits; Z91.19 Patient's noncompliance with other medical treatment and regimen; Z95.5 Presence of coronary angioplasty implant and graft
CPT/HCPCS: 92941; 93458; 96374; 96375; 99285; G0269; 36415; 71045; 80048; 80061; 84484; 85025; 93005; 93306; 99152; 99153; C1874; C1894; J0461; J0583; J1644; J1940; J2060; J2250; J2405; J3010; J3490; J7030; Q9967; C8929; G0378

== ENCOUNTER 2021-11-01 15:01 | Inpatient (IN) | payer SELFPAY ==
[~2021-11-01] VITALS: Ht 172.7 cm; Wt 87.3 kg
[~2021-11-01 15:01] MED LIST changes: +ASPI325T11 PO; +ATOR20TA58 PO; +LISI5TAB15 PO; +METO25TA4 PO; +NITR0.4T24 SL
[2021-11-01] MEDS ORDERED: HEPARIN 25,000UTS/250ML PREMIX 250 ML IV ONE (15:15)
[2021-11-01] MEDS ORDERED: NITROGLYCERIN SUBLINGUAL 0.4 MG BOTTLE OF 25. SL PRN ×2 (15:15→16:00)
[2021-11-01] MEDS ORDERED: HEPARIN for IV BOLUS 10,000 UNIT/10 ML VIAL. IV ONE (15:15)
--- NOTE | 2021-11-01 15:25 | PDOC2 ---
SHEEBA INGRAM SUPERVISOR WEAVING 11/01/21 1524: CARDIAC CONSULT DATE OF CONSULT Date of Consult DATE: 11/01/21 TIME: 15:11 REFERRING PHYSICIAN Referring Physician: Dusty SOURCE Source: Chart review HISTORY OF PRESENT ILLNESS HISTORY OF PRESENT ILLNESS This is a 61 yo male admitted for complains of SOA. No family is present and he is intoxicated with alcohol hence he is unable to provide details of his symptoms. He presently has a bipap in place and faint wheezing. Apparently he was also having chest pain but none currently. He had Anterior STEMI a month ago and had PCI/HANG to LAD. Apparently he has not been taking his medications and could not ascertain if he even picked up his prescription. His O2 sat was noted at 83% on RA. PAST MEDICAL HISTORY Past Medical History Cardiovascular: CAD, HTN, Hyperlipidemia, VT, ICM, CHF Pulmonary: No pertinent hx CENTRAL NERVOUS SYSTEM: Other GI: No pertinent hx Psych: anxiety, alcohol abuse Musculoskeletal: Osteoarthritis Rheumatologic: No pertinent hx Infectious disease: No pertinent hx Renal/: No pertinent hx Endocrine: No pertinent hx PAST SURGICAL HISTORY Past Surgical History: Other (PCI) FAMILY HISTORY Family History: Hypertension SOCIAL HISTORY Smoke: <1 pack per day ALCOHOL: heavy Drugs: None ALLERGIES ALLERGIES: Coded Allergies: No Known Drug Allergies (Unverified , 11/01/21) ROS Review of System very limited, intoxicated with ETOH PHYSICAL EXAM General: Alert, Cooperative, moderate distress HEENT: Atraumatic, Mucous membr. moist/pink Lungs: Other (diffuse faint wheeze) Heart: Regular rate (SR), Other (distant heart sounds) Abdomen: Soft, No tenderness, Other (truncal obesity) Extremities: No cyanosis, Other (trace LE edema) Skin: No breakdown, No significant lesion Neuro: Normal speech, Sensation intact Psych/Mental Status: Mental status NL, Mood NL MUSCULOSKELETAL: Osteoarthritic changes both hands ECHOCARDIOGRAM ECHOCARDIOGRAM <Conclusion> The systolic function is mildly impaired. The Ejection Fraction is 40-45%. The mid to distal septum, apex and mid distal anteroseptal watts are akinetic. The remainder the LV is mildly hypokinetic. DATE: 10/03/21 [id number] HEART CATH HEART CATH Conclusion 1. Severe single-vessel coronary artery disease, 100% occlusion involving the proximal to mid segment of left anterior descending artery, proximal to the previously placed stent in the midsegment. 2. Successful PCI/drug-eluting stent placement to the left anterior descending artery 3. Normal left ventricular systolic function with ejection fraction estimated at 60%. Recommendations 1. Aspirin 325 mg daily for 1 month followed by 81 mg daily 2. Plavix 75 mg daily 3. Cardiovascular risk factor modification DATE: 10/01/21 [id number] ASSESSMENT/PLAN ASSESSMENT/PLAN 1. Acute respiratory failure with CHF and likely AECOPD 2. Acute on chronic combined systolic/diastolic CHF 3. CAD: with prior anterolateral wall STEMI with PCI/HANG to LAD on 10/01/2021 4. Hypertension; Controlled 5. Hyperlipidemia; statin therapy 6. Suspect AECOPD with hx of tobaccoism 7. Continued ETOH abuse: level at 361 8. NSTEMI: CP free Recommendations Continue secondary prevention measures. ASA/plavix.High dose statin. Trend troponin. Could hold BB if continued wheezing. Lasix PRN. Heparin started in ED. Trend EKG Continue bipap. Solumedrol x1 Lifestyle modification Reinforced treatment adherance. Poor compliance has not taken his meds for unknown duration or unknown if he filled his Rx He has a follow up with Dr. Delgado on November 22 at 2 PM GALI DELGADO MD 11/01/212133: CARDIAC CONSULT ASSESSMENT/PLAN ASSESSMENT/PLAN Patient seen and examined. Agree with SELVAGE MACHINE OPERATOR's assessment and plan. Acute resp failure prob secondary to combination of acute COPD exacerbation and ac on chr combined syst/diast HF NSTEMI prob demand ischemia CAD s/p recent PCI clinically stable Importance of med compliance reemphasized Thank you for your consultation SHEEBA INGRAM APRN Nov 01, 2021 15:24 GALI DELGADO MD Nov 01, 2021 21:34
[2021-11-01 15:26] LABS: BASO % 1 % (0-3); EOS % 1 % (0-3); HEMOGLOBIN 14.6 g/dL (13.0-17.5); LYMPH # 1.1 x10^3/uL (1.0-4.8); LYMPH % 18 % (24-48); MEAN CORPUSCULAR HEMOGLOBIN 32 pg (25-35); MEAN CORPUSCULAR HGB CONC 34 g/dL (31-37); MEAN CORPUSCULAR VOLUME 93 fL (79-100); MONO # 0.3 x10^3/uL (0.0-1.1); MONO % 5 % (0-9); NEUT # 4.7 x10^3/uL (1.8-7.7); NEUT % 76 % (31-73); PLATELET COUNT 298 x10^3/uL (140-400); RED BLOOD COUNT 4.65 x10^6/uL (4.30-5.70); RED CELL DISTRIBUTION WIDTH 13.2 % (11.5-14.5); WHITE BLOOD COUNT 6.3 x10^3/uL (4.0-11.0)
--- NOTE | 2021-11-01 15:28 | RAD ---
EXAM: CHEST 1 VIEW History: Wheezing COMPARISON: 10/02/2021 TECHNIQUE: Single portable radiograph of the chest FINDINGS: The cardiac silhouette is unremarkable. Mild bibasilar lung atelectasis. The costophrenic sulci are clear and well demarcated. IMPRESSION: Mild bibasilar lung atelectasis. Electronically signed by: Romie Fierro MD (11/01/2021 3:25 PM) [id number]
[2021-11-01 15:33] LABS: PROTHROMBIN TIME PATIENT 11.7 SEC (11.7-14.0)
[2021-11-01 15:36] LABS: CALCIUM 8.7 mg/dL (8.5-10.1); CREATININE 1.1 mg/dL (0.7-1.3); GFR 68.1; POTASSIUM 3.6 mmol/L (3.5-5.1)
[2021-11-01 15:42] LABS: ALBUMIN 3.7 g/dL (3.4-5.0); ALBUMIN/GLOBULIN RATIO 0.9 (1.0-1.7); MAGNESIUM 2.3 mg/dL (1.8-2.4); TOTAL BILIRUBIN 0.3 mg/dL (0.2-1.0); TOTAL PROTEIN 7.9 g/dL (6.4-8.2)
[2021-11-01] MEDS ORDERED: ALBUTEROL SULFATE 2.5 MG/3 ML NEBU. NEB PRN (16:00)
[2021-11-01] MEDS ORDERED: IBUPROFEN 200 MG TABLET. PO PRN (16:15)
--- NOTE | 2021-11-01 16:16 | EKG ---
[facility] [address] [place] [address] Test Date: 2021-11-01 Test Time: 15:05:26 Pat Name: MARISOL PALM Department: Room: Gender: M Computer Assistant: : 1960 Requested By: SHANI MOREL Order Number: [id number] Reading MD: Ric Ferreira Measurements Intervals [place] Rate: 77 P: -19 MD: 162 QRS: -15 QRSD: 96 T: 130 QT: 446 QTc: 507 Interpretive Statements SINUS RHYTHM LEFTWARD AXIS NON SPECIFIC ST-T WAVE CHANGES LVH WITH REPOLARIZATION ABNORMALITY PROLONGED QT ABNORMAL ECG Electronically Signed On 11-04-2021 15:20:39 CDT by Ric Ferreira
--- NOTE | 2021-11-01 16:18 | ED.ADGEN ---
Past Medical History Past Medical History: Alcoholism, [place], Other Additional Past Medical Histor: unable to obtain Past Surgical History: Other Additional Past Surgical Histo: unable to obtain Smoking Status: Current Every Day Smoker Alcohol Use: Occasionally Drug Use: None General Adult EDM: Chief Complaint: SHORTNESS OF BREATH HPI: HPI: Patient is a 61 year old male coming in via EMS from home for chest pain. Patient has a history significant for a STEMI with cardiac stent placement in the LAD 1 month ago. Patient has not been compliant on his aspirin or Plavix. Patient has a history of alcohol abuse. Patient was audibly wheezing per EMS an d given 2 duo nebs prior to arrival. He was also given 324 mg of aspirin. Patient took 1 nitroglycerin prior to EMS arrival Review of Systems: Review of Systems: All other systems within normal limits except for as noted in the HPI Current Medications: Current Medications Medications (Trade) Dose Ordered Sig/Rayna Start Time Stop Time Status Last Admin Dose Admin Albuterol Sulfate (Ventolin Neb Soln) 2.5 mg PRN Q4HRS PRN 11/01/21 16:00 Heparin Sodium (Porcine) (Heparin Sodium) 4,000 unit 1X ONCE 11/01/21 15:15 11/01/21 15:41 DC 11/01/21 15:50 4,000 UNIT Heparin Sodium/ Dextrose 250 ml @ 10.32 mls/ hr 1X ONCE 11/01/21 15:15 11/02/21 11:31 DC 11/01/21 15:15 10.32 MLS/HR Ibuprofen (Motrin) 800 mg PRN Q8HRS PRN 11/01/21 16:15 11/01/21 20:30 800 MG Nitroglycerin (Nitrostat) 0.4 mg PRN Q5MIN PRN 11/01/21 16:00 Allergies: Allergies: Allergies Coded Allergies Type Severity Reaction Last Updated Verified No Known Drug Allergies 11/01/21 No Physical Exam: PE: Constitutional: Well developed, well nourished, no acute distress, non-toxic appearance. [] HENT: Normocephalic, atraumatic, bilateral external ears normal, nose normal. [] Eyes: PERRLA, conjunctiva normal, no discharge. [] Neck: No rigidity, supple, no stridor. [] Cardiovascular: Regular rate and rhythm, brisk cap refill [] Lungs & Thorax: Non labored symmetric respirations, no tachypnea or respiratory distress. Bilateral crackles [] Abdomen: Soft, nondistended. Skin: Warm, dry, no erythema, no rash. [] Back: Unremarkable Extremities: No deformities, range of motion grossly intact, no lower extremity edema [] Neurologic: Alert and oriented X 3, no focal deficits noted. [] Psychologic: Affect normal, judgement normal, mood normal. [] Current Patient Data: Labs: Laboratory Tests Test 11/01/21 15:05 11/01/21 16:23 White Blood Count 6.3 x10^3/uL (4.0-11.0) Red Blood Count 4.65 x10^6/uL (4.30-5.70) Hemoglobin 14.6 g/dL (13.0-17.5) Hematocrit 43.0 % (39.0-53.0) Mean Corpuscular Volume 93 fL (79-100) Mean Corpuscular Hemoglobin 32 pg (25-35) Mean Corpuscular Hemoglobin Concent 34 g/dL (31-37) Red Cell Distribution Width 13.2 % (11.5-14.5) Platelet Count 298 x10^3/uL (140-400) Neutrophils (%) (Auto) 76 % (31-73) H Lymphocytes (%) (Auto) 18 % (24-48) L Monocytes (%) (Auto) 5 % (0-9) Eosinophils (%) (Auto) 1 % (0-3) Basophils (%) (Auto) 1 % (0-3) Neutrophils # (Auto) 4.7 x10^3/uL (1.8-7.7) Lymphocytes # (Auto) 1.1 x10^3/uL (1.0-4.8) Monocytes # (Auto) 0.3 x10^3/uL (0.0-1.1) Eosinophils # (Auto) 0.0 x10^3/uL (0.0-0.7) Basophils # (Auto) 0.0 x10^3/uL (0.0-0.2) Prothrombin Time 11.7 SEC (11.7-14.0) Prothrombin Time INR 0.9 (0.8-1.1) Sodium Level 139 mmol/L (136-145) Potassium Level 3.6 mmol/L (3.5-5.1) Chloride Level 103 mmol/L (98-107) Carbon Dioxide Level 20 mmol/L (21-32) L Anion Gap 16 (6-14) H Blood Urea Nitrogen 15 mg/dL (8-26) Creatinine 1.1 mg/dL (0.7-1.3) Estimated GFR (Cockcroft-Gault) 68.1 BUN/Creatinine Ratio 14 (6-20) Glucose Level 92 mg/dL (70-99) Calcium Level 8.7 mg/dL (8.5-10.1) Magnesium Level 2.3 mg/dL (1.8-2.4) Total Bilirubin 0.3 mg/dL (0.2-1.0) Aspartate Amino Transferase (AST) 21 U/L (15-37) Alanine Aminotransferase (ALT) 22 U/L (16-63) Alkaline Phosphatase 111 U/L (46-116) Troponin I High Sensitivity 369 ng/L (4-75) H TI-Agy-V-Type Natriuretic Peptide 1217 pg/mL (0-124) H Total Protein 7.9 g/dL (6.4-8.2) Albumin 3.7 g/dL (3.4-5.0) Albumin/Globulin Ratio 0.9 (1.0-1.7) L Lipase 127 U/L (73-393) Ethyl Alcohol Level 361 mg/dL (0-10) H Urine Collection Type Unknown Urine Color Straw Urine Clarity Clear Urine pH 5.5 (<5.0-8.0) Urine Specific [place] 1.005 (1.000-1.030) Urine Protein Negative mg/dL (NEG-TRACE) Urine Glucose (UA) Negative mg/dL (NEG) Urine Ketones (Stick) Negative mg/dL (NEG) Urine Blood Negative (NEG) Urine Nitrite Negative (NEG) Urine Bilirubin Negative (NEG) Urine Urobilinogen Dipstick 0.2 mg/dL (0.2 mg/dL) Urine Leukocyte Esterase Negative (NEG) Urine RBC 0 /HPF (0-2) Urine WBC 0 /HPF (0-4) Urine Bacteria 0 /HPF (0-FEW) Urine Opiates Screen Neg (NEG) Urine Methadone Screen Neg (NEG) Urine Barbiturates Neg (NEG) Urine Phencyclidine Screen Neg (NEG) Urine Amphetamine/Methamphetamine Neg (NEG) Urine Benzodiazepines Screen Neg (NEG) Urine Cocaine Screen Neg (NEG) Urine Cannabinoids Screen Neg (NEG) Urine Ethyl Alcohol Pos (NEG) Laboratory Tests 11/01/21 15:05 Laboratory Tests 11/01/21 15:05 Vital Signs: Vital Signs Date Time Temp Pulse Resp B/P (MAP) Pulse Ox O2 Delivery O2 Flow Rate FiO2 11/01/21 15:38 71 131/87 11/01/21 15:15 96 BiPAP/CPAP 11/01/21 15:08 97.8 15 97.8 EKG: EKG: Sinus rhythm, heart rate 77 bpm, left axis deviation, T wave inversions in V2 through V6, lead I, and aVL that are new when compared to EKG dated 10-01-19 [] Heart Score: C/O Chest Pain: Yes HEART Score for Chest Pain: HEART Score for Chest Pain Response (Comments) Value History Highly Suspicious 2 ECG Nonspecific Repolarizatio 1 Age >45 - < 65 1 Risk Factors >3 Risk Factors or Hx CAD 2 Troponin >3 x Normal Limit 2 Total 8 Risk Factors: Risk Factors: DM, Current or recent (<one month) smoker, HTN, HLP, family history of CAD, obesity. Risk Scores: Score 0 - 3: 2.5% MACE over next 6 weeks - Discharge Home Score 4 - 6: 20.3% MACE over next 6 weeks - Admit for Clinical Observation Score 7 - 10: 72.7% MACE over next 6 weeks - Early Invasive Strategies Radiology/Procedures: Radiology/Procedures: [facility] [address] [place], [place] [id number] IMAGING REPORT Signed PATIENT: MARISOL PALM ACCOUNT: [id number] : 1960 LOCATION: ER AGE: 61 SEX: M EXAM STATUS: PRE ER ORD. PHYSICIAN: SHANI MOREL MD REASON: wheezing PROCEDURE: PORTABLE CHEST 1V EXAM: CHEST 1 VIEW History: Wheezing COMPARISON: 10/02/2021 TECHNIQUE: Single portable radiograph of the chest FINDINGS: The cardiac silhouette is unremarkable. Mild bibasilar lung atelectasis. The costophrenic sulci are clear and well demarcated. IMPRESSION: Mild bibasilar lung atelectasis. Electronically signed by: Romie Fierro MD (11/01/2021 3:25 PM) [id number] DICTATED and SIGNED BY: ROMIE FIERRO MD DATE: 11/01/21 1523 [] Course & Med Decision Making: Course & Med Decision Making Pertinent Labs and Imaging studies reviewed. (See chart for details) Consult placed to cardiology for chest pain with Wellens waves. Per Dr. Delgado will start on heparin and admit for Fireman, no acute STEMI [] Dragon Disclaimer: Dragon Disclaimer: This electronic medical record was generated, in whole or in part, using a voice recognition dictation system. Departure Departure Impression: Primary Impression: NSTEMI (non-ST elevated myocardial infarction) Disposition: ADMITTED INPATIENT Admitting Physician: MOHSEN Condition: CRITICAL Referrals: NO PCP (PCP) Scripts Methylprednisolone (MEDROL) 4 Mg Tab.ds.pk 1 PKG PO UD for ., #1 PKG Prov: CAMMIE MARRERO III DO 11/02/21 Clonidine Hcl (CLONIDINE HCL) 0.1 Mg Tablet 0.1 MG PO PRN Q1HR PRN for SBP > 180 or DBP > 100, MRX3 for 30 Days, #30 TAB Prov: CAMMIE MARRERO III DO 11/02/21 SHANI MOREL MD Nov 01, 2021 16:18
[2021-11-01 16:43] LABS: BARBITURATES NEG (NEG); BENZODIAZEPINES NEG (NEG); CANNABINOIDS NEG (NEG); COCAINE NEG (NEG); METHADONE NEG (NEG); OPIATES NEG (NEG); PHENCYCLIDINE NEG (NEG)
[2021-11-01 16:45] LABS: AMPHETAMINE/METHAMPHETAMINE NEG (NEG)
[2021-11-01] MEDS ORDERED: methylPREDNISolone SOD SUCC PF 125 MG/2 ML VIAL. IV ONE (16:45)
[2021-11-01 16:55] LABS: BILIRUBIN,URINE NEGATIVE (NEG); CLARITY,URINE CLEAR; COLOR,URINE STRAW
[2021-11-01 16:56] LABS: NITRITE,URINE NEGATIVE (NEG); PH,URINE 5.5 (<5.0-8.0); PROTEIN,URINE NEGATIVE (NEG-TRACE); UROBILINOGEN,URINE 0.2 mg/dL (0.2 mg/dL)
[2021-11-01 16:57] LABS: BACTERIA,URINE 0 /HPF (0-FEW); RBC,URINE 0 /HPF (0-2); WBC,URINE 0 /HPF (0-4)
--- NOTE | 2021-11-01 17:56 | HP ---
DATE OF SERVICE: 11/01/2021 ADMIT DATE: 11/01/2021 CHIEF COMPLAINT: Chest pain, shortness of breath, mental status change and alcohol intoxication. HISTORY OF PRESENT ILLNESS: The patient is a pleasant 61-year-old male well known to our service. We just discharged him a couple weeks ago. During that admission, he got new cardiac stents and was told to take his Plavix. We actually called him several times to make sure he was taken it, but they did not really answer the phone. Once again, he presents to the ER with chest pain, mental status change. He appears to be drunk. He is in respiratory failure. We had placed him on BiPAP. He has got EKG changes with ST elevations in the anterior leads. I suspect he might be having another cardiac event. I discussed the case with ER physician and the Cardiology nurse practitioner. We admitted the patient with consultation to Cardiology. PAST MEDICAL HISTORY: CAD, severe noncompliance, alcoholism, previous cardiac stents, hypertension, hyperlipidemia, myocardial infarction, osteoarthritis. ALLERGIES: None. FAMILY HISTORY: Coronary artery disease. SOCIAL HISTORY: He drinks heavily. MEDICATIONS: Reviewed. He is supposed to be on ProAir; Plavix, although he is not taking his Plavix; atorvastatin; Imdur; Nitrostat; metoprolol; lisinopril; aspirin, he is not taking that either; ibuprofen; Protonix; vitamins and folic acid. REVIEW OF SYSTEMS: GENERAL: No history of weight change, weakness or fevers. SKIN: No bruising, hair changes or rashes. EYES: No blurred, double or loss of vision. NOSE AND THROAT: No history of nosebleeds, hoarseness or sore throat. CARDIAC: He complains of chest pain. PULMONARY: He complains of shortness of breath. GASTROINTESTINAL: Denies changes in appetite, nausea, vomiting, diarrhea or constipation. GENITOURINARY: No history of frequency, urgency, hesitancy or nocturia. NEUROLOGIC: Denies history of numbness, tingling, tremor or weakness. PSYCHIATRIC: No history of panic, anxiety or depression. ENDOCRINE: No history of heat or cold intolerance, polyuria or polydipsia. EXTREMITIES: Denies muscle weakness, joint pain, pain on walking or stiffness. PHYSICAL EXAMINATION: VITALS: Within normal limits and are stable. GENERAL: No apparent distress. Alert and oriented. HEENT: He has BiPAP on, it is set at 20/10 with a rate of 16, 50% FiO2 and he is satting 97%. EYES: Extraocular muscles are intact, pupils are equally round and reactive to light and accommodation MUSCULOSKELETAL: Well developed, well nourished, good range of motion ENDOCRINE: No thyromegaly was palpated LYMPHATICS: No cervical chain or axillary nodes were noted HEMATOPOIETIC: No bruising NECK: Supple, no JVD, no thyromegaly was noted. PULMONARY: He has got bibasilar crackles. HEART: RRR, S1, S2 present. Peripheral pulses intact, no obvious murmurs were noted. ABDOMEN: Soft, nontender. Positive bowel sounds no organomegaly, normal bowel sounds. EXTREMITIES: Without any cyanosis, clubbing, or edema. Pedal pulses intact, Homans sign is negative. NEUROLOGIC: Normal speech, normal tone. A and O x 3, moves all extremities, no obvious focal deficits. PSYCHIATRIC: Normal affect, normal mood. Stable. SKIN: No ulcerations or rashes, good skin turgor, no jaundice. VASCULAR: Good capillary refill, neurovascular bundle appears to be intact. LABORATORY DATA: Chest x-ray shows vascular congestion. Troponin is 369. BNP 1217. White count 6, hemoglobin 14.6, platelets 298. INR is 0.9. Alcohol level is 361. ASSESSMENT AND PLAN: Respiratory failure, chest pain, elevated troponin, severe noncompliance, alcohol intoxication. The patient has been admitted back to the cardiac floor. Serial enzymes, serial EKGs. Consult Cardiology. Cardiac monitoring. P.r.n. morphine. We have tried to resume his home meds if he will take them. He received heparin 25,000 units x 1 in the ER. We are considering heparin protocol, but we will await Cardiology input. Alcohol withdrawal protocol. Prognosis extremely guarded. CC TIME: 32 minutes. [facility] [place]: DARIWN/tiffany TID: [id number]
[2021-11-01 19:53] VITALS: BP 149/72
[2021-11-01] MEDS: METOPROLOL TART IMMED RELEASE 25 MG TABLET. PO SCH (20:30)
[2021-11-01] MEDS ORDERED: ATORVASTATIN CALCIUM 40 MG TABLET. PO SCH ×2 (21:00)
--- NOTE | 2021-11-01 21:17 | NUR ---
Admit prior to shift change. Alert. Pleasant. Cooperative. Alcohol level 361. Rooms smells of ETOH. Orientated to room and call light. Instructed to call for assist when out of bed. Reviewed POC to include Heparin drip and Troponin labs. Verbalized understanding. Resting in bed. Watching TV. Call light at hand. Bed alarm on.
[2021-11-01] MEDS ORDERED: diphenhydrAMINE 50 MG/ML VIAL IVP PRN (22:00)
[2021-11-01] MEDS ORDERED: cloNIDine HCL 0.1 MG TABLET PO PRN (22:00)
[2021-11-01] MEDS ORDERED: HALOPERIDOL LACTATE 5 MG/ML VIAL. IVP PRN (22:00)
[2021-11-01 22:36] VITALS: BP 129/80
[2021-11-01] MEDS ORDERED: MORPHINE SULFATE 2 MG/ML INJ. IV PRN (23:00)
[2021-11-02] MEDS ORDERED: HEPARIN for IV BOLUS 10,000 UNIT/10 ML VIAL. IV PRN (00:45)
[2021-11-02] MEDS ORDERED: HEPARIN 25,000UTS/250ML PREMIX 250 ML IV PRN (00:45)
[2021-11-02 02:22] VITALS: BP 152/87
--- NOTE | 2021-11-02 04:59 | EKG ---
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
--- NOTE | 2021-11-02 05:00 | EKG ---
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
[2021-11-02 07:00] VITALS: BP 156/97
[2021-11-02] MEDS ORDERED: PANTOPRAZOLE 40 MG TABLET.DR. PO SCH (07:30)
[2021-11-02] MEDS ORDERED: ASPIRIN ENTERIC COATED 81 MG TABLET.DR. PO SCH (08:00)
[2021-11-02] MEDS ORDERED: CLOPIDOGREL BISULFATE 75 MG TABLET PO SCH ×2 (08:00)
[2021-11-02] MEDS ORDERED: ASPIRIN ENTERIC COATED 325 MG TABLET.DR. PO SCH (08:00)
--- NOTE | 2021-11-02 08:26 | EKG ---
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
[2021-11-02] MEDS: METOPROLOL TART IMMED RELEASE 25 MG TABLET. PO SCH (08:59)
[2021-11-02] MEDS ORDERED: ISOSORBIDE MONONITRATE ER 30 MG TAB.ER.24H PO SCH (09:00)
[2021-11-02] MEDS ORDERED: LISINOPRIL 5 MG TABLET. PO SCH (09:00)
[2021-11-02] MEDS ORDERED: MULTIVIT INFUSN,ADULT 4,VIT K 10 ML, THIAMINE INJ 100 MG, FOLIC ACID INJ 1 MG in IV NOR... IV SCH (09:00)
--- NOTE | 2021-11-02 10:11 | PDOC ---
[employer] PROGRESS NOTE Date of Service DOS: DATE: 11/02/21 TIME: 10:11 Chief Complaint Chief Complaint Respiratory failure, chest pain, elevated troponin, severe noncompliance, alcohol intoxication. History of the following; CAD, severe noncompliance, alcoholism, previous cardiac stents, hypertension, hyperlipidemia, myocardial infarction, osteoarthritis. History of Present Illness History of Present Illness 11/02/2021 Patient seen and examined this morning He is alert and oriented and smiling and talking Wants to go home Discussed with case management Discussed with RN Chart reviewed Troponin 324 BNP 1217 Vitals/I&O Vitals/I&O: Vital Signs Date Time Temp Pulse Resp B/P (MAP) Pulse Ox O2 Delivery O2 Flow Rate FiO2 11/02/21 09:00 83 152/97 11/02/21 07:00 97.7 18 94 Nasal Cannula 2.0 97.7 I & O 11/01/21 11/01/21 11/02/21 15:00 23:00 07:00 Intake Total 100 ml 0 ml Output Total 550 ml Balance 100 ml -550 ml Physical Exam General: Alert, Oriented X3, Cooperative Heart: Regular rate (SR), Other (distant heart sounds) Lungs: Clear Abdomen: Soft, No tenderness, Other (truncal obesity) Extremities: No cyanosis, Other (trace LE edema) Skin: No breakdown, No significant lesion Labs Labs: Laboratory Tests Test 11/01/21 15:05 11/01/21 16:23 11/01/21 19:50 11/01/21 23:35 White Blood Count 6.3 x10^3/uL (4.0-11.0) Red Blood Count 4.65 x10^6/uL (4.30-5.70) Hemoglobin 14.6 g/dL (13.0-17.5) Hematocrit 43.0 % (39.0-53.0) Mean Corpuscular Volume 93 fL (79-100) Mean Corpuscular Hemoglobin 32 pg (25-35) Mean Corpuscular Hemoglobin Concent 34 g/dL (31-37) Red Cell Distribution Width 13.2 % (11.5-14.5) Platelet Count 298 x10^3/uL (140-400) Neutrophils (%) (Auto) 76 % (31-73) Lymphocytes (%) (Auto) 18 % (24-48) Monocytes (%) (Auto) 5 % (0-9) Eosinophils (%) (Auto) 1 % (0-3) Basophils (%) (Auto) 1 % (0-3) Neutrophils # (Auto) 4.7 x10^3/uL (1.8-7.7) Lymphocytes # (Auto) 1.1 x10^3/uL (1.0-4.8) Monocytes # (Auto) 0.3 x10^3/uL (0.0-1.1) Eosinophils # (Auto) 0.0 x10^3/uL (0.0-0.7) Basophils # (Auto) 0.0 x10^3/uL (0.0-0.2) Prothrombin Time 11.7 SEC (11.7-14.0) Prothromb Time International Ratio 0.9 (0.8-1.1) Sodium Level 139 mmol/L (136-145) Potassium Level 3.6 mmol/L (3.5-5.1) Chloride Level 103 mmol/L (98-107) Carbon Dioxide Level 20 mmol/L (21-32) Anion Gap 16 (6-14) Blood Urea Nitrogen 15 mg/dL (8-26) Creatinine 1.1 mg/dL (0.7-1.3) Estimated GFR (Cockcroft-Gault) 68.1 BUN/Creatinine Ratio 14 (6-20) Glucose Level 92 mg/dL (70-99) Calcium Level 8.7 mg/dL (8.5-10.1) Magnesium Level 2.3 mg/dL (1.8-2.4) Total Bilirubin 0.3 mg/dL (0.2-1.0) Aspartate Amino Transf (AST/SGOT) 21 U/L (15-37) Alanine Aminotransferase (ALT/SGPT) 22 U/L (16-63) Alkaline Phosphatase 111 U/L (46-116) Troponin I High Sensitivity 369 ng/L (4-75) 379 ng/L (4-75) 324 ng/L (4-75) KW-Lit-D-Type Natriuretic Peptide 1217 pg/mL (0-124) Total Protein 7.9 g/dL (6.4-8.2) Albumin 3.7 g/dL (3.4-5.0) Albumin/Globulin Ratio 0.9 (1.0-1.7) Lipase 127 U/L (73-393) Ethyl Alcohol Level 361 mg/dL (0-10) Urine Collection Type Unknown Urine Color Straw Urine Clarity Clear Urine pH 5.5 (<5.0-8.0) Urine Specific [place] 1.005 (1.000-1.030) Urine Protein Negative mg/dL (NEG-TRACE) Urine Glucose (UA) Negative mg/dL (NEG) Urine Ketones (Stick) Negative mg/dL (NEG) Urine Blood Negative (NEG) Urine Nitrite Negative (NEG) Urine Bilirubin Negative (NEG) Urine Urobilinogen Dipstick 0.2 mg/dL (0.2 mg/dL) Urine Leukocyte Esterase Negative (NEG) Urine RBC 0 /HPF (0-2) Urine WBC 0 /HPF (0-4) Urine Bacteria 0 /HPF (0-FEW) Urine Opiates Screen Neg (NEG) Urine Methadone Screen Neg (NEG) Urine Barbiturates Neg (NEG) Urine Phencyclidine Screen Neg (NEG) Urine Amphetamine/Methamphetamine Neg (NEG) Urine Benzodiazepines Screen Neg (NEG) Urine Cocaine Screen Neg (NEG) Urine Cannabinoids Screen Neg (NEG) Urine Ethyl Alcohol Pos (NEG) Heparin Anti-Xa Act, Unfractionated < 0.10 IU/mL (0.30-0.70) Test 11/02/21 04:00 Heparin Anti-Xa Act, Unfractionated 0.20 IU/mL (0.30-0.70) Assessment and Plan Assessmemt and Plan Resolving respiratory failure, COPD, chest pain, elevated troponin, severe noncompliance, alcohol intoxication. History of the following; CAD, severe noncompliance, alcoholism, previous cardiac stents, hypertension, hyperlipidemia, myocardial infarction, osteoarthritis. Plan Now that he is off BiPAP and alert and not drunk I suspect we can let him go home We will await further cardiology input For now continue the following: Cardiac monitoring Aspirin Plavix statins COPD protocol Home meds Alcohol withdrawal protocol DVT prophylaxis Hope to discharge this afternoon if okay with cardiology He apparently has an appointment with Dr. Delgado on November 22 Comment Review of Relevant I have reviewed the following items mandy (where applicable) has been applied. Medications: Current Medications Medications (Trade) Dose Ordered Sig/Rayna Route PRN Reason Start Time Stop Time Status Last Admin Dose Admin Nitroglycerin (Nitrostat) 0.4 mg PRN Q5MIN PRN SL CP RATING > 1/10 11/01/21 15:15 11/02/21 15:14 11/01/21 15:38 Heparin Sodium (Porcine) (Heparin Sodium) 4,000 unit 1X ONCE IV 11/01/21 15:15 11/01/21 15:41 DC 11/01/21 15:50 Heparin Sodium/ Dextrose 250 ml @ 10.32 mls/ hr 1X ONCE IV 11/01/21 15:15 11/02/21 15:28 11/01/21 15:15 Isosorbide Mononitrate (Imdur) 30 mg DAILY PO 11/02/21 09:00 11/02/21 08:58 Aspirin (Ecotrin) 325 mg DAILYWBKFT PO 11/02/21 08:00 11/02/21 08:58 Atorvastatin Calcium (Lipitor) 40 mg QHS PO 11/01/21 21:00 11/01/21 20:30 Clopidogrel Bisulfate (Plavix) 75 mg DAILYWBKFT PO 11/02/21 08:00 11/02/21 09:00 Lisinopril (Prinivil) 5 mg DAILY PO 11/02/21 09:00 11/02/21 09:00 Metoprolol Tartrate (Lopressor) 12.5 mg BID PO 11/01/21 21:00 11/02/21 08:59 Pantoprazole Sodium (Protonix) 40 mg DAILYAC PO 11/02/21 07:30 11/02/21 09:00 Ibuprofen (Motrin) 800 mg PRN Q8HRS PRN PO INFLAMMATION 11/01/21 16:15 11/01/21 20:30 Methylprednisolone Sodium Succinate (SOLU-Medrol 125MG VIAL) 125 mg 1X ONCE IV 11/01/21 16:45 11/01/21 16:46 DC 11/01/21 16:45 Lorazepam (Ativan) 1 mg PRN Q6HRS PRN PO ANXIETY / AGITATION 11/01/21 22:45 11/01/21 22:42 Heparin Sodium (Porcine) (Heparin Sodium) 2,200 unit PRN Q6HRS PRN IV FOR UFH LEVEL LESS THAN 0.2 11/02/21 00:45 11/02/21 00:57 Justifications for Admission Other Justification CAMMIE MARRERO III DO Nov 02, 2021 10:11
[2021-11-02] MEDS ORDERED: CLON0.1T PO (10:19)
[2021-11-02] MEDS ORDERED: METH4TAB2 PO (10:19)
--- NOTE | 2021-11-02 12:20 | PDOC ---
SHEEBA INGRAM RACING DRIVER 11/02/21 1220: CARDIO Progress Notes Date and Time Date of Service 11/02/2021 Time of Evaluation 1210 Subjective Subjective: No Chest Pain, No shortness of breath, No Palpitations Vitals Vitals Vital Signs Date Time Temp Pulse Resp B/P (MAP) Pulse Ox O2 Delivery O2 Flow Rate FiO2 11/02/21 09:00 83 152/97 11/02/21 07:00 97.7 18 94 Nasal Cannula 2.0 97.7 Weight Weight [ ] Input and Output Intake and Output Intake and Output 11/02/21 07:00 Intake Total 100 ml Output Total 550 ml Balance -450 ml Intake Oral 100 ml Output Urine Total 550 ml Laboratory Labs Laboratory Tests Test 11/01/21 15:05 11/01/21 16:23 11/01/21 19:50 11/01/21 23:35 White Blood Count 6.3 x10^3/uL (4.0-11.0) Red Blood Count 4.65 x10^6/uL (4.30-5.70) Hemoglobin 14.6 g/dL (13.0-17.5) Hematocrit 43.0 % (39.0-53.0) Mean Corpuscular Volume 93 fL (79-100) Mean Corpuscular Hemoglobin 32 pg (25-35) Mean Corpuscular Hemoglobin Concent 34 g/dL (31-37) Red Cell Distribution Width 13.2 % (11.5-14.5) Platelet Count 298 x10^3/uL (140-400) Neutrophils (%) (Auto) 76 % (31-73) Lymphocytes (%) (Auto) 18 % (24-48) Monocytes (%) (Auto) 5 % (0-9) Eosinophils (%) (Auto) 1 % (0-3) Basophils (%) (Auto) 1 % (0-3) Neutrophils # (Auto) 4.7 x10^3/uL (1.8-7.7) Lymphocytes # (Auto) 1.1 x10^3/uL (1.0-4.8) Monocytes # (Auto) 0.3 x10^3/uL (0.0-1.1) Eosinophils # (Auto) 0.0 x10^3/uL (0.0-0.7) Basophils # (Auto) 0.0 x10^3/uL (0.0-0.2) Prothrombin Time 11.7 SEC (11.7-14.0) Prothromb Time International Ratio 0.9 (0.8-1.1) Sodium Level 139 mmol/L (136-145) Potassium Level 3.6 mmol/L (3.5-5.1) Chloride Level 103 mmol/L (98-107) Carbon Dioxide Level 20 mmol/L (21-32) Anion Gap 16 (6-14) Blood Urea Nitrogen 15 mg/dL (8-26) Creatinine 1.1 mg/dL (0.7-1.3) Estimated GFR (Cockcroft-Gault) 68.1 BUN/Creatinine Ratio 14 (6-20) Glucose Level 92 mg/dL (70-99) Calcium Level 8.7 mg/dL (8.5-10.1) Magnesium Level 2.3 mg/dL (1.8-2.4) Total Bilirubin 0.3 mg/dL (0.2-1.0) Aspartate Amino Transf (AST/SGOT) 21 U/L (15-37) Alanine Aminotransferase (ALT/SGPT) 22 U/L (16-63) Alkaline Phosphatase 111 U/L (46-116) Troponin I High Sensitivity 369 ng/L (4-75) 379 ng/L (4-75) 324 ng/L (4-75) BW-Dtb-G-Type Natriuretic Peptide 1217 pg/mL (0-124) Total Protein 7.9 g/dL (6.4-8.2) Albumin 3.7 g/dL (3.4-5.0) Albumin/Globulin Ratio 0.9 (1.0-1.7) Lipase 127 U/L (73-393) Ethyl Alcohol Level 361 mg/dL (0-10) Urine Collection Type Unknown Urine Color Straw Urine Clarity Clear Urine pH 5.5 (<5.0-8.0) Urine Specific [place] 1.005 (1.000-1.030) Urine Protein Negative mg/dL (NEG-TRACE) Urine Glucose (UA) Negative mg/dL (NEG) Urine Ketones (Stick) Negative mg/dL (NEG) Urine Blood Negative (NEG) Urine Nitrite Negative (NEG) Urine Bilirubin Negative (NEG) Urine Urobilinogen Dipstick 0.2 mg/dL (0.2 mg/dL) Urine Leukocyte Esterase Negative (NEG) Urine RBC 0 /HPF (0-2) Urine WBC 0 /HPF (0-4) Urine Bacteria 0 /HPF (0-FEW) Urine Opiates Screen Neg (NEG) Urine Methadone Screen Neg (NEG) Urine Barbiturates Neg (NEG) Urine Phencyclidine Screen Neg (NEG) Urine Amphetamine/Methamphetamine Neg (NEG) Urine Benzodiazepines Screen Neg (NEG) Urine Cocaine Screen Neg (NEG) Urine Cannabinoids Screen Neg (NEG) Urine Ethyl Alcohol Pos (NEG) Heparin Anti-Xa Act, Unfractionated < 0.10 IU/mL (0.30-0.70) Test 11/02/21 04:00 11/02/21 11:33 Heparin Anti-Xa Act, Unfractionated 0.20 IU/mL (0.30-0.70) 0.19 IU/mL (0.30-0.70) Physical Exam LUNGS: Other (diminished bases) Heart: RRR (SR) Abdomen: Soft N/T Extremities: Other (anasarca) Neurology: alert, oriented, follow commands Assessment Assessment 1. Acute respiratory failure with CHF and likely AECOPD off bipap 2. Acute on chronic combined systolic/diastolic CHF appears compensated 3. CAD: with prior anterolateral wall STEMI with PCI/HANG to LAD on 10/01/2021 4. Hypertension; Controlled 5. Hyperlipidemia; statin therapy 6. Suspect AECOPD with hx of tobaccoism 7. Continued ETOH abuse: level at 361 8. NSTEMI: demand mediated, type 2. EKG SR without acute changes by comparison Recommendations Continue secondary prevention measures. ASA/plavix.High dose statin. DC heparin Bipap PRN Lifestyle modification Reinforced treatment adherance. Poor compliance has not taken his meds for unknown duration or unknown if he filled his Rx Social service consult He has a follow up with Dr. Lira on November 22 at 2 PM Justicifation of Admission Dx: Justifications for Admission: Justification of Admission Dx: N/A Angina: Symp at Rest GALI LIRA MD 11/02/21 [id number]: CARDIO Progress Notes Assessment Assessment Patient seen and examined. Agree with DISTRIBUTION ACCOUNTING CLERK's assessment and plan. Acute resp failure prob secondary to combination of acute COPD exacerbation and ac on chr combined syst/diast HF NSTEMI prob demand ischemia CAD s/p recent PCI clinically stable Importance of med compliance reemphasized Follow-up as scheduled SHEEBA INGRAM APRN Nov 02, 2021 12:20 GALI LIRA MD Nov 02, 2021 17:15
--- NOTE | 2021-11-02 12:54 | NUR ---
SS following for discharge planning. SS reviewed pt chart and discussed with pt RN. Pt is currently requiring oxygen at two liters nasal canula. Cardiology following. Self pay. Med Assist following. Resources provided for [facility], Good RX, and $4 medication list from [employer]. Discharge order on the chart for home with self care.
[2021-11-02 15:00] VITALS: BP 156/105
[2021-11-07] MEDS ORDERED: FOLIC ACID 1 MG TABLET. PO SCH (09:00)
[2021-11-07] MEDS ORDERED: MULTIVITAMIN with MINERAL TABLET. PO SCH (09:00)
== END 2021-11-02 18:31 | disposition home or self-care (01) | DRG 280 ==
LOC: ER 15:01 → 6 SOUTH 16:30
PROVIDERS: ADMIT Internal Medicine; ATTEND Internal Medicine
PROC: 5A09357 Assistance with Respiratory Ventilation, Less than 24 Consecutive Hours, Continuous Positive Airway Pressure (ICD-10-PCS; principal; 2021-11-01)
DX: I11.0 Hypertensive heart disease with heart failure (principal); I50.43 Acute on chronic combined systolic (congestive) and diastolic (congestive) heart failure; I21.A1 Myocardial infarction type 2; J96.00 Acute respiratory failure, unspecified whether with hypoxia or hypercapnia; J44.1 Chronic obstructive pulmonary disease with (acute) exacerbation; J98.11 Atelectasis; R07.89 Other chest pain; E78.5 Hyperlipidemia, unspecified; F10.229 Alcohol dependence with intoxication, unspecified; F17.210 Nicotine dependence, cigarettes, uncomplicated; I25.10 Atherosclerotic heart disease of native coronary artery without angina pectoris; I25.2 Old myocardial infarction; Z82.49 Family history of ischemic heart disease and other diseases of the circulatory system; Z91.14 Patient's other noncompliance with medication regimen; Z91.19 Patient's noncompliance with other medical treatment and regimen; Z95.5 Presence of coronary angioplasty implant and graft; F41.9 Anxiety disorder, unspecified; M19.90 Unspecified osteoarthritis, unspecified site
CPT/HCPCS: 36415; 71045; 80053; 80307; 81001; 83690; 83735; 83880; 84484; 85025; 85520; 85610; 93005; 94660; 94760; 96365; 96376; G0480; J1644; J2930; J3411; J3490; J7030; 99285-25; G0378